=== PATIENT | female | born 1945 | race Caucasian/White ===

== ENCOUNTER 2016-07-21 20:33 | Emergency (ER) | payer MEDICARE, BC ==
[2016-07-21 22:02] LABS: Appearance,Urine Cloudy (Clear); Bilirubin,Urine Negative (Negative); Glucose,Urine (UA) Negative (Negative); Ketones,Urine Negative (Negative); Leukocyte Esterase,Urine Moderate (Negative); Mucus,Urine Rare /hpf; Nitrite,Urine Negative (Negative); PH, Urine 5.5 (5.0-8.0); Particle Count 4726; Protein,Urine 1+ (Negative); RBC,Urine 14 /hpf (0-5); Specific Gravity,Urine 1.015 (1.001-1.035); Squamous Epithelial Cell,Urine 2 /hpf (0-4); UA Billing (MACRO vs. MICRO) MICRO; Urobilinogen,Urine <2.0 mg/dL (<2.0); WBC,Urine 26 /hpf (0-5)
--- NOTE | 2016-07-21 22:45 | ED ---
General Adult HPI - General Chief complaint: Psychiatric Symptoms Stated complaint: Poss Mental Health Time Seen by Provider: 07/21/16 21:08 Source: patient Mode of arrival: ambulatory Limitations: no limitations - History of Present Illness Initial comments: 71-year-old female with past medical history of early dementia presented for evaluation of increased agitation this evening. Family states that she has had an increasing incidence of trying to go out at night and take walks. Tonight however she stated that she had received a phone call from some kids who wanted to go to the beach for a bonfire and that they were going to come by and pick her up. When her family told her that this hadn't happened and try to bring her back inside she became very agitated and continued to try to get outside. They were eventually able to get her to come to the ED to be evaluated. During interview she denied any pain or discomfort and stated that she felt completely fine. - Related Data Home Medications Medication Instructions Recorded Confirmed Aspirin 162 mg PO BID 12/31/13 09/12/15 Atorvastatin [Lipitor] 40 mg PO HS 12/31/13 09/12/15 Metoprolol Tartrate [Lopressor] 50 mg PO BID 12/31/13 09/12/15 Nitroglycerin Sl Tabs [Nitrostat] 0.4 mg SL Q5M PRN 12/31/13 09/12/15 Pantoprazole Sodium [Protonix] 40 mg PO DAILY 12/31/13 09/12/15 Cholecalciferol [Vitamin D3] 1,000 unit PO DAILY 04/23/14 09/12/15 PARoxetine [Paxil] 20 mg PO DAILY 12/08/14 09/12/15 ALPRAZolam [Xanax] 0.5 mg PO BID PRN 04/17/15 09/12/15 Hydrocodone/Acetaminophen [[place] 1 tab PO Q6HR PRN 04/17/15 09/12/15 5-325] Magnesium Gluconate [Magonate] 500 mg PO DAILY 04/17/15 09/12/15 Levothyroxine Sodium [Synthroid] 112 mcg PO DAILY 09/09/15 09/12/15 Insuln Asp Prt/Insulin Aspart 30 unit SQ HS 09/12/15 09/12/15 [NovoLOG MIX 70-30 VIAL] Insuln Asp Prt/Insulin Aspart 50 unit SQ QAM 09/12/15 09/12/15 [NovoLOG MIX 70-30 VIAL] Lisinopril-Hctz 10-12.5 mg 1 tab PO DAILY 09/12/15 09/12/15 [Zestoretic 10-12.5] hydrALAZINE HCL [Apresoline] 25 mg PO BID 09/12/15 09/12/15 Previous Rx's Medication Instructions Recorded Insulin NPH/Reg Insulin 70/30 30 unit SQ HS vial 09/13/15 [humuLIN 70/30 VIAL] Insulin NPH/Reg Insulin 70/30 50 unit SQ AC-BRKFST vial 09/13/15 [humuLIN 70/30 VIAL] Cephalexin [Keflex] 500 mg PO Q12HR #14 cap 07/21/16 Allergies Allergy/AdvReac Type Severity Reaction Status Date / Time codeine AdvReac Nausea Verified 07/21/16 20:47 erythromycin base AdvReac Nausea Verified 07/21/16 20:47 [Erythromycin Base] Iodinated Contrast Media - AdvReac ELEVATED Verified 07/21/16 20:47 Oral and B/P, FELT [Iodinated Contrast Media - LIKE PASSED IV Dye] methylprednisolone AdvReac Confusion Verified 07/21/16 20:47 [From Medrol] Sulfa (Sulfonamide AdvReac DIZZYNESS Verified 07/21/16 20:47 Antibiotics) Review of Systems ROS Statement: Those systems with pertinent positive or pertinent negative responses have been documented in the HPI. General: Patient denies fever, chills,nausea, or vomiting. HEENT: No visual changes. No eye pain. No nasal symptoms. No dysphagia.No odynophagia. No ENT pain. Cardiac: No chest pain. No palpitations. Pulmonary; No dyspnea. Negative cough. GI: No abdominal pain. No diarrhea. No constipation. No bowel habit changes. No melena. No hematochezia. : No dysuria.No hematuria. No hesitancy. No urgency. No renal lithiasis history. Musculoskeletal: No musculoskeletal pain. Orthopedic: Denies fracture history. Integumentary: Denies rash. Denies pruritis. Neurologic: Confusion and dementia that worsens in the evenings per family. Denies any lateralizing weakness. Denies numbness. Denies tingling. No seizure activity. Denies TIA or CVA. Heme/Onc: Denies anemia. Denies cancer. Denies adenopathy. ROS Other: All systems not noted in ROS Statement are negative. Past Medical History Past Medical History: Coronary Artery Disease (CAD), Cancer, Diabetes Mellitus, Hyperlipidemia, Hypertension, Myocardial Infarction ([place]), Renal Disease Additional Past Medical History / Comment(s): osteomyelitis Lt hand/STAGE 3 RENAL FAILURE/THYROID CANCER Last Myocardial Infarction Date:: 1999 History of Any Multi-Drug Resistant Organisms: MRSA Date of last positivie culture/infection: 07/01/2015 MDRO Source:: knee left Past Surgical History: Appendectomy, Heart Catheterization With Stent, Orthopedic Surgery Additional Past Surgical History / Comment(s): left hand, thyroidectomy, neck fusion/CARPAL TUNNEL REPAIR ASHLEY, STENT X1 Past Anesthesia/Blood Transfusion Reactions: No Reported Reaction Date of Last Stent Placement:: 1999 Past Psychological History: Anxiety, Depression, Panic Disorder Smoking Status: Never smoker Past Alcohol Use History: None Reported Past Drug Use History: None Reported - Past Family History Mother Family Medical History: Diabetes Mellitus Father Family Medical History: Myocardial Infarction ([place]) General Exam - General Exam Comments Initial Comments: General: The patient is awake and alert, in no distress, and does not appear acutely ill. Eye: Pupils are equal, round and reactive to light, extra-ocular movements are intact; there is normal conjunctiva bilaterally. No signs of icterus. Ears, nose, mouth and throat: There are moist mucous membranes and no oral lesions. Neck: The neck is supple, there is no tenderness or JVD. Cardiovascular: There is a regular rate and rhythm. No murmur, rub or gallop is appreciated. Respiratory: Lungs are clear to auscultation, respirations are non-labored, breath sounds are equal. No wheezes, stridor, rales, or rhonchi. Gastrointestinal: Soft, non-distended, suprapubic abdominal tenderness without masses or organomegaly noted. There is no rebound or guarding present. No CVA tenderness. Bowel sounds are unremarkable. Back: There is no tenderness to palpation in the midline. There is no obvious deformity. No rashes noted. Musculoskeletal: Normal ROM, no tenderness, There is no pedal edema. There is no calf tenderness or swelling. Sensation intact. Pulses equal bilaterally 2+. Neurological: CN II-XII intact, There are no obvious motor or sensory deficits. Coordination appears grossly intact. Speech is normal. Skin: Skin is warm and dry and no rashes or lesions are noted. Psychiatric: Cooperative, appropriate mood & affect, Limitations: no limitations Course Vital Signs 07/21/16 07/21/16 20:40 22:50 Temperature 98.5 F 98.2 F Pulse Rate 72 82 Respiratory 18 20 Rate Blood Pressure 188/79 178/82 O2 Sat by Pulse 96 98 Oximetry Medical Decision Making - Medical Decision Making 31-year-old female presented for evaluation of agitation this evening. Patient has early dementia and has been exhibiting signs and symptoms of sundowning, becoming more confused in the evenings on a consistent basis. Tonight she tried to go outside to wait for some people to pick her up to take her to a bonfire. Family states there was no such bonfire for her to go to the mother try to get her and she became agitated and upset. They bring her to the ED for evaluation. On physical examination she is answering all questions appropriately and is cooperative and when asked if she is in any pain or distress she states no. While examining her abdomen though she has suprapubic abdominal tenderness which she states is a burning that will occasionally worse when she urinates. Urinalysis was obtained which showed a urinary tract infection. Family was informed that she would be discharged with a prescription for an antibiotic and that they should follow-up with her primary care physician for possible evaluation of her social status/mental status and whether or not she would require placement in a long-term care facility. The family acknowledged an understanding of this information and agreed with this plan of care. He further stated that they would call her primary care physician on Saturday to set up an appointment. - Lab Data Lab Results 07/21/16 Range/Units 21:20 Urine Color Yellow Urine Appearance Cloudy H (Clear) Urine pH 5.5 (5.0-8.0) Ur Specific Adams 1.015 (1.001-1.035) Urine Protein 1+ H (Negative) Urine Glucose (UA) Negative (Negative) Urine Ketones Negative (Negative) Urine Blood Negative (Negative) Urine Nitrate Negative (Negative) Urine Bilirubin Negative (Negative) Urine Urobilinogen <2.0 (<2.0) mg/dL Ur Leukocyte Esterase Moderate H (Negative) Urine RBC 14 H (0-5) /hpf Urine WBC 26 H (0-5) /hpf Ur Squamous Epith Cells 2 (0-4) /hpf Urine Mucus Rare H (None) /hpf Disposition Clinical Impression: UTI (urinary tract infection) Disposition: HOME SELF-CARE Condition: Stable Instructions: Urinary Tract Infection in Women (ED) Additional Instructions: Please use medication as discussed. Please follow up with family doctor if symptoms have not improved over the next two days. Please return to the emergency room if your symptoms increase or worsen or for any other concerns. Prescriptions: Cephalexin [Keflex] 500 mg PO Q12HR #14 cap Referrals: Cesar Nielsen DO [Primary Care Provider] - 1-2 days Time of Disposition: 22:45
[2016-07-21 22:57] VITALS: BP 178/82; PULSE 82; RESP 20; TEMP 98.2
== END 2016-07-21 22:50 | disposition home or self-care (01) ==
LOC: EC 20:33
DX: N39.0 Urinary tract infection, site not specified (principal); E11.22 Type 2 diabetes mellitus with diabetic chronic kidney disease; N18.3 Chronic kidney disease, stage 3 (moderate); F03.90 Unspecified dementia, unspecified severity, without behavioral disturbance, psychotic disturbance, mood disturbance, and anxiety; I25.2 Old myocardial infarction; I10 Essential (primary) hypertension; E78.5 Hyperlipidemia, unspecified; I25.10 Atherosclerotic heart disease of native coronary artery without angina pectoris; F41.9 Anxiety disorder, unspecified; F32.9 Major depressive disorder, single episode, unspecified; F41.0 Panic disorder [episodic paroxysmal anxiety]; Z79.82 Long term (current) use of aspirin; Z79.899 Other long term (current) drug therapy; Z79.4 Long term (current) use of insulin; Z91.041 Radiographic dye allergy status; Z95.5 Presence of coronary angioplasty implant and graft; Z85.850 Personal history of malignant neoplasm of thyroid; Z88.5 Allergy status to narcotic agent; Z88.2 Allergy status to sulfonamides; Z88.8 Allergy status to other drugs, medicaments and biological substances; Z88.1 Allergy status to other antibiotic agents
CPT/HCPCS: 81001; 99284

== ENCOUNTER 2016-08-19 13:14 | Emergency (ER) | payer MEDICARE, BC ==
[2016-08-19] MEDS ORDERED: SODIUM CHLORIDE 0.9% 1,000 ML IV STA ×2 (13:19→14:17)
--- NOTE | 2016-08-19 13:58 | ED ---
Upper Extremity HPI <NobleMike - Last Filed: 08/19/16 14:21> - General Source: patient Mode of arrival: wheelchair Limitations: no limitations - History of Present Illness Place: home <Cheri Carter - Last Filed: 08/19/16 16:45> - General Chief Complaint: Fall Stated Complaint: Fall Left shoulder pain Time Seen by Provider: 08/19/16 13:19 - History of Present Illness Initial Comments: Patient is a 71-year-old right-handed white female with a medical history significant for diabetes mellitus, hypertension, coronary artery disease, chronic renal disease presenting to the emergency department with complaints of left shoulder pain. Onset of injury approximately 45 minutes prior to arrival. Patient states that she was in her bedroom when she turned around and she thinks her shoe got stuck and she fell. Patient currently complains of a burning sensation to her left shoulder describing pain as an 8 out of 10, exacerbated with activity, somewhat relieved at rest. Patient primarily describes area of pain to the posterior of her left shoulder radiating down her left upper arm. Patient states she is unable to extend her right arm. Patient denies previous injury or surgery to her left upper extremity. Patient denies loss of consciousness. Patient denies neck pain. Patient denies recent illness , chills, nausea, vomiting, shortness of breath, chest pain, or abdominal pain. 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 Patient denies treatment prior to arrival. (Cheri Carter) - Related Data Home Medications Medication Instructions Recorded Confirmed Aspirin 162 mg PO DAILY 12/31/13 08/19/16 Metoprolol Tartrate [Lopressor] 50 mg PO BID 12/31/13 08/19/16 Nitroglycerin Sl Tabs [Nitrostat] 0.4 mg SUBLINGUAL Q5M PRN 12/31/13 08/19/16 Pantoprazole Sodium [Protonix] 40 mg PO DAILY 12/31/13 08/19/16 Cholecalciferol [Vitamin D3] 1,000 unit PO DAILY 04/23/14 08/19/16 ALPRAZolam [Xanax] 0.5 mg PO BID PRN 04/17/15 08/19/16 Magnesium Gluconate [Magonate] 500 mg PO DAILY 04/17/15 08/19/16 Levothyroxine Sodium [Synthroid] 112 mcg PO DAILY 09/09/15 08/19/16 Lisinopril-Hctz 10-12.5 mg 1 tab PO DAILY 09/12/15 08/19/16 [Zestoretic 10-12.5] hydrALAZINE HCL [Apresoline] 25 mg PO BID PRN 09/12/15 08/19/16 Atorvastatin [Lipitor] 80 mg PO HS 08/19/16 08/19/16 Insulin NPH/Reg Insulin 70/30 50 unit SQ QAM 08/19/16 08/19/16 [humuLIN 70/30 VIAL] Previous Rx's Medication Instructions Recorded Insulin NPH/Reg Insulin 70/30 30 unit SQ HS vial 09/13/15 [humuLIN 70/30 VIAL] Allergies Allergy/AdvReac Type Severity Reaction Status Date / Time codeine AdvReac Nausea Verified 08/19/16 13:42 erythromycin base AdvReac Nausea Verified 07/21/16 20:47 [Erythromycin Base] Iodinated Contrast Media - AdvReac ELEVATED Verified 08/19/16 13:42 Oral and B/P, FELT [Iodinated Contrast Media - LIKE PASSED IV Dye] methylprednisolone AdvReac Confusion Verified 07/21/16 20:47 [From Medrol] Sulfa (Sulfonamide AdvReac DIZZYNESS Verified 08/19/16 13:42 Antibiotics) Review of Systems ROS Other: All systems not noted in ROS Statement are negative. <Mike Noble - Last Filed: 08/19/16 14:21> ROS Other: All systems not noted in ROS Statement are negative. <Cheri Carter - Last Filed: 08/19/16 16:45> ROS Statement: Those systems with pertinent positive or pertinent negative responses have been documented in the HPI. Past Medical History Past Medical History: Coronary Artery Disease (CAD), Cancer, Diabetes Mellitus, Hyperlipidemia, Hypertension, Myocardial Infarction ([place]), Renal Disease Additional Past Medical History / Comment(s): osteomyelitis Lt hand/STAGE 3 RENAL FAILURE/THYROID CANCER Last Myocardial Infarction Date:: 1999 History of Any Multi-Drug Resistant Organisms: MRSA Date of last positivie culture/infection: 07/01/2015 MDRO Source:: knee left Past Surgical History: Appendectomy, Heart Catheterization With Stent, Orthopedic Surgery Additional Past Surgical History / Comment(s): left hand, thyroidectomy, neck fusion/CARPAL TUNNEL REPAIR ASHLEY, STENT X1 Past Anesthesia/Blood Transfusion Reactions: No Reported Reaction Date of Last Stent Placement:: 1999 Past Psychological History: Anxiety, Depression, Panic Disorder Smoking Status: Never smoker Past Alcohol Use History: None Reported Past Drug Use History: None Reported - Past Family History Mother Family Medical History: Diabetes Mellitus Father Family Medical History: Myocardial Infarction ([place]) <Cheri Carter - Last Filed: 08/19/16 16:45> General Exam Limitations: no limitations General appearance: alert, anxious Head exam: Present: atraumatic, normocephalic, normal inspection Eye exam: Present: normal appearance, PERRL. Absent: scleral icterus, conjunctival injection ENT exam: Present: normal exam, normal oropharynx, mucous membranes moist, TM's normal bilaterally, normal external ear exam Neck exam: Present: normal inspection, full ROM. Absent: tenderness, meningismus, lymphadenopathy Respiratory exam: Present: normal lung sounds bilaterally. Absent: wheezes, rales, rhonchi, chest wall tenderness Cardiovascular Exam: Present: regular rate, normal rhythm, normal heart sounds GI/Abdominal exam: Present: soft, normal bowel sounds. Absent: tenderness Left Shoulder Exam: Present: tenderness, swelling, tenderness over AC joint. Absent : full ROM Upper Arm exam: Present: tenderness. Absent: swelling, ecchymosis Elbow exam: Present: normal inspection, tenderness over radial head. Absent: full ROM (Is unable to extend left elbow), tenderness, swelling, ecchymosis, deformity Forearm Wrist exam: Present: normal inspection, full ROM. Absent: tenderness, swelling Hand Wrist exam: Present: normal inspection, full ROM. Absent: tenderness, swelling Neuro motor exam: Present: wrist extension intact, thumb opposition intact, thumb IP flexion intact, thumb adduction intact, fingers 2-5 abduction intact Neurosensory exam: Present: 2-point discrimination, radial nerve intact, ulnar nerve intact, median nerve intact Vascular: Present: normal capillary refill, radial pulse, brachial pulse, ulnar pulse. Absent: vascular compromise, pulse deficit radial art, pulse deficit ulnar art, pulse deficit brachial art Back exam: Present: normal inspection, full ROM. Absent: tenderness Neurological exam: Present: alert, oriented X3, other (No focal deficits noted) . Absent: motor sensory deficit Psychiatric exam: Present: normal affect, anxious Skin exam: Present: warm, dry, intact, normal color <Cheri Carter - Last Filed: 08/19/16 16:45> Course <Mike Noble - Last Filed: 08/19/16 14:21> <Cheri Carter - Last Filed: 08/19/16 16:45> Vital Signs 08/19/16 08/19/16 08/19/16 13:16 14:48 15:18 Temperature 99.1 F Pulse Rate 72 75 78 Respiratory 20 18 18 Rate Blood Pressure 168/75 160/70 225/89 O2 Sat by Pulse 98 94 L 96 Oximetry 08/19/16 15:43 Temperature Pulse Rate 91 Respiratory 18 Rate Blood Pressure 167/69 O2 Sat by Pulse 96 Oximetry - Reevaluation(s) Reevaluation #1: 08/19/16 14:21 Patient evaluated by myself, Dr. Noble. Patient did have a trip and fall. Patient is unclear how she actually landed. Patient denies syncope or head injury or loss of consciousness. Case was discussed in detail with Dr. Johnson who did review the films. He requests computed tomography scan. (Mike Noble) Reevaluation #2: Patient reevaluated. Patient continues to complain of left shoulder pain currently rated 8 out of 10. Blood pressure 225/89. Patient will be treated with 1 mg of Dilaudid IV push and hydralazine 10 mg IV push. 08/19/16 15:27 (Cheri Carter) Medical Decision Making <Mike Noble - Last Filed: 08/19/16 14:21> - Radiology Data Radiology results: report reviewed <Cheri Carter - Last Filed: 08/19/16 16:45> - Medical Decision Making Mildly displaced, comminuted fracture of the humeral head and neck. No definite glenoid fracture seen. There are approximately 5 fragments. Hypertrophic changes in the left AC joint. Patient provided with a sling to left upper extremity and instructed to follow-up with orthopedic surgeon on Saturday. Patient instructed to continue ice and tramadol for pain as needed. Patient's blood pressure improved with pain management and IV hydralazine. Patient instructed to follow-up with primary care physician. Patient and family verbalizes understanding and is in agreement with treatment plan. Return parameters and discharge instructions reviewed. (Cheri Carter) - Lab Data Lab Results 08/19/16 Range/Units 14:46 POC Glucose (mg/dL) 109 H (75-99) mg/dL POC Glu General Production Manager ID - Radiology Data X-ray left shoulder: Fracture dislocation of the left humerus. Fracture of the neck of the humerus. The greater tuberosity has been avulsed. There is an associated anterior dislocation. CT left shoulder without contrast: Mildly displaced, comminuted fracture of the humeral head and neck. No definite glenoid fracture seen. There are approximately 5 fragments. Hypertrophic changes in the left AC joint. (Cheri Carter) Disposition <Mike Noble - Last Filed: 08/19/16 14:21> Time of Disposition: 16:43 <Cheri Carter - Last Filed: 08/19/16 16:45> Clinical Impression: Traumatic closed fracture of surgical neck of left humerus with minimal displacement with delayed healing Disposition: HOME SELF-CARE Condition: Good Instructions: Fall Prevention for Older Adults (ED) Additional Instructions: Continue sling to left arm. Follow-up with orthopedic surgeon on Saturday. Continue tramadol for pain. Apply ice to area 4 times a day for approximately 15 minutes. Please return to the emergency department if symptoms do not improve or get worse. Follow-up with primary care physician as directed. Referrals: Cesar Nielsen DO [Primary Care Provider] - 1-2 days Todd Osuna DO [Doctor of Osteopathic Medicine] - 1-2 days
--- NOTE | 2016-08-19 14:01 | XR ---
EXAMINATION TYPE: XR shoulder complete LT DATE OF EXAM ORDERED: 08/19/2016 1:53 PM HISTORY: Pain. COMPARISON: Previous study dated 05/07/2014. FINDINGS: There is a fracture dislocation of the left humerus. There is a fracture of the neck of th e humerus. The greater tuberosity has been avulsed. There is an associated anterior dislocation. IMPRESSION: FRACTURE DISLOCATION OF THE LEFT GLENOHUMERAL JOINT.
[2016-08-19] MEDS ORDERED: HYDROmorphone 1 MG/ML 1 ML SYRINGE IVP STA ×2 (14:13→15:17)
[2016-08-19] MEDS ORDERED: ONDANSETRON 4 MG/2 ML VIAL IVP STA (14:14)
[2016-08-19 14:50] VITALS: RESP 18
[2016-08-19 14:50] LABS: Glucose,Whole Blood 109 mg/dL (75-99)
--- NOTE | 2016-08-19 15:15 | CT ---
EXAMINATION TYPE: CT shoulder LT wo con DATE OF EXAM: 08/19/2016 3:06 PM COMPARISON: NONE HISTORY: Fall CT DLP: 528.9 mGycm Automated exposure control for dose reduction was used. FINDINGS: Visualized portions of the lungs are clear. There is a mildly displaced, comminuted fracture of the humeral head and neck. No definite glenoid fr acture is seen. There are approximately 5 fragments. There hypertrophic changes in the left AC joint. IMPRESSION: MILDLY DISPLACED, COMMINUTED FRACTURE OF THE LEFT HUMERAL HEAD AND NECK.
[2016-08-19] MEDS ORDERED: hydrALAZINE HCL 20 MG/ML 1 ML VIAL IVP STA (15:19)
[2016-08-19 17:01] VITALS: BP 165/67; PULSE 77; TEMP 98.3
== END 2016-08-19 17:30 | disposition home or self-care (01) ==
LOC: EC 13:14
DX: S42.292A Other displaced fracture of upper end of left humerus, initial encounter for closed fracture (principal); S53.115A Anterior dislocation of left ulnohumeral joint, initial encounter; E11.9 Type 2 diabetes mellitus without complications; E78.5 Hyperlipidemia, unspecified; I25.10 Atherosclerotic heart disease of native coronary artery without angina pectoris; I10 Essential (primary) hypertension; I25.2 Old myocardial infarction; Z95.5 Presence of coronary angioplasty implant and graft; F41.9 Anxiety disorder, unspecified; F32.9 Major depressive disorder, single episode, unspecified; F41.0 Panic disorder [episodic paroxysmal anxiety]; Z79.82 Long term (current) use of aspirin; Z79.899 Other long term (current) drug therapy; Z79.52 Long term (current) use of systemic steroids; Z79.4 Long term (current) use of insulin; Z88.1 Allergy status to other antibiotic agents; Z88.5 Allergy status to narcotic agent; Z91.041 Radiographic dye allergy status; Z88.2 Allergy status to sulfonamides; W01.0XXA Fall on same level from slipping, tripping and stumbling without subsequent striking against object, initial encounter; Y92.89 Other specified places as the place of occurrence of the external cause
CPT/HCPCS: 36415; 73030; 73200; 99284; 96374; 96375 ×2; 96376; 96361; J0360; J2405; J1170

== ENCOUNTER → 2016-08-30 | Outpatient (CLI) | payer MEDICARE, BC ==
--- NOTE | 2016-08-31 08:13 | CT ---
EXAMINATION TYPE: CT brain wo con DATE OF EXAM: 08/30/2016 5:14 PM COMPARISON: Prior head CT 07 May 2014 HISTORY: Balance problems, hallucinations CT DLP: 973.9 mGycm Automated exposure control for dose reduction was used. FINDINGS: There is no acute intracranial hemorrhage, mass effect, or midline shift identified. The ventricles and sulci are within normal limits in size. Atheromatous change present in the vertebrobasilar and in ternal carotid arteries. Cortical atrophy, periventricular white matter demyelination changes are aga in noted. There is a calcification along the level of the anterior sylvian fissure on the left as not ed on multiple prior exams that is indeterminate. The globes are intact and the visualized sinuses ar e clear. IMPRESSION: No acute intracranial hemorrhage, mass effect, or midline shift is seen. Indeterminate calcifications along the anterior sylvian fissure as previously described. Findings may represent meningioma, aneur ysm not excluded. Consider additional imaging.
== END | disposition home or self-care (01) ==
LOC: RADCTMAIN 16:56
PROVIDERS: ATTEND Family Medicine
DX: G93.89 Other specified disorders of brain (principal); R26.89 Other abnormalities of gait and mobility; R44.3 Hallucinations, unspecified; R41.0 Disorientation, unspecified
CPT/HCPCS: 70450

== ENCOUNTER 2016-09-03 12:54 | Observation (INO) | payer MEDICARE, BC ==
[2016-09-03 13:39] LABS: Glucose,Whole Blood 103 mg/dL (75-99)
[2016-09-03] MEDS ORDERED: SODIUM CHLORIDE 0.9% 1,000 ML IV STA (13:59)
--- NOTE | 2016-09-03 14:03 | ED ---
General Adult HPI - General Chief complaint: Syncope Stated complaint: Near-syncope Time Seen by Provider: 09/03/16 13:37 Source: patient, family, RN notes reviewed Mode of arrival: ambulatory Limitations: no limitations - History of Present Illness Initial comments: Patient is a pleasant 71-year-old female presenting to the emergency department for near syncopal episode. Patient was sitting down eating lunch. Patient became drowsy and diaphoretic. Patient states she felt almost like she was going to fall asleep. Patient did not completely lose consciousness however felt like she was very close. Patient still remains somewhat drowsy however not as bad. Patient states maybe she has had some similar symptoms previously however not as severe. No chest pain. No dyspnea. No abdominal pain. No confusion. No isolated area of weakness. Patient does have a left humerus fracture from 2 weeks ago. - Related Data Home Medications Medication Instructions Recorded Confirmed Aspirin 162 mg PO DAILY 12/31/13 09/03/16 Metoprolol Tartrate [Lopressor] 50 mg PO BID 12/31/13 09/03/16 Nitroglycerin Sl Tabs [Nitrostat] 0.4 mg SUBLINGUAL Q5M PRN 12/31/13 09/03/16 Pantoprazole Sodium [Protonix] 40 mg PO DAILY 12/31/13 09/03/16 Cholecalciferol [Vitamin D3] 1,000 unit PO DAILY 04/23/14 09/03/16 Levothyroxine Sodium [Synthroid] 112 mcg PO DAILY 09/09/15 09/03/16 Lisinopril-Hctz 10-12.5 mg 1 tab PO DAILY 09/12/15 09/03/16 [Zestoretic 10-12.5] hydrALAZINE HCL [Apresoline] 25 mg PO BID 09/12/15 09/03/16 Atorvastatin [Lipitor] 80 mg PO HS 08/19/16 09/03/16 Insulin NPH/Reg Insulin 70/30 55 unit SQ QAM 08/19/16 09/03/16 [humuLIN 70/30 VIAL] Allopurinol [Zyloprim] 100 mg PO DAILY 09/03/16 09/03/16 Ciprofloxacin HCl [Cipro] 500 mg PO Q12HR 09/03/16 09/03/16 Insulin NPH/Reg Insulin 70/30 35 unit SQ HS 09/03/16 09/03/16 [humuLIN 70/30 VIAL] Magnesium Oxide [Mag-Ox] 400 mg PO DAILY 09/03/16 09/03/16 PARoxetine [Paxil] 20 mg PO DAILY 09/03/16 09/03/16 predniSONE See Taper PO DAILY 09/03/16 09/03/16 traMADol HCL [Ultram] 100 mg PO TID PRN 09/03/16 09/03/16 Allergies Allergy/AdvReac Type Severity Reaction Status Date / Time lorazepam [From Ativan] Allergy Unknown Verified 09/03/16 14:44 codeine AdvReac Nausea Verified 09/03/16 14:44 erythromycin base AdvReac Nausea Verified 09/03/16 14:44 [Erythromycin Base] Iodinated Contrast Media - AdvReac ELEVATED Verified 09/03/16 14:44 Oral and B/P, FELT [Iodinated Contrast Media - LIKE PASSED IV Dye] methylprednisolone AdvReac Confusion Verified 09/03/16 14:44 [From Medrol] Sulfa (Sulfonamide AdvReac DIZZYNESS Verified 09/03/16 14:44 Antibiotics) Review of Systems ROS Statement: Those systems with pertinent positive or pertinent negative responses have been documented in the HPI. ROS Other: All systems not noted in ROS Statement are negative. Constitutional: Denies: fever Eyes: Denies: eye pain ENT: Denies: ear pain Respiratory: Denies: cough, dyspnea Cardiovascular: Denies: chest pain Endocrine: Denies: fatigue Gastrointestinal: Denies: abdominal pain Genitourinary: Denies: dysuria Musculoskeletal: Denies: back pain Skin: Denies: rash Neurological: Denies: headache, weakness, confusion Past Medical History Past Medical History: Coronary Artery Disease (CAD), Cancer, Diabetes Mellitus, Hyperlipidemia, Hypertension, Myocardial Infarction ([place]), Renal Disease Additional Past Medical History / Comment(s): osteomyelitis Lt hand/STAGE 3 RENAL FAILURE/THYROID CANCER Last Myocardial Infarction Date:: 1999 History of Any Multi-Drug Resistant Organisms: MRSA Date of last positivie culture/infection: 07/01/2015 MDRO Source:: knee left Past Surgical History: Appendectomy, Heart Catheterization With Stent, Orthopedic Surgery Additional Past Surgical History / Comment(s): left hand, thyroidectomy, neck fusion/CARPAL TUNNEL REPAIR ASHLEY, STENT X1 Past Anesthesia/Blood Transfusion Reactions: No Reported Reaction Date of Last Stent Placement:: 1999 Past Psychological History: Anxiety, Depression, Panic Disorder Smoking Status: Never smoker Past Alcohol Use History: None Reported Past Drug Use History: None Reported - Past Family History Mother Family Medical History: Diabetes Mellitus Father Family Medical History: Myocardial Infarction ([place]) General Exam Limitations: no limitations General appearance: alert, in no apparent distress Head exam: Present: atraumatic Eye exam: Present: normal appearance, PERRL ENT exam: Present: normal oropharynx Neck exam: Present: normal inspection Respiratory exam: Present: normal lung sounds bilaterally Cardiovascular Exam: Present: regular rate, normal rhythm GI/Abdominal exam: Present: soft. Absent: tenderness Extremities exam: Present: tenderness (Left upper arm. Arm is in a sling) Neurological exam: Present: alert, oriented X3, CN II-XII intact Expanded Speech: Present: fluid speech Cranial nerves: EOM's Intact: Normal Sensory exam: Upper Extremity Light Touch: Abnormal Right (Patient states this is chronic and unchanged) Motor strength exam: RUE: 5, LUE: 5, RLE: 5, LLE: 5 Eye Response: (4) open spontaneously Motor Response: (6) obeys commands Verbal Response: (5) oriented Psychiatric exam: Present: normal affect, normal mood Skin exam: Present: normal color Course Vital Signs 09/03/16 09/03/16 09/03/16 13:19 14:26 15:09 Temperature 96.8 F L Pulse Rate 56 L 53 L 54 L Respiratory 20 16 16 Rate Blood Pressure 108/51 175/72 160/70 O2 Sat by Pulse 100 92 L 100 Oximetry 09/03/16 16:00 Temperature Pulse Rate 57 L Respiratory 16 Rate Blood Pressure 175/70 O2 Sat by Pulse 100 Oximetry - Reevaluation(s) Reevaluation #1: 09/03/16 15:43 DL this does not feel comfortable computed tomography scan and VQ scan will be ordered. EKG Findings - EKG Comments: EKG Findings:: Size. Cardiac 59. GA 116. QRS 98. QT 474. QTC 469 left axis. Normal QRS. Normal ST-T. Medical Decision Making - Medical Decision Making Family updated. Patient is and VQ scan. Admission will be held pending results. Case was discussed in detail with Dr. Garcia, who will admit for Dr. Vicenta martinez. - Lab Data Result diagrams: 09/03/16 13:50 09/03/16 13:50 Lab Results 09/03/16 09/03/16 09/03/16 Range/Units 13:24 13:50 13:50 WBC 13.9 H (3.8-10.6) k/uL RBC 3.79 L (3.80-5.40) m/uL Hgb 11.0 L (11.4-16.0) gm/dL Hct 34.8 (34.0-46.0) % MCV 91.9 (80.0-100.0) fL MCH 29.0 (25.0-35.0) pg MCHC 31.6 (31.0-37.0) g/dL RDW 15.3 (11.5-15.5) % Plt Count 321 (150-450) k/uL Neutrophils % 78 % Lymphocytes % 13 % Monocytes % 6 % Eosinophils % 2 % Basophils % 0 % Neutrophils # 10.8 H (1.3-7.7) k/uL Lymphocytes # 1.8 (1.0-4.8) k/uL Monocytes # 0.8 (0-1.0) k/uL Eosinophils # 0.2 (0-0.7) k/uL Basophils # 0.1 (0-0.2) k/uL Hypochromasia Slight PT (9.0-12.0) sec INR (<1.1) APTT (22.0-30.0) sec D-Dimer (<0.60) mg/L FEU Sodium (137-145) mmol/L Potassium (3.5-5.1) mmol/L Chloride (98-107) mmol/L Carbon Dioxide (22-30) mmol/L Anion Gap mmol/L BUN (7-17) mg/dL Creatinine (0.52-1.04) mg/dL Est GFR (MDRD) Af Amer (>60 ml/min/1.73 sqM) Est GFR (MDRD) Non-Af (>60 ml/min/1.73 sqM) Glucose (74-99) mg/dL POC Glucose (mg/dL) 103 H (75-99) mg/dL POC Glu Machinist Supervisor ID Lavere, Alissandra Calcium (8.4-10.2) mg/dL Total Bilirubin (0.2-1.3) mg/dL AST (14-36) U/L ALT (9-52) U/L Alkaline Phosphatase (38-126) U/L Total Creatine Kinase 79 (30-135) U/L CK-MB (CK-2) 1.9 (0.0-2.4) ng/mL CK-MB (CK-2) Rel Index 2.4 Troponin I <0.012 (0.000-0.034) ng/mL Total Protein (6.3-8.2) g/dL Albumin (3.5-5.0) g/dL 09/03/16 09/03/16 Range/Units 13:50 13:50 WBC (3.8-10.6) k/uL RBC (3.80-5.40) m/uL Hgb (11.4-16.0) gm/dL Hct (34.0-46.0) % MCV (80.0-100.0) fL MCH (25.0-35.0) pg MCHC (31.0-37.0) g/dL RDW (11.5-15.5) % Plt Count (150-450) k/uL Neutrophils % % Lymphocytes % % Monocytes % % Eosinophils % % Basophils % % Neutrophils # (1.3-7.7) k/uL Lymphocytes # (1.0-4.8) k/uL Monocytes # (0-1.0) k/uL Eosinophils # (0-0.7) k/uL Basophils # (0-0.2) k/uL Hypochromasia PT 10.6 (9.0-12.0) sec INR 1.0 (<1.1) APTT 23.5 (22.0-30.0) sec D-Dimer 3.85 H (<0.60) mg/L FEU Sodium 145 (137-145) mmol/L Potassium 4.5 (3.5-5.1) mmol/L Chloride 106 (98-107) mmol/L Carbon Dioxide 29 (22-30) mmol/L Anion Gap 10 mmol/L BUN 28 H (7-17) mg/dL Creatinine 1.19 H (0.52-1.04) mg/dL Est GFR (MDRD) Af Amer 54 (>60 ml/min/1.73 sqM) Est GFR (MDRD) Non-Af 44 (>60 ml/min/1.73 sqM) Glucose 118 H (74-99) mg/dL POC Glucose (mg/dL) (75-99) mg/dL POC Glu Machinist Supervisor ID Calcium 9.2 (8.4-10.2) mg/dL Total Bilirubin 0.6 (0.2-1.3) mg/dL AST 21 (14-36) U/L ALT 27 (9-52) U/L Alkaline Phosphatase 116 (38-126) U/L Total Creatine Kinase (30-135) U/L CK-MB (CK-2) (0.0-2.4) ng/mL CK-MB (CK-2) Rel Index Troponin I (0.000-0.034) ng/mL Total Protein 6.6 (6.3-8.2) g/dL Albumin 3.8 (3.5-5.0) g/dL Disposition Clinical Impression: Near syncope Disposition: ADMITTED IP TO THIS HOSP
[2016-09-03 14:20] LABS: Basophils # (A) 0.1 k/uL (0-0.2); Basophils % (A) 0 %; CH 28.7; CHCM 31.4; Eosinophils # (A) 0.2 k/uL (0-0.7); Eosinophils % (A) 2 %; HCT 34.8 % (34.0-46.0); HDW 2.74; Hypochromasia Slight; Luc # (Auto) 0.24; Luc % (Auto) 2; Lymphocytes # (A) 1.8 k/uL (1.0-4.8); Lymphocytes % (A) 13 %; MCHC 31.6 g/dL (31.0-37.0); MCV 91.9 fL (80.0-100.0); Mean Platelet Volume 7.9; Monocytes # (A) 0.8 k/uL (0-1.0); Monocytes % (A) 6 %; Neutrophils # (A) 10.8 k/uL (1.3-7.7); Neutrophils % (A) 78 %; RBC 3.79 m/uL (3.80-5.40); RDW 15.3 % (11.5-15.5); WBC 13.9 k/uL (3.8-10.6); WBC (Perox) 14.83
[2016-09-03 14:31] LABS: Calcium 9.2 mg/dL (8.4-10.2); Potassium 4.5 mmol/L (3.5-5.1); Total Bilirubin 0.6 mg/dL (0.2-1.3); Total Protein 6.6 g/dL (6.3-8.2)
[2016-09-03 14:38] LABS: Partial Thromboplastin Time 23.5 sec (22.0-30.0); Prothrombin Time 10.6 sec (9.0-12.0)
[2016-09-03 14:44] LABS: Creatine Kinase 79 U/L (30-135)
--- NOTE | 2016-09-03 14:50 | CT ---
EXAMINATION TYPE: CT brain wo con DATE OF EXAM: 09/03/2016 2:42 PM COMPARISON: 08/30/2016 HISTORY: Near-syncope. CT DLP: 1153.00 mGycm Automated exposure control for dose reduction was used. FINDINGS: Artifact limits assessment of posterior fossa for hemorrhage. Remaining parenchyma demonstrate no aracelis gnostic evidence of acute hemorrhage or mass effect. No midline shift. Mild generalized degenerative change seen. Calcification involving the left sylvian fissure may be dystrophic or related to tiny me ningioma. Small calcified aneurysm not entirely excluded. Findings are stable dating back to 2013 IMPRESSION: No acute intracranial hemorrhage, mass effect, or midline shift is seen. See above.
[2016-09-03 14:57] LABS: Creatine Kinase MB 1.9 ng/mL (0.0-2.4); Troponin I <0.012 ng/mL (0.000-0.034)
--- NOTE | 2016-09-03 15:11 | XR ---
EXAMINATION TYPE: XR chest 2V DATE OF EXAM: 09/03/2016 2:59 PM COMPARISON: Prior chest x-ray 07 May 2014 HISTORY: Syncope TECHNIQUE: Frontal and lateral views of the chest are obtained. FINDINGS: There is no focal air space opacity, pleural effusion, or pneumothorax seen. The cardiac silhouette size is enlarged although technique may accentuate the appearance. The osseous structure s are remarkable for comminuted proximal left humeral fracture. Postop changes right shoulder and cer vical spine. There are overlying cardiac leads.. IMPRESSION: No acute cardiopulmonary process.
[2016-09-03] MEDS ORDERED: RX INFO: IV CONTRAST WAS GIVEN 1 EACH MISC MISCELLANE PRN (15:22)
[2016-09-03] MEDS ORDERED: SODIUM CHLORIDE 0.9% 500 ML IV STA (15:22)
[2016-09-03] MEDS ORDERED: methylPREDNISolone SOD SUCCI 125 MG/2 ML VIAL IV STA (15:23)
[2016-09-03] MEDS ORDERED: diphenhydrAMINE 50 MG/ML 1 ML VIAL IVP STA (15:23)
[2016-09-03] MEDS ORDERED: FAMOTIDINE 20 MG/2 ML VIAL IV STA (15:23)
[2016-09-03] MEDS ORDERED: MORPHINE SULFATE 4 MG/ML SYRINGE IV STA (15:59)
[2016-09-03] MEDS ORDERED: NALOXONE 0.4 MG/ML 1 ML VIAL IV PRN (17:19)
--- NOTE | 2016-09-03 17:26 | NM ---
EXAMINATION TYPE: NM pul vent and perfuse DATE OF EXAM: 09/03/2016 5:12 PM COMPARISON: NONE HISTORY: TECHNIQUE: Utilizing inhalation of 65.7 mCi Tc 99m DTPA aerosol and intravenous injection of 5.48 mC i of Tc 99m MAA, ventilation and perfusion images are acquired post injection in multiple projections . FINDINGS: The ventilation images are within normal limits. The perfusion images are within normal limits. IMPRESSION: Normal exam. There is a very low probability of pulmonary embolism.
[2016-09-03 17:33] LABS: Appearance,Urine Clear (Clear); Bacteria,Urine Rare /hpf; Bilirubin,Urine Negative (Negative); Glucose,Urine (UA) Negative (Negative); Ketones,Urine Negative (Negative); Leukocyte Esterase,Urine Moderate (Negative); Mucus,Urine Rare /hpf; Nitrite,Urine Negative (Negative); PH, Urine 6.5 (5.0-8.0); Particle Count 798; Protein,Urine Negative (Negative); Squamous Epithelial Cell,Urine <1 /hpf (0-4); UA Billing (MACRO vs. MICRO) MICRO; Urobilinogen,Urine <2.0 mg/dL (<2.0); WBC,Urine 2 /hpf (0-5)
[2016-09-03] MEDS ORDERED: traMADol 50 MG TAB PO PRN (19:44)
[2016-09-03] MEDS ORDERED: NITROGLYCERIN SL TABS 0.4 MG TAB SUBLINGUAL PRN (19:44)
[2016-09-03 21:42] LABS: Glucose,Whole Blood 66 mg/dL (75-99)
[2016-09-03] MEDS ORDERED: TEMAZEPAM 15 MG CAP PO PRN (21:42)
[2016-09-03] MEDS: INSULIN NPH/REG INSULIN 70/30 300 UNIT/3 ML VIAL SQ SCH (21:42)
[2016-09-03] MEDS: ATORVASTATIN 80 MG TAB PO SCH (21:43)
[2016-09-03] MEDS: METOPROLOL TARTRATE 50 MG TAB PO SCH (21:43)
[2016-09-03] MEDS: hydrALAZINE HCL 25 MG TAB PO SCH (21:43)
[2016-09-03] MEDS: SODIUM CHLORIDE 0.9% 1,000 ML IV SCH (21:44)
[2016-09-03 22:10] LABS: Glucose,Whole Blood 88 mg/dL (75-99)
[2016-09-03] MEDS: MORPHINE SULFATE 4 MG/ML SYRINGE IV PRN (23:56)
[2016-09-04] MEDS: LEVOTHYROXINE 112 MCG TAB PO SCH (05:18)
[2016-09-04 06:37] LABS: Glucose,Whole Blood 111 mg/dL (75-99)
[2016-09-04 06:57] LABS: Basophils % (A) 0 %; CH 28.3; CHCM 30.9; Eosinophils # (A) 0.2 k/uL (0-0.7); Eosinophils % (A) 3 %; HCT 31.9 % (34.0-46.0); Hypochromasia Moderate; Luc # (Auto) 0.16; Luc % (Auto) 2; Lymphocytes # (A) 2.2 k/uL (1.0-4.8); Lymphocytes % (A) 24 %; MCH 28.8 pg (25.0-35.0); MCHC 31.3 g/dL (31.0-37.0); Mean Platelet Volume 6.9; Monocytes # (A) 0.6 k/uL (0-1.0); Monocytes % (A) 6 %; Neutrophils % (A) 65 %; RBC 3.46 m/uL (3.80-5.40); RDW 15.4 % (11.5-15.5); WBC 9.2 k/uL (3.8-10.6); WBC (Perox) 10.03
[2016-09-04 07:06] LABS: Calcium 8.8 mg/dL (8.4-10.2); Potassium 4.5 mmol/L (3.5-5.1)
[2016-09-04] MEDS ORDERED: PANTOPRAZOLE 40 MG TABLET PO SCH (09:00)
[2016-09-04] MEDS ORDERED: PANTOPRAZOLE 40 MG/10 ML VIAL IV SCH (09:00)
--- NOTE | 2016-09-04 09:00 | P.CRDCN ---
History of Present Illness Consult date: 09/04/16 Consult reason: sycope History of present illness: 71-year-old lady with history of coronary artery disease status post angioplasty hypertension dyslipidemia and insulin requiring diabetes comes to Hospital having had episodes of dizziness and near syncope. She had profound episode of dizziness once fell and shattered her left shoulder. Yesterday she again had episodes of dizziness and these usually seem to come on when she gets up and into a standing position there is no real loss of consciousness there is no history of focal neurological deficits there is no history of bladder bowel incontinence. Since being admitted to hospital EKG did not reveal ischemic changes did not have tachycardia or bradycardia arrhythmias and she ruled out for myocardial infarction. Her d-dimer was elevated she went on to have a VQ scan that was low probability ability for pulmonary embolism He does have orthostatic changes. Her dizziness is seem to be related to the orthostatic changes. She sees my associate Dr. Cade in the office I'm going to review her outpatient records Review of Systems Constitutional: Denies chills. Denies fever. Eyes: Denies blurred vision. Denies pain. Ears, nose, mouth and throat: Denies headache. Denies sore throat. Cardiovascular: Denies chest pain. Denies shortness of breath. Respiratory: Denies cough. Gastrointestinal: Denies abdominal pain. Denies diarrhea. Denies nausea. Denies vomiting. Musculoskeletal: Denies myalgias. Integumentary: Denies pruritus. Denies rash. Neurological: Denies numbness. Denies weakness. Patient had dizziness and near syncope Psychiatric: Denies anxiety. Denies depression. Endocrine: Denies fatigue. Denies weight change. Genitourinary: Denies burning, hematuria, frequency of urination. Hematological: No anemia or excess bleeding. Past Medical History Past Medical History: Coronary Artery Disease (CAD), Cancer, Diabetes Mellitus, Hyperlipidemia, Hypertension, Myocardial Infarction ([place]), Renal Disease, Sleep Apnea/CPAP/BIPAP Additional Past Medical History / Comment(s): osteomyelitis Lt hand/STAGE 3 RENAL FAILURE/THYROID CANCER, cpap machine,"rt hand 3 fingers numb" falls- 3 weeks ago broke lt shoulder-wearing a sling,uti, constipation and pt stated she' s had blood in her stool Last Myocardial Infarction Date:: 1999 History of Any Multi-Drug Resistant Organisms: MRSA Date of last positivie culture/infection: 07/01/2015 MDRO Source:: knee left Past Surgical History: Appendectomy, Heart Catheterization With Stent, Orthopedic Surgery Additional Past Surgical History / Comment(s): left hand, thyroidectomy, neck fusion/CARPAL TUNNEL REPAIR ASHLEY,colonoscopy in past STENT X1 Past Anesthesia/Blood Transfusion Reactions: No Reported Reaction Date of Last Stent Placement:: 1999 Past Psychological History: Anxiety, Depression, Panic Disorder Additional Psychological History / Comment(s): pt lives with spouse in a single level home, 1 step into house. had cane/walker,shower chair. 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 Smoking Status: Never smoker Past Alcohol Use History: None Reported Past Drug Use History: None Reported - Past Family History Mother Family Medical History: Diabetes Mellitus Father Family Medical History: Myocardial Infarction ([place]) Medications and Allergies Home Medications Medication Instructions Recorded Confirmed Type Aspirin 162 mg PO DAILY 12/31/13 09/03/16 History Metoprolol Tartrate [Lopressor] 50 mg PO BID 12/31/13 09/03/16 History Nitroglycerin Sl Tabs [Nitrostat] 0.4 mg SUBLINGUAL Q5M PRN 12/31/13 09/03/16 History Pantoprazole Sodium [Protonix] 40 mg PO DAILY 12/31/13 09/03/16 History Cholecalciferol [Vitamin D3] 1,000 unit PO DAILY 04/23/14 09/03/16 History Levothyroxine Sodium [Synthroid] 112 mcg PO DAILY 09/09/15 09/03/16 History Lisinopril-Hctz 10-12.5 mg 1 tab PO DAILY 09/12/15 09/03/16 History [Zestoretic 10-12.5] hydrALAZINE HCL [Apresoline] 25 mg PO BID 09/12/15 09/03/16 History Atorvastatin [Lipitor] 80 mg PO HS 08/19/16 09/03/16 History Insulin NPH/Reg Insulin 70/30 55 unit SQ QAM 08/19/16 09/03/16 History [humuLIN 70/30 VIAL] Allopurinol [Zyloprim] 100 mg PO DAILY 09/03/16 09/03/16 History Ciprofloxacin HCl [Cipro] 500 mg PO Q12HR 09/03/16 09/03/16 History Insulin NPH/Reg Insulin 70/30 35 unit SQ HS 09/03/16 09/03/16 History [humuLIN 70/30 VIAL] Magnesium Oxide [Mag-Ox] 400 mg PO DAILY 09/03/16 09/03/16 History PARoxetine [Paxil] 20 mg PO DAILY 09/03/16 09/03/16 History predniSONE See Taper PO DAILY 09/03/16 09/03/16 History traMADol HCL [Ultram] 100 mg PO TID PRN 09/03/16 09/03/16 History Allergies Allergy/AdvReac Type Severity Reaction Status Date / Time lorazepam [From Ativan] Allergy Unknown Verified 09/03/16 14:44 codeine AdvReac Nausea Verified 09/03/16 14:44 erythromycin base AdvReac Nausea Verified 09/03/16 14:44 [Erythromycin Base] Iodinated Contrast Media - AdvReac ELEVATED Verified 09/03/16 14:44 Oral and B/P, FELT [Iodinated Contrast Media - LIKE PASSED IV Dye] methylprednisolone AdvReac Confusion Verified 09/03/16 14:44 [From Medrol] Sulfa (Sulfonamide AdvReac DIZZYNESS Verified 09/03/16 14:44 Antibiotics) Physical Exam Vitals: Vital Signs Temp Pulse Pulse Resp BP BP BP 09/04/16 07:45 98.6 F 64 16 171/74 09/04/16 04:00 74 16 155/66 155/66 09/04/16 00:00 97.6 F 66 16 09/03/16 20:00 16 09/03/16 19:00 97.9 F 56 L 16 09/03/16 18:18 97.1 F L 57 L 16 110/56 09/03/16 18:07 56 L 16 184/72 BP BP Pulse Ox 09/04/16 07:45 95 09/04/16 04:00 171/70 95 09/04/16 00:00 134/62 96 09/03/16 20:00 09/03/16 19:00 189/79 99 09/03/16 18:18 99 09/03/16 18:07 Intake and Output 09/03/16 09/04/16 09/04/16 22:59 06:59 14:59 Intake Total 220 236 Balance 220 236 Intake: Oral 220 236 Other: # Voids 1 General: The patient is awake and alert, in no distress, and does not appear acutely ill. Skin: Skin is warm and dry and no rashes or lesions are noted. Eye: Pupils are equal, round and reactive to light, extra-ocular movements are intact; there is normal conjunctiva bilaterally. Ears, nose, mouth and throat: There are moist mucous membranes and no oral lesions. Neck: The neck is supple, there is no tenderness or JVD. Cardiovascular: There is a regular rate and rhythm. No murmur, rub or gallop is appreciated. Orthostatic changes are noted Respiratory: Lungs are clear to auscultation, respirations are non-labored, breath sounds are equal. Gastrointestinal: Soft, non-distended, non-tender abdomen without masses or organomegaly noted. There is no rebound or guarding present. Bowel sounds are unremarkable. Back: There is no tenderness to palpation in the midline. There is no obvious deformity. Musculoskeletal: Normal ROM, no tenderness, There is no pedal edema. There is no calf tenderness or swelling. Extremities: No edema. Vascular: Femoral pulse is normal. Posterior tibial pulses are normal .Dorsalis pedis is palpable. Neurological: CN II-XII intact. There are no obvious motor or sensory deficits. Speech is normal. Psychiatric: Cooperative, appropriate mood & affect, normal judgment. Results 09/04/16 06:32 09/04/16 06:32 Cardiac Enzymes 09/03/16 09/04/16 Range/Units 21:37 01:29 Troponin I <0.012 <0.012 (0.000-0.034) ng/mL CBC 09/04/16 Range/Units 06:32 WBC 9.2 (3.8-10.6) k/uL RBC 3.46 L (3.80-5.40) m/uL Hgb 10.0 L (11.4-16.0) gm/dL Hct 31.9 L (34.0-46.0) % Plt Count 310 (150-450) k/uL Comprehensive Metabolic Panel 09/04/16 Range/Units 06:32 Sodium 144 (137-145) mmol/L Potassium 4.5 (3.5-5.1) mmol/L Chloride 109 H (98-107) mmol/L Carbon Dioxide 27 (22-30) mmol/L BUN 22 H (7-17) mg/dL Creatinine 1.12 H (0.52-1.04) mg/dL Glucose 114 H (74-99) mg/dL Calcium 8.8 (8.4-10.2) mg/dL Current Medications Generic Name Dose Route Start Last Admin Trade Name Freq PRN Reason Stop Dose Admin Allopurinol 100 mg 09/04/16 09:00 Zyloprim PO DAILY [facility] Aspirin 162 mg 09/04/16 09:00 Aspirin PO DAILY [facility] Atorvastatin Calcium 80 mg 09/03/16 21:00 09/03/16 21:43 Lipitor PO 80 mg HS [facility] Administration Cholecalciferol 1,000 unit 09/04/16 12:00 Vitamin D3 PO DAILY@1200 [facility] Lisinopril/HCTZ 1 each 09/04/16 09:00 Zestoretic 10-12.5 PO DAILY [facility] Hydralazine HCl 25 mg 09/03/16 21:00 09/03/16 21:43 Apresoline PO 25 mg BID [facility] Administration Sodium Chloride 1,000 mls @ 20 mls/hr 09/03/16 17:30 09/03/16 21:44 Saline 0.9% IV 20 mls/hr .Q24H [facility] Administration Ceftriaxone Sodium 1,000 mg/ 50 mls @ 100 mls/hr 09/04/16 09:00 Sodium Chloride IVPB Q24HR [facility] Insulin Human Isoph/Insulin Regular 35 unit 09/03/16 21:00 09/03/16 21:42 Humulin 70/30 Vial SQ Not Given HS [facility] Insulin Human Isoph/Insulin Regular 55 unit 09/04/16 09:00 Humulin 70/30 Vial SQ QAM [facility] Levothyroxine Sodium 112 mcg 09/04/16 06:30 09/04/16 05:18 Synthroid PO 112 mcg DAILY@0630 [facility] Administration Magnesium Oxide 400 mg 09/04/16 09:00 Mag-Ox PO DAILY [facility] Metoprolol Tartrate 50 mg 09/03/16 21:00 09/03/16 21:43 Lopressor PO 50 mg BID [facility] Administration Morphine Sulfate 4 mg 09/03/16 17:19 09/03/16 23:56 Morphine Sulfate (Inj) IV 4 mg Q4HR PRN Administration Severe Pain Naloxone HCl 0.2 mg 09/03/16 17:19 Narcan IV Q2M PRN Opioid Reversal Nitroglycerin 0.4 mg 09/03/16 19:44 Nitrostat SUBLINGUAL Q5M PRN Chest Pain Pantoprazole Sodium 40 mg 09/04/16 09:00 Protonix IV DAILY [facility] Paroxetine HCl 20 mg 09/04/16 09:00 Paxil PO DAILY [facility] Prednisone 10 mg 09/04/16 09:00 PO DAILY [facility] Temazepam 15 mg 09/03/16 21:42 Restoril PO HS PRN Insomnia Tramadol HCl 100 mg 09/03/16 19:44 Ultram PO TID PRN Moderate Pain Intake and Output 09/03/16 09/04/16 09/04/16 22:59 06:59 14:59 Intake Total 220 236 Balance 220 236 Intake: Oral 220 236 Other: # Voids 1 09/04/16 06:32 09/04/16 06:32 EKG Interpretations (text) Normal sinus rhythm within normal limits Assessment and Plan Plan: Dizziness and near syncope CAD status post angioplasty Orthostatic hypotension Insulin requiring diabetes Hypertension Dyslipidemia Myocardial infarction is ruled out does not have pulmonary embolism I'm going to obtain a 2-D echo to assess his LV function I advised her on lifestyle modification advised her to increase the fluid and salt intake.
[2016-09-04] MEDS: ALLOPURINOL 100 MG TAB PO SCH (09:11)
[2016-09-04] MEDS: ASPIRIN 81 MG CHEW PO SCH (09:11)
[2016-09-04] MEDS: hydrALAZINE HCL 25 MG TAB PO SCH ×2 (09:12→20:34)
[2016-09-04] MEDS: MAGNESIUM OXIDE 400 MG TAB PO SCH (09:12)
[2016-09-04] MEDS: LISINOPRIL-HCTZ 10-12.5 MG 1 EACH TAB PO SCH (09:12)
[2016-09-04] MEDS: METOPROLOL TARTRATE 50 MG TAB PO SCH ×2 (09:12→20:34)
[2016-09-04] MEDS: PARoxetine 20 MG TAB PO SCH (09:13)
[2016-09-04] MEDS: INSULIN NPH/REG INSULIN 70/30 300 UNIT/3 ML VIAL SQ SCH ×2 (09:14→21:19)
[2016-09-04] MEDS: predniSONE 10 MG TAB PO SCH (09:14)
[2016-09-04] MEDS: MORPHINE SULFATE 4 MG/ML SYRINGE IV PRN ×2 (10:13→22:12)
[2016-09-04] MEDS: CHOLECALCIFEROL 1,000 UNIT TAB PO SCH (11:11)
--- NOTE | 2016-09-04 11:32 | ECHOF ---
Referral Reason:syncope MEASUREMENTS -------- HEIGHT: 160.0 cm WEIGHT: 102.1 kg BP: 171/74 RVIDd: 2.8 cm (< 3.3) IVSd: 1.4 cm (0.6 - 1.1) LVIDd: 4.0 cm (3.9 - 5.3) LVPWd: 1.3 cm (0.6 - 1.1) IVSs: 1.9 cm LVIDs: 3.0 cm LVPWs: 1.6 cm LA Diam: 3.3 cm (2.7 - 3.8) LAESV Index (A-L): 25.44 ml/m Ao Diam: 2.3 cm (2.0 - 3.7) AV Cusp: 1.5 cm (1.5 - 2.6) LA Diam: 3.1 cm (2.7 - 3.8) MV EXCURSION: 18.525 mm (> 18.000) MV EF SLOPE: 137 mm/s (70 - 150) EPSS: 0.3 cm MV E Jimbo: 1.11 m/s MV DecT: 162 ms MV A Jimbo: 1.17 m/s MV E/A Ratio: 0.95 AV maxP.53 mmHg AV meanP.12 mmHg RAP: 5.00 mmHg RVSP: 48.39 mmHg FINDINGS -------- Sinus rhythm. This was a technically adequate study. Pt. not able to turn due to pain. The left ventricular size is normal. There is moderate concentric left ventricular hypertrophy. Overall left ventricular systolic function is normal with, an EF between 55 - 60 %. The right ventricle is normal in size. Normal LA size by volume 22+/-6 ml/m2. The right atrium is normal in size. Aortic valve is trileaflet and is mildly thickened. Peak/mean gradient across the Aortic Valve is 17.53mmHg / 9.12mmHg. The mitral valve leaflets are mildly thickened. [id number] mitral regurgitation is present. Mild tricuspid regurgitation present. There is mild to moderate pulmonary hypertension. The right ventricular systolic pressure, as measured by Doppler, is 48.39mmHg. The pulmonic valve was not well visualized. There is no pulmonic regurgitation present. The aortic root, ascending aorta and aortic arch are normal. The inferior vena cava is mildly dilated. There is no pericardial effusion. CONCLUSIONS -------- 1. Sinus rhythm. 2. [id number] mitral regurgitation is present. 3. Mild tricuspid regurgitation present. 4. There is mild to moderate pulmonary hypertension. 5. The right ventricular systolic pressure, as measured by Doppler, is 48.39mmHg. 6. There is no pulmonic regurgitation present. 7. The aortic root, ascending aorta and aortic arch are normal. 8. The inferior vena cava is mildly dilated. 9. There is no pericardial effusion. 10. This was a technically adequate study. 11. Pt. not able to turn due to pain. 12. There is moderate concentric left ventricular hypertrophy. 13. Overall left ventricular systolic function is normal with, an EF between 55 - 60 %. 14. Normal LA size by volume 22+/-6 ml/m2. 15. Aortic valve is trileaflet and is mildly thickened. 16. Peak/mean gradient across the Aortic Valve is 17.53mmHg / 9.12mmHg. 17. The mitral valve leaflets are mildly thickened. REGISTERED NURSE OBSTETRICS: Mark Menezes RDCS
[2016-09-04 12:20] LABS: Glucose,Whole Blood 137 mg/dL (75-99)
--- NOTE | 2016-09-04 12:45 | HP ---
DATE OF ADMISSION: 09/03/2016 CHIEF COMPLAINT: Near syncope. HISTORY OF PRESENT ILLNESS: This 71-year-old woman with a past medical history of multiple medical problems, including coronary artery disease, history of diabetes, hypertension, hyperlipidemia, history of myocardial infarction, history of osteomyelitis, history of history of CAD, history of anxiety, depression being followed by Dr. Nielsen in the outpatient setting, was apparently living with her spouse in a single level home. The patient has a cane and walker. The patient also had a near syncope event. The patient was sitting down eating lunch. Patient became drowsy and diaphoretic. The patient was almost going to be falling asleep. Patient was taken to [facility] and admitted for further evaluation and treatment. In the hospital, a CAT scan of the brain was done, which showed no acute abnormality. Neurology evaluation in progress at this time. EKG also done on admission. EKG showed sinus bradycardia at heart rate of 59. Otherwise, no other acute abnormalities noted. A VQ scan was also noted which showed normal very low probability of pulmonary embolism. WBC 13.9, hemoglobin 11.9. D-dimer is 3.85. Creatinine is 1.19. Patient was admitted for further evaluation and treatment. Urinalysis shows possible mild urinary tract infection. PAST MEDICAL HISTORY: History of coronary artery disease, history of diabetes mellitus type 2. History of hypertension, hyperlipidemia, history of sleep apnea. History of osteomyelitis. History of appendectomy. History of CAD/stent, anxiety, depression, panic disorder. MEDICATIONS PRIOR TO ADMISSION: Home medications are: 1. Ultram 100 mg p.o. t.i.d. p.r.n. 2. Magnesium oxide 400 mg daily. 3. Synthroid 112 mcg b.i.d. 4. Aspirin 162 mg p.o. daily. 5. Protonix 40 mg daily. 6. Paxil 20 mg p.o. daily. 7. Zestoretic 10/12.5 p.o. daily. 8. Humulin 70/30, 35 units q.h.s. and 55 each morning. 9. Vitamin D3 1000 daily. 10. Apresoline 25 mg b.i.d. 11. Nitrostat 0.4 sublingual p.r.n. 12. Lopressor 50 mg p.o. b.i.d. 13. Lipitor 80 mg q.h.s. 14. Zyloprim 100 milligrams p.o. daily. 15. Prednisone taper. 16. Cipro 500 mg p.o. b.i.d. ALLERGIES: ATIVAN, CODEINE AND ERYTHROMYCIN, IODINATED CONTRAST DYE AND SULFA. FAMILY HISTORY: History of diabetes mellitus in the family. SOCIAL HISTORY: No history of smoking. No history of alcohol. REVIEW OF SYSTEMS: ENT: Diminishing hearing. Diminished vision. CARDIOVASCULAR: As mentioned earlier. RESPIRATORY SYSTEM: No cough, hemoptysis. GI: No nausea or vomiting. : No dysuria. Nervous system: As mentioned earlier. ALLERGY/IMMUNOLOGY: no asthma or hayfever. MUSCULOSKELETAL: As mentioned earlier. HEMATOLOGY/ONCOLOGY: No history of anemia. ENDOCRINE: No history of diabetes or hypothyroidism. CONSTITUTIONAL: As mentioned earlier. DERMATOLOGY: Negative. RHEUMATOLOGY: Negative. PSYCHIATRY: As mentioned earlier. PHYSICAL EXAMINATION: The patient is alert and oriented x3. Pulse is 56, blood pressure 189/70. Respiratory rate 16. Temperature 97.9, pulse ox 97% on 2 L. HEENT: Conjunctivae normal. Oral mucosa moist. NECK: No jugular venous distention. No carotid bruit. No lymph node enlargement. CARDIOVASCULAR: S1, S2 muffled. No S3, no S4. RESPIRATORY: Breath sounds diminished at the bases. No rhonchi, no crackles. ABDOMEN: Soft, nontender. No mass palpable. Legs: No edema, no swelling. No swelling. Nervous system: Higher function as mentioned earlier. Moves all four limbs. No focal motor or sensory deficits. LYMPHATICS: No lymph nodes palpable in the neck, axillae or groin. SKIN: No ulcer, rash or bleeding. LABS: At this time shows WBC 13.9, hemoglobin 11, d-dimer is 3.85. Creatinine is 1.1. ASSESSMENT: 1. Syncope for evaluation, rule out possible transient ischemic attack, rule out cardiac arrhythmia. 2. Increased WBC, possibly urinary tract infection. 3. Sinus bradycardia. 4. Anemia, normocytic. 5. Increased creatinine with chronic kidney disease, stage III. 6. History of coronary artery disease and stent. 7. History of diabetes type 2. 8. Hypertension. 9. Hyperlipidemia. 10. History of myocardial infarction. 11. History of sleep apnea. 12. History of osteomyelitis. 13. History of CPAP. 14. The patient has history of Methicillin-resistant Staph aureus. 15. History of degenerative joint disease. 16. History of anxiety, depression, panic disorder. 17. Obesity, body mass index 39.9. RECOMMENDATIONS AND DISCUSSION: In this 71-year-old woman who presented with multiple complex medical issues, we will monitor the patient closely. Continue with the current medications, continue symptomatic treatment. Continue to monitor. I would recommend to monitor closely. Full neurovascular work-up. Cardiology and neurology consultations. Otherwise, repeat troponins. Unstable angina protocol. Prognosis overall extremely guarded because of multiple complex medical issues. I would also recommend repeat labs in the morning and current lipid panels. Once again, the prognosis is guarded. Orthostatic vitals may be checked. Further recommendations to follow. Discussed with the patient, understands and agrees. A copy of dictation forwarded to Dr. Nielsen who is the primary physician. SUZANNE
[2016-09-04 17:01] LABS: Glucose,Whole Blood 137 mg/dL (75-99)
[2016-09-04] MEDS: ATORVASTATIN 80 MG TAB PO SCH (20:34)
[2016-09-04] MEDS: SODIUM CHLORIDE 0.9% 1,000 ML IV SCH (20:36)
[2016-09-04 21:14] LABS: Glucose,Whole Blood 150 mg/dL (75-99)
--- NOTE | 2016-09-04 21:55 | PN ---
DATE OF SERVICE: 09/04/2016 Tis 71-year-old woman was admitted with syncope. The patient was also seen by Cardiology and Neurology, evaluations in progress at this time. Dr. Toney saw the patient and a 2-D echo was done which showed ejection fraction of about 50% to 60%. Orthostatic vitals are significantly positive at 170 to 117. PAST MEDICAL HISTORY: Reviewed. REVIEW OF SYSTEMS: CARDIOVASCULAR: No angina or palpitations. GI: As mentioned. : No dysuria or hematuria. NERVOUS SYSTEM: No numbness or weakness. Current medications are reviewed and include: 1. Zyloprim. 2. Aspirin. 3. Lipitor. 4. Rocephin. 5. Vitamin D3. 6. Zestoretic. 7. Apresoline. 8. Humulin 70/30. 9. Synthroid. 10. Magnesium oxide. 11. Lopressor. 12. Narcan. 13. Nitrostat. 14. Protonix. 15. Paxil. 16. Restoril. 17. Ultram. PHYSICAL EXAM: The patient is alert, oriented x3. Pulse 67, blood pressure 143/67, respirations 16, orthostatic changes are noted, temperature 98.4, pulse ox 93% on room air. HEENT: Conjunctivae normal. NECK: No JVD. CARDIOVASCULAR: S1 and S2 muffled. LUNGS: Breath sounds diminished in the bases. Few scattered rhonchi. No crackles. ABDOMEN: Soft, nontender. EXTREMITIES: No edema. NERVOUS SYSTEM: No focal deficits. LABS: Hemoglobin of 10, creatinine is 1.12, hemoglobin ntd). ASSESSMENT: 1. Syncope, for evaluation, possible orthostatic hypotension; rule out transient ischemic attack and cardiac arrhythmias. 2. Increased WBC, possibly urinary tract infection. 3. Sinus bradycardia, present on admission. 4. Anemia, normocytic, anemia of chronic disease. 5. Increased creatinine with chronic kidney disease, stage III. 6. History of coronary artery disease and stent. 7. History of diabetes type 2. 8. Hypertension. 9. Hyperlipidemia. 10. History of myocardial infarction. 11. History of sleep apnea. 12. History of osteomyelitis. 13. History of CPAP. 14. History of methicillin-resistant Staphylococcus aureus. 15. History of degenerative joint disease. 16. History of anxiety, depression and panic disorder. 17. Obesity; body mass index of 39.9, 18. FULL CODE. RECOMMENDATIONS AND DISCUSSION: This 71-year-old woman presented with multiple complex medical issues. We will monitor the patient closely. Continue the current medications. Continue symptomatic treatment. Otherwise, at this time I would recommend continue to monitor. IV fluids. If the orthostatic dysfunction is significant, Florinef may be initiated. See orders for further details. Guarded prognosis. Closely follow with Cardiology and Neurology. Further recommendations to follow. MTDD
[2016-09-05] MEDS: MORPHINE SULFATE 4 MG/ML SYRINGE IV PRN (02:56)
[2016-09-05] MEDS: LEVOTHYROXINE 112 MCG TAB PO SCH (05:58)
[2016-09-05 06:41] LABS: Basophils % (A) 0 %; CH 28.4; CHCM 31.1; Eosinophils # (A) 0.2 k/uL (0-0.7); Eosinophils % (A) 2 %; HDW 2.64; HGB 9.8 gm/dL (11.4-16.0); Hypochromasia Slight; Luc # (Auto) 0.25; Luc % (Auto) 2; Lymphocytes # (A) 2.7 k/uL (1.0-4.8); Lymphocytes % (A) 24 %; MCHC 30.5 g/dL (31.0-37.0); MCV 91.8 fL (80.0-100.0); Mean Platelet Volume 7.1; Monocytes # (A) 0.7 k/uL (0-1.0); Monocytes % (A) 6 %; Neutrophils # (A) 7.5 k/uL (1.3-7.7); Neutrophils % (A) 66 %; RBC 3.48 m/uL (3.80-5.40); RDW 15.6 % (11.5-15.5); WBC 11.4 k/uL (3.8-10.6); WBC (Perox) 11.82
[2016-09-05 06:46] LABS: Calcium 9.1 mg/dL (8.4-10.2); Potassium 4.1 mmol/L (3.5-5.1)
[2016-09-05 07:02] LABS: Glucose,Whole Blood 85 mg/dL (75-99)
[2016-09-05] MEDS ORDERED: PANTOPRAZOLE 40 MG TABLET PO SCH (07:30)
[2016-09-05 08:03] VITALS: RESP 18
[2016-09-05] MEDS: hydrALAZINE HCL 25 MG TAB PO SCH (09:32)
[2016-09-05] MEDS: PARoxetine 20 MG TAB PO SCH (09:32)
[2016-09-05] MEDS: MAGNESIUM OXIDE 400 MG TAB PO SCH (09:32)
[2016-09-05] MEDS: ALLOPURINOL 100 MG TAB PO SCH (09:32)
[2016-09-05] MEDS: predniSONE 10 MG TAB PO SCH (09:32)
[2016-09-05] MEDS: METOPROLOL TARTRATE 50 MG TAB PO SCH (09:32)
[2016-09-05] MEDS: ASPIRIN 81 MG CHEW PO SCH (09:33)
--- NOTE | 2016-09-05 09:34 | PN ---
71-year-old lady who was admitted to hospital with dizziness and near syncope secondary to orthostatic hypotension. Her work-up so far has been negative and had an echo done that showed mild aortic stenosis with normal LV function, did not have any documented bradyarrhythmia. The orthostatic hypotension has improved. She is awaiting neurology evaluation. Labs show a hemoglobin of 9.8. Potassium is 4.1. Creatinine is 1.1. On exam today, comfortable at rest. Vital signs are stable. There is no jugular venous distention. Carotid upstroke is normal. There is no bruit. Chest exam reveals good air entry bilaterally. Heart exam reveals first and second heart sounds, systolic murmur at the left lower sternal border. Exam of the extremities did not reveal edema. Peripheral pulses are felt. The patient's blood pressure is around 150/60. ASSESSMENT: Dizziness, probably secondary to orthostatic hypotension. PLAN: Patient is stable to be discharged home and follow up with Dr. Tenzin Cade. We will leave the blood pressure where it is right now. We will control it better in the outpatient setting.
[2016-09-05] MEDS: LISINOPRIL-HCTZ 10-12.5 MG 1 EACH TAB PO SCH (10:32)
[2016-09-05 12:10] LABS: Glucose,Whole Blood 120 mg/dL (75-99)
[2016-09-05] MEDS: CHOLECALCIFEROL 1,000 UNIT TAB PO SCH (12:17)
[2016-09-05] MEDS: INSULIN NPH/REG INSULIN 70/30 300 UNIT/3 ML VIAL SQ SCH (13:02)
[2016-09-05 16:43] VITALS: BP 159/67; PULSE 67; TEMP 98.1
[2016-09-05 17:08] LABS: Glucose,Whole Blood 180 mg/dL (75-99)
--- NOTE | 2016-09-06 09:25 | CONS ---
DATE OF CONSULTATION: 09/05/2016 CHIEF COMPLAINT: Dizziness. HISTORY OF PRESENT ILLNESS: Mrs. Bauman is a pleasant 71-year-old female who is being evaluated today on 09/05/2016 by the neurology service per the request of Dr. Garcia for presyncopal episode. The patient was sitting at her table at home when she suddenly felt quite dizzy. She describes the dizziness as a lightheaded sensation and she also remembers feeling very clammy. She denies actually passing out. The symptoms lasted several minutes and she was taken to [facility] for further work-up and management. A CT scan of the brain was done, which showed no acute abnormalities. Her EKG showed borderline sinus bradycardia at 59 beats per minute. She did have an elevated d-dimer and a pulmonary perfusion test was done, which showed no abnormalities. A small calcified meningioma was seen on her CT scan of the brain. Her CBC showed anemia with a hemoglobin of 9.8 and hematocrit of 32%. Her basic metabolic profile showed mild renal insufficiency with a BUN of 32 and creatinine of 1.12. Her urinalysis and cardiac enzymes were normal. At the time of my evaluation, the patient is sitting at the edge of her bed and appears to be in no acute distress. She denies any recurrence of any dizziness since her admission. She did receive IV hydration. PAST MEDICAL HISTORY: Coronary artery disease with history of coronary artery stent placements, diabetes, hypertension, dyslipidemia, obstructive sleep apnea, history of appendectomy, anxiety disorder, depression, hypothyroidism, history of previous osteomyelitis. SOCIAL HISTORY: She denies any tobacco, alcohol or drug use. FAMILY HISTORY: Positive for diabetes. HOME MEDICATIONS: Reviewed in the chart. ALLERGIES: ATIVAN, CODEINE, ERYTHROMYCIN, IV DYE, SULFA DRUGS. REVIEW OF SYSTEMS: As mentioned above and otherwise negative. PHYSICAL EXAM: Vital signs show a temperature of 98.1, pulse 67, respirations 18, blood pressure 159/67. GENERAL APPEARANCE: The patient is obese, elderly female who appears to be in no acute distress. HEENT: Normocephalic, atraumatic, no facial asymmetry is seen. Neck is supple with no masses felt. CARDIOVASCULAR: Regular rate and rhythm. ABDOMEN: Nontender, nondistended. EXTREMITIES: No edema or clubbing. NEUROLOGICAL EXAM: The patient is alert, aware, and oriented x3. Speech and language are normal. Strength is full in all 4 extremities. Sensory exam showed diminished light touch sensation in the right median nerve distribution. Tinel's sign is positive on the right. No facial asymmetry is noticed on cranial nerve testing. No tremors or seizure-like activity is seen. IMPRESSION: 1. Presyncopal episodes. 2. Dizziness. 3. Anemia. 4. Renal insufficiency. 5. Carpal tunnel syndrome. RECOMMENDATIONS: The patient did have a presyncopal episode felt to be a vasovagal response, but the cause is unclear. She did have mild sinus bradycardia when she first arrived to the emergency room. Cardiology has been consulted. From a neurology standpoint, her CT scan of the brain showed no acute intracranial abnormalities. A small calcified meningioma was seen but this is benign. The patient was anemic and did have renal insufficiency likely due to dehydration. These findings may have contributed to her symptoms. I do recommend further work-up for her anemia. She did receive IV hydration for her renal insufficiency. From a neurology standpoint, no further inpatient work-up is needed. The patient is cleared for discharge. She may follow-up in the outpatient neurology clinic after her discharge. Thank you for allowing me to participate in the care of your patient. If you have any questions, please feel free to contact me.
--- NOTE | 2016-09-06 10:55 | DS ---
DATE OF ADMISSION: 09/03/2016 DATE OF DISCHARGE: 09/05/2016 FINAL DIAGNOSES: 1. Dizziness and syncope possibly secondary to orthostatic hypotension. 2. Possible transient ischemic attack. 3. Increased WBC, possibly urinary tract infection. 4. Sinus bradycardia, present on admission. 5. Anemia, normocytic, anemia of chronic disease. 6. Increased creatinine with chronic kidney disease stage 3. 7. History of coronary artery disease and stent. 8. History of diabetes mellitus type 2. 9. Hypertension, essential. 10. Hyperlipidemia. 11. History of myocardial infarction. 12. Sleep apnea. 13. History of osteomyelitis. 14. History of continuous positive airway pressure. 15. History of methicillin-resistant Staphylococcus aureus. 16. History of degenerative joint disease. 17. History of anxiety, depression, panic disorder, not otherwise specified. 18. Obesity; body mass index of 39.9. 19. FULL CODE. DISCHARGE DISPOSITION: The patient will be discharged in stable condition with guarded prognosis. Cardiology cleared the patient for discharge. The patient will be discharged after Neurology clears. HISTORY OF PRESENT ILLNESS: This 71-year-old woman with a past medical history of multiple medical problems admitted with syncope. Cardiology saw the patient secondary to orthostatic hypotension. found to be otherwise weak. Pulmonary VQ scan was done which shows very low probability of pulmonary embolism otherwise. On exam, vital signs are stable. CARDIOVASCULAR: S1, S2 muffled. Abdomen is soft. NERVOUS SYSTEM: Nonfocal. LABS: WBC 11, hemoglobin is 10.8. Creatinine is 1.12. The patient is recommended outpatient followup. DISCHARGE ADVICE AND MEDICATIONS: 1. Diet is cardiac. 2. Activity limited until followup. 3. Follow up with Dr. Nielsen in 2 to 3 days. 4. Follow up with Dr. Carmona and Dr. Tenzin Cade is recommended. 5. Medications are: a. Enalapril 100 mg p.o. daily. b. Aspirin 160 mg daily. c. Lipitor 80 mg q.h.s. d. Vitamin D3 1000 daily. e. Cipro 500 mg p.o. b.i.d., finish the course. f. Insulin 70/30, 55 units subcu q.a.m. and 70/30, 35 subcu q.h.s. g. Synthroid 112 mcg p.o. daily. h. Lisinopril/hydrochlorothiazide 10/12.5 mg p.o. daily. i. Magnesium oxide 400 mg p.o. daily. j. Lopressor 50 mg actually p.o. daily. l. Paxil 20 mg p.o. daily. m. Protonix 40 mg p.o. daily. n. Alprazolam 25 mg p.o. b.i.d. o. Prednisone taper as recommended. p. Ultram 100 mg p.o. t.i.d. p.r.n. Once again, the patient will be discharged in a stable condition with guarded prognosis. [facility]
== END 2016-09-05 20:15 | disposition home or self-care (01) ==
LOC: EC 12:54 → 3OBS 17:19
PROVIDERS: ADMIT Hospitalist; ATTEND Hospitalist
DX: R55 Syncope and collapse (principal); R42 Dizziness and giddiness; D72.829 Elevated white blood cell count, unspecified; R00.1 Bradycardia, unspecified; D63.8 Anemia in other chronic diseases classified elsewhere; I12.9 Hypertensive chronic kidney disease with stage 1 through stage 4 chronic kidney disease, or unspecified chronic kidney disease; N18.3 Chronic kidney disease, stage 3 (moderate); E11.22 Type 2 diabetes mellitus with diabetic chronic kidney disease; I25.10 Atherosclerotic heart disease of native coronary artery without angina pectoris; E78.5 Hyperlipidemia, unspecified; I25.2 Old myocardial infarction; G47.33 Obstructive sleep apnea (adult) (pediatric); Z99.89 Dependence on other enabling machines and devices; Z95.5 Presence of coronary angioplasty implant and graft; Z86.14 Personal history of Methicillin resistant Staphylococcus aureus infection; F41.9 Anxiety disorder, unspecified; F32.9 Major depressive disorder, single episode, unspecified; F41.0 Panic disorder [episodic paroxysmal anxiety]; Z68.39 Body mass index [BMI] 39.0-39.9, adult; E66.9 Obesity, unspecified; R79.89 Other specified abnormal findings of blood chemistry; I95.1 Orthostatic hypotension; R61 Generalized hyperhidrosis; M19.90 Unspecified osteoarthritis, unspecified site; R40.0 Somnolence; E89.0 Postprocedural hypothyroidism; Z79.82 Long term (current) use of aspirin; Z79.899 Other long term (current) drug therapy; Z79.4 Long term (current) use of insulin; Z79.2 Long term (current) use of antibiotics; Z88.5 Allergy status to narcotic agent; Z88.2 Allergy status to sulfonamides; Z88.8 Allergy status to other drugs, medicaments and biological substances; Z88.1 Allergy status to other antibiotic agents; Z91.041 Radiographic dye allergy status; Z83.3 Family history of diabetes mellitus; Z82.49 Family history of ischemic heart disease and other diseases of the circulatory system; Z85.850 Personal history of malignant neoplasm of thyroid; Z98.1 Arthrodesis status; S42.302A Unspecified fracture of shaft of humerus, left arm, initial encounter for closed fracture
CPT/HCPCS: 96376 ×3; 96365; 96366; 96375 ×2; 96361; 99285; 36415; 93005; 93306; 85379; 80053; 80048 ×2; 83036; 82550; 82553; 84484 ×2; 85025 ×3; 85610; 85730; 81001; 87040; 87086; 71020; 70450; 78582; G0378 ×3; A9540; A9567; J2270 ×3; J0696 ×2; J7512 ×2; C9113

== ENCOUNTER 2016-09-25 08:43 | Inpatient (IN) | payer MEDICARE, BC ==
[2016-09-19 16:37] VITALS: BMI 38.5
[~2016-09-25 08:43] MED LIST: ACETAMINOPHEN TAB 500 MG TAB PO ONE; FAMOTIDINE 20 MG/2 ML VIAL IV PRN; HYDROmorphone 1 MG/ML 1 ML SYRINGE IVP PRN; LACTATED RINGERS 1,000 ML IV SCH; LIDOCAINE 1% 20 ML VIAL (10MG/ML) FOR IV START INTRADERMA PRN; MELOXICAM 7.5 MG TAB PO ONE; MIDAZOLAM 2 MG/2 ML VIAL IV PRN; ONDANSETRON 4 MG/2 ML VIAL IVP ONE; TRANEXAMIC ACID 1,000 MG in SODIUM CHLORIDE 0.9% 100 ML IVPB ONE; ceFAZolin 2 GM in SODIUM CHLORIDE 0.9% 100 ML IVPB ONE
[2016-09-25] MEDS ORDERED: ROPIVACAINE 246.25 MG, EPINEPHrine 0.5 MG, KETOROLAC 30 MG, cloNIDine HCL/PF 80 MCG, WA... MISCELLANE ONE ×5 (09:38)
[2016-09-25 10:08] LABS: Glucose,Whole Blood 104 mg/dL (75-99)
[2016-09-25] MEDS ORDERED: ePHEDrine 50 MG/ML 1 ML AMP ONE (13:04)
[2016-09-25] MEDS ORDERED: ROCURONIUM BROMIDE 10 MG/ML 10 ML VIAL IV ONE (13:04)
[2016-09-25] MEDS ORDERED: SUCCINYLCHOLINE CHLORIDE 100 MG/5 ML SYR IV ONE (13:04)
[2016-09-25] MEDS ORDERED: GLYCOPYRROLATE 0.2 MG/ML 2 ML VIAL ONE (13:04)
[2016-09-25] MEDS ORDERED: MIDAZOLAM 2 MG/2 ML VIAL ONE (13:04)
[2016-09-25] MEDS ORDERED: SODIUM CHLORIDE 0.9% 100 ML BAG ONE (13:04)
[2016-09-25] MEDS ORDERED: fentaNYL (PF) 50 MCG/ML 2 ML AMP ONE (13:04)
[2016-09-25] MEDS ORDERED: ALBUMIN HUMAN 5% 500 ML VIAL IVPB ONE (13:04)
[2016-09-25] MEDS ORDERED: TRANEXAMIC ACID 1,000 MG/10 ML VIAL ONE (13:04)
[2016-09-25] MEDS ORDERED: PROPOFOL 10 MG/ML 20 ML VIAL IV ONE (13:04)
[2016-09-25] MEDS ORDERED: LIDOCAINE 1% INJ 10MG/ML (20 ML MDV) ONE (13:04)
[2016-09-25] MEDS ORDERED: NEOSTIGMINE 1 MG/ML 10 ML VIAL ONE (13:04)
[2016-09-25] MEDS ORDERED: PHENYLEPHRINE-0.9% NACL SYG 1 MG/10 ML SYRINGE ONE (13:04)
[2016-09-25] MEDS ORDERED: ceFAZolin 1,000 MG in SODIUM CHLORIDE 0.9% 1,000 ML IRRIGATION ONE (13:12)
[2016-09-25] MEDS ORDERED: LACTATED RINGERS 1,000 ML IV ONE ×2 (15:10→16:43)
[2016-09-25] MEDS ORDERED: hydrOXYzine PAMOATE 25 MG CAP PO PRN (15:16)
[2016-09-25] MEDS ORDERED: ONDANSETRON 4 MG/2 ML VIAL IVP PRN (15:16)
[2016-09-25] MEDS ORDERED: HYDROmorphone 1 MG/ML 1 ML SYRINGE IVP PRN ×3 (15:16)
[2016-09-25] MEDS ORDERED: SENNOSIDES-DOCUSATE SODIUM 1 EACH TAB PO PRN (15:16)
[2016-09-25 15:52] LABS: Glucose,Whole Blood 108 mg/dL (75-99)
--- NOTE | 2016-09-25 16:24 | XR ---
EXAMINATION TYPE: XR shoulder complete LT DATE OF EXAM: 09/25/2016 4:15 PM CLINICAL HISTORY: s/p reverse total left shoulder COMPARISON: NONE TECHNIQUE: Single portable views obtained. FINDINGS: Total left shoulder arthroplasty is in place. Alignment is anatomic. Postsurgical soft tiss ue changes seen. IMPRESSION: 1. Appropriate postoperative alignment
--- NOTE | 2016-09-25 16:25 | XR ---
EXAMINATION TYPE: XR chest 1V portable DATE OF EXAM: 09/25/2016 4:15 PM HISTORY: Shortness of breath. COMPARISON: 09/03/2016 TECHNIQUE: Single view of the chest is submitted. FINDINGS: Demonstrated are scattered senescent parenchymal change. There is patchy basilar density which may reflect atelectasis or infiltrate. The remainder of the kimberlee gs are clear. No evidence for pneumothorax. Postoperative changes cervical spine and left shoulder. The heart is mildly enlarged Hilar and mediastinal structures are within normal limits. Degenerative changes are seen of the dorsal spine. IMPRESSION: 1. There is patchy basilar density which may reflect atelectasis or infiltrate.
[2016-09-25 16:28] LABS: Anisocytosis Slight; Basophils % (A) 0 %; CH 28.4; CHCM 30.3; Eosinophils # (A) 0.1 k/uL (0-0.7); Eosinophils % (A) 2 %; HCT 28.7 % (34.0-46.0); HDW 2.52; Hypochromasia Moderate; Luc # (Auto) 0.16; Luc % (Auto) 2; Lymphocytes # (A) 1.5 k/uL (1.0-4.8); Lymphocytes % (A) 21 %; MCHC 30.7 g/dL (31.0-37.0); MCV 94.5 fL (80.0-100.0); Mean Platelet Volume 7.7; Monocytes # (A) 0.4 k/uL (0-1.0); Monocytes % (A) 6 %; Neutrophils # (A) 4.8 k/uL (1.3-7.7); Neutrophils % (A) 69 %; RBC 3.04 m/uL (3.80-5.40); RDW 16.5 % (11.5-15.5); WBC (Perox) 7.34
[2016-09-25 16:29] LABS: HGB 8.8 gm/dL (11.4-16.0)
--- NOTE | 2016-09-25 16:32 | P.OP ---
Date of Procedure: 09/25/16 Preoperative Diagnosis: 4 part left proximal humerus fracture Postoperative Diagnosis: 4 part proximal left humerus fracture Procedure(s) Performed: Reverse total shoulder arthroplasty Implants: Velázquez SMR shoulder system, humeral stem, 16 mm porous-coated. Velázquez SMR shoulder system, humeral bearing standard Velázquez SMR shoulder, Glenosphere baseplate, small Velázquez SMR shoulder, central peg, Small Velázquez SMR shoulder, bone screw, 6.5mm x 20mm x 2 Velázquez SMR reverse shoulder glenosphere, 36 mm, small All components were press-fit. Articulation is metal on polyethylene Anesthesia: QUENTIN Surgeon: Cesar Osuna Senior Android Developer #1: Dayanna Sinclair Senior Android Developer #2: Aure Torres Estimated Blood Loss (ml): 900 Pathology: none sent Condition: stable Disposition: PACU Indications for Procedure: This is a 71-year-old female who sustained a four-part proximal humerus fracture approximately 2 weeks ago. She failed conservative treatment due to the fracture fragments shifting. After discussing the surgical and nonsurgical treatment options with her at length, she wishes to proceed with a reverse total shoulder arthroplasty. Informed consent was obtained. Operative Findings: The operative findings are consistent with a four-part left proximal humerus fracture. Description of Procedure: DESCRIPTION OF PROCEDURE(S): The patient was seen in the preoperative area, consent was reviewed, and operative site was marked with a skin marker. Patient was then brought to the operating room and given preoperative antibiotics intravenously. Patient was also given 1 g of Tranexamic acid intravenously. A general anesthetic was administered by the anesthesia department The patient was then placed in a beachchair position with the bony prominences well-padded and the head secured. The shoulder was then prepped and draped in the usual sterile fashion. A universal timeout was then performed, which confirmed the patient's name, surgical site, ALLERGIES, and consent. A standard deltopectoral approach was performed. The skin and subcutaneous tissue was sharply dissected down to the deltoid fascia. The cephalic vein was then identified and retracted medially. The deltopectoral interval was then utilized to expose the subscapularis tendon. A retractor was then placed under the coracobrachialis tendon retracted medially, and the deltoid. The axillary nerve is palpated and protected throughout the procedure. The subscapularis tendon was then released and retracted medially. The humeral head was then exposed. The fracture fragments were then carefully dissected and removed. While removing the humeral head, a large artery was encountered which was intertwined and the scar tissue. The artery was cauterized using a bipolar device and then packed with fibrillar anticoagulant material. After hemostasis was obtained, there did not appear to be any large excessive bleeding throughout the rest of the case. Next the humeral stem was prepared. A starter reamer was then placed through the humeral head along the axis of the humeral shaft just lateral to the articular surface and just medial to the rotator cuff attachment. Sequential reaming was performed to the appropriate size. Next the intramedullary resection guide was placed on the reamer shaft. It was placed to the appropriate resection depth and angle of 20 of retroversion. Resection guide block was then secured with Steinmann pins. The proximal humerus was then resected. The block was then removed and the humerus was then reamed sequentially to a secure fit. The Reamer handle was removed and a canal cover was placed protect the humerus while the glenoid was prepared. Next attention was directed to the glenoid. The appropriate retractors were placed around the glenoid and any remaining soft tissues was removed from around the glenoid. After the glenoid was adequately exposed, the threaded glenoid guide was placed onto the glenoid and a 3.2 mm Steinmann pin was inserted in the glenoid at the desired angle and position, ensuring the pin engaged medial cortical wall. Next, the cannulated baseplate reamer was placed over the top of the Steinmann pin. The glenoid was then reamed to the appropriate depth. The glenoid reamer was then removed, leaving the Steinmann pin. The central plug reamer was then inserted over the guidewire and reamed to the appropriate depth. The guidewire was then removed. The glenoid baseplate was then preassembled on the back table, and then inserted and fully seated into the prepared glenoid. 2 screws were then placed, one superior, and one inferior. Appropriate Balwinder a sphere was then assembled onto the insertion handle and inserted into the glenoid baseplate. The locking screw was then inserted into the glenoid sphere. Attention was then redirected to the humerus. The humeral inlay reamer was then used to ream the proximal humerus. The final stem was then impacted. Next a trial humeral tray was placed in the shoulder was reduced. Shoulder was taken through a full range of motion and found to be stable. The shoulder was then gently dislocated, and the trial humerus and humeral tray were removed. The final humeral stem was impacted in the final humeral tray was impacted as well. Shoulder was then relocated. Again the shoulder was taken through a range of motion and found to have no instability. Shoulder was then irrigated with pulsatile lavage. The shoulder was then irrigated with Irrisept solution. The soft tissues were then injected with ropivacaine solution. A second dose of 1 g of Tranexamic acid was given. The subscapularis was then repaired with #1 Vicryl. The deltopectoral interval was then closed with #1 Vicryl as well. The subcutaneous tissues were closed with 2-0 Vicryl then Dermabond was placed on the skin. A sterile dressing was then applied, the patient was transported to the recovery room in an arm sling in stable condition. The business assistant Dayanna Sinclair required due the complexity of the surgery and the need for a skilled surgical technology instructor.
[2016-09-25 17:03] LABS: Glucose,Whole Blood 113 mg/dL (75-99)
[2016-09-25] MEDS ORDERED: NITROGLYCERIN SL TABS 0.4 MG TAB SUBLINGUAL PRN (17:30)
[2016-09-25] MEDS ORDERED: hydrALAZINE HCL 25 MG TAB PO PRN (17:30)
[2016-09-25] MEDS ORDERED: SODIUM CHLORIDE 0.9% 500 ML IV ONE (17:51)
[2016-09-25 18:12] LABS: Calcium 8.7 mg/dL (8.4-10.2); Potassium 4.1 mmol/L (3.5-5.1)
[2016-09-25] MEDS: LACTATED RINGERS 1,000 ML IV SCH (18:23)
[2016-09-25] MEDS: INSULIN LISPRO (humaLOG) 300 UNIT/3 ML VIAL SQ SCH ×2 (18:26→22:11)
[2016-09-25 20:17] LABS: Hemoglobin A1C 6.5 % (4.2-6.1)
[2016-09-25 20:55] LABS: Glucose,Whole Blood 151 mg/dL (75-99)
[2016-09-25] MEDS ORDERED: METOPROLOL TARTRATE 50 MG TAB PO SCH (21:00)
--- NOTE | 2016-09-25 21:38 | XR ---
EXAMINATION TYPE: XR chest 1V portable DATE OF EXAM: 09/25/2016 6:22 PM COMPARISON: September 25, 2016 at 4:00 PM HISTORY: Dyspnea TECHNIQUE: Single frontal view of the chest is obtained. FINDINGS: There is no focal air space opacity, pleural effusion, or pneumothorax seen. The cardiac silhouette size is within normal limits. Postoperative left shoulder changes are noted. IMPRESSION: No acute process.
[2016-09-25] MEDS: METOPROLOL TARTRATE 25 MG TAB PO SCH (22:09)
[2016-09-25] MEDS: ATORVASTATIN 80 MG TAB PO SCH (22:09)
[2016-09-25] MEDS: ceFAZolin 2 GM in SODIUM CHLORIDE 0.9% 100 ML IVPB SCH (22:09)
[2016-09-25] MEDS: INSULIN NPH/REG INSULIN 70/30 300 UNIT/3 ML VIAL SQ SCH (22:10)
[2016-09-26] MEDS: HYDROcodone/APAP 5-325MG 1 EACH TAB PO PRN ×4 (01:31→23:55)
[2016-09-26] MEDS: ceFAZolin 2 GM in SODIUM CHLORIDE 0.9% 100 ML IVPB SCH (03:22)
[2016-09-26 04:01] LABS: Anisocytosis Slight; Basophils % (A) 0 %; CH 28.6; CHCM 29.8; Eosinophils # (A) 0.2 k/uL (0-0.7); Eosinophils % (A) 2 %; HCT 29.2 % (34.0-46.0); HDW 2.42; HGB 8.8 gm/dL (11.4-16.0); Hypochromasia Marked; Luc # (Auto) 0.24; Luc % (Auto) 2; Lymphocytes # (A) 1.9 k/uL (1.0-4.8); Lymphocytes % (A) 20 %; MCV 96.5 fL (80.0-100.0); Macrocytosis Slight; Mean Platelet Volume 7.6; Monocytes # (A) 0.6 k/uL (0-1.0); Monocytes % (A) 6 %; Neutrophils # (A) 6.9 k/uL (1.3-7.7); Neutrophils % (A) 70 %; RBC 3.03 m/uL (3.80-5.40); RDW 16.6 % (11.5-15.5); WBC 9.9 k/uL (3.8-10.6); WBC (Perox) 9.73
[2016-09-26 04:16] LABS: Calcium 9.1 mg/dL (8.4-10.2); Potassium 4.5 mmol/L (3.5-5.1)
[2016-09-26] MEDS: LACTATED RINGERS 1,000 ML IV SCH ×2 (04:35→20:11)
[2016-09-26] MEDS: LEVOTHYROXINE 112 MCG TAB PO SCH (05:33)
--- NOTE | 2016-09-26 07:22 | CONS ---
DATE OF CONSULTATION: REASON FOR CONSULTATION: Advice regarding hypertension, hyperlipidemia requested by orthopedic surgery. HISTORY OF PRESENT ILLNESS: This 71-year-old woman with a past medical history of multiple medical problems including diabetes mellitus, GERD, hypertension, hyperlipidemia, history of myocardial infarction, history of DJD, sleep apnea, history of osteomyelitis being followed by Dr. Nielsen in the outpatient setting underwent left shoulder arthroplasty. The patient is being closely monitored. No chest pain or palpitation. No fever. PAST MEDICAL HISTORY: History of coronary artery disease, history of diabetes mellitus type 2, history of GERD, hypertension, hyperlipidemia, myocardial infarction, history of renal disease, history of osteomyelitis left hand, anxiety, depression, panic disorder. Medications prior to admission include home medications are: 1. Apresoline 25 mg b.i.d. p.r.n. 2. Protonix 40 mg daily. 3. Paxil 20 mg p.o. daily. 4. Nitrostat 0.4 sublingual p.r.n. 5. Lopressor 50 mg p.o. b.i.d. 6. Zestoretic 1 p.o. daily. 7. Synthroid 112 mcg p.o. daily. 8. Humulin 70/30, 35 units subcu q.h.s. and 55 units subcu q.a.m. 9. Humalog 3 units a.c. t.i.d. 10. [place] 7.5 q.4 to 6 p.r.n. 11. Vitamin D3, 1000 daily. 12. Lipitor 80 mg q.h.s. 13. Aspirin 81 mg b.i.d. 14. Zyloprim 100 mg p.o. daily. Allergies are: ATIVAN, CODEINE, ERYTHROMYCIN, IODINATED CONTRAST DYE, MEDROL, SULFA. FAMILY HISTORY: History of diabetes mellitus in the family. SOCIAL HISTORY: Previous history of smoking. Occasional alcohol intake. REVIEW OF SYSTEMS: ENT: No diminishing hearing or diminished vision. CARDIOVASCULAR SYSTEM: As mentioned earlier. RESPIRATORY: As mentioned earlier. GI: No nausea. : No dysuria. NERVOUS SYSTEM: No numbness or weakness. ALLERGY/IMMUNOLOGY: No asthma. MUSCULOSKELETAL: As mentioned earlier. HEMATOLOGY/ONCOLOGY: No history of anemia. ENDOCRINE: neg CONSTITUTIONAL: As mentioned earlier. DERMATOLOGY: Negative. RHEUMATOLOGY: Negative. PSYCHIATRY: As mentioned earlier. PHYSICAL EXAMINATION: The patient is alert and oriented x3. Pulse 72, blood pressure 137/62, respiration 18, temperature 98.4, pulse ox 92% on 3 L. HEENT: Conjunctivae normal. Oral mucosa moist. NECK: No jugular venous distention. No carotid bruit. No lymph node enlargement. CARDIOVASCULAR: S1 and S2, muffled. No S3, no S4. RESPIRATORY: Breath sounds diminished at the bases. No rhonchi, no crackles. ABDOMEN: Soft, nontender. No mass palpable. LEGS: No edema, no swelling. NERVOUS SYSTEM: No focal deficits. EXAMINATION OF SHOULDER: Left shoulder arthroplasty. LABS: WBC 7, hemoglobin 8.8. Sodium 145, potassium 4.1. Creatinine is 1.19. ASSESSMENT: 1. Status post left shoulder arthroplasty. 2. Increased creatinine with chronic kidney disease stage III, possibly. 3. Anemia, normocytic. 4. History of coronary artery disease. 5. History of diabetes mellitus type 2. 6. History of gastroesophageal reflux disease. 7. Hypertension. 8. Hyperlipidemia. 9. History of myocardial infarction . 10. History of degenerative joint disease. 11. History of sleep apnea. 12. History of osteomyelitis. 13. History of thyroid cancer. 14. History of methicillin-resistant Staphylococcus aureus. 15. History of appendectomy. 16. History of coronary artery disease with stent. 17. Anxiety, depression, panic disorder, not otherwise specified. 18. FULL CODE. RECOMMENDATIONS AND DISCUSSION: This 71-year-old woman who presented with multiple complex medical issues, will monitor the patient closely. Continue the current medications, continue symptomatic treatment. Otherwise, at this time I would resume the home medications. Monitor closely. I would also recommend repeat labs. Will follow the patient closely with you. Thank you for letting us participate in the care of this patient. SUZANNE
[2016-09-26 07:26] LABS: Glucose,Whole Blood 105 mg/dL (75-99)
[2016-09-26 07:43] VITALS: RESP 16
[2016-09-26] MEDS: INSULIN LISPRO (humaLOG) 300 UNIT/3 ML VIAL SQ SCH ×7 (08:18→21:24)
[2016-09-26] MEDS: ALLOPURINOL 100 MG TAB PO SCH (08:20)
[2016-09-26] MEDS: CHOLECALCIFEROL 1,000 UNIT TAB PO SCH (08:20)
[2016-09-26] MEDS: PANTOPRAZOLE 40 MG TABLET PO SCH (08:21)
[2016-09-26] MEDS: PARoxetine 20 MG TAB PO SCH (08:21)
[2016-09-26] MEDS: METOPROLOL TARTRATE 25 MG TAB PO SCH ×2 (08:23→20:12)
[2016-09-26] MEDS: INSULIN NPH/REG INSULIN 70/30 300 UNIT/3 ML VIAL SQ SCH ×2 (08:26→21:27)
[2016-09-26] MEDS ORDERED: LISINOPRIL-HCTZ 10-12.5 MG 1 EACH TAB PO SCH (09:00)
--- NOTE | 2016-09-26 09:20 | P.PN ---
Subjective Principal diagnosis: Postop day 1 reverse total shoulder This is a 71-year-old female who is status post reverse total shoulder. Patient 's pain is under fair control. Patient does not have any further complaints at this time. Objective - Vital Signs Vital signs: Vital Signs Temp 98.0 F 09/26/16 07:42 Pulse 80 09/26/16 07:42 Resp 16 09/26/16 07:42 BP 110/66 09/26/16 07:42 Pulse Ox 95 09/26/16 07:42 Intake & Output 09/25/16 09/26/16 09/26/16 18:59 06:59 18:59 Intake Total 2101 Output Total 900 Balance 1201 Intake: IV 2101 Output: Estimated Blood Loss 900 Other: Voiding Method Bedside Commode Bedside Commode # Voids 1 - Exam Patient's arm is soft. Good radial pulses. Hemoglobin is stable. Vital signs are stable. Incision is clean, dry and intact. - Labs CBC & Chem 7: 09/26/16 03:33 09/26/16 03:33 Labs: Abnormal Lab Results - Last 24 Hours (Table) 09/25/16 09/25/16 09/25/16 Range/Units 09:54 15:49 16:03 RBC 3.04 L (3.80-5.40) m/uL Hgb 8.8 L D (11.4-16.0) gm/dL Hct 28.7 L (34.0-46.0) % MCHC 30.7 L (31.0-37.0) g/dL RDW 16.5 H (11.5-15.5) % Sodium (137-145) mmol/L Chloride (98-107) mmol/L Carbon Dioxide (22-30) mmol/L BUN (7-17) mg/dL Creatinine (0.52-1.04) mg/dL Glucose (74-99) mg/dL POC Glucose (mg/dL) 104 H 108 H (75-99) mg/dL Hemoglobin A1c (4.2-6.1) % 09/25/16 09/25/16 09/25/16 Range/Units 16:03 16:03 16:59 RBC (3.80-5.40) m/uL Hgb (11.4-16.0) gm/dL Hct (34.0-46.0) % MCHC (31.0-37.0) g/dL RDW (11.5-15.5) % Sodium (137-145) mmol/L Chloride 111 H (98-107) mmol/L Carbon Dioxide 21 L (22-30) mmol/L BUN 26 H (7-17) mg/dL Creatinine 1.19 H (0.52-1.04) mg/dL Glucose 110 H (74-99) mg/dL POC Glucose (mg/dL) 113 H (75-99) mg/dL Hemoglobin A1c 6.5 H (4.2-6.1) % 09/25/16 09/26/16 09/26/16 Range/Units 20:53 03:33 03:33 RBC 3.03 L (3.80-5.40) m/uL Hgb 8.8 L (11.4-16.0) gm/dL Hct 29.2 L (34.0-46.0) % MCHC 30.0 L (31.0-37.0) g/dL RDW 16.6 H (11.5-15.5) % Sodium 148 H (137-145) mmol/L Chloride 110 H (98-107) mmol/L Carbon Dioxide (22-30) mmol/L BUN 24 H (7-17) mg/dL Creatinine 1.13 H (0.52-1.04) mg/dL Glucose (74-99) mg/dL POC Glucose (mg/dL) 151 H (75-99) mg/dL Hemoglobin A1c (4.2-6.1) % 09/26/16 Range/Units 07:15 RBC (3.80-5.40) m/uL Hgb (11.4-16.0) gm/dL Hct (34.0-46.0) % MCHC (31.0-37.0) g/dL RDW (11.5-15.5) % Sodium (137-145) mmol/L Chloride (98-107) mmol/L Carbon Dioxide (22-30) mmol/L BUN (7-17) mg/dL Creatinine (0.52-1.04) mg/dL Glucose (74-99) mg/dL POC Glucose (mg/dL) 105 H (75-99) mg/dL Hemoglobin A1c (4.2-6.1) % Assessment and Plan (1) Status post total shoulder arthroplasty Status: Acute (2) Proximal humerus fracture Status: Acute Plan: In the next 24-48 hours anticipate discharge.
[2016-09-26 11:43] LABS: Glucose,Whole Blood 105 mg/dL (75-99)
[2016-09-26 16:48] LABS: Glucose,Whole Blood 78 mg/dL (75-99)
[2016-09-26] MEDS: ATORVASTATIN 80 MG TAB PO SCH (20:12)
[2016-09-26 21:24] LABS: Glucose,Whole Blood 127 mg/dL (75-99)
[2016-09-27] MEDS: HYDROcodone/APAP 5-325MG 1 EACH TAB PO PRN ×3 (05:11→20:28)
[2016-09-27] MEDS: LEVOTHYROXINE 112 MCG TAB PO SCH (05:12)
[2016-09-27 07:14] LABS: Glucose,Whole Blood 111 mg/dL (75-99)
[2016-09-27] MEDS: INSULIN LISPRO (humaLOG) 300 UNIT/3 ML VIAL SQ SCH ×7 (07:48→20:30)
[2016-09-27] MEDS: METOPROLOL TARTRATE 25 MG TAB PO SCH ×2 (07:52→20:28)
[2016-09-27] MEDS: CHOLECALCIFEROL 1,000 UNIT TAB PO SCH (07:52)
[2016-09-27] MEDS: PARoxetine 20 MG TAB PO SCH (07:53)
[2016-09-27] MEDS: PANTOPRAZOLE 40 MG TABLET PO SCH (07:53)
[2016-09-27] MEDS: ALLOPURINOL 100 MG TAB PO SCH (07:53)
[2016-09-27] MEDS: INSULIN NPH/REG INSULIN 70/30 300 UNIT/3 ML VIAL SQ SCH ×2 (07:54→20:32)
[2016-09-27] MEDS: LACTATED RINGERS 1,000 ML IV SCH (07:55)
[2016-09-27] MEDS ORDERED: MAGNESIUM HYDROXIDE 2,400 MG/10 ML CUP PO PRN (08:50)
[2016-09-27] MEDS: traMADol 50 MG TAB PO SCH ×4 (09:18→22:03)
[2016-09-27 10:04] LABS: Anisocytosis Slight; Basophils % (A) 0 %; CH 28.6; CHCM 30.4; Eosinophils # (A) 0.2 k/uL (0-0.7); Eosinophils % (A) 2 %; HCT 27.8 % (34.0-46.0); HDW 2.44; HGB 8.5 gm/dL (11.4-16.0); Hypochromasia Moderate; Luc # (Auto) 0.16; Luc % (Auto) 2; Lymphocytes # (A) 1.4 k/uL (1.0-4.8); Lymphocytes % (A) 14 %; MCH 29.1 pg (25.0-35.0); MCHC 30.8 g/dL (31.0-37.0); MCV 94.7 fL (80.0-100.0); Mean Platelet Volume 8.1; Monocytes # (A) 0.6 k/uL (0-1.0); Monocytes % (A) 7 %; Neutrophils # (A) 7.2 k/uL (1.3-7.7); Neutrophils % (A) 75 %; RBC 2.93 m/uL (3.80-5.40); RDW 16.6 % (11.5-15.5); WBC 9.6 k/uL (3.8-10.6); WBC (Perox) 9.04
[2016-09-27 11:36] LABS: Glucose,Whole Blood 142 mg/dL (75-99)
[2016-09-27] MEDS: hydrOXYzine PAMOATE 25 MG CAP PO PRN ×2 (15:31→20:28)
[2016-09-27 16:36] LABS: Glucose,Whole Blood 168 mg/dL (75-99)
--- NOTE | 2016-09-27 19:39 | P.PN ---
Subjective Date of service 09/26/2016. Progress note being dictated for . Interval history: This is a 71-year-old female status post left shoulder arthroplasty, renal failure, anemia and multiple other medical issues. Good diet intake with no nausea or vomiting. Not yet passing flatus or bowel movement. Renal function slowly improving. Complains of pain with pain management being adjusted as per orthopedics. Denies lightheadedness dizziness or focal deficits. Denies chest pain, palpitations or increasing shortness of breath. Objective - Vital Signs Vital signs: Vital Signs Temp 97.9 F 09/26/16 15:37 Pulse 89 09/26/16 15:37 Resp 16 09/26/16 20:00 BP 127/71 09/26/16 15:37 Pulse Ox 96 09/26/16 15:37 Intake & Output 09/26/16 09/26/16 09/27/16 06:59 18:59 06:59 Other: Voiding Method Bedside Commode Bedside Commode Toilet # Voids 1 2 1 - Exam PHYSICAL EXAM: VITAL SIGNS: As above GENERAL: [Sitting up in bed, no acute distress] HEENT: [Pupils equal conjunctiva normal.] NECK: [Supple, no JVD] RESPIRATORY EFFORT:[Normal] LUNGS: [Clear, no wheezes rhonchi or crackles] CARDIOVASCULAR[regular S1 and S2, no edema] GI: [Abdomen soft, nontender, positive bowel sounds.] PSYCH: [Alert and oriented -3, mood and affect normal.] SKIN: Left arm sling present, fingers warm, NEURO: No focal deficits - Labs CBC & Chem 7: 09/27/16 09:38 09/27/16 09:38 Labs: Abnormal Lab Results - Last 24 Hours (Table) 09/26/16 09/26/16 09/26/16 Range/Units 03:33 03:33 07:15 RBC 3.03 L (3.80-5.40) m/uL Hgb 8.8 L (11.4-16.0) gm/dL Hct 29.2 L (34.0-46.0) % MCHC 30.0 L (31.0-37.0) g/dL RDW 16.6 H (11.5-15.5) % Sodium 148 H (137-145) mmol/L Chloride 110 H (98-107) mmol/L BUN 24 H (7-17) mg/dL Creatinine 1.13 H (0.52-1.04) mg/dL POC Glucose (mg/dL) 105 H (75-99) mg/dL 09/26/16 09/26/16 Range/Units 11:38 21:22 RBC (3.80-5.40) m/uL Hgb (11.4-16.0) gm/dL Hct (34.0-46.0) % MCHC (31.0-37.0) g/dL RDW (11.5-15.5) % Sodium (137-145) mmol/L Chloride (98-107) mmol/L BUN (7-17) mg/dL Creatinine (0.52-1.04) mg/dL POC Glucose (mg/dL) 105 H 127 H (75-99) mg/dL Assessment and Plan Plan: 1. [Status post left shoulder arthroplasty]. 2. [Acute on chronic renal failure, stage III, possibly]. 3. [Anemia, normocytic]. 4. [CAD, history of [place], stent]. 5. [Diabetes mellitus type 2]. 6. [Gastroesophageal reflux disease]. 7. [Hypertension]. 8. Hyperlipidemia 9. Degenerative joint disease 10. Sleep apnea 11. History of thyroid cancer 12. Anxiety, depression, panic disorder, not otherwise specified. Plan: Continue on current medication regime , monitoring and symptomatic treatment. Aggressive pulmonary toileting. Pain management as per surgery. Increase ambulation as tolerated. The impression and plan of care has been dictated as directed. : I performed a H&P examination of this patient and discussed the same with the dictator. I agree with the dictator's note. Any additional findings/opinions/ etc. will be noted.
--- NOTE | 2016-09-27 19:43 | P.PN ---
Subjective Date of service 09/27/2016. Progress note being dictated for . Interval history: This is a 71-year-old female status post left shoulder arthroplasty, renal failure, anemia and multiple other medical issues. Positive diet intake with no nausea or vomiting. Passing flatus, no bowel movement. Earlier became a little confused , pain management further adjusted per orthopedics. Renal function continues to slowly improve. Denies lightheadedness dizziness or focal deficits. Denies chest pain, palpitations or increasing shortness of breath. Hemoglobin 8.5. Objective - Vital Signs Vital signs: Vital Signs Temp 98.2 F 09/27/16 14:39 Pulse 80 09/27/16 15:53 Resp 16 09/27/16 15:53 BP 132/70 09/27/16 14:39 Pulse Ox 94 L 09/27/16 14:39 Intake & Output 09/27/16 09/27/16 09/28/16 06:59 18:59 06:59 Output Total 800 Balance -800 Weight 100.244 kg Output: Urine 800 Other: Voiding Method Toilet Toilet Bedside Commode # Voids 1 2 - Exam PHYSICAL EXAM: VITAL SIGNS: As above GENERAL: [Sitting up in bed, no acute distress] HEENT: [Pupils equal conjunctiva normal.] NECK: [Supple, no JVD] RESPIRATORY EFFORT:[Normal] LUNGS: [Clear, no wheezes rhonchi or crackles] CARDIOVASCULAR[regular S1 and S2, no edema] GI: [Abdomen soft, nontender, positive bowel sounds.] PSYCH: [Alert and oriented -3, mood and affect normal.] SKIN: Left arm sling present, fingers warm, NEURO: No focal deficits - Labs CBC & Chem 7: 09/27/16 09:38 09/27/16 09:38 Labs: Abnormal Lab Results - Last 24 Hours (Table) 09/26/16 09/27/16 09/27/16 Range/Units 21:22 07:13 09:38 RBC 2.93 L (3.80-5.40) m/uL Hgb 8.5 L (11.4-16.0) gm/dL Hct 27.8 L (34.0-46.0) % MCHC 30.8 L (31.0-37.0) g/dL RDW 16.6 H (11.5-15.5) % BUN (7-17) mg/dL Creatinine (0.52-1.04) mg/dL Glucose (74-99) mg/dL POC Glucose (mg/dL) 127 H 111 H (75-99) mg/dL 09/27/16 09/27/16 09/27/16 Range/Units 09:38 11:34 16:32 RBC (3.80-5.40) m/uL Hgb (11.4-16.0) gm/dL Hct (34.0-46.0) % MCHC (31.0-37.0) g/dL RDW (11.5-15.5) % BUN 20 H (7-17) mg/dL Creatinine 1.10 H (0.52-1.04) mg/dL Glucose 217 H (74-99) mg/dL POC Glucose (mg/dL) 142 H 168 H (75-99) mg/dL Assessment and Plan Plan: 1. [Status post left shoulder arthroplasty]. 2. [Acute on chronic renal failure, stage III, possibly]. 3. [Anemia, normocytic]. 4. [CAD, history of [place], stent]. 5. [Diabetes mellitus type 2]. 6. [Gastroesophageal reflux disease]. 7. [Hypertension]. 8. Hyperlipidemia 9. Degenerative joint disease 10. Sleep apnea 11. History of thyroid cancer 12. Anxiety, depression, panic disorder, not otherwise specified. Plan: Continue on current medication regime , monitoring and symptomatic treatment. Pain management as per surgery. Discharge planning tentatively for later today or possibly tomorrow as per orthopedics. Close monitoring of CBC. Further recommendations to follow. The impression and plan of care has been dictated as directed. : I performed a H&P examination of this patient and discussed the same with the dictator. I agree with the dictator's note. Any additional findings/opinions/ etc. will be noted.
[2016-09-27 20:05] LABS: Glucose,Whole Blood 128 mg/dL (75-99)
[2016-09-27] MEDS: ATORVASTATIN 80 MG TAB PO SCH (20:27)
[2016-09-28] MEDS: LACTATED RINGERS 1,000 ML IV SCH (05:48)
[2016-09-28] MEDS: LEVOTHYROXINE 112 MCG TAB PO SCH (05:59)
[2016-09-28 07:08] VITALS: BP 147/61; PULSE 74; TEMP 98.1
[2016-09-28 07:17] LABS: Glucose,Whole Blood 96 mg/dL (75-99)
[2016-09-28] MEDS: INSULIN LISPRO (humaLOG) 300 UNIT/3 ML VIAL SQ SCH ×4 (07:58→12:23)
[2016-09-28] MEDS: METOPROLOL TARTRATE 25 MG TAB PO SCH (08:00)
[2016-09-28] MEDS: PARoxetine 20 MG TAB PO SCH (08:01)
[2016-09-28] MEDS: ALLOPURINOL 100 MG TAB PO SCH (08:01)
[2016-09-28] MEDS: CHOLECALCIFEROL 1,000 UNIT TAB PO SCH (08:01)
[2016-09-28] MEDS: PANTOPRAZOLE 40 MG TABLET PO SCH (08:01)
[2016-09-28] MEDS: traMADol 50 MG TAB PO SCH ×2 (08:01→12:28)
[2016-09-28] MEDS: INSULIN NPH/REG INSULIN 70/30 300 UNIT/3 ML VIAL SQ SCH (08:36)
[2016-09-28] MEDS: HYDROcodone/APAP 5-325MG 1 EACH TAB PO PRN (09:40)
--- NOTE | 2016-09-28 09:40 | P.DS ---
Providers Date of admission: 09/25/16 08:43 Expected date of discharge: 09/28/16 Attending physician: Cesar Osuna Consults: 09/25/16 15:16 Consult Physician Routine Consulting Provider: Penny Garcia Consult Reason/Comments: medical management Do you want consulting provider notified?: Yes Primary care physician: Stated None - Discharge Diagnosis(es) (1) Status post total shoulder arthroplasty Current Visit: Yes Status: Acute (2) Proximal humerus fracture Current Visit: Yes Status: Acute Hospital Course: This is a 71-year-old female with known history of left proximal humerus fracture 1 month. The patient presents for evaluation. After discussion and consideration patient elects to proceed with left reverse total shoulder arthroplasty. The patient is seen preoperatively by Dr. Osuna and cleared for surgery. Patient is admitted to [facility] on 09/25/2016 for reverse total shoulder arthroplasty. The procedure is performed without complication or sequelae. The patient is doing well postoperatively. Labs and vital signs are stable on day of discharge. On day of discharge patient's incision is healing well. There is minimal erythema. Arm is soft. There is no drainage noted at this time. There is minimal soft tissue swelling to the shoulder. Patient's radial pulses are 2+ and capillary refill is normal at less than 2 seconds.. Neurovascular status to the left upper extremity is intact. Patient is discharged home in good condition. Please see med rec for accurate list of home medications. Plan - Discharge Summary New Discharge Prescriptions: Melatonin 3 mg PO HS PRN #20 tablet PRN Reason: Insomnia Sennosides-Docusate Sodium [Senokot-S] 2 each PO DAILY #60 tab Discharge Medication List Aspirin 81 mg PO BID 12/31/13 [History] Metoprolol Tartrate [Lopressor] 50 mg PO BID 12/31/13 [History] Nitroglycerin Sl Tabs [Nitrostat] 0.4 mg SUBLINGUAL Q5M PRN 12/31/13 [History] Pantoprazole Sodium [Protonix] 40 mg PO DAILY 12/31/13 [History] Cholecalciferol [Vitamin D3] 1,000 unit PO DAILY 04/23/14 [History] Levothyroxine Sodium [Synthroid] 112 mcg PO DAILY 09/09/15 [History] Lisinopril-Hctz 10-12.5 mg [Zestoretic 10-12.5] 1 tab PO DAILY 09/12/15 [History ] hydrALAZINE HCL [Apresoline] 25 mg PO BID PRN 09/12/15 [History] Atorvastatin [Lipitor] 80 mg PO HS 08/19/16 [History] Insulin NPH/Reg Insulin 70/30 [humuLIN 70/30 VIAL] 55 unit SQ QAM 08/19/16 [ History] Allopurinol [Zyloprim] 100 mg PO DAILY 09/03/16 [History] Insulin NPH/Reg Insulin 70/30 [humuLIN 70/30 VIAL] 35 unit SQ HS 09/03/16 [ History] PARoxetine [Paxil] 20 mg PO DAILY 09/03/16 [History] INSULIN LISPRO (HumaLOG) [HumaLOG] 3 units SQ AC-TID 09/25/16 [History] Sennosides-Docusate Sodium [Senokot-S] 2 each PO DAILY #60 tab 09/26/16 [Rx] Melatonin 3 mg PO HS PRN #20 tablet 09/27/16 [Rx] traMADol HCl [Ultram] 50 mg PO QID tab 09/27/16 [Rx] Follow up Appointment(s)/Referral(s): Cesar Osuna DO [Doctor of Osteopathic Medicine] - 10/09/16 2:25 pm Activity/Diet/Wound Care/Special Instructions: Maintain sling for comfort May shower if no drainage from the incision Follow-up with [facility] with any questions or concerns Discharge Disposition: HOME WITH HOME HEALTH SERVICES
== END 2016-09-28 13:37 | disposition home health service (06) | DRG 483 ==
LOC: 2ORMAIN 08:43 → 3SUR 15:24
PROVIDERS: ADMIT Orthopaedic Surgery; ATTEND Orthopaedic Surgery
PROC: 0RRK00Z Replacement of Left Shoulder Joint with Reverse Ball and Socket Synthetic Substitute, Open Approach (ICD-10-PCS; principal; 2016-09-25 11:10)
DX: S42.202A Unspecified fracture of upper end of left humerus, initial encounter for closed fracture (principal); E11.22 Type 2 diabetes mellitus with diabetic chronic kidney disease; E11.69 Type 2 diabetes mellitus with other specified complication; I12.9 Hypertensive chronic kidney disease with stage 1 through stage 4 chronic kidney disease, or unspecified chronic kidney disease; E78.5 Hyperlipidemia, unspecified; I25.10 Atherosclerotic heart disease of native coronary artery without angina pectoris; E03.9 Hypothyroidism, unspecified; D64.9 Anemia, unspecified; F32.9 Major depressive disorder, single episode, unspecified; F41.0 Panic disorder [episodic paroxysmal anxiety]; G47.30 Sleep apnea, unspecified; K21.9 Gastro-esophageal reflux disease without esophagitis; N18.3 Chronic kidney disease, stage 3 (moderate); Z85.850 Personal history of malignant neoplasm of thyroid; Z88.2 Allergy status to sulfonamides; Z79.82 Long term (current) use of aspirin; Z79.899 Other long term (current) drug therapy; Z79.4 Long term (current) use of insulin; Z88.5 Allergy status to narcotic agent; Z91.041 Radiographic dye allergy status; I25.2 Old myocardial infarction; Z86.14 Personal history of Methicillin resistant Staphylococcus aureus infection; Z87.891 Personal history of nicotine dependence; Z95.5 Presence of coronary angioplasty implant and graft
CPT/HCPCS: 71010; 80048; 83036; 84484; 85025; 88305; 88311

== ENCOUNTER → 2016-11-07 | Outpatient (CLI) | payer MEDICARE, BC ==
--- NOTE | 2016-11-07 12:02 | MR ---
EXAMINATION TYPE: MR brain wo con DATE OF EXAM: 11/07/2016 11:38 AM COMPARISON: NONE HISTORY: Cva, syncope T1-weighted sagittal, T2, FLAIR, and diffusion axial, and T2 coronal coronal views of the brain are s ubmitted. There is no evidence of acute ischemia. There is mild to moderate generalized degenerative change of the greater frontal lobe component. There numerous focal areas of abnormal signal scattered throughout the white matter bilaterally. Abno rmal signal involving the internal capsule as seen on the left. Abnormal signal the kim noted. Findi ngs are suggestive of nonspecific finding but likely the basis of remote ischemia. Nasal septal deviation noted. There is no mass effect. Tiny areas of abnormal signal involving the b jackson ganglia may represent tiny remote lacunar infarct or prominent [place] spaces. Craniocervical junction maintained. Sella turcica has a normal appearance. No cerebellopontine angle mass. IMPRESSION: 1. No acute intracranial process. 2. Degenerative and nonspecific white matter changes most typical of remote ischemia.
== END | disposition home or self-care (01) ==
LOC: RADMRIMAIN 10:57
PROVIDERS: ATTEND Psychiatry & Neurology Neurology
DX: R90.82 White matter disease, unspecified (principal); R55 Syncope and collapse; R41.82 Altered mental status, unspecified
CPT/HCPCS: 70551

== ENCOUNTER → 2017-03-13 | Outpatient (CLI) | payer MEDICARE, BC ==
--- NOTE | 2017-03-13 11:30 | US ---
EXAMINATION TYPE: US kidneys/renal and bladder DATE OF EXAM: 03/13/2017 COMPARISON: CT abdomen and pelvis April 17, 2015 CLINICAL HISTORY: N18.3 CKD STAGE 3. back pain EXAM MEASUREMENTS: Right Kidney: 9.9 x 4.1 x 5.6 cm Left Kidney: 10.5 x 4.5 x 5.4 cm Right Kidney: No hydronephrosis or masses seen, cortical thinning Left Kidney: No hydronephrosis or masses seen, cortical thinning Bladder: wnl Bilateral Jets seen: no Exam suboptimal secondary to patient's large body habitus. No suspicious solid or cystic masses seen in either kidney on images saved. Cortical thinning is present bilaterally. No gross hydronephrosis i s present. Bladder is poorly distended without intraluminal mass or wall thickening. IMPRESSION: Suboptimal study without hydronephrosis seen bilaterally.
== END | disposition home or self-care (01) ==
LOC: RADUSWWP 10:39
PROVIDERS: ATTEND Internal Medicine Nephrology
DX: N18.3 Chronic kidney disease, stage 3 (moderate) (principal)
CPT/HCPCS: 76770

== ENCOUNTER 2017-08-28 10:30 | Emergency (ER) | payer MEDICARE, BC ==
[2017-08-28] MEDS ORDERED: ONDANSETRON 4 MG/2 ML VIAL IVP STA (11:46)
[2017-08-28] MEDS ORDERED: MORPHINE SULFATE 4 MG/ML SYRINGE IVP STA (11:46)
--- NOTE | 2017-08-28 11:49 | ED ---
Back Pain HPI - General Chief Complaint: Back Pain/Injury Stated Complaint: Back & leg pain Time Seen by Provider: 08/28/17 11:37 Source: patient, RN notes reviewed Limitations: no limitations - History of Present Illness Initial Comments: This a 72-year-old female presents emergency department with family chief complaint of low back pain. Patient had increase in low back pain over the last 2 days. Patient states that it's from her middle of her low back that radiates down both leg. Patient states that she has chronic back issues but this felt different. Patient states that she went to get up out of the rocker chair and states that she felt a knot in her back. Patient states is worse with movement she does state that it's much better at rest. She states she is on her back she has worsening symptoms. Denies any increase abdominal pain denies any nausea vomiting or constipation no dysuria hematuria at this time. Patient is scheduled for an MRI of her lumbar spine by Dr. Ramirez in 2 days. She states this was a scheduled thing prior to her worsening symptoms. - Related Data Home Medications Medication Instructions Recorded Confirmed Metoprolol Tartrate [Lopressor] 50 mg PO BID 12/31/13 06/04/17 Nitroglycerin Sl Tabs [Nitrostat] 0.4 mg SUBLINGUAL Q5M PRN 12/31/13 06/04/17 Pantoprazole Sodium [Protonix] 40 mg PO DAILY 12/31/13 06/04/17 Cholecalciferol [Vitamin D3] 1,000 unit PO DAILY 04/23/14 06/04/17 Levothyroxine Sodium [Synthroid] 112 mcg PO DAILY 09/09/15 06/04/17 Lisinopril-Hctz 10-12.5 mg 1 tab PO DAILY 09/12/15 06/04/17 [Zestoretic 10-12.5] Atorvastatin [Lipitor] 80 mg PO HS 08/19/16 06/04/17 Insulin NPH/Reg Insulin 70/30 55 unit SQ QAM 08/19/16 06/04/17 [humuLIN 70/30 VIAL] Allopurinol [Zyloprim] 100 mg PO BID 09/03/16 06/04/17 Insulin NPH/Reg Insulin 70/30 35 unit SQ HS 09/03/16 06/04/17 [humuLIN 70/30 VIAL] Aspirin EC [Ecotrin Low Dose] 162 mg PO BID 06/04/17 06/04/17 HYDROcodone/APAP 5-325MG [[place] 1 tab PO TID PRN 06/04/17 06/04/17 5-325] Magnesium Oxide [Mag-Ox] 400 mg PO DAILY 06/04/17 06/04/17 PARoxetine [Paxil] 20 mg PO DAILY 06/04/17 06/04/17 Previous Rx's Medication Instructions Recorded OLANZapine [ZyPREXA] 2.5 mg PO HS #30 tab 06/08/17 Ciprofloxacin HCl [Cipro] 500 mg PO Q12HR #10 tablet 08/28/17 Hydrocodone/Acetaminophen [[place] 1 tab PO Q6HR PRN #20 tab 08/28/17 5-325] Allergies Allergy/AdvReac Type Severity Reaction Status Date / Time lorazepam [From Ativan] Allergy Unknown Verified 08/28/17 10:56 codeine AdvReac Nausea Verified 08/28/17 10:56 erythromycin base AdvReac Nausea Verified 08/28/17 10:56 [Erythromycin Base] Iodinated Contrast- Oral and AdvReac ELEVATED Verified 08/28/17 10:56 IV Dye B/P, FELT [Iodinated Contrast Media - LIKE PASSED IV Dye] methylprednisolone AdvReac Confusion Verified 08/28/17 10:56 [From Medrol] Sulfa (Sulfonamide AdvReac DIZZYNESS Verified 08/28/17 10:56 Antibiotics) Review of Systems ROS Statement: Those systems with pertinent positive or pertinent negative responses have been documented in the HPI. ROS Other: All systems not noted in ROS Statement are negative. Past Medical History Past Medical History: Coronary Artery Disease (CAD), Cancer, Diabetes Mellitus, Hyperlipidemia, Hypertension, Myocardial Infarction ([place]), Renal Disease, Sleep Apnea/CPAP/BIPAP Additional Past Medical History / Comment(s): osteomyelitis Lt hand/STAGE 3 RENAL FAILURE/THYROID CANCER, cpap machine,"rt hand 3 fingers numb" falls- constipation Last Myocardial Infarction Date:: 1999 History of Any Multi-Drug Resistant Organisms: MRSA Date of last positivie culture/infection: 07/01/2015 MDRO Source:: knee left Past Surgical History: Appendectomy, Heart Catheterization With Stent, Orthopedic Surgery Additional Past Surgical History / Comment(s): left hand, thyroidectomy, neck fusion/CARPAL TUNNEL REPAIR ASHLEY,colonoscopy in past STENT X1 Past Anesthesia/Blood Transfusion Reactions: No Reported Reaction Date of Last Stent Placement:: 1999 Past Psychological History: Anxiety, Depression, Panic Disorder Smoking Status: Never smoker Past Alcohol Use History: None Reported Past Drug Use History: None Reported - Past Family History Brother(s) Family Medical History: Cancer Mother Family Medical History: Diabetes Mellitus Father Family Medical History: Myocardial Infarction ([place]) General Exam Limitations: no limitations General appearance: alert, in no apparent distress Head exam: Present: atraumatic, normocephalic, normal inspection Respiratory exam: Present: normal lung sounds bilaterally. Absent: respiratory distress, wheezes, rales, rhonchi, stridor Cardiovascular Exam: Present: regular rate, normal rhythm, normal heart sounds. Absent: systolic murmur, diastolic murmur, rubs, gallop, clicks GI/Abdominal exam: Present: soft, normal bowel sounds. Absent: distended, tenderness, guarding, rebound, rigid Extremities exam: Present: other (Patient has full range of motion of bilateral lower extremities with pedal pulses equal bilaterally there is no discoloration no discrepancy in wants her color) Back exam: Present: normal inspection, full ROM (Pain with range of motion in the lumbar spine), tenderness (Diffuse lumbar), paraspinal tenderness, vertebral tenderness Neurological exam: Present: reflexes normal. Absent: motor sensory deficit Skin exam: Present: warm, dry, intact, normal color. Absent: rash Course Vital Signs 08/28/17 10:52 Temperature 97.9 F Pulse Rate 63 Respiratory 18 Rate Blood Pressure 133/60 O2 Sat by Pulse 94 L Oximetry Medical Decision Making - Medical Decision Making 72-year-old female presented from for low back pain. Patient injury given of her rocker 2 days ago. Patient's symptoms are consistent with muscle skeletal pain. Patient has severe degenerative changes on x-ray MRI is recommended she does have an MRI in 2 days. Patient feels better after IV pain meds. I will reviewed no acute abnormality's. Patient does have some bacteria noted on urine will be treated for UTI. - Lab Data Result diagrams: 08/28/17 12:00 08/28/17 12:00 Lab Results 08/28/17 08/28/17 08/28/17 Range/Units 12:00 12:00 12:00 WBC 8.9 (3.8-10.6) k/uL RBC 3.93 (3.80-5.40) m/uL Hgb 11.8 (11.4-16.0) gm/dL Hct 36.2 (34.0-46.0) % MCV 92.2 (80.0-100.0) fL MCH 30.1 (25.0-35.0) pg MCHC 32.6 (31.0-37.0) g/dL RDW 15.3 (11.5-15.5) % Plt Count 227 (150-450) k/uL Neutrophils % 70 % Lymphocytes % 16 % Monocytes % 7 % Eosinophils % 4 % Basophils % 1 % Neutrophils # 6.3 (1.3-7.7) k/uL Lymphocytes # 1.4 (1.0-4.8) k/uL Monocytes # 0.6 (0-1.0) k/uL Eosinophils # 0.4 (0-0.7) k/uL Basophils # 0.1 (0-0.2) k/uL Sodium 144 (137-145) mmol/L Potassium 4.9 (3.5-5.1) mmol/L Chloride 106 (98-107) mmol/L Carbon Dioxide 27 (22-30) mmol/L Anion Gap 11 mmol/L BUN 29 H (7-17) mg/dL Creatinine 0.87 (0.52-1.04) mg/dL Est GFR (CKD-EPI)AfAm 76 (>60 ml/min/1.73 sqM) Est GFR (CKD-EPI)NonAf 66 (>60 ml/min/1.73 sqM) Glucose 251 H (74-99) mg/dL Calcium 9.1 (8.4-10.2) mg/dL Total Bilirubin 0.8 (0.2-1.3) mg/dL AST 34 (14-36) U/L ALT 23 (9-52) U/L Alkaline Phosphatase 113 (38-126) U/L Total Protein 6.7 (6.3-8.2) g/dL Albumin 3.9 (3.5-5.0) g/dL Lipase 220 (23-300) U/L Urine Color Yellow Urine Appearance Clear (Clear) Urine pH 5.5 (5.0-8.0) Ur Specific [place] 1.015 (1.001-1.035) Urine Protein Trace H (Negative) Urine Glucose (UA) Negative (Negative) Urine Ketones Negative (Negative) Urine Blood Negative (Negative) Urine Nitrite Negative (Negative) Urine Bilirubin Negative (Negative) Urine Urobilinogen <2.0 (<2.0) mg/dL Ur Leukocyte Esterase Moderate H (Negative) Urine RBC 1 (0-5) /hpf Urine WBC 6 H (0-5) /hpf Ur Squamous Epith Cells 2 (0-4) /hpf Urine Bacteria Rare H (None) /hpf Urine Mucus Rare H (None) /hpf Disposition Clinical Impression: Lumbar back pain, Degenerative disc disease, lumbar, UTI (urinary tract infection) Disposition: HOME SELF-CARE Condition: Stable Instructions: Acute Low Back Pain (ED) Additional Instructions: Please return to the Emergency Department if symptoms worsen or any other concerns. Prescriptions: Ciprofloxacin HCl [Cipro] 500 mg PO Q12HR #10 tablet Hydrocodone/Acetaminophen [[place] 5-325] 1 tab PO Q6HR PRN #20 tab PRN Reason: Pain Referrals: Cesar Nielsen DO [Primary Care Provider] - 1-2 days Time of Disposition: 13:02
[2017-08-28 12:14] LABS: Appearance,Urine Clear (Clear); Bacteria,Urine Rare /hpf; Basophils # (A) 0.1 k/uL (0-0.2); Basophils % (A) 1 %; Bilirubin,Urine Negative (Negative); Blood,Urine Negative (Negative); Color,Urine Yellow; Eosinophils # (A) 0.4 k/uL (0-0.7); Eosinophils % (A) 4 %; Glucose,Urine (UA) Negative (Negative); HCT 36.2 % (34.0-46.0); HGB 11.8 gm/dL (11.4-16.0); Ketones,Urine Negative (Negative); Leukocyte Esterase,Urine Moderate (Negative); Lymphocytes # (A) 1.4 k/uL (1.0-4.8); Lymphocytes % (A) 16 %; MCH 30.1 pg (25.0-35.0); MCHC 32.6 g/dL (31.0-37.0); MCV 92.2 fL (80.0-100.0); Mean Platelet Volume 7.9; Monocytes # (A) 0.6 k/uL (0-1.0); Monocytes % (A) 7 %; Mucus,Urine Rare /hpf; Neutrophils # (A) 6.3 k/uL (1.3-7.7); Neutrophils % (A) 70 %; Nitrite,Urine Negative (Negative); PH, Urine 5.5 (5.0-8.0); Platelet Count 227 k/uL (150-450); Protein,Urine Trace (Negative); RBC 3.93 m/uL (3.80-5.40); RBC,Urine 1 /hpf (0-5); RDW 15.3 % (11.5-15.5); Specific Gravity,Urine 1.015 (1.001-1.035); Squamous Epithelial Cell,Urine 2 /hpf (0-4); Urobilinogen,Urine <2.0 mg/dL (<2.0); WBC 8.9 k/uL (3.8-10.6); WBC,Urine 6 /hpf (0-5)
[2017-08-28 12:29] LABS: Albumin 3.9 g/dL (3.5-5.0); Calcium 9.1 mg/dL (8.4-10.2); Total Bilirubin 0.8 mg/dL (0.2-1.3); Total Protein 6.7 g/dL (6.3-8.2)
[2017-08-28 12:33] LABS: Potassium 4.9 mmol/L (3.5-5.1)
--- NOTE | 2017-08-28 12:46 | XR ---
EXAM TYPE: LUMBAR SPINE X RAY SERIES COMPARISON: 05/19/2015 HISTORY: Back pain TECHNIQUE: 4 views are submitted. FINDINGS: Alignment is anatomic. The pedicles are intact. The transverse processes are intact. There is mult ilevel degenerative disc disease with severe changes noted. There is multilevel severe facet arthropa thy. There is a grade 1 anterolisthesis L4 on L5. Vascular calcifications noted. Curvature the spine noted. IMPRESSION: 1. Multilevel degenerative disc disease and facet arthropathy with grade 1 anterolisthesis L4 on L5. MRI suggested.
[2017-08-28 13:34] VITALS: BP 111/57; PULSE 64; RESP 12; TEMP 97.8
== END 2017-08-28 13:40 | disposition home or self-care (01) ==
LOC: EC 10:30
DX: M51.36 Other intervertebral disc degeneration, lumbar region (principal); N39.0 Urinary tract infection, site not specified; E78.5 Hyperlipidemia, unspecified; I10 Essential (primary) hypertension; I25.10 Atherosclerotic heart disease of native coronary artery without angina pectoris; E11.9 Type 2 diabetes mellitus without complications; G47.30 Sleep apnea, unspecified; F32.9 Major depressive disorder, single episode, unspecified; F41.0 Panic disorder [episodic paroxysmal anxiety]; I25.2 Old myocardial infarction; E89.0 Postprocedural hypothyroidism; Z79.4 Long term (current) use of insulin; Z79.82 Long term (current) use of aspirin; Z79.899 Other long term (current) drug therapy; Z88.1 Allergy status to other antibiotic agents; Z88.2 Allergy status to sulfonamides; Z88.5 Allergy status to narcotic agent; Z88.8 Allergy status to other drugs, medicaments and biological substances; Z91.041 Radiographic dye allergy status; Z86.14 Personal history of Methicillin resistant Staphylococcus aureus infection; Z85.850 Personal history of malignant neoplasm of thyroid; Z99.89 Dependence on other enabling machines and devices
CPT/HCPCS: 36415; 80053; 83690; 85025; 81001; 72110; 99283; 96374; 96375; J2270; J2405

== ENCOUNTER → 2017-08-30 | Outpatient (CLI) | payer MEDICARE, BC ==
--- NOTE | 2017-08-30 13:47 | MR ---
EXAMINATION TYPE: MR lumbar spine wo con DATE OF EXAM: 08/30/2017 1:09 PM COMPARISON: NONE HISTORY: Pain Multiplanar, MultiSpin echo imaging of the lumbar spine was performed. L1-L2: Severe disc desiccation. Moderate circumferential disc bulge greatest posteriorly. Effacement ventral thecal sac with mild central stenosis. Mild bilateral foraminal encroachment. Ventral spondyl osis and degenerative endplate marrow change. L2-L3: Severe disc desiccation. Moderate circumferential disc bulge greatest posteriorly. Effacement ventral thecal sac with mild central stenosis. Mild bilateral foraminal encroachment. Ventral spondyl osis and degenerative endplate marrow change. L3-L4: Moderate disc desiccation. Sequential disc bulge with mild effacement ventral thecal sac. Cons triction of the thecal sac without overt stenosis at this time. Right lateral recess stenosis. Right greater than left foraminal encroachment. No kunal herniation. L4-L5: Severe disc desiccation. Grade 1 anterolisthesis L4 and L5 measuring 5 mm. Posterior disc bulg ing with hypertrophy of the ligamentum flavum and facet joint arthropathy contributing to moderate ce ntral stenosis. Bilateral foraminal encroachment identified. L5-S1: Mild disc desiccation. Posterocentral focal disc bulge. No central herniation. No foraminal en croachment. Lumbar segments are intact. No paraspinal masses are identified. Conus medullaris has a normal appe arance. Scattered ventral spondylosis. IMPRESSION: 1. Multilevel degenerative disc disease. 2. Multilevel central stenosis greatest at L4-5. 3. Grade 1 anterolisthesis L4 and L5.
== END | disposition home or self-care (01) ==
LOC: RADMRIMAIN 11:56
PROVIDERS: ATTEND Physical Medicine & Rehabilitation
DX: M48.061 Spinal stenosis, lumbar region without neurogenic claudication (principal); M51.16 Intervertebral disc disorders with radiculopathy, lumbar region; M43.16 Spondylolisthesis, lumbar region
CPT/HCPCS: 72148

== ENCOUNTER 2017-10-17 13:46 | Observation (INO) | payer MEDICARE, BC ==
--- NOTE | 2017-10-17 14:51 | ED ---
General Adult HPI - General Chief complaint: Shortness of Breath Stated complaint: SOB-sent by Dr. Valdez Time Seen by Provider: 10/17/17 14:38 Source: patient, RN notes reviewed Mode of arrival: wheelchair Limitations: no limitations - History of Present Illness Initial comments: 72-year-old female presenting for evaluation of 4 days of worsening dyspnea. 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 She states they did order a chest x-ray she is uncertain of the results of this imaging. She has history of CK D and follows with hematology for her anemia. She denies significant cough. Denies fever chills over the past 4 days. She has had some mild nausea and indigestion. Denies kunal chest pain. Denies abdominal pain. She is also had several loose stools. She reports bilateral lower extremity edema which is worse over the past several days. - Related Data Home Medications Medication Instructions Recorded Confirmed Metoprolol Tartrate [Lopressor] 25 mg PO DAILY 12/31/13 10/17/17 Nitroglycerin Sl Tabs [Nitrostat] 0.4 mg SUBLINGUAL Q5M PRN 12/31/13 10/17/17 Cholecalciferol [Vitamin D3] 1,000 unit PO DAILY 04/23/14 10/17/17 Levothyroxine Sodium [Synthroid] 112 mcg PO DAILY 09/09/15 10/17/17 Lisinopril-Hctz 10-12.5 mg 1 tab PO DAILY 09/12/15 10/17/17 [Zestoretic 10-12.5] Insulin NPH/Reg Insulin 70/30 55 unit SQ QAM 08/19/16 10/17/17 [humuLIN 70/30 VIAL] Allopurinol [Zyloprim] 100 mg PO BID 09/03/16 10/17/17 Insulin NPH/Reg Insulin 70/30 35 unit SQ HS 09/03/16 10/17/17 [humuLIN 70/30 VIAL] Aspirin EC [Ecotrin Low Dose] 81 mg PO BID 06/04/17 10/17/17 Magnesium Oxide [Mag-Ox] 400 mg PO DAILY 06/04/17 10/17/17 Atorvastatin [Lipitor] 10 mg PO HS 10/17/17 10/17/17 Donepezil [Aricept] 10 mg PO HS 10/17/17 10/17/17 Metoprolol Tartrate [Lopressor] 50 mg PO HS 10/17/17 10/17/17 OLANZapine [ZyPREXA] 2.5 mg PO DAILY 10/17/17 10/17/17 OLANZapine [ZyPREXA] 5 mg PO HS 10/17/17 10/17/17 Pantoprazole Sodium [Protonix] 20 mg PO HS 10/17/17 10/17/17 Ziprasidone [Geodon] 20 mg PO BID 10/17/17 10/17/17 Allergies Allergy/AdvReac Type Severity Reaction Status Date / Time lorazepam [From Ativan] Allergy Unknown Verified 10/17/17 14:47 codeine AdvReac Nausea Verified 10/17/17 14:47 erythromycin base AdvReac Nausea Verified 10/17/17 14:47 [Erythromycin Base] Iodinated Contrast- Oral and AdvReac ELEVATED Verified 10/17/17 14:47 IV Dye B/P, FELT [Iodinated Contrast Media - LIKE PASSED IV Dye] methylprednisolone AdvReac Confusion Verified 10/17/17 14:47 [From Medrol] Sulfa (Sulfonamide AdvReac DIZZYNESS Verified 10/17/17 14:47 Antibiotics) Review of Systems ROS Statement: Those systems with pertinent positive or pertinent negative responses have been documented in the HPI. ROS Other: All systems not noted in ROS Statement are negative. Past Medical History Past Medical History: Coronary Artery Disease (CAD), Cancer, Diabetes Mellitus, Hyperlipidemia, Hypertension, Myocardial Infarction ([place]), Renal Disease, Sleep Apnea/CPAP/BIPAP Additional Past Medical History / Comment(s): osteomyelitis Lt hand/STAGE 3 RENAL FAILURE/THYROID CANCER, cpap machine,"rt hand 3 fingers numb" falls- constipation Last Myocardial Infarction Date:: 1999 History of Any Multi-Drug Resistant Organisms: MRSA Date of last positivie culture/infection: 07/01/2015 MDRO Source:: knee left Past Surgical History: Appendectomy, Heart Catheterization With Stent, Orthopedic Surgery Additional Past Surgical History / Comment(s): left hand, thyroidectomy, neck fusion/CARPAL TUNNEL REPAIR ASHLEY,colonoscopy in past STENT X1 Past Anesthesia/Blood Transfusion Reactions: No Reported Reaction Date of Last Stent Placement:: 1999 Past Psychological History: Anxiety, Depression, Panic Disorder Smoking Status: Never smoker Past Alcohol Use History: None Reported Past Drug Use History: None Reported - Past Family History Brother(s) Family Medical History: Cancer Mother Family Medical History: Diabetes Mellitus Father Family Medical History: Myocardial Infarction ([place]) General Exam Limitations: no limitations General appearance: alert, in no apparent distress Head exam: Present: atraumatic, normocephalic Eye exam: Present: normal appearance, PERRL ENT exam: Present: normal exam Neck exam: Present: normal inspection. Absent: tenderness, meningismus Respiratory exam: Present: rales. Absent: respiratory distress Cardiovascular Exam: Present: regular rate, normal rhythm GI/Abdominal exam: Present: soft. Absent: distended, tenderness Extremities exam: Present: pedal edema Neurological exam: Present: alert, oriented X3, CN II-XII intact. Absent: motor sensory deficit Psychiatric exam: Present: normal affect, normal mood Skin exam: Present: warm, dry, intact. Absent: cyanosis, diaphoretic Course Vital Signs 10/17/17 10/17/17 10/17/17 13:49 15:37 16:44 Temperature 97.8 F Pulse Rate 66 64 64 Respiratory 20 18 18 Rate Blood Pressure 144/72 126/59 199/83 O2 Sat by Pulse 98 96 98 Oximetry 10/17/17 10/17/17 17:23 18:29 Temperature Pulse Rate 64 65 Respiratory 18 18 Rate Blood Pressure 182/77 177/77 O2 Sat by Pulse 98 99 Oximetry EKG Findings - EKG Comments: EKG Findings:: EKG: Normal sinus rhythm, minimal voltage criteria for LVH, rate of 62, [place] interval 170, QRS duration 96, QTC 448. No ST segment elevation or depression. Medical Decision Making - Medical Decision Making 72-year-old female presenting with worsening dyspnea. Laboratory studies do reveal an elevated d-dimer, CT angiography is obtained, this is negative for PE , there is fluid overload concerning for cardiogenic versus noncardiogenic edema. BNP is negative at 126. Troponin negative. Magnesium 1.2 and this is replaced. Patient is given a dose of Lasix in the emergency department. She will be admitted for cardiology evaluation of dyspnea, concern for new onset heart failure. Echo will be obtained. - Lab Data Result diagrams: 10/17/17 15:36 10/17/17 15:36 Lab Results 10/17/17 10/17/17 10/17/17 Range/Units 15:36 15:36 15:36 WBC 9.4 (3.8-10.6) k/uL RBC 3.95 (3.80-5.40) m/uL Hgb 11.9 (11.4-16.0) gm/dL Hct 36.1 (34.0-46.0) % MCV 91.4 (80.0-100.0) fL MCH 30.1 (25.0-35.0) pg MCHC 32.9 (31.0-37.0) g/dL RDW 15.2 (11.5-15.5) % Plt Count 220 (150-450) k/uL Neutrophils % 64 % Lymphocytes % 23 % Monocytes % 7 % Eosinophils % 4 % Basophils % 0 % Neutrophils # 6.0 (1.3-7.7) k/uL Lymphocytes # 2.1 (1.0-4.8) k/uL Monocytes # 0.7 (0-1.0) k/uL Eosinophils # 0.4 (0-0.7) k/uL Basophils # 0.0 (0-0.2) k/uL PT (9.0-12.0) sec INR (<1.2) APTT (22.0-30.0) sec D-Dimer (<0.60) mg/L FEU Sodium 148 H (137-145) mmol/L Potassium 4.1 (3.5-5.1) mmol/L Chloride 109 H (98-107) mmol/L Carbon Dioxide 24 (22-30) mmol/L Anion Gap 15 mmol/L BUN 27 H (7-17) mg/dL Creatinine 1.03 (0.52-1.04) mg/dL Est GFR (CKD-EPI)AfAm 62 (>60 ml/min/1.73 sqM) Est GFR (CKD-EPI)NonAf 54 (>60 ml/min/1.73 sqM) Glucose 169 H (74-99) mg/dL Calcium 9.4 (8.4-10.2) mg/dL Magnesium 1.2 L (1.6-2.3) mg/dL Total Bilirubin 0.4 (0.2-1.3) mg/dL AST 23 (14-36) U/L ALT 23 (9-52) U/L Alkaline Phosphatase 113 (38-126) U/L Total Creatine Kinase 156 H (30-135) U/L CK-MB (CK-2) 2.6 H* (0.0-2.4) ng/mL CK-MB (CK-2) Rel Index 1.7 Troponin I <0.012 (0.000-0.034) ng/mL NT-Pro-B Natriuret Pep pg/mL Total Protein 6.5 (6.3-8.2) g/dL Albumin 4.0 (3.5-5.0) g/dL 10/17/17 10/17/17 10/17/17 Range/Units 15:36 15:36 15:36 WBC (3.8-10.6) k/uL RBC (3.80-5.40) m/uL Hgb (11.4-16.0) gm/dL Hct (34.0-46.0) % MCV (80.0-100.0) fL MCH (25.0-35.0) pg MCHC (31.0-37.0) g/dL RDW (11.5-15.5) % Plt Count (150-450) k/uL Neutrophils % % Lymphocytes % % Monocytes % % Eosinophils % % Basophils % % Neutrophils # (1.3-7.7) k/uL Lymphocytes # (1.0-4.8) k/uL Monocytes # (0-1.0) k/uL Eosinophils # (0-0.7) k/uL Basophils # (0-0.2) k/uL PT 10.0 (9.0-12.0) sec INR 1.0 (<1.2) APTT 25.8 (22.0-30.0) sec D-Dimer 1.34 H (<0.60) mg/L FEU Sodium (137-145) mmol/L Potassium (3.5-5.1) mmol/L Chloride (98-107) mmol/L Carbon Dioxide (22-30) mmol/L Anion Gap mmol/L BUN (7-17) mg/dL Creatinine (0.52-1.04) mg/dL Est GFR (CKD-EPI)AfAm (>60 ml/min/1.73 sqM) Est GFR (CKD-EPI)NonAf (>60 ml/min/1.73 sqM) Glucose (74-99) mg/dL Calcium (8.4-10.2) mg/dL Magnesium (1.6-2.3) mg/dL Total Bilirubin (0.2-1.3) mg/dL AST (14-36) U/L ALT (9-52) U/L Alkaline Phosphatase (38-126) U/L Total Creatine Kinase (30-135) U/L CK-MB (CK-2) (0.0-2.4) ng/mL CK-MB (CK-2) Rel Index Troponin I (0.000-0.034) ng/mL NT-Pro-B Natriuret Pep 126 pg/mL Total Protein (6.3-8.2) g/dL Albumin (3.5-5.0) g/dL Disposition Clinical Impression: Congestive heart failure Disposition: ADMITTED IP TO THIS HOSP Condition: Stable Is patient prescribed a controlled substance at d/c from ED?: No Referrals: Cesar Nielsen DO [Primary Care Provider] - 1-2 days Decision to Admit Reason: Admit from EC Decision Date: 10/17/17 Decision Time: 18:41
[2017-10-17 15:51] LABS: Basophils % (A) 0 %; Eosinophils # (A) 0.4 k/uL (0-0.7); Eosinophils % (A) 4 %; HCT 36.1 % (34.0-46.0); HGB 11.9 gm/dL (11.4-16.0); Lymphocytes # (A) 2.1 k/uL (1.0-4.8); Lymphocytes % (A) 23 %; MCH 30.1 pg (25.0-35.0); MCHC 32.9 g/dL (31.0-37.0); MCV 91.4 fL (80.0-100.0); Mean Platelet Volume 7.9; Monocytes # (A) 0.7 k/uL (0-1.0); Monocytes % (A) 7 %; Neutrophils % (A) 64 %; Platelet Count 220 k/uL (150-450); RBC 3.95 m/uL (3.80-5.40); RDW 15.2 % (11.5-15.5); WBC 9.4 k/uL (3.8-10.6)
[2017-10-17 16:01] LABS: Partial Thromboplastin Time 25.8 sec (22.0-30.0)
[2017-10-17 16:10] LABS: Calcium 9.4 mg/dL (8.4-10.2); Magnesium 1.2 mg/dL (1.6-2.3); Potassium 4.1 mmol/L (3.5-5.1); Total Bilirubin 0.4 mg/dL (0.2-1.3); Total Protein 6.5 g/dL (6.3-8.2)
[2017-10-17 16:19] LABS: Creatine Kinase 156 U/L (30-135)
[2017-10-17 16:31] LABS: Troponin I <0.012 ng/mL (0.000-0.034)
[2017-10-17 16:36] LABS: Creatine Kinase MB 2.6 ng/mL (0.0-2.4)
[2017-10-17] MEDS: MAGNESIUM SULFATE-D5W PMX 1 GM in DEXTROSE/WATER 1 100ML.BAG IVPB SCH ×2 (16:40→18:34)
[2017-10-17] MEDS ORDERED: RX INFO: IV CONTRAST WAS GIVEN 1 EACH MISC MISCELLANE PRN (16:49)
[2017-10-17] MEDS ORDERED: diphenhydrAMINE 50 MG/ML 1 ML VIAL IVP STA (17:00)
[2017-10-17] MEDS ORDERED: FAMOTIDINE 20 MG/2 ML VIAL IV STA (17:00)
--- NOTE | 2017-10-17 18:18 | CT ---
EXAMINATION TYPE: CT angio chest DATE OF EXAM: 10/17/2017 COMPARISON: NONE HISTORY: SOB CT DLP: 513 mGycm. Automated Exposure Control for Dose Reduction was Utilized. CONTRAST: CTA scan of the thorax is performed with IV Contrast, patient injected with 75ml mL of Isovue 370, pu lmonary embolism protocol. MIP Images are created on CT scanner and reviewed. FINDINGS: LUNGS: The lungs are grossly clear, there is no concerning parenchymal mass or nodule identified. T here is no pleural effusion or pneumothorax seen. The tracheobronchial tree is patent. As a punctate benign right upper lobe calcified granuloma. Minimal dependent subsegmental atelectasis is seen thro ughout the lungs. There is a 5 mm left lower lobe pulmonary nodule on series 5 image 69. There is min imal interlobular septal thickening and dependent groundglass opacities that may represent a componen t of fluid overload. MEDIASTINUM: There is satisfactory enhancement of the pulmonary artery and its branches, there is no CT evidence for pulmonary embolism. There are no greater than 1 cm hilar or mediastinal lymph nodes. Heart is upper limits of normal size however there is no cardiomegaly or pericardial effusion is se en. Mild coronary dislocations are seen of the left anterior descending coronary artery. The ascendin g thoracic aorta is within normal limits in size measuring 2.7 cm. OTHER: Left humeral arthroplasty is present. Mild multilevel degenerative changes of the thoracic spi ne are noted. IMPRESSION: 1. No evidence of pulmonary embolism. 2. Findings suggesting mild fluid overload that may be cardiogenic or noncardiogenic. Heart is upper limits of normal size. 3. Left lower lobe 5 mm pulmonary nodule. Follow-up CT in 12 months is recommended to ensure stabilit y. 4. Dependent subsegmental atelectasis.
[2017-10-17] MEDS ORDERED: FUROSEMIDE 10 MG/ML 4 ML VIAL IV STA (18:27)
[2017-10-17] MEDS ORDERED: NALOXONE 0.4 MG/ML 1 ML VIAL IV PRN (18:36)
[2017-10-17] MEDS ORDERED: ACETAMINOPHEN TAB 325 MG TAB PO PRN (18:36)
[2017-10-17] MEDS ORDERED: INSULIN NPH/REG INSULIN 70/30 300 UNIT/3 ML VIAL SQ SCH (21:00)
[2017-10-17] MEDS ORDERED: METOPROLOL TARTRATE 50 MG TAB PO SCH (21:00)
[2017-10-17 22:11] LABS: Glucose,Whole Blood 137 mg/dL (75-99)
[2017-10-17] MEDS: ASPIRIN 81 MG PO SCH (22:22)
[2017-10-17 23:21] LABS: Troponin I 0.015 ng/mL (0.000-0.034)
[2017-10-17 23:31] LABS: Creatine Kinase MB 2.7 ng/mL (0.0-2.4)
[2017-10-18 04:19] LABS: Troponin I 0.012 ng/mL (0.000-0.034)
[2017-10-18 04:57] LABS: Creatine Kinase MB 2.2 ng/mL (0.0-2.4)
[2017-10-18] MEDS ORDERED: LEVOTHYROXINE 112 MCG TAB PO SCH (06:30)
[2017-10-18 06:48] LABS: Glucose,Whole Blood 111 mg/dL (75-99)
[2017-10-18 08:34] VITALS: TEMP 97.2
[2017-10-18] MEDS ORDERED: INSULIN NPH/REG INSULIN 70/30 300 UNIT/3 ML VIAL SQ SCH (09:00)
[2017-10-18] MEDS ORDERED: METOPROLOL TARTRATE 25 MG TAB PO SCH (09:00)
[2017-10-18] MEDS ORDERED: LISINOPRIL-HCTZ 10-12.5 MG 1 EACH TAB PO SCH (09:00)
--- NOTE | 2017-10-18 09:43 | P.CRDCN ---
History of Present Illness Consult date: 10/18/17 Requesting physician: Penny Garcia Consult reason: shortness of breath Chief complaint: Shortness of breath History of present illness: This is a 72-year-old female who follows regularly with Dr. Fidelina Cade in the office. She has known history of hypertension, diabetes, hyperlipidemia , family history of premature coronary artery disease, coronary artery disease with an acute inferior wall CT and stenting of the right coronary artery in 2007. At that time she was found to have moderate disease in the circumflex 50- 55% OM disease 30-40% LAD, ejection fraction at that time documented to be 50%. Patient also underwent a heart catheterization in August 2015 which revealed a widely patent stents. Patient also has history of thyroid cancer with prior thyroidectomy. Patient presents to the hospital on this occasion with symptoms of shortness of breath. According to the patient, she states that she's quite short of breath when she lies flat, she has been waking up at night short of breath as well. She does occasionally get edema however states that recently it has not been any more than her usual. She states that she was at her oncologist's office yesterday, he noticed that the patient was short of breath and requested that a chest x-ray be performed. Chest x-ray did not reveal any acute cardiopulmonary process. D-dimer was obtained which came back to be elevated, patient then underwent a CAT scan of the chest did not reveal evidence of pulmonary embolism. Findings suggested mild fluid overload, left lower lobe 5 mm pulmonary nodule noted. EKG shows a normal sinus rhythm with no acute changes. CBC was normal, d-dimer 1.3, sodium 148, potassium 4.1, BUN 27, creatinine 1.0. Magnesium level on admission 1.2, 1.7 this morning. Troponins 0.012, 0.015, 0.012. Influenza A and B are negative. Blood pressure on arrival 144/70 with a heart rate in the 60s, temperature 97.8 she's 98% on room air. At the time of my examination this morning, patient still complains that she feels short of breath, she has been initiated on IV Lasix and has diuresed well through the night last night. Past Medical History Past Medical History: Coronary Artery Disease (CAD), Cancer, Diabetes Mellitus, Hyperlipidemia, Hypertension, Myocardial Infarction (CT), Renal Disease, Sleep Apnea/CPAP/BIPAP Additional Past Medical History / Comment(s): osteomyelitis Lt hand/STAGE 3 RENAL FAILURE/THYROID CANCER, cpap machine,"rt hand 3 fingers numb" falls- constipation Last Myocardial Infarction Date:: 1999 History of Any Multi-Drug Resistant Organisms: MRSA Date of last positivie culture/infection: 07/01/2015 MDRO Source:: knee left Past Surgical History: Appendectomy, Heart Catheterization With Stent, Orthopedic Surgery Additional Past Surgical History / Comment(s): left hand, thyroidectomy, neck fusion/CARPAL TUNNEL REPAIR ASHLEY,colonoscopy in past STENT X1 Past Anesthesia/Blood Transfusion Reactions: No Reported Reaction Date of Last Stent Placement:: 1999 Smoking Status: Former smoker - Past Family History Brother(s) Family Medical History: Cancer Mother Family Medical History: Diabetes Mellitus Father Family Medical History: Myocardial Infarction (CT) Medications and Allergies Home Medications Medication Instructions Recorded Confirmed Type Metoprolol Tartrate [Lopressor] 25 mg PO DAILY 12/31/13 10/17/17 History Nitroglycerin Sl Tabs [Nitrostat] 0.4 mg SUBLINGUAL Q5M PRN 12/31/13 10/17/17 History Cholecalciferol [Vitamin D3] 1,000 unit PO DAILY 04/23/14 10/17/17 History Levothyroxine Sodium [Synthroid] 112 mcg PO DAILY 09/09/15 10/17/17 History Lisinopril-Hctz 10-12.5 mg 1 tab PO DAILY 09/12/15 10/17/17 History [Zestoretic 10-12.5] Insulin NPH/Reg Insulin 70/30 55 unit SQ QAM 08/19/16 10/17/17 History [humuLIN 70/30 VIAL] Allopurinol [Zyloprim] 100 mg PO BID 09/03/16 10/17/17 History Insulin NPH/Reg Insulin 70/30 35 unit SQ HS 09/03/16 10/17/17 History [humuLIN 70/30 VIAL] Aspirin EC [Ecotrin Low Dose] 81 mg PO BID 06/04/17 10/17/17 History Magnesium Oxide [Mag-Ox] 400 mg PO DAILY 06/04/17 10/17/17 History Atorvastatin [Lipitor] 10 mg PO HS 10/17/17 10/17/17 History Donepezil [Aricept] 10 mg PO HS 10/17/17 10/17/17 History Metoprolol Tartrate [Lopressor] 50 mg PO HS 10/17/17 10/17/17 History OLANZapine [ZyPREXA] 2.5 mg PO DAILY 10/17/17 10/17/17 History OLANZapine [ZyPREXA] 5 mg PO HS 10/17/17 10/17/17 History Pantoprazole Sodium [Protonix] 20 mg PO HS 10/17/17 10/17/17 History Ziprasidone [Geodon] 20 mg PO BID 10/17/17 10/17/17 History Allergies Allergy/AdvReac Type Severity Reaction Status Date / Time lorazepam [From Ativan] Allergy Unknown Verified 10/17/17 14:47 codeine AdvReac Nausea Verified 10/17/17 14:47 erythromycin base AdvReac Nausea Verified 10/17/17 14:47 [Erythromycin Base] Iodinated Contrast- Oral and AdvReac ELEVATED Verified 10/17/17 14:47 IV Dye B/P, FELT [Iodinated Contrast Media - LIKE PASSED IV Dye] methylprednisolone AdvReac Confusion Verified 10/17/17 14:47 [From Medrol] Sulfa (Sulfonamide AdvReac DIZZYNESS Verified 10/17/17 14:47 Antibiotics) Physical Exam Vitals: Vital Signs Temp Pulse Pulse Resp BP BP Pulse Ox 10/18/17 08:00 97.2 F L 59 L 18 119/67 98 10/18/17 04:00 97.1 F L 62 18 152/65 98 10/17/17 23:47 66 18 113/56 98 10/17/17 22:42 97.8 F 73 18 132/63 97 10/17/17 20:47 70 17 167/68 94 L 10/17/17 18:29 65 18 177/77 99 10/17/17 17:23 64 18 182/77 98 10/17/17 16:44 64 18 199/83 98 10/17/17 15:37 64 18 126/59 96 10/17/17 13:49 97.8 F 66 20 144/72 98 Intake and Output 10/17/17 10/18/17 10/18/17 22:59 06:59 14:59 Intake Total 250 Output Total 1500 300 Balance -1500 -300 250 Intake: Oral 250 Output: Urine 1500 300 PHYSICAL EXAMINATION: HEENT: Head is atraumatic, normocephalic. Pupils equal, round. Neck is supple. There is no elevated jugular venous pressure. HEART EXAMINATION: Heart S1, S2 normal. No murmur or gallop heard. CHEST EXAMINATION: Lungs are clear to auscultation and precussion. No chest wall tenderness is noted on palpation or with deep breathing. ABDOMEN: Soft, nontender. Bowel sounds are heard. No organomegaly noted. EXTREMITIES: 2+ peripheral pulses with no evidence of peripheral edema and no calf tenderness noted. NEUROLOGIC patient is awake, alert and oriented -3. . Results 10/17/17 15:36 10/17/17 15:36 Cardiac Enzymes 10/17/17 10/17/17 10/17/17 Range/Units 15:36 15:36 21:50 AST 23 (14-36) U/L CK-MB (CK-2) 2.6 H* 2.7 H* (0.0-2.4) ng/mL Troponin I <0.012 0.015 (0.000-0.034) ng/mL 10/18/17 Range/Units 03:29 AST (14-36) U/L CK-MB (CK-2) 2.2 (0.0-2.4) ng/mL Troponin I 0.012 (0.000-0.034) ng/mL Coagulation 10/17/17 Range/Units 15:36 PT 10.0 (9.0-12.0) sec APTT 25.8 (22.0-30.0) sec CBC 10/17/17 Range/Units 15:36 WBC 9.4 (3.8-10.6) k/uL RBC 3.95 (3.80-5.40) m/uL Hgb 11.9 (11.4-16.0) gm/dL Hct 36.1 (34.0-46.0) % Plt Count 220 (150-450) k/uL Comprehensive Metabolic Panel 10/17/17 Range/Units 15:36 Sodium 148 H (137-145) mmol/L Potassium 4.1 (3.5-5.1) mmol/L Chloride 109 H (98-107) mmol/L Carbon Dioxide 24 (22-30) mmol/L BUN 27 H (7-17) mg/dL Creatinine 1.03 (0.52-1.04) mg/dL Glucose 169 H (74-99) mg/dL Calcium 9.4 (8.4-10.2) mg/dL AST 23 (14-36) U/L ALT 23 (9-52) U/L Alkaline Phosphatase 113 (38-126) U/L Total Protein 6.5 (6.3-8.2) g/dL Albumin 4.0 (3.5-5.0) g/dL Current Medications Generic Name Dose Route Start Last Admin Trade Name Freq PRN Reason Stop Dose Admin Acetaminophen 650 mg 10/17/17 18:36 Tylenol Tab PO Q6HR PRN Mild Pain or Fever > 100.5 Aspirin 81 mg 10/17/17 21:00 10/17/17 22:22 Aspirin PO 81 mg BID YAHIR Administration Lisinopril/HCTZ 1 each 10/18/17 09:00 Zestoretic 10-12.5 PO DAILY YAHIR Insulin Human Isoph/Insulin Regular 35 unit 10/17/17 21:00 10/17/17 22:23 Humulin 70/30 Vial SQ 35 unit HS YAHIR Administration Insulin Human Isoph/Insulin Regular 55 unit 10/18/17 09:00 Humulin 70/30 Vial SQ QAM YAHIR Levothyroxine Sodium 112 mcg 10/18/17 06:30 10/18/17 06:55 Synthroid PO 112 mcg DAILY@0630 YAHIR Administration Metoprolol Tartrate 25 mg 10/18/17 09:00 Lopressor PO DAILY YAHIR Metoprolol Tartrate 50 mg 10/17/17 21:00 10/17/17 22:23 Lopressor PO 50 mg HS YAHIR Administration Miscellaneous Information 1 each 10/17/17 16:49 10/17/17 16:53 Rx Info: Iv Contrast Was Given MISCELLANE 10/19/17 16:49 1 each DAILY PRN Administration Per Protocol Naloxone HCl 0.2 mg 10/17/17 18:36 Narcan IV Q2M PRN Opioid Reversal Intake and Output 10/17/17 10/18/17 10/18/17 22:59 06:59 14:59 Intake Total 250 Output Total 1500 300 Balance -1500 -300 250 Intake: Oral 250 Output: Urine 1500 300 10/17/17 15:36 10/17/17 15:36 EKG Interpretations (text) EKG shows a normal sinus rhythm with no acute changes. Assessment and Plan Plan: Assessment and plan #1 symptoms of 3-4 duration of shortness of breath, no overt evidence of any congestive heart failure, BNP level was normal. Chest x-ray did not reveal any congestive cardiac failure. Recommend pulmonary evaluation. #2 known history of coronary artery disease with prior CT and stenting of the RCA in 2007, most recent heart catheterization was performed in 2016 which revealed a widely patent right coronary artery #3 hypertension #4 hyperlipidemia # 5 diabetes #6 history of thyroid cancer as well as post thyroidectomy #7 anemia Plan We will obtain an echocardiogram with Doppler study. We will discontinue the IV Lasix and put the patient on a small dose of 20 mg by mouth Lasix daily. Recommend pulmonary evaluation. As an outpatient we will schedule her to see Dr. Cade and schedule an outpatient stress test. DNP note has been reviewed, I agree with a documented findings and plan of care. Patient was seen and examined.
[2017-10-18] MEDS: ASPIRIN 81 MG PO SCH (09:52)
[2017-10-18] MEDS ORDERED: FUROSEMIDE 20 MG TAB PO SCH (10:00)
[2017-10-18 11:59] LABS: Glucose,Whole Blood 121 mg/dL (75-99)
--- NOTE | 2017-10-18 12:16 | ECHOF ---
Referral Reason:CHF MEASUREMENTS -------- HEIGHT: 152.4 cm WEIGHT: 99.8 kg BP: 152/65 RVIDd: 3.0 cm (< 3.3) IVSd: 1.2 cm (0.6 - 1.1) LVIDd: 3.9 cm (3.9 - 5.3) LVPWd: 1.4 cm (0.6 - 1.1) IVSs: 1.4 cm LVIDs: 2.9 cm LVPWs: 1.8 cm LA Diam: 3.3 cm (2.7 - 3.8) LAESV Index (A-L): 27.69 ml/m Ao Diam: 2.7 cm (2.0 - 3.7) AV Cusp: 0.9 cm (1.5 - 2.6) LA Diam: 3.7 cm (2.7 - 3.8) MV EXCURSION: 16.659 mm (> 18.000) MV EF SLOPE: 109 mm/s (70 - 150) EPSS: 0.2 cm MV E Jimbo: 0.46 m/s MV DecT: 369 ms MV A Jimbo: 0.73 m/s MV E/A Ratio: 0.63 RAP: 5.00 mmHg RVSP: 25.43 mmHg FINDINGS -------- Sinus rhythm. This was a technically adequate study. The left ventricular size is normal. There is mild concentric left ventricular hypertrophy. Overa ll left ventricular systolic function is low-normal with, an EF between 50 - 55 %. The right ventricle is normal in size. The left atrial size is normal. Normal LA size by volume 22+/-6 ml/m2. The right atrial size is normal. There is mild aortic valve sclerosis. There is no evidence of aortic regurgitation. Mild mitral annular calcification present. Mild mitral regurgitation is present. Mild tricuspid regurgitation present. There is no evidence of pulmonary hypertension. The right v entricular systolic pressure, as measured by Doppler, is 25.43mmHg. There is no pulmonic regurgitation present. The aortic root size is normal. There is no pericardial effusion. CONCLUSIONS -------- 1. The left ventricular size is normal. 2. There is mild concentric left ventricular hypertrophy. 3. Overall left ventricular systolic function is low-normal with, an EF between 50 - 55 %. 4. Normal LA size by volume 22+/-6 ml/m2. 5. There is mild aortic valve sclerosis. 6. Mild mitral annular calcification present. 7. Mild mitral regurgitation is present. 8. Mild tricuspid regurgitation present. 9. There is no evidence of pulmonary hypertension. 10. The right ventricular systolic pressure, as measured by Doppler, is 25.43mmHg. 11. There is no pulmonic regurgitation present. 12. The aortic root size is normal. 13. There is no pericardial effusion. COLD WATER MACHINE OPERATOR: Pam Vo RDCS
[2017-10-18 16:22] VITALS: BP 105/62; PULSE 71; RESP 16
--- NOTE | 2017-10-18 18:36 | P.HPIM ---
History of Present Illness 72-year-old female female with moderate dementia although alert oriented times close to 2 came in with comments of shortness of breath does have significant memory issues, was comparing of shortness of breath chest x-ray was suspicious for pulmonary edema because of which patient was admitted with IV Lasix cardia valid the patient. I I valid to the patient clinically patient does not appear to have any concerns failure patient was switched to oral Lasix 20 mg. Patient doesn't use any Lasix at home. Patient doesn't have any findings of COPD CAT scan of the chest did not show any pulmonary edema is saturating well on room air will ablate the patient if she is saturating well patient will be discharged today. Patient was evaluated by cardiology please refer to the dictation for further details. Although etiology of her shortness of breath is not clear but subjectively patient is saturating well on room air not in respiratory distress although workup is negative. Review of Systems REVIEW OF SYSTEMS: CONSTITUTIONAL: No fever, no malaise, no fatigue. HEENT: No recent visual problems or hearing problems. Denied any sore throat. CARDIOVASCULAR: No chest pain, orthopnea, PND, no palpitations, no syncope. PULMONARY: no cough, no hemoptysis. GASTROINTESTINAL: No diarrhea, no nausea, no vomiting, no abdominal pain. Normoactive bowel sounds. NEUROLOGICAL: No headaches, no weakness, no numbness. HEMATOLOGICAL: Denies any bleeding or petechiae. GENITOURINARY: Denies any burning micturition, frequency, or urgency. MUSCULOSKELETAL/RHEUMATOLOGICAL: Denies any joint pain, swelling, or any muscle pain. ENDOCRINE: Denies any polyuria or polydipsia. The rest of the 14-point review of systems is negative. Past Medical History Past Medical History: Coronary Artery Disease (CAD), Cancer, Diabetes Mellitus, Hyperlipidemia, Hypertension, Myocardial Infarction ([place]), Renal Disease, Sleep Apnea/CPAP/BIPAP Additional Past Medical History / Comment(s): osteomyelitis Lt hand/STAGE 3 RENAL FAILURE/THYROID CANCER, cpap machine,"rt hand 3 fingers numb" falls- constipation Last Myocardial Infarction Date:: 1999 History of Any Multi-Drug Resistant Organisms: MRSA Date of last positivie culture/infection: 07/01/2015 MDRO Source:: knee left Past Surgical History: Appendectomy, Heart Catheterization With Stent, Orthopedic Surgery Additional Past Surgical History / Comment(s): left hand, thyroidectomy, neck fusion/CARPAL TUNNEL REPAIR ASHLEY,colonoscopy in past STENT X1 Past Anesthesia/Blood Transfusion Reactions: No Reported Reaction Date of Last Stent Placement:: 1999 Smoking Status: Former smoker - Past Family History Brother(s) Family Medical History: Cancer Mother Family Medical History: Diabetes Mellitus Father Family Medical History: Myocardial Infarction (MO) Medications and Allergies Home Medications Medication Instructions Recorded Confirmed Type Metoprolol Tartrate [Lopressor] 25 mg PO DAILY 12/31/13 10/17/17 History Nitroglycerin Sl Tabs [Nitrostat] 0.4 mg SUBLINGUAL Q5M PRN 12/31/13 10/17/17 History Cholecalciferol [Vitamin D3] 1,000 unit PO DAILY 04/23/14 10/17/17 History Levothyroxine Sodium [Synthroid] 112 mcg PO DAILY 09/09/15 10/17/17 History Insulin NPH/Reg Insulin 70/30 55 unit SQ QAM 08/19/16 10/17/17 History [humuLIN 70/30 VIAL] Allopurinol [Zyloprim] 100 mg PO BID 09/03/16 10/17/17 History Insulin NPH/Reg Insulin 70/30 35 unit SQ HS 09/03/16 10/17/17 History [humuLIN 70/30 VIAL] Aspirin EC [Ecotrin Low Dose] 81 mg PO BID 06/04/17 10/17/17 History Magnesium Oxide [Mag-Ox] 400 mg PO DAILY 06/04/17 10/17/17 History Atorvastatin [Lipitor] 10 mg PO HS 10/17/17 10/17/17 History Donepezil [Aricept] 10 mg PO HS 10/17/17 10/17/17 History Metoprolol Tartrate [Lopressor] 50 mg PO HS 10/17/17 10/17/17 History OLANZapine [ZyPREXA] 2.5 mg PO DAILY 10/17/17 10/17/17 History OLANZapine [ZyPREXA] 5 mg PO HS 10/17/17 10/17/17 History Pantoprazole Sodium [Protonix] 20 mg PO HS 10/17/17 10/17/17 History Ziprasidone [Geodon] 20 mg PO BID 10/17/17 10/17/17 History Lisinopril [Prinivil] 10 mg PO DAILY #30 tab 10/18/17 Rx Allergies Allergy/AdvReac Type Severity Reaction Status Date / Time lorazepam [From Ativan] Allergy Unknown Verified 10/17/17 14:47 codeine AdvReac Nausea Verified 10/17/17 14:47 erythromycin base AdvReac Nausea Verified 10/17/17 14:47 [Erythromycin Base] Iodinated Contrast- Oral and AdvReac ELEVATED Verified 10/17/17 14:47 IV Dye B/P, FELT [Iodinated Contrast Media - LIKE PASSED IV Dye] methylprednisolone AdvReac Confusion Verified 10/17/17 14:47 [From Medrol] Sulfa (Sulfonamide AdvReac DIZZYNESS Verified 10/17/17 14:47 Antibiotics) Physical Exam Vitals: Vital Signs Temp Pulse Pulse Resp BP BP Pulse Ox 10/18/17 16:00 71 16 105/62 94 L 10/18/17 12:23 93 L 10/18/17 12:00 97.2 F L 66 18 151/71 92 L 10/18/17 09:55 20 95 10/18/17 09:45 18 95 10/18/17 08:00 97.2 F L 59 L 18 119/67 98 10/18/17 04:00 97.1 F L 62 18 152/65 98 10/17/17 23:47 66 18 113/56 98 10/17/17 22:42 97.8 F 73 18 132/63 97 10/17/17 20:47 70 17 167/68 94 L 10/17/17 18:29 65 18 177/77 99 Intake and Output 10/18/17 10/18/17 10/18/17 06:59 14:59 22:59 Intake Total 370 120 Output Total 300 Balance -300 370 120 Intake: Oral 370 120 Output: Urine 300 Other: # Voids 1 1 # Bowel Movements 1 PHYSICAL EXAMINATION: GENERAL: The patient is alert and oriented x3, not in any acute distress. Well developed, well nourished. HEENT: Pupils are round and equally reacting to light. EOMI. No scleral icterus. No conjunctival pallor. Normocephalic, atraumatic. No pharyngeal erythema. No thyromegaly. CARDIOVASCULAR: S1 and S2 present. No murmurs, rubs, or gallops. PULMONARY: Chest is clear to auscultation, no wheezing or crackles. ABDOMEN: Soft, nontender, nondistended, normoactive bowel sounds. No palpable organomegaly. MUSCULOSKELETAL: No joint swelling or deformity. EXTREMITIES: No cyanosis, clubbing, or pedal edema. NEUROLOGICAL: Gross neurological examination did not reveal any focal deficits. SKIN: No rashes. Results CBC & Chem 7: 10/17/17 15:36 10/17/17 15:36 Labs: Abnormal Lab Results - Last 24 Hours (Table) 10/17/17 10/17/17 10/18/17 Range/Units 21:50 22:07 06:45 POC Glucose (mg/dL) 137 H 111 H (75-99) mg/dL Total Creatine Kinase 151 H (30-135) U/L CK-MB (CK-2) 2.7 H* (0.0-2.4) ng/mL 10/18/17 Range/Units 11:54 POC Glucose (mg/dL) 121 H (75-99) mg/dL Total Creatine Kinase (30-135) U/L CK-MB (CK-2) (0.0-2.4) ng/mL Thrombosis Risk Factor Assmnt - Choose All That Apply Any of the Below Risk Factors Present?: Yes Each Factor Represents 1 point: Obesity (BMI >25) Each Risk Factor Represents 2 Points: Age 61-74 years Thrombosis Risk Factor Assessment Total Risk Factor Score: 3 Thrombosis Risk Factor Assessment Level: Moderate Risk Assessment and Plan Plan: -Shortness of breath: Unsure of the exact etiology all the workup is negative, patient doesn't have any wheezing patient will be discharged today. Follow with primary care patient is an outpatient. -History of dementia probably also was dementia moderate severity. -Hypertension next and-hyperlipidemia -Type 2 diabetes mellitus -Hypothyroidism history of thyroid cancer with thyroidectomy in the past
--- NOTE | 2017-10-18 18:37 | P.DS ---
Providers Date of admission: 10/17/17 18:36 Attending physician: Penny Garcia Consults: 10/17/17 18:37 Consult Physician Routine Consulting Provider: Cathy Groves Consult Reason/Comments: Concern for new onset heart failure Do you want consulting provider notified?: Yes Primary care physician: [facility] Course: As mentioned in HPI Patient Condition at Discharge: Stable Plan - Discharge Summary Discharge Rx Participant: No New Discharge Prescriptions: New Lisinopril [Prinivil] 10 mg PO DAILY #30 tab Discontinued Lisinopril-Hctz 10-12.5 mg [Zestoretic 10-12.5] 1 tab PO DAILY No Action Nitroglycerin Sl Tabs [Nitrostat] 0.4 mg SUBLINGUAL Q5M PRN PRN Reason: Chest Pain Metoprolol Tartrate [Lopressor] 25 mg PO DAILY Cholecalciferol [Vitamin D3] 1,000 unit PO DAILY Levothyroxine Sodium [Synthroid] 112 mcg PO DAILY Insulin NPH/Reg Insulin 70/30 [humuLIN 70/30 VIAL] 55 unit SQ QAM Insulin NPH/Reg Insulin 70/30 [humuLIN 70/30 VIAL] 35 unit SQ HS Allopurinol [Zyloprim] 100 mg PO BID Aspirin EC [Ecotrin Low Dose] 81 mg PO BID Magnesium Oxide [Mag-Ox] 400 mg PO DAILY Atorvastatin [Lipitor] 10 mg PO HS Donepezil [Aricept] 10 mg PO HS Metoprolol Tartrate [Lopressor] 50 mg PO HS OLANZapine [ZyPREXA] 2.5 mg PO DAILY OLANZapine [ZyPREXA] 5 mg PO HS Pantoprazole Sodium [Protonix] 20 mg PO HS Ziprasidone [Geodon] 20 mg PO BID Discharge Medication List Metoprolol Tartrate [Lopressor] 25 mg PO DAILY 12/31/13 [History] Nitroglycerin Sl Tabs [Nitrostat] 0.4 mg SUBLINGUAL Q5M PRN 12/31/13 [History] Cholecalciferol [Vitamin D3] 1,000 unit PO DAILY 04/23/14 [History] Levothyroxine Sodium [Synthroid] 112 mcg PO DAILY 09/09/15 [History] Insulin NPH/Reg Insulin 70/30 [humuLIN 70/30 VIAL] 55 unit SQ QAM 08/19/16 [ History] Allopurinol [Zyloprim] 100 mg PO BID 09/03/16 [History] Insulin NPH/Reg Insulin 70/30 [humuLIN 70/30 VIAL] 35 unit SQ HS 09/03/16 [ History] Aspirin EC [Ecotrin Low Dose] 81 mg PO BID 06/04/17 [History] Magnesium Oxide [Mag-Ox] 400 mg PO DAILY 06/04/17 [History] Atorvastatin [Lipitor] 10 mg PO HS 10/17/17 [History] Donepezil [Aricept] 10 mg PO HS 10/17/17 [History] Metoprolol Tartrate [Lopressor] 50 mg PO HS 10/17/17 [History] OLANZapine [ZyPREXA] 2.5 mg PO DAILY 10/17/17 [History] OLANZapine [ZyPREXA] 5 mg PO HS 10/17/17 [History] Pantoprazole Sodium [Protonix] 20 mg PO HS 10/17/17 [History] Ziprasidone [Geodon] 20 mg PO BID 10/17/17 [History] Lisinopril [Prinivil] 10 mg PO DAILY #30 tab 10/18/17 [Rx] Follow up Appointment(s)/Referral(s): Momo Cade MD [STAFF PHYSICIAN] - 1 Week (Please call and make follow up appointment during normal business hours.) Cesar Nielsen DO [Primary Care Provider] - 3 Days (Please call and make follow up appointment during normal business hours.) Patient Instructions/Handouts: Pulmonary Edema (DC), Dyspnea (GEN) Discharge Disposition: HOME SELF-CARE
[2017-10-19] MEDS ORDERED: MAGNESIUM OXIDE 400 MG TAB PO SCH (09:00)
== END 2017-10-18 18:40 | disposition home or self-care (01) ==
LOC: EC 13:46 → INTOOBSV 18:36 → 6SEL 18:36
PROVIDERS: ADMIT Hospitalist; ATTEND Hospitalist
DX: R06.02 Shortness of breath (principal); I25.10 Atherosclerotic heart disease of native coronary artery without angina pectoris; I12.9 Hypertensive chronic kidney disease with stage 1 through stage 4 chronic kidney disease, or unspecified chronic kidney disease; N18.3 Chronic kidney disease, stage 3 (moderate); E78.5 Hyperlipidemia, unspecified; G47.30 Sleep apnea, unspecified; E89.0 Postprocedural hypothyroidism; E11.22 Type 2 diabetes mellitus with diabetic chronic kidney disease; F41.9 Anxiety disorder, unspecified; F32.9 Major depressive disorder, single episode, unspecified; F03.90 Unspecified dementia, unspecified severity, without behavioral disturbance, psychotic disturbance, mood disturbance, and anxiety; F41.0 Panic disorder [episodic paroxysmal anxiety]; I25.2 Old myocardial infarction; Z82.49 Family history of ischemic heart disease and other diseases of the circulatory system; Z83.3 Family history of diabetes mellitus; Z85.850 Personal history of malignant neoplasm of thyroid; Z87.891 Personal history of nicotine dependence; Z79.82 Long term (current) use of aspirin; Z79.890 Hormone replacement therapy; Z79.4 Long term (current) use of insulin; Z79.899 Other long term (current) drug therapy; Z88.5 Allergy status to narcotic agent; Z88.2 Allergy status to sulfonamides; Z88.3 Allergy status to other anti-infective agents; Z91.041 Radiographic dye allergy status; Z86.14 Personal history of Methicillin resistant Staphylococcus aureus infection; Z95.5 Presence of coronary angioplasty implant and graft; Z98.1 Arthrodesis status; D64.9 Anemia, unspecified
CPT/HCPCS: 96366 ×5; 96375 ×4; 96365 ×2; 99285; 99284 ×2; 36415; 94760; 93005; 93306; 85379; 83880; 80053; 82550 ×2; 82553 ×2; 83735 ×2; 84484 ×2; 85025; 85610; 85730; 87502; 71046; 71275; G0378 ×2; J1200; J1940; J3475; Q9967

== ENCOUNTER → 2017-10-17 | Outpatient (CLI) | payer MEDICARE, BC ==
--- NOTE | 2017-10-17 11:19 | XR ---
EXAMINATION TYPE: XR chest 2V DATE OF EXAM: 10/17/2017 COMPARISON: Prior chest x-ray 06/04/2017 HISTORY: Anemia, chronic kidney disease TECHNIQUE: Frontal and lateral views of the chest are obtained. FINDINGS: There is no focal air space opacity, pleural effusion, or pneumothorax seen. The cardiac silhouette size is within normal limits. Postop change noted to the left shoulder. Patient is rotate d, there may be spinal curvature. Postop changes to the right shoulder and cervical spine. IMPRESSION: No acute cardiopulmonary process.
== END | disposition home or self-care (01) ==
LOC: RADXRMAIN 10:42
PROVIDERS: ATTEND Internal Medicine Hematology & Oncology
DX: D50.0 Iron deficiency anemia secondary to blood loss (chronic) (principal); N18.9 Chronic kidney disease, unspecified; D63.1 Anemia in chronic kidney disease; E78.5 Hyperlipidemia, unspecified
CPT/HCPCS: 71046

== ENCOUNTER 2017-11-02 13:16 | Inpatient (IN) | payer MEDICARE, BC ==
--- NOTE | 2017-11-02 13:56 | ED ---
General Adult HPI - General Chief complaint: Shortness of Breath Stated complaint: SOB Time Seen by Provider: 11/02/17 13:25 Source: patient, family, RN notes reviewed Mode of arrival: wheelchair Limitations: no limitations - History of Present Illness Initial comments: Patient is a pleasant 72-year-old female presenting to the emergency department with difficulty in breathing. Onset of symptoms was over a week ago. Patient did see a lung doctor last week and had a reported normal x-ray. Patient states symptoms worsened significantly through the night. Dyspnea worsens with exertion as well as lying flat. Patient has noticed some mild swelling of her ankles. No calf pain. No fevers. Patient does have mild cough that is nonproductive. No chest pain. Patient states symptoms do feel somewhat improved with oxygen. - Related Data Home Medications Medication Instructions Recorded Confirmed Metoprolol Tartrate [Lopressor] 25 mg PO DAILY 12/31/13 11/02/17 Nitroglycerin Sl Tabs [Nitrostat] 0.4 mg SUBLINGUAL Q5M PRN 12/31/13 11/02/17 Cholecalciferol [Vitamin D3] 1,000 unit PO DAILY 04/23/14 11/02/17 Levothyroxine Sodium [Synthroid] 112 mcg PO DAILY 09/09/15 11/02/17 Insulin NPH/Reg Insulin 70/30 55 unit SQ QAM 08/19/16 11/02/17 [humuLIN 70/30 VIAL] Allopurinol [Zyloprim] 100 mg PO BID 09/03/16 11/02/17 Insulin NPH/Reg Insulin 70/30 40 unit SQ HS 09/03/16 11/02/17 [humuLIN 70/30 VIAL] Aspirin EC [Ecotrin Low Dose] 81 mg PO BID 06/04/17 11/02/17 Magnesium Oxide [Mag-Ox] 400 mg PO DAILY 06/04/17 11/02/17 Atorvastatin [Lipitor] 10 mg PO HS 10/17/17 11/02/17 Donepezil [Aricept] 10 mg PO HS 10/17/17 11/02/17 Metoprolol Tartrate [Lopressor] 50 mg PO HS 10/17/17 11/02/17 OLANZapine [ZyPREXA] 2.5 mg PO DAILY 10/17/17 11/02/17 OLANZapine [ZyPREXA] 5 mg PO HS 10/17/17 11/02/17 Pantoprazole Sodium [Protonix] 20 mg PO HS 10/17/17 11/02/17 Ziprasidone [Geodon] 20 mg PO BID 10/17/17 11/02/17 Previous Rx's Medication Instructions Recorded Lisinopril [Prinivil] 10 mg PO DAILY #30 tab 10/18/17 Allergies Allergy/AdvReac Type Severity Reaction Status Date / Time lorazepam [From Ativan] Allergy Unknown Verified 11/02/17 13:20 codeine AdvReac Nausea Verified 11/02/17 13:20 erythromycin base AdvReac Nausea Verified 11/02/17 13:20 [Erythromycin Base] Iodinated Contrast- Oral and AdvReac ELEVATED Verified 11/02/17 13:20 IV Dye B/P, FELT [Iodinated Contrast Media - LIKE PASSED IV Dye] methylprednisolone AdvReac Confusion Verified 11/02/17 13:20 [From Medrol] Sulfa (Sulfonamide AdvReac DIZZYNESS Verified 11/02/17 13:20 Antibiotics) Review of Systems ROS Statement: Those systems with pertinent positive or pertinent negative responses have been documented in the HPI. ROS Other: All systems not noted in ROS Statement are negative. Constitutional: Denies: fever Eyes: Denies: eye pain ENT: Denies: ear pain Respiratory: Reports: dyspnea Cardiovascular: Denies: chest pain Endocrine: Reports: fatigue Gastrointestinal: Denies: abdominal pain Genitourinary: Denies: dysuria Musculoskeletal: Denies: arthralgia Skin: Denies: rash Neurological: Denies: headache Past Medical History Past Medical History: Coronary Artery Disease (CAD), Cancer, Diabetes Mellitus, Hyperlipidemia, Hypertension, Myocardial Infarction ([place]), Renal Disease, Sleep Apnea/CPAP/BIPAP Additional Past Medical History / Comment(s): osteomyelitis Lt hand/STAGE 3 RENAL FAILURE/THYROID CANCER, cpap machine,"rt hand 3 fingers numb" falls- constipation Last Myocardial Infarction Date:: 1999 History of Any Multi-Drug Resistant Organisms: MRSA Date of last positivie culture/infection: 07/01/2015 MDRO Source:: knee left Past Surgical History: Appendectomy, Heart Catheterization With Stent, Orthopedic Surgery Additional Past Surgical History / Comment(s): left hand, thyroidectomy, neck fusion/CARPAL TUNNEL REPAIR ASHLEY,colonoscopy in past STENT X1 Past Anesthesia/Blood Transfusion Reactions: No Reported Reaction Date of Last Stent Placement:: 1999 Past Psychological History: Anxiety, Depression, Panic Disorder Smoking Status: Former smoker Past Alcohol Use History: None Reported Past Drug Use History: None Reported - Past Family History Brother(s) Family Medical History: Cancer Mother Family Medical History: Diabetes Mellitus Father Family Medical History: Myocardial Infarction ([place]) General Exam Limitations: no limitations General appearance: alert, in no apparent distress Head exam: Present: atraumatic Eye exam: Present: normal appearance, PERRL ENT exam: Present: normal oropharynx Neck exam: Present: normal inspection Respiratory exam: Present: decreased breath sounds (Mild bilateral bases) Cardiovascular Exam: Present: regular rate, normal rhythm, systolic murmur ( Right sternal border) GI/Abdominal exam: Present: soft. Absent: tenderness Extremities exam: Present: normal inspection, pedal edema (Trace bilateral). Absent: calf tenderness Neurological exam: Present: alert Psychiatric exam: Present: normal affect, normal mood Skin exam: Present: normal color Course Vital Signs 11/02/17 11/02/17 11/02/17 13:17 14:58 16:54 Temperature 99.8 F H 98.1 F Pulse Rate 78 83 72 Respiratory 20 20 20 Rate Blood Pressure 188/72 170/70 200/82 O2 Sat by Pulse 95 99 97 Oximetry EKG Findings - EKG Comments: EKG Findings:: Normal sinus rhythm 76. IL 166. QRS 84. QT 406. QTc 456. Left axis. Normal QRS. No acute ST change. Medical Decision Making - Medical Decision Making Patient reevaluated and is improved somewhat with oxygen. Patient states she did see a lung doctor who had concerns for heart valve problems. Case was discussed with Dr. Benedict, who will admit for Dr. Winters - Lab Data Result diagrams: 11/02/17 13:55 11/02/17 13:55 Lab Results 11/02/17 11/02/17 11/02/17 Range/Units 13:55 13:55 13:55 WBC 9.0 (3.8-10.6) k/uL RBC 3.86 (3.80-5.40) m/uL Hgb 11.7 (11.4-16.0) gm/dL Hct 35.2 (34.0-46.0) % MCV 91.3 (80.0-100.0) fL MCH 30.4 (25.0-35.0) pg MCHC 33.3 (31.0-37.0) g/dL RDW 16.2 H (11.5-15.5) % Plt Count 247 (150-450) k/uL Neutrophils % 73 % Lymphocytes % 16 % Monocytes % 7 % Eosinophils % 3 % Basophils % 0 % Neutrophils # 6.5 (1.3-7.7) k/uL Lymphocytes # 1.5 (1.0-4.8) k/uL Monocytes # 0.6 (0-1.0) k/uL Eosinophils # 0.3 (0-0.7) k/uL Basophils # 0.0 (0-0.2) k/uL Anisocytosis Slight PT (9.0-12.0) sec INR (<1.2) APTT (22.0-30.0) sec Sodium 151 H (137-145) mmol/L Potassium 4.5 (3.5-5.1) mmol/L Chloride 108 H (98-107) mmol/L Carbon Dioxide 27 (22-30) mmol/L Anion Gap 16 mmol/L BUN 24 H (7-17) mg/dL Creatinine 1.00 (0.52-1.04) mg/dL Est GFR (CKD-EPI)AfAm 65 (>60 ml/min/1.73 sqM) Est GFR (CKD-EPI)NonAf 56 (>60 ml/min/1.73 sqM) Glucose 158 H (74-99) mg/dL Calcium 9.6 (8.4-10.2) mg/dL Total Bilirubin 0.4 (0.2-1.3) mg/dL AST 27 (14-36) U/L ALT 28 (9-52) U/L Alkaline Phosphatase 112 (38-126) U/L Total Creatine Kinase 176 H (30-135) U/L CK-MB (CK-2) 3.4 H* (0.0-2.4) ng/mL CK-MB (CK-2) Rel Index 1.9 Troponin I <0.012 (0.000-0.034) ng/mL NT-Pro-B Natriuret Pep pg/mL Total Protein 6.8 (6.3-8.2) g/dL Albumin 4.1 (3.5-5.0) g/dL 11/02/17 11/02/17 Range/Units 13:55 13:55 WBC (3.8-10.6) k/uL RBC (3.80-5.40) m/uL Hgb (11.4-16.0) gm/dL Hct (34.0-46.0) % MCV (80.0-100.0) fL MCH (25.0-35.0) pg MCHC (31.0-37.0) g/dL RDW (11.5-15.5) % Plt Count (150-450) k/uL Neutrophils % % Lymphocytes % % Monocytes % % Eosinophils % % Basophils % % Neutrophils # (1.3-7.7) k/uL Lymphocytes # (1.0-4.8) k/uL Monocytes # (0-1.0) k/uL Eosinophils # (0-0.7) k/uL Basophils # (0-0.2) k/uL Anisocytosis PT 10.2 (9.0-12.0) sec INR 1.0 (<1.2) APTT 24.8 (22.0-30.0) sec Sodium (137-145) mmol/L Potassium (3.5-5.1) mmol/L Chloride (98-107) mmol/L Carbon Dioxide (22-30) mmol/L Anion Gap mmol/L BUN (7-17) mg/dL Creatinine (0.52-1.04) mg/dL Est GFR (CKD-EPI)AfAm (>60 ml/min/1.73 sqM) Est GFR (CKD-EPI)NonAf (>60 ml/min/1.73 sqM) Glucose (74-99) mg/dL Calcium (8.4-10.2) mg/dL Total Bilirubin (0.2-1.3) mg/dL AST (14-36) U/L ALT (9-52) U/L Alkaline Phosphatase (38-126) U/L Total Creatine Kinase (30-135) U/L CK-MB (CK-2) (0.0-2.4) ng/mL CK-MB (CK-2) Rel Index Troponin I (0.000-0.034) ng/mL NT-Pro-B Natriuret Pep 287 pg/mL Total Protein (6.3-8.2) g/dL Albumin (3.5-5.0) g/dL - Radiology Data Radiology results: report reviewed (Computed tomography scan of the chest negative for pulmonary embolism.), image reviewed (Chest x-ray shows possible heart failure) Disposition Clinical Impression: Dyspnea Disposition: ADMITTED IP TO THIS HOSP Referrals: Cesar Nielsen DO [Primary Care Provider] - 1-2 days Decision Time: 17:33
[2017-11-02 14:19] LABS: Anisocytosis Slight; Basophils % (A) 0 %; Eosinophils # (A) 0.3 k/uL (0-0.7); Eosinophils % (A) 3 %; HCT 35.2 % (34.0-46.0); HGB 11.7 gm/dL (11.4-16.0); Lymphocytes # (A) 1.5 k/uL (1.0-4.8); Lymphocytes % (A) 16 %; MCH 30.4 pg (25.0-35.0); MCHC 33.3 g/dL (31.0-37.0); MCV 91.3 fL (80.0-100.0); Mean Platelet Volume 7.8; Monocytes # (A) 0.6 k/uL (0-1.0); Monocytes % (A) 7 %; Neutrophils # (A) 6.5 k/uL (1.3-7.7); Neutrophils % (A) 73 %; Platelet Count 247 k/uL (150-450); RBC 3.86 m/uL (3.80-5.40); RDW 16.2 % (11.5-15.5)
[2017-11-02 14:27] LABS: Partial Thromboplastin Time 24.8 sec (22.0-30.0); Prothrombin Time 10.2 sec (9.0-12.0)
--- NOTE | 2017-11-02 14:39 | XR ---
EXAMINATION TYPE: XR chest 2V DATE OF EXAM: 11/02/2017 COMPARISON: Prior chest x-ray 10/17/2017, 10/24/2017 HISTORY: Difficulty breathing, shortness of breath TECHNIQUE: Frontal and lateral views of the chest are obtained. FINDINGS: Lung volumes are low. Postop changes are again noted. Heart size is prominent. Interstitiu m is somewhat increased. No evident pneumothorax or pleural effusion. Patient is rotated. IMPRESSION: Expiratory rotated exam. Correlate to exclude pulmonary venous hypertension and intersti tial edema.
[2017-11-02 14:42] LABS: Creatine Kinase 176 U/L (30-135)
[2017-11-02 14:44] LABS: Albumin 4.1 g/dL (3.5-5.0); Calcium 9.6 mg/dL (8.4-10.2); Potassium 4.5 mmol/L (3.5-5.1); Total Bilirubin 0.4 mg/dL (0.2-1.3); Total Protein 6.8 g/dL (6.3-8.2)
[2017-11-02 14:55] LABS: Troponin I <0.012 ng/mL (0.000-0.034)
[2017-11-02 15:02] LABS: Creatine Kinase MB 3.4 ng/mL (0.0-2.4)
[2017-11-02] MEDS ORDERED: FAMOTIDINE 20 MG/2 ML VIAL IV STA (15:09)
[2017-11-02] MEDS ORDERED: MORPHINE SULFATE 4 MG/ML SYRINGE IVP STA (15:09)
[2017-11-02] MEDS ORDERED: diphenhydrAMINE 50 MG/ML 1 ML VIAL IVP STA (15:09)
[2017-11-02] MEDS ORDERED: RX INFO: IV CONTRAST WAS GIVEN 1 EACH MISC MISCELLANE PRN (15:09)
--- NOTE | 2017-11-02 17:13 | CT ---
EXAMINATION TYPE: CT angio chest DATE OF EXAM: 11/02/2017 COMPARISON: CT angiogram 10/17/2017 HISTORY: Shortness of breath x [address] DLP: 461 mGycm Automated exposure control for dose reduction was used. CONTRAST: CTA scan of the thorax is performed with IV Contrast, patient injected with 62 mL of Isovue 370, pulm onary embolism protocol. MIP images are created and reviewed. 3D reconstructed images are created o n an independent workstation and reviewed. FINDINGS: LUNGS: The lungs are stable, subcentimeter indeterminate nodule in the left upper lobe is noted on ax ial image 30, again noted is the indeterminate nodule in the left lower lobe on axial image 79. The re is no pleural effusion or pneumothorax seen. The tracheobronchial tree is patent. AORTA: No additional significant abnormality is seen. MEDIASTINUM: There is satisfactory enhancement of the pulmonary artery and its branches, there is no CT evidence for pulmonary embolism. There are no greater than 1 cm hilar or mediastinal lymph nodes. No pericardial effusion is seen. OTHER: There is low attenuation involving the spleen posteriorly which is thought possibly to be art ifactual. There is extensive artifact across the exam. Exam may be limited by patient body habitus. IMPRESSION: STABLE COMPARED TO PREVIOUS EXAM PERFORMED 16 DAYS PRIOR, THERE IS NO EVIDENT PULMONARY EMBOLISM, INDETERMINATE PULMONARY NODULE, FOLLOW-UP RECOMMENDED. Difficult to exclude splenic infarct.
[2017-11-02] MEDS ORDERED: NALOXONE 0.4 MG/ML 1 ML VIAL IV PRN (17:33)
[2017-11-02 19:33] VITALS: BMI 41.5
[2017-11-02 20:37] LABS: Glucose,Whole Blood 119 mg/dL (75-99)
[2017-11-02] MEDS ORDERED: METOPROLOL TARTRATE 50 MG TAB PO SCH (21:00)
[2017-11-02] MEDS: ACETAMINOPHEN TAB 325 MG TAB PO PRN (21:15)
[2017-11-02] MEDS: ASPIRIN 81 MG PO SCH (21:18)
[2017-11-02] MEDS: DONEPEZIL 10 MG TAB PO SCH (21:18)
[2017-11-02] MEDS: ATORVASTATIN 80 MG TAB PO SCH (21:18)
[2017-11-02] MEDS: INSULIN NPH/REG INSULIN 70/30 300 UNIT/3 ML VIAL SQ SCH (21:18)
[2017-11-02] MEDS: ALLOPURINOL 100 MG TAB PO SCH (21:18)
[2017-11-02] MEDS: OLANZapine 2.5 MG TAB PO SCH (21:19)
[2017-11-02] MEDS: PANTOPRAZOLE 40 MG TABLET PO SCH (21:20)
[2017-11-02] MEDS: ZIPRASIDONE 40 MG CAP PO SCH (21:20)
--- NOTE | 2017-11-03 00:20 | P.HPIM ---
History of Present Illness H&P Date: 11/02/17 Chief Complaint: Shortness of breath Patient is a 72-year-old female with a known history of hypertension, diabetes type 2 insulin-dependent, hyperlipidemia and history of coronary artery disease with stent placement and also history of acute psychosis and May 2017 came to the hospital with complaints of difficulty in breathing. Otherwise patient denied any complaints of chest pain. No fever no chills. No cough is from production. Patient says that symptoms get worse at night. Patient was seen by pulmonary about a week ago. Shortness of WORSENING with lying flat. Patient also complaining of mild ankle swellings. No cough pain. No fever no chills. Cough is nonproductive. Patient was admitted to the hospital in the first week of October 2017 with similar complaints. Patient was seen by cardiology at the time. 2-D echocardiogram was done in October 2017. she was found to have moderate disease in the circumflex 50-55% OM disease 30-40 % LAD, ejection fraction at that time documented to be 50%. No evidence of pulmonary hypertension. Patient also underwent a heart catheterization in August 2015 which revealed a widely patent stents. Patient also has history of thyroid cancer with prior thyroidectomy. Patient was started on(Lasix 20 mg daily during previous admission. BNP 287 Troponin 2 negative. Chest x-ray correlate to exclude pulmonary hypertension and interstitial edema CT angiogram of the chest showed no evidence of pulmonary embolism. Stable compared to previous exam section days ago. Currently patient is saturating well on room air. Patient is somewhat poor historian. Review of Systems Constitutional: Patient denies any fever or chills . No generalized weakness or weight loss. Abdomen: Patient denied nausea vomiting and diarrhea and abdominal pain. Cardiovascular: Patient denies any chest pain or short of breath no palpitations. Respiratory: Patient does have cough without sputum production and shortness of breath Neurologic: Patient denied any numbness or tingling headache. Musculoskeletal: Patient denies any complaints of joint swelling or deformity. Skin: Negative Psychiatric: Negative Endocrine: No heat or cold intolerance. No recent weight gain. Genitourinary: No dysuria or hematuria. All other 14 point ROS negative except the above Past Medical History Past Medical History: Coronary Artery Disease (CAD), Cancer, Diabetes Mellitus, Hyperlipidemia, Hypertension, Myocardial Infarction ([place]), Renal Disease, Sleep Apnea/CPAP/BIPAP Additional Past Medical History / Comment(s): osteomyelitis Lt hand/STAGE 3 RENAL FAILURE/THYROID CANCER, cpap machine,"rt hand 3 fingers numb" falls- constipation Last Myocardial Infarction Date:: 1999 History of Any Multi-Drug Resistant Organisms: MRSA Date of last positivie culture/infection: 07/01/2015 MDRO Source:: knee left Past Surgical History: Appendectomy, Heart Catheterization With Stent, Orthopedic Surgery Additional Past Surgical History / Comment(s): left hand, thyroidectomy, neck fusion/CARPAL TUNNEL REPAIR ASHLEY,colonoscopy in past STENT X1 Past Anesthesia/Blood Transfusion Reactions: No Reported Reaction Date of Last Stent Placement:: 1999 Past Psychological History: Anxiety, Depression, Panic Disorder Smoking Status: Former smoker Past Alcohol Use History: None Reported Past Drug Use History: None Reported - Past Family History Brother(s) Family Medical History: Cancer Mother Family Medical History: Diabetes Mellitus Father Family Medical History: Myocardial Infarction ([place]) Medications and Allergies Home Medications Medication Instructions Recorded Confirmed Type Metoprolol Tartrate [Lopressor] 25 mg PO DAILY 12/31/13 11/02/17 History Nitroglycerin Sl Tabs [Nitrostat] 0.4 mg SUBLINGUAL Q5M PRN 12/31/13 11/02/17 History Cholecalciferol [Vitamin D3] 1,000 unit PO DAILY 04/23/14 11/02/17 History Levothyroxine Sodium [Synthroid] 112 mcg PO DAILY 09/09/15 11/02/17 History Insulin NPH/Reg Insulin 70/30 55 unit SQ QAM 08/19/16 11/02/17 History [humuLIN 70/30 VIAL] Allopurinol [Zyloprim] 100 mg PO BID 09/03/16 11/02/17 History Insulin NPH/Reg Insulin 70/30 40 unit SQ HS 09/03/16 11/02/17 History [humuLIN 70/30 VIAL] Aspirin EC [Ecotrin Low Dose] 81 mg PO BID 06/04/17 11/02/17 History Magnesium Oxide [Mag-Ox] 400 mg PO DAILY 06/04/17 11/02/17 History Donepezil [Aricept] 10 mg PO HS 10/17/17 11/02/17 History Metoprolol Tartrate [Lopressor] 50 mg PO HS 10/17/17 11/02/17 History OLANZapine [ZyPREXA] 2.5 mg PO BID 10/17/17 11/02/17 History Lisinopril [Prinivil] 10 mg PO DAILY #30 tab 10/18/17 11/02/17 Rx Atorvastatin Calcium [Lipitor] 80 mg PO HS 11/02/17 11/02/17 History Pantoprazole [Protonix] 40 mg PO HS 11/02/17 11/02/17 History Ziprasidone [Geodon] 40 mg PO BID 11/02/17 11/02/17 History Allergies Allergy/AdvReac Type Severity Reaction Status Date / Time lorazepam [From Ativan] Allergy Unknown Verified 11/02/17 13:20 codeine AdvReac Nausea Verified 11/02/17 13:20 erythromycin base AdvReac Nausea Verified 11/02/17 13:20 [Erythromycin Base] Iodinated Contrast- Oral and AdvReac ELEVATED Verified 11/02/17 13:20 IV Dye B/P, FELT [Iodinated Contrast Media - LIKE PASSED IV Dye] methylprednisolone AdvReac Confusion Verified 11/02/17 13:20 [From Medrol] Sulfa (Sulfonamide AdvReac DIZZYNESS Verified 11/02/17 13:20 Antibiotics) Physical Exam Vitals: Vital Signs Temp Pulse Pulse Resp BP BP Pulse Ox 11/02/17 18:35 69 22 172/70 98 11/02/17 18:03 70 22 177/75 98 11/02/17 17:52 97.9 F 68 20 203/93 95 11/02/17 17:35 98.2 F 68 18 180/71 97 11/02/17 16:54 72 20 200/82 97 11/02/17 14:58 98.1 F 83 20 170/70 99 11/02/17 13:17 99.8 F H 78 20 188/72 95 Intake and Output 11/02/17 11/02/17 11/02/17 06:59 14:59 22:59 Other: Weight 99.79 kg 99.79 kg PHYSICAL EXAMINATION: Patient is lying in the bed comfortably, no acute distress, awake alert and oriented.. HEENT: Normocephalic. Neck is supple. Pupils reactive. Nostrils clear. Oral cavity is moist. Ears reveal no drainage. Neck reveals no JVD, carotid bruits, or thyromegaly. CHEST EXAMINATION: Trachea is central. Symmetrical expansion. Bilateral diminished air entry and prolonged expiration. No wheezing.. CARDIAC: Normal S1, S2 with no gallops. Systolic murmur ABDOMEN: Soft. Bowel sounds normal. No organomegaly. No abdominal bruits. Extremities: Trace edema. No clubbing or cyanosis Neurologically awake, alert, oriented x3 with well-coordinated movements. No focal deficits noted Skin: No rash or skin lesions. Psychiatric: Coperative. Could not be assessed completely Musculoskeletal: No joint swelling or deformity. Normal range of motion. Results CBC & Chem 7: 11/02/17 13:55 11/02/17 13:55 Labs: Abnormal Lab Results - Last 24 Hours (Table) 11/02/17 11/02/17 11/02/17 Range/Units 13:55 13:55 13:55 RDW 16.2 H (11.5-15.5) % Sodium 151 H (137-145) mmol/L Chloride 108 H (98-107) mmol/L BUN 24 H (7-17) mg/dL Glucose 158 H (74-99) mg/dL POC Glucose (mg/dL) (75-99) mg/dL Total Creatine Kinase 176 H (30-135) U/L CK-MB (CK-2) 3.4 H* (0.0-2.4) ng/mL 11/02/17 Range/Units 20:35 RDW (11.5-15.5) % Sodium (137-145) mmol/L Chloride (98-107) mmol/L BUN (7-17) mg/dL Glucose (74-99) mg/dL POC Glucose (mg/dL) 119 H (75-99) mg/dL Total Creatine Kinase (30-135) U/L CK-MB (CK-2) (0.0-2.4) ng/mL Thrombosis Risk Factor Assmnt - DVT/VTE Prophylaxis DVT/VTE Prophylaxis: Pharmacologic Prophylaxis ordered - Choose All That Apply Each Factor Represents 1 point: Heart failure (<1month), Obesity (BMI >25), Swollen legs (current) Other Risk Factors: No Other congenital or acquired thrombophilia - If yes, enter type in comment: No Thrombosis Risk Factor Assessment Total Risk Factor Score: 3 Thrombosis Risk Factor Assessment Level: Moderate Risk Assessment and Plan Assessment: Dyspnea likely due to pulmonary hypertension and obstructive sleep apnea. Exact etiology unknown. Unlikely CHF with BNP level 298 History of coronary artery disease with stent placement to RCA in 2007. Most recent cardiac cath in 2016. Patent RCA Diabetes type 2 insulin-dependent Dementia Alzheimer's type History of acute psychosis Anxiety and depression Hypertension Hyperlipidemia Hypothyroidism History of thyroid cancer status post thyroidectomy Normocytic anemia Morbid obesity. DVT prophylaxis Plan: Patient will be continued on breathing treatments and was restarted back on Lasix 20 mg daily. Continue with insulin dosing and home medications. Consulted pulmonary and cardiology. Patient was seen by pulmonary in the clinic about a week ago in the clinic.. check TSH level. Further recommendations based on the clinical course. Prognosis is guarded with multiple medical problems and complications. Time with Patient: Greater than 30
[2017-11-03] MEDS: FUROSEMIDE 20 MG TAB PO SCH ×3 (05:29→16:27)
[2017-11-03] MEDS: HEPARIN SODIUM,PORCINE 5,000 UNIT/ML 1 ML VIAL SQ SCH ×4 (06:41→23:15)
[2017-11-03] MEDS: LEVOTHYROXINE 112 MCG TAB PO SCH (06:43)
[2017-11-03 07:08] LABS: Glucose,Whole Blood 147 mg/dL (75-99)
[2017-11-03 07:13] LABS: Anisocytosis Slight; Basophils % (A) 0 %; Eosinophils # (A) 0.2 k/uL (0-0.7); Eosinophils % (A) 3 %; HGB 10.4 gm/dL (11.4-16.0); Hypochromasia Slight; Lymphocytes # (A) 1.4 k/uL (1.0-4.8); Lymphocytes % (A) 18 %; MCH 29.7 pg (25.0-35.0); MCHC 31.4 g/dL (31.0-37.0); MCV 94.7 fL (80.0-100.0); Mean Platelet Volume 7.4; Monocytes # (A) 0.6 k/uL (0-1.0); Monocytes % (A) 7 %; Neutrophils # (A) 5.4 k/uL (1.3-7.7); Neutrophils % (A) 68 %; Platelet Count 216 k/uL (150-450); RBC 3.49 m/uL (3.80-5.40); RDW 16.6 % (11.5-15.5); WBC 7.9 k/uL (3.8-10.6)
[2017-11-03 07:26] LABS: Albumin 3.6 g/dL (3.5-5.0); Potassium 4.5 mmol/L (3.5-5.1); Total Bilirubin 0.4 mg/dL (0.2-1.3); Total Protein 5.8 g/dL (6.3-8.2)
[2017-11-03] MEDS ORDERED: LISINOPRIL 10 MG TAB PO SCH (09:00)
[2017-11-03] MEDS ORDERED: METOPROLOL TARTRATE 25 MG TAB PO SCH (09:00)
[2017-11-03] MEDS: MAGNESIUM OXIDE 400 MG TAB PO SCH (11:16)
[2017-11-03] MEDS: OLANZapine 2.5 MG TAB PO SCH ×2 (11:16→19:58)
[2017-11-03] MEDS: ZIPRASIDONE 40 MG CAP PO SCH ×2 (11:16→19:58)
[2017-11-03] MEDS: ASPIRIN 81 MG PO SCH ×2 (11:17→19:59)
[2017-11-03] MEDS: CHOLECALCIFEROL 1,000 UNIT TAB PO SCH (11:17)
[2017-11-03] MEDS: ALLOPURINOL 100 MG TAB PO SCH ×2 (11:17→19:58)
[2017-11-03] MEDS: SODIUM CHLORIDE 0.9% 1,000 ML IV SCH ×2 (11:34→19:48)
[2017-11-03 11:52] LABS: Glucose,Whole Blood 176 mg/dL (75-99)
[2017-11-03] MEDS ORDERED: FUROSEMIDE 20 MG TAB PO SCH (12:00)
[2017-11-03] MEDS: INSULIN NPH/REG INSULIN 70/30 300 UNIT/3 ML VIAL SQ SCH ×2 (12:27→19:59)
[2017-11-03] MEDS ORDERED: LISINOPRIL 10 MG TAB PO STA (12:53)
--- NOTE | 2017-11-03 12:57 | P.CRDCN ---
History of Present Illness Consult date: 11/03/17 History of present illness: Mrs. Bauman is a pleasant 72-year-old female past medical history significant for coronary artery disease s/p acute inferior wall PA with stenting of RCA in 2007. At that time she also loe90-46% stenosis of LAD, 40-50 % stenosis of LAD and 50& narrowing of OM branch. She underwent repeat heart catheterization in 2016 which revealed a patent stent in RCA and no progression of already established stenosis. She also has diabetes mellitus, hypertension, dyslipidemia, sleep apnea and anxiety/depression. She follows with Dr. NAHED Cade in the office. We have been asked to see her in consultation for shortness of breath. She was recently admitted in early October with similar type symptoms and exacerbation of heart failure was ruled out and pulmonary evaluation recommended. Echocardiogram and doppler study obtained on that admission showed preserved LV systolic function with EF 50-55% with no valvular disease or pulmonary hypertension with RVSP 25.43 mmHg. At the time of my exam she is resting comfortably in bed in no acute distress. She states she has had ongoing shortness of breath times approximately 3 weeks with worsening over the last 2 days. States she is unable to lie flat at night without feeling extremely short of breath. Simple tasks around the house causes extreme fatigue and shortness of breath. Denies chest pain, dizziness, palpitations, nausea or vomiting. EKG reveals sinus mechanism with no acute ST or T-wave abnormalities. Chest xray shows possible interstitial edema with evidence of pulmonary hypertension. CTA chest negative for pulmonary embolism with indeterminate pulmonary nodule follow-up recommended. Laboratory data reviewed, hemoglobin 10.4, platelets 216, sodium 150, potassium 4.5, creatinine 0.87, cardiac enzymes negative 3, proBNP 287, TSH 4.15. Current cardiac medications include aspirin 81 mg twice a day, atorvastatin 80 mg daily, lisinopril 10 mg daily, Lopressor 25 mg in the a.m. and 50 mg at bedtime. Last admission she was discharged home on Lasix 20 mg by mouth. That does not appear to be on her home medication list. She also takes insulin, Zyprexa, Synthroid, Aricept, Geodon, Protonix and allopurinol. Review of Systems At the time of my exam: CONSTITUTIONAL: Denies fever. Denies chills. EYES: Denies blurred vision. Denies vision changes. Denies eye pain. EARS, NOSE, MOUTH & THROAT: Denies headache. Denies sore throat. Denies ear pain. CARDIOVASCULAR: Denies chest pain. Complains of shortness of breath. Complains of orthopnea. Denies PND. Denies palpitations. RESPIRATORY: Denies cough. GASTROINTESTINAL: Denies abdominal pain. Denies diarrhea. Denies constipation. Denies nausea. Denies vomiting. MUSCULOSKELETAL: Denies myalgias. INTEGUMENTARY: Denies pruitis. Denies rash. NEUROLOGIC: Denies numbness. Denies tingling. Denies weakness. PSYCHIATRIC: Denies anxiety. Denies depression. ENDOCRINE: Denies fatigue. Denies weight change. Denies polydipsia. Denies polyurina. GENITOURINARY: Denies burning, hematuria or urgency with micturation. HEMATOLOGIC: Denies history of anemia. Denies bleeding. Past Medical History Past Medical History: Coronary Artery Disease (CAD), Cancer, Diabetes Mellitus, Hyperlipidemia, Hypertension, Myocardial Infarction ([place]), Renal Disease, Sleep Apnea/CPAP/BIPAP Additional Past Medical History / Comment(s): osteomyelitis Lt hand/STAGE 3 RENAL FAILURE/THYROID CANCER, cpap machine,"rt hand 3 fingers numb" falls- constipation Last Myocardial Infarction Date:: 1999 History of Any Multi-Drug Resistant Organisms: MRSA Date of last positivie culture/infection: 07/01/2015 MDRO Source:: knee left Past Surgical History: Appendectomy, Heart Catheterization With Stent, Orthopedic Surgery Additional Past Surgical History / Comment(s): left hand, thyroidectomy, neck fusion/CARPAL TUNNEL REPAIR ASHLEY,colonoscopy in past STENT X1 Past Anesthesia/Blood Transfusion Reactions: No Reported Reaction Date of Last Stent Placement:: 1999 Past Psychological History: Anxiety, Depression, Panic Disorder Smoking Status: Former smoker Past Alcohol Use History: None Reported Past Drug Use History: None Reported - Past Family History Brother(s) Family Medical History: Cancer Mother Family Medical History: Diabetes Mellitus Father Family Medical History: Myocardial Infarction ([place]) Medications and Allergies Home Medications Medication Instructions Recorded Confirmed Type Metoprolol Tartrate [Lopressor] 25 mg PO DAILY 12/31/13 11/02/17 History Nitroglycerin Sl Tabs [Nitrostat] 0.4 mg SUBLINGUAL Q5M PRN 12/31/13 11/02/17 History Cholecalciferol [Vitamin D3] 1,000 unit PO DAILY 11/07/14 05/19/18 History Levothyroxine Sodium [Synthroid] 112 mcg PO DAILY 09/09/15 11/02/17 History Insulin NPH/Reg Insulin 70/30 55 unit SQ QAM 08/19/16 11/02/17 History [humuLIN 70/30 VIAL] Allopurinol [Zyloprim] 100 mg PO BID 09/03/16 11/02/17 History Insulin NPH/Reg Insulin 70/30 40 unit SQ HS 09/03/16 11/02/17 History [humuLIN 70/30 VIAL] Aspirin EC [Ecotrin Low Dose] 81 mg PO BID 06/04/17 11/02/17 History Magnesium Oxide [Mag-Ox] 400 mg PO DAILY 06/04/17 11/02/17 History Donepezil [Aricept] 10 mg PO HS 10/17/17 11/02/17 History Metoprolol Tartrate [Lopressor] 50 mg PO HS 10/17/17 11/02/17 History OLANZapine [ZyPREXA] 2.5 mg PO BID 10/17/17 11/02/17 History Lisinopril [Prinivil] 10 mg PO DAILY #30 tab 10/18/17 11/02/17 Rx Atorvastatin Calcium [Lipitor] 80 mg PO HS 11/02/17 11/02/17 History Pantoprazole [Protonix] 40 mg PO HS 11/02/17 11/02/17 History Ziprasidone [Geodon] 40 mg PO BID 11/02/17 11/02/17 History Allergies Allergy/AdvReac Type Severity Reaction Status Date / Time lorazepam [From Ativan] Allergy Unknown Verified 11/02/17 13:20 codeine AdvReac Nausea Verified 11/02/17 13:20 erythromycin base AdvReac Nausea Verified 11/02/17 13:20 [Erythromycin Base] Iodinated Contrast- Oral and AdvReac ELEVATED Verified 11/02/17 13:20 IV Dye B/P, FELT [Iodinated Contrast Media - LIKE PASSED IV Dye] methylprednisolone AdvReac Confusion Verified 11/02/17 13:20 [From Medrol] Sulfa (Sulfonamide AdvReac DIZZYNESS Verified 11/02/17 13:20 Antibiotics) Physical Exam Vitals: Vital Signs Temp Pulse Pulse Resp BP BP Pulse Ox 05/20/18 04:00 16 11/03/17 01:15 97.7 F 60 16 163/54 95 11/03/17 00:00 68 22 11/02/17 20:00 22 11/02/17 18:35 69 22 172/70 98 11/02/17 18:03 70 22 177/75 98 11/02/17 17:52 97.9 F 68 20 203/93 95 11/02/17 17:35 98.2 F 68 18 180/71 97 11/02/17 16:54 72 20 200/82 97 11/02/17 14:58 98.1 F 83 20 170/70 99 11/02/17 13:17 99.8 F H 78 20 188/72 95 Intake and Output 11/02/17 11/03/17 11/03/17 22:59 06:59 14:59 Other: Voiding Method Toilet Toilet # Voids 1 Weight 99.79 kg 99.79 kg Blood pressure 200/72 heart rate 64 afebrile maintaining oxygen saturation on 3 L nasal cannula GENERAL: This is a 72-year-old female in no apparent distress at the time of my examination. Morbidly obese. HEENT: Head is atraumatic, normocephalic. Pupils are equal, round. Sclerae anicteric. Conjunctivae are clear. Mucous membranes of the mouth are moist. Neck is supple. There is no jugular venous distention. No carotid bruit is heard. LUNGS: Clear to auscultation no wheezes, rales or rhonchi. No chest wall tenderness is noted on palpation or with deep breathing. HEART: Regular rate and rhythm with systolic ejection murmur at the base, no rubs or gallops. S1 and S2 heard. ABDOMEN: Soft, nontender. Bowel sounds are heard. No organomegaly noted. EXTREMITIES: No evidence of peripheral edema and no calf tenderness noted. VASCULAR: Radial and dorsalis pedis pulses palpated, no evidence of clubbing. NEUROLOGIC: Patient is awake, alert and oriented x3. Results 11/03/17 06:51 11/03/17 06:51 Cardiac Enzymes 11/02/17 11/02/17 11/02/17 Range/Units 13:55 13:55 21:04 AST 27 (14-36) U/L CK-MB (CK-2) 3.4 H* (0.0-2.4) ng/mL Troponin I <0.012 <0.012 (0.000-0.034) ng/mL 11/03/17 11/03/17 11/03/17 Range/Units 00:30 06:51 06:51 AST 21 (14-36) U/L CK-MB (CK-2) (0.0-2.4) ng/mL Troponin I <0.012 <0.012 (0.000-0.034) ng/mL Coagulation 11/02/17 Range/Units 13:55 PT 10.2 (9.0-12.0) sec APTT 24.8 (22.0-30.0) sec CBC 11/02/17 11/03/17 Range/Units 13:55 06:51 WBC 9.0 7.9 (3.8-10.6) k/uL RBC 3.86 3.49 L (3.80-5.40) m/uL Hgb 11.7 10.4 L (11.4-16.0) gm/dL Hct 35.2 33.0 L (34.0-46.0) % Plt Count 247 216 (150-450) k/uL Comprehensive Metabolic Panel 11/02/17 11/03/17 Range/Units 13:55 06:51 Sodium 151 H 150 H (137-145) mmol/L Potassium 4.5 4.5 (3.5-5.1) mmol/L Chloride 108 H 109 H (98-107) mmol/L Carbon Dioxide 27 28 (22-30) mmol/L BUN 24 H 27 H (7-17) mg/dL Creatinine 1.00 0.97 (0.52-1.04) mg/dL Glucose 158 H 141 H (74-99) mg/dL Calcium 9.6 9.0 (8.4-10.2) mg/dL AST 27 21 (14-36) U/L ALT 28 27 (9-52) U/L Alkaline Phosphatase 112 95 (38-126) U/L Total Protein 6.8 5.8 L (6.3-8.2) g/dL Albumin 4.1 3.6 (3.5-5.0) g/dL Current Medications Generic Name Dose Route Start Last Admin Trade Name Freq PRN Reason Stop Dose Admin Acetaminophen 650 mg 11/02/17 21:02 11/02/17 21:15 Tylenol Tab PO 650 mg Q6HR PRN Administration Fever and/ or Pain Allopurinol 100 mg 11/02/17 21:00 11/02/17 21:18 Zyloprim PO 100 mg BID YAHIR Administration Aspirin 81 mg 11/02/17 21:00 11/02/17 21:18 Aspirin PO 81 mg BID YAHIR Administration Atorvastatin Calcium 80 mg 11/02/17 21:00 11/02/17 21:18 Lipitor PO 80 mg HS YAHIR Administration Cholecalciferol 1,000 unit 11/03/17 09:00 Vitamin D3 PO DAILY YAHIR Donepezil HCl 10 mg 11/02/17 21:00 11/02/17 21:18 Aricept PO 10 mg HS YAHIR Administration Furosemide 20 mg 11/02/17 23:45 11/03/17 05:29 Lasix PO Not Given DAILY YAHIR Heparin Sodium (Porcine) 5,000 unit 11/03/17 00:00 11/03/17 06:41 Heparin SQ Not Given Q8HR [facility] Sodium Chloride 1,000 mls @ 20 mls/hr 11/02/17 17:45 Saline 0.9% IV .Q24H YAHIR Insulin Human Isoph/Insulin Regular 40 unit 11/02/17 21:00 11/02/17 21:18 Humulin 70/30 Vial SQ Not Given HS YAHIR Insulin Human Isoph/Insulin Regular 55 unit 11/03/17 09:00 Humulin 70/30 Vial SQ QAM [facility] Levothyroxine Sodium 112 mcg 11/03/17 06:30 11/03/17 06:43 Synthroid PO 112 mcg 0630 YAHIR Administration Lisinopril 10 mg 11/03/17 09:00 Zestril PO DAILY [facility] Magnesium Oxide 400 mg 11/03/17 09:00 Mag-Ox PO DAILY [facility] Metoprolol Tartrate 25 mg 11/03/17 09:00 Lopressor PO DAILY [facility] Metoprolol Tartrate 50 mg 11/02/17 21:00 11/02/17 21:21 Lopressor PO 50 mg HS YAHIR Administration Miscellaneous Information 1 each 11/02/17 15:09 11/02/17 15:50 Rx Info: Iv Contrast Was Given MISCELLANE 11/04/17 15:10 1 each DAILY PRN Administration Per Protocol Naloxone HCl 0.2 mg 11/02/17 17:33 Narcan IV Q2M PRN Opioid Reversal Olanzapine 2.5 mg 11/02/17 21:00 11/02/17 21:19 Zyprexa PO 2.5 mg BID YAHIR Administration Pantoprazole Sodium 40 mg 11/02/17 21:00 11/02/17 21:20 Protonix PO 40 mg HS YAHIR Administration Ziprasidone 40 mg 11/02/17 21:00 11/02/17 21:20 Geodon PO 40 mg BID YAHIR Administration Intake and Output 11/02/17 11/03/17 11/03/17 22:59 06:59 14:59 Other: Voiding Method Toilet Toilet # Voids 1 Weight 99.79 kg 99.79 kg 11/03/17 06:51 11/03/17 06:51 Assessment and Plan Assessment: ASSESSMENT 1. Dyspnea on exertion of unclear etiology. No overt heart failure appreciated with normal pro-BNP, normal EF, no pulmonary hypertension, no rales on exam and no lower extremity edema. 2. History of coronary artery disease with angioplasty of RCA 3. Hypertension, uncontrolled 4. Dyslipidemia 5. Diabetes mellitus 6. Morbid obesity 7. Sleep apnea PLAN Continue with aspirin, atorvastatin and lasix. Increase lisinopril to 20 mg daily with additional dose of 10 mg now and increase lopressor to 50 mg BID. Recommend pulmonary evaluation. Further recommendations to follow. Nurse Practitioner note has been reviewed, I agree with a documented findings and plan of care. Patient was seen and examined.
[2017-11-03 16:50] LABS: Glucose,Whole Blood 154 mg/dL (75-99)
--- NOTE | 2017-11-03 18:25 | P.CNPUL ---
History of Present Illness Consult date: 11/03/17 Requesting physician: Ramona Benedict Reason for consult: dyspnea Chief complaint: Shortness of breath History of present illness: This is a 72-year-old female with history of coronary artery disease, previous inferior wall [place], previous stenting of RCA, last cardiac catheterization was in 2016, revealed patent stent in the RCA, she is also known to have history of moderate severe mitral regurgitation documented on previous echocardiograms, but for some reason on the last echocardiogram it was reported as normal. Patient is known to have history of preserved LV systolic function, no history of COPD, no history of clear-cut interstitial lung disease based on previous scans of the chest. She does have restrictive lung disease secondary to obesity , no evidence of obstructive lung disease noted on PFT. Patient saw me in the office a few weeks ago, and I felt that her shortness of breath is related to obesity, deconditioning, and possibly cardiac component specially with her previous documented mitral regurgitation which was reported as moderately severe. I even suggested to the patient that she should see the utilities equipment repairer to possibly consider transesophageal echocardiogram. She was scheduled to see the utilities equipment repairer tomorrow, however the patient ended up in the hospital, and again she is complaining of shortness of breath worsening over the last 2 days, unable to lie flat, unable to do much of any physical activity without significant dyspnea. Workup for COPD was negative. Workup for interstitial lung disease was negative. Workup for thromboembolic disease was also negative. Again I still believe the patient shortness of breath is related to obesity, deconditioning, and strongly suspect some cardiac component possibly valvular heart disease which may have to be readdressed again by cardiology. If no cardiac causes could be determined to explain her shortness of breath, then I believe the patient would be labeled as dyspnea secondary to deconditioning and obesity. CT of the chest on this admission showed no evidence of pulmonary embolism, chest x-ray was noted to be relatively normal. Review of Systems 14 point review of systems were obtained, please refer to pertinent positives as per HPI, patient has mostly symptoms of shortness of breath as noted. Otherwise remaining systems are negative. Past Medical History Past Medical History: Coronary Artery Disease (CAD), Cancer, Diabetes Mellitus, Hyperlipidemia, Hypertension, Myocardial Infarction ([place]), Renal Disease, Sleep Apnea/CPAP/BIPAP Additional Past Medical History / Comment(s): osteomyelitis Lt hand/STAGE 3 RENAL FAILURE/THYROID CANCER, cpap machine,"rt hand 3 fingers numb" falls- constipation Last Myocardial Infarction Date:: 1999 History of Any Multi-Drug Resistant Organisms: MRSA Date of last positivie culture/infection: 07/01/2015 MDRO Source:: knee left Past Surgical History: Appendectomy, Heart Catheterization With Stent, Orthopedic Surgery Additional Past Surgical History / Comment(s): left hand, thyroidectomy, neck fusion/CARPAL TUNNEL REPAIR ASHLEY,colonoscopy in past STENT X1 Past Anesthesia/Blood Transfusion Reactions: No Reported Reaction Date of Last Stent Placement:: 1999 Past Psychological History: Anxiety, Depression, Panic Disorder Smoking Status: Former smoker Past Alcohol Use History: None Reported Past Drug Use History: None Reported - Past Family History Brother(s) Family Medical History: Cancer Mother Family Medical History: Diabetes Mellitus Father Family Medical History: Myocardial Infarction ([place]) Medications and Allergies Home Medications Medication Instructions Recorded Confirmed Type Metoprolol Tartrate [Lopressor] 25 mg PO DAILY 12/31/13 11/02/17 History Nitroglycerin Sl Tabs [Nitrostat] 0.4 mg SUBLINGUAL Q5M PRN 12/31/13 11/02/17 History Cholecalciferol [Vitamin D3] 1,000 unit PO DAILY 04/23/14 11/02/17 History Levothyroxine Sodium [Synthroid] 112 mcg PO DAILY 09/09/15 11/02/17 History Insulin NPH/Reg Insulin 70/30 55 unit SQ QAM 08/19/16 11/02/17 History [humuLIN 70/30 VIAL] Allopurinol [Zyloprim] 100 mg PO BID 09/03/16 11/02/17 History Insulin NPH/Reg Insulin 70/30 40 unit SQ HS 09/03/16 11/02/17 History [humuLIN 70/30 VIAL] Aspirin EC [Ecotrin Low Dose] 81 mg PO BID 06/04/17 11/02/17 History Magnesium Oxide [Mag-Ox] 400 mg PO DAILY 06/04/17 11/02/17 History Donepezil [Aricept] 10 mg PO HS 10/17/17 11/02/17 History Metoprolol Tartrate [Lopressor] 50 mg PO HS 10/17/17 11/02/17 History OLANZapine [ZyPREXA] 2.5 mg PO BID 10/17/17 11/02/17 History Lisinopril [Prinivil] 10 mg PO DAILY #30 tab 10/18/17 11/02/17 Rx Atorvastatin Calcium [Lipitor] 80 mg PO HS 11/02/17 11/02/17 History Pantoprazole [Protonix] 40 mg PO HS 11/02/17 11/02/17 History Ziprasidone [Geodon] 40 mg PO BID 11/02/17 11/02/17 History Allergies Allergy/AdvReac Type Severity Reaction Status Date / Time lorazepam [From Ativan] Allergy Unknown Verified 11/02/17 13:20 codeine AdvReac Nausea Verified 11/02/17 13:20 erythromycin base AdvReac Nausea Verified 11/02/17 13:20 [Erythromycin Base] Iodinated Contrast- Oral and AdvReac ELEVATED Verified 11/02/17 13:20 IV Dye B/P, FELT [Iodinated Contrast Media - LIKE PASSED IV Dye] methylprednisolone AdvReac Confusion Verified 11/02/17 13:20 [From Medrol] Sulfa (Sulfonamide AdvReac DIZZYNESS Verified 11/02/17 13:20 Antibiotics) Physical Exam Vitals: Vital Signs Temp Pulse Pulse Resp BP BP BP 11/03/17 16:32 11/03/17 16:00 97.5 F L 71 18 137/54 11/03/17 13:28 62 20 148/64 11/03/17 12:00 97.5 F L 64 18 200/72 11/03/17 08:00 97.8 F 54 L 18 173/88 11/03/17 04:00 16 11/03/17 01:15 97.7 F 60 16 163/54 11/03/17 00:00 68 22 11/02/17 20:00 22 11/02/17 18:35 69 22 172/70 Pulse Ox 11/03/17 16:32 95 11/03/17 16:00 96 11/03/17 13:28 98 11/03/17 12:00 100 11/03/17 08:00 96 11/03/17 04:00 11/03/17 01:15 95 11/03/17 00:00 11/02/17 20:00 11/02/17 18:35 98 Intake and Output 11/03/17 11/03/17 11/03/17 06:59 14:59 22:59 Other: Voiding Method Toilet Toilet Toilet # Voids 1 2 Weight 99.79 kg Physical Exam: Revealed a 72-year-old female in no distress. Head: Atraumatic, normocephalic. HEENT:[Neck is supple.] [No neck masses.] [No thyromegaly.] [No JVD.] Chest: [Clear throughout, no crackles, no rhonchi, no wheezes.] Cardiac Exam: [Normal S1 and S2, no S3 gallop, 2/6 systolic murmur thought the precordium.] Abdomen: [Soft, nontender, no megaly, no rebound, no guarding, normal bowel sounds.] Extremities: [No clubbing, no edema, no cyanosis.] Neurological Exam: [No focal neurologic deficit.] Psychiatric: Normal mood affect and mental status examination. Results - Laboratory Findings CBC and BMP: 11/03/17 06:51 11/03/17 06:51 PT/INR, D-dimer PT 10.2 sec (9.0-12.0) 11/02/17 13:55 INR 1.0 (<1.2) 11/02/17 13:55 Abnormal lab findings: Abnormal Labs 11/02/17 11/02/17 11/02/17 13:55 13:55 13:55 RBC Hgb Hct RDW 16.2 H Sodium 151 H Chloride 108 H BUN 24 H Glucose 158 H POC Glucose (mg/dL) Total Creatine Kinase 176 H CK-MB (CK-2) 3.4 H* Total Protein 11/02/17 11/03/17 11/03/17 20:35 06:51 06:51 RBC 3.49 L Hgb 10.4 L Hct 33.0 L RDW 16.6 H Sodium 150 H Chloride 109 H BUN 27 H Glucose 141 H POC Glucose (mg/dL) 119 H Total Creatine Kinase CK-MB (CK-2) Total Protein 5.8 L 11/03/17 11/03/17 11/03/17 07:06 11:50 16:49 RBC Hgb Hct RDW Sodium Chloride BUN Glucose POC Glucose (mg/dL) 147 H 176 H 154 H Total Creatine Kinase CK-MB (CK-2) Total Protein - Diagnostic Findings Chest x-ray: image reviewed (As documented in HPI.) CT scan - chest: image reviewed Assessment and Plan Assessment: Impression: 1 chronic shortness of breath, however no evidence of thromboembolic disease, no evidence of obstructive lung disease as noted on recent PFT, I believe the shortness of breath is secondary to deconditioning, I still suspect moderate severe mitral valve disease and regurgitation as documented on her previous echocardiogram from September of 2016. Patient may benefit from having a SIGIFREDO for further evaluation. She was supposed to be seen by cardiology on outpatient basis tomorrow. If cardiac etiology is ruled out for her shortness of breath, then I would feel the patient has mostly deconditioning and obesity contributing mostly to her shortness of breath. 2 acute hyper natremia likely secondary free water deficit, possibly related to diuretics. 3 multiple comorbidities including dementia, type 2 diabetes, anxiety and depression, hypothyroidism, morbid obesity, and history of thyroid cancer with previous thyroidectomy. Recommendation: Not much to be added from my perspective, we'll continue to follow. Further cardiac workup is pending. Time with Patient: Greater than 30
--- NOTE | 2017-11-03 19:05 | XR ---
EXAMINATION TYPE: XR knee complete RT DATE OF EXAM: 11/03/2017 COMPARISON: 01/17/2015 HISTORY: 72-year-old female with pain after fall TECHNIQUE: 3 views FINDINGS: Tricompartmental degenerative spurring, moderate in the patellofemoral compartment. There is a small knee joint effusion. Extensor mechanism is intact. No acute fracture, subluxation, or dislocation. Va scular calcifications are present. IMPRESSION: Tricompartmental degenerative spurring, moderate in the patellofemoral compartment. There is a small knee joint effusion which is nonspecific and could be reactive. No acute osseous abnormality seen.
[2017-11-03] MEDS: DONEPEZIL 10 MG TAB PO SCH (19:58)
[2017-11-03] MEDS: METOPROLOL TARTRATE 50 MG TAB PO SCH (19:58)
[2017-11-03] MEDS: ATORVASTATIN 80 MG TAB PO SCH (19:58)
[2017-11-03] MEDS: PANTOPRAZOLE 40 MG TABLET PO SCH (19:58)
[2017-11-03 20:00] LABS: Glucose,Whole Blood 135 mg/dL (75-99)
[2017-11-03] MEDS: ACETAMINOPHEN TAB 325 MG TAB PO PRN (22:02)
--- NOTE | 2017-11-04 00:50 | P.PN ---
Subjective Progress Note Date: 11/03/17 Principal diagnosis: Dyspnea multifactorial. Patient is a 72-year-old female with a known history of hypertension, diabetes type 2 insulin-dependent, hyperlipidemia and history of coronary artery disease with stent placement and also history of acute psychosis and May 2017 came to the hospital with complaints of difficulty in breathing. Otherwise patient denied any complaints of chest pain. No fever no chills. No cough is from production. Patient says that symptoms get worse at night. Patient was seen by pulmonary about a week ago. Shortness of WORSENING with lying flat. Patient also complaining of mild ankle swellings. No cough pain. No fever no chills. Cough is nonproductive. Patient was admitted to the hospital in the first week of October 2017 with similar complaints. Patient was seen by cardiology at the time. 2-D echocardiogram was done in October 2017. she was found to have moderate disease in the circumflex 50-55% OM disease 30-40 % LAD, ejection fraction at that time documented to be 50%. No evidence of pulmonary hypertension. Patient also underwent a heart catheterization in August 2015 which revealed a widely patent stents. Patient also has history of thyroid cancer with prior thyroidectomy. Patient was started on(Lasix 20 mg daily during previous admission. BNP 287 Troponin 2 negative. Chest x-ray correlate to exclude pulmonary hypertension and interstitial edema CT angiogram of the chest showed no evidence of pulmonary embolism. Stable compared to previous exam section days ago. Currently patient is saturating well on room air. Patient is somewhat poor historian. 11/03/2017 Patient is still having shortness of breath. Patient is being continued on Lasix 20 mg daily. Patient was seen by cardiology and pulmonary. Patient was found have moderate to severe mitral regurgitation as per echocardiogram in 2016. Recent PFTs showed no evidence of obstructive disease as per pulmonary. We will discuss with cardiology and pulmonary. Otherwise continued on breathing treatments and Lasix. will obtain physical therapy as well. Patient also having morbid obesity BMI 41.6. Also contributing factors worsening shortness of breath. No complaints of chest pain. No nausea vomiting or abdominal pain. Patient is able to sit in the chair today. All other review of systems negative as above.. Active Medications Acetaminophen (Tylenol Tab) 650 mg PO Q6HR PRN PRN Reason: Fever and/ or Pain Last Admin: 11/03/17 22:02 Dose: 650 mg Allopurinol (Zyloprim) 100 mg PO BID [facility] Last Admin: 11/03/17 19:58 Dose: 100 mg Aspirin (Aspirin) 81 mg PO BID [facility] Last Admin: 11/03/17 19:59 Dose: 81 mg Atorvastatin Calcium (Lipitor) 80 mg PO HS [facility] Last Admin: 11/03/17 19:58 Dose: 80 mg Cholecalciferol (Vitamin D3) 1,000 unit PO DAILY [facility] Last Admin: 11/03/17 11:17 Dose: 1,000 unit Donepezil HCl (Aricept) 10 mg PO HS [facility] Last Admin: 11/03/17 19:58 Dose: 10 mg Furosemide (Lasix) 20 mg PO BID@0900,1600 [facility] Last Admin: 11/03/17 16:27 Dose: 20 mg Heparin Sodium (Porcine) (Heparin) 5,000 unit SQ Q8HR [facility] Last Admin: 11/03/17 23:15 Dose: 5,000 unit Sodium Chloride (Saline 0.9%) 1,000 mls @ 20 mls/hr IV .Q24H [facility] Last Admin: 11/03/17 19:48 Dose: Not Given Insulin Human Isoph/Insulin Regular (Humulin 70/30 Vial) 40 unit SQ HS [facility] Last Admin: 11/03/17 19:59 Dose: Not Given Insulin Human Isoph/Insulin Regular (Humulin 70/30 Vial) 55 unit SQ QAM [facility] Last Admin: 11/03/17 12:27 Dose: 30 unit Levothyroxine Sodium (Synthroid) 112 mcg PO 0630 [facility] Last Admin: 11/03/17 06:43 Dose: 112 mcg Lisinopril (Zestril) 20 mg PO DAILY [facility] Magnesium Oxide (Mag-Ox) 400 mg PO DAILY [facility] Last Admin: 11/03/17 11:16 Dose: 400 mg Metoprolol Tartrate (Lopressor) 50 mg PO BID [facility] Last Admin: 11/03/17 19:58 Dose: 50 mg Miscellaneous Information (Rx Info: Iv Contrast Was Given) 1 each MISCELLANE DAILY PRN PRN Reason: Per Protocol Stop: 11/04/17 15:10 Last Admin: 11/02/17 15:50 Dose: 1 each Naloxone HCl (Narcan) 0.2 mg IV Q2M PRN PRN Reason: Opioid Reversal Olanzapine (Zyprexa) 2.5 mg PO BID [facility] Last Admin: 11/03/17 19:58 Dose: 2.5 mg Pantoprazole Sodium (Protonix) 40 mg PO HS [facility] Last Admin: 11/03/17 19:58 Dose: 40 mg Ziprasidone (Geodon) 40 mg PO BID [facility] Last Admin: 11/03/17 19:58 Dose: 40 mg Objective - Vital Signs Vital signs: Vital Signs Temp 97.5 F L 11/03/17 12:00 Pulse 62 11/03/17 13:28 Resp 20 11/03/17 13:28 BP 148/64 11/03/17 13:28 Pulse Ox 98 11/03/17 13:28 Intake & Output 11/02/17 11/03/17 11/03/17 18:59 06:59 18:59 Weight 99.79 kg 99.79 kg Other: Voiding Method Toilet Toilet # Voids 1 2 - Exam Patient is lying in the bed comfortably, no acute distress, awake alert and oriented. Patient is morbidly obese. HEENT: Normocephalic. Neck is supple. Pupils reactive. Nostrils clear. Oral cavity is moist. Ears reveal no drainage. Neck reveals no JVD, carotid bruits, or thyromegaly. CHEST EXAMINATION: Trachea is central. Symmetrical expansion. Bilateral diminished air entry and prolonged expiration. No wheezing.. CARDIAC: Normal S1, S2 with no gallops. Systolic murmur ABDOMEN: Soft. Bowel sounds normal. No organomegaly. No abdominal bruits. Extremities: Trace edema. No clubbing or cyanosis Neurologically awake, alert, oriented x3 with well-coordinated movements. No focal deficits noted Skin: No rash or skin lesions. Psychiatric: Cooperative. Could not be assessed completely Musculoskeletal: No joint swelling or deformity. Normal range of motion. - Labs CBC & Chem 7: 11/03/17 06:51 11/03/17 06:51 Labs: Abnormal Lab Results - Last 24 Hours (Table) 11/02/17 11/03/17 11/03/17 Range/Units 20:35 06:51 06:51 RBC 3.49 L (3.80-5.40) m/uL Hgb 10.4 L (11.4-16.0) gm/dL Hct 33.0 L (34.0-46.0) % RDW 16.6 H (11.5-15.5) % Sodium 150 H (137-145) mmol/L Chloride 109 H (98-107) mmol/L BUN 27 H (7-17) mg/dL Glucose 141 H (74-99) mg/dL POC Glucose (mg/dL) 119 H (75-99) mg/dL Total Protein 5.8 L (6.3-8.2) g/dL 11/03/17 11/03/17 Range/Units 07:06 11:50 RBC (3.80-5.40) m/uL Hgb (11.4-16.0) gm/dL Hct (34.0-46.0) % RDW (11.5-15.5) % Sodium (137-145) mmol/L Chloride (98-107) mmol/L BUN (7-17) mg/dL Glucose (74-99) mg/dL POC Glucose (mg/dL) 147 H 176 H (75-99) mg/dL Total Protein (6.3-8.2) g/dL Assessment and Plan Assessment: Dyspnea likely due multifactorial. pulmonary hypertension and obstructive sleep apnea, mitral regurgitation and deconditioning as well. Exact etiology unknown. Unlikely CHF with BNP level 298 Moderate to severe mitral regurgitation as per echocardiogram in 2016 Hypernatremia due to volume depletion History of coronary artery disease with stent placement to RCA in 2007. Most recent cardiac cath in 2015. Patent RCA Diabetes type 2 insulin-dependent Dementia Alzheimer's type History of acute psychosis Anxiety and depression Hypertension Hyperlipidemia Hypothyroidism History of thyroid cancer status post thyroidectomy Normocytic anemia Morbid obesity. DVT prophylaxis Plan: Patient will be continued on breathing treatments and was restarted back on Lasix 20 mg changed to twice a day. Continue with insulin dosing and home medications. Consulted pulmonary and cardiology. Patient was seen by pulmonary in the clinic about a week ago in the clinic.. TSH level within normal limits. Further recommendations based on the clinical course. Prognosis is guarded with multiple medical problems and complications. Time with Patient: Greater than 30
[2017-11-04] MEDS: LEVOTHYROXINE 112 MCG TAB PO SCH (05:54)
[2017-11-04 07:13] LABS: Glucose,Whole Blood 158 mg/dL (75-99)
[2017-11-04 07:54] VITALS: RESP 18
[2017-11-04 07:54] LABS: Anisocytosis Slight; Basophils # (A) 0.1 k/uL (0-0.2); Basophils % (A) 1 %; Eosinophils # (A) 0.2 k/uL (0-0.7); Eosinophils % (A) 3 %; HCT 33.9 % (34.0-46.0); Lymphocytes # (A) 1.6 k/uL (1.0-4.8); Lymphocytes % (A) 17 %; MCHC 32.5 g/dL (31.0-37.0); MCV 92.1 fL (80.0-100.0); Mean Platelet Volume 7.8; Monocytes # (A) 0.7 k/uL (0-1.0); Monocytes % (A) 7 %; Neutrophils # (A) 6.6 k/uL (1.3-7.7); Neutrophils % (A) 71 %; Platelet Count 219 k/uL (150-450); RBC 3.68 m/uL (3.80-5.40); RDW 16.1 % (11.5-15.5); WBC 9.3 k/uL (3.8-10.6)
[2017-11-04 08:08] LABS: Calcium 9.3 mg/dL (8.4-10.2); Potassium 4.1 mmol/L (3.5-5.1)
[2017-11-04] MEDS: CHOLECALCIFEROL 1,000 UNIT TAB PO SCH (08:54)
[2017-11-04] MEDS: ALLOPURINOL 100 MG TAB PO SCH ×2 (08:54→21:20)
[2017-11-04] MEDS: ZIPRASIDONE 40 MG CAP PO SCH ×2 (08:54→21:25)
[2017-11-04] MEDS: LISINOPRIL 20 MG TAB PO SCH (08:54)
[2017-11-04] MEDS: MAGNESIUM OXIDE 400 MG TAB PO SCH (08:54)
[2017-11-04] MEDS: OLANZapine 2.5 MG TAB PO SCH ×2 (08:54→21:20)
[2017-11-04] MEDS: ACETAMINOPHEN TAB 325 MG TAB PO PRN ×2 (08:55→15:20)
[2017-11-04] MEDS: FUROSEMIDE 20 MG TAB PO SCH ×2 (08:55→17:48)
[2017-11-04] MEDS: METOPROLOL TARTRATE 50 MG TAB PO SCH ×2 (08:55→21:20)
[2017-11-04] MEDS: INSULIN NPH/REG INSULIN 70/30 300 UNIT/3 ML VIAL SQ SCH ×2 (08:57→21:21)
[2017-11-04 09:49] LABS: Hemoglobin A1C 7.9 % (4.0-6.0)
[2017-11-04] MEDS: HEPARIN SODIUM,PORCINE 5,000 UNIT/ML 1 ML VIAL SQ SCH ×3 (11:25→23:53)
[2017-11-04 11:26] LABS: Glucose,Whole Blood 177 mg/dL (75-99)
[2017-11-04] MEDS: ASPIRIN 81 MG PO SCH ×2 (11:26→21:20)
--- NOTE | 2017-11-04 13:06 | P.PN ---
Subjective Progress Note Date: 11/04/17 Mrs. Bauman is a pleasant 72-year-old female past medical history significant for coronary artery disease s/p acute inferior wall [place] with stenting of RCA in 2007. At that time she also [id number]% stenosis of LAD, 40-50 % stenosis of LAD and 50& narrowing of OM branch. She underwent repeat heart catheterization in 2015 which revealed a patent stent in RCA and no progression of already established stenosis. She also has diabetes mellitus, hypertension, dyslipidemia, sleep apnea and anxiety/depression. She follows with Dr. NAHED Cade in the office. We have been asked to see her in consultation for shortness of breath. She was recently admitted in early October with similar type symptoms and exacerbation of heart failure was ruled out and pulmonary evaluation recommended. Echocardiogram and doppler study obtained on that admission showed preserved LV systolic function with EF 50-55% with no valvular disease or pulmonary hypertension with RVSP 25.43 mmHg. At the time of my exam she is resting comfortably in bed in no acute distress. She states she has had ongoing shortness of breath times approximately 3 weeks with worsening over the last 2 days. States she is unable to lie flat at night without feeling extremely short of breath. Simple tasks around the house causes extreme fatigue and shortness of breath. Denies chest pain, dizziness, palpitations, nausea or vomiting. EKG reveals sinus mechanism with no acute ST or T-wave abnormalities. Chest xray shows possible interstitial edema with evidence of pulmonary hypertension. CTA chest negative for pulmonary embolism with indeterminate pulmonary nodule follow-up recommended. Laboratory data reviewed, hemoglobin 10.4, platelets 216, sodium 150, potassium 4.5, creatinine 0.87, cardiac enzymes negative 3, proBNP 287, TSH 4.15. Current cardiac medications include aspirin 81 mg twice a day, atorvastatin 80 mg daily, lisinopril 10 mg daily, Lopressor 25 mg in the a.m. and 50 mg at bedtime. Last admission she was discharged home on Lasix 20 mg by mouth. That does not appear to be on her home medication list. She also takes insulin, Zyprexa, Synthroid, Aricept, Geodon, Protonix and allopurinol. 11/04/2017 Mrs. Bauman is seen and examined today in follow-up. She states she seems to be feeling somewhat better with her breathing. She was seen in consultation by Dr. Leone and he is recommending a repeat echocardiogram to assess mitral valve secondary to an old echo that diagnosed moderate MR and recent echo with no such findings. Repeat echo will be done today for clarification. She is concerned about a scheduled appointment with Dr. Cade this afternoon that she will not make. I reassured her that I will ensure she has another appointment before discharge. Laboratory data reviewed, hemoglobin 11.0, platelets 219, sodium 140, potassium 4.1, creatinine 1.0. Blood pressure 161/72 heart rate 65 afebrile maintaining oxygen saturation on room air. Blood pressure medications were adjusted yesterday and it seems those changes have been effective throughout the day yesterday. Objective - Vital Signs Vital signs: Vital Signs Temp 98.3 F 11/04/17 07:10 Pulse 65 11/04/17 07:10 Resp 18 11/04/17 07:10 BP 161/73 11/04/17 07:10 Pulse Ox 93 L 11/04/17 07:10 Intake & Output 11/03/17 11/04/17 11/04/17 18:59 06:59 18:59 Weight 104 kg Other: Voiding Method Toilet Toilet # Voids 2 2 1 - Exam GENERAL: Well-appearing, well-nourished and in no acute distress. NECK: Supple without JVD or thyromegaly. LUNGS: Breath sounds clear to auscultation bilaterally. Respiration equal and unlabored. No wheezes, rales or rhonchi. HEART: Regular rate and rhythm with systolic ejection murmur at the base, no rubs or gallops. S1 and S2 heard. EXTREMITIES: Normal range of motion, no edema. No clubbing or cyanosis. Peripheral pulses intact and strong. - Labs CBC & Chem 7: 11/04/17 07:14 11/04/17 07:14 Labs: Abnormal Lab Results - Last 24 Hours (Table) 11/02/17 11/03/17 11/03/17 Range/Units 21:04 16:49 19:58 RBC (3.80-5.40) m/uL Hgb (11.4-16.0) gm/dL Hct (34.0-46.0) % RDW (11.5-15.5) % Sodium (137-145) mmol/L Carbon Dioxide (22-30) mmol/L BUN (7-17) mg/dL Glucose (74-99) mg/dL POC Glucose (mg/dL) 154 H 135 H (75-99) mg/dL Hemoglobin A1c 7.9 H (4.0-6.0) % 11/04/17 11/04/17 11/04/17 Range/Units 07:11 07:14 07:14 RBC 3.68 L (3.80-5.40) m/uL Hgb 11.0 L (11.4-16.0) gm/dL Hct 33.9 L (34.0-46.0) % RDW 16.1 H (11.5-15.5) % Sodium 148 H (137-145) mmol/L Carbon Dioxide 31 H (22-30) mmol/L BUN 29 H (7-17) mg/dL Glucose 147 H (74-99) mg/dL POC Glucose (mg/dL) 158 H (75-99) mg/dL Hemoglobin A1c (4.0-6.0) % 11/04/17 Range/Units 11:11 RBC (3.80-5.40) m/uL Hgb (11.4-16.0) gm/dL Hct (34.0-46.0) % RDW (11.5-15.5) % Sodium (137-145) mmol/L Carbon Dioxide (22-30) mmol/L BUN (7-17) mg/dL Glucose (74-99) mg/dL POC Glucose (mg/dL) 177 H (75-99) mg/dL Hemoglobin A1c (4.0-6.0) % Assessment and Plan Assessment: ASSESSMENT 1. Dyspnea on exertion of unclear etiology. No overt heart failure appreciated with normal pro-BNP, normal EF, no pulmonary hypertension, no rales on exam and no lower extremity edema. 2. History of coronary artery disease with angioplasty of RCA 3. Hypertension, uncontrolled 4. Dyslipidemia 5. Diabetes mellitus 6. Morbid obesity 7. Sleep apnea PLAN Will ask nursing to repeat blood pressure now, after am meds have been given. Repeat echocardiogram to assess for mitral regurgitation. Ensure she has a follow-up appointment with Dr. Cade upon discharge. Nurse Practitioner note has been reviewed, I agree with a documented findings and plan of care. Patient was seen and examined.
--- NOTE | 2017-11-04 13:40 | P.PN ---
Subjective Progress Note Date: 11/04/17 Principal diagnosis: Shortness of breath Progress note dated 11/04/2017 This is a 72-year-old female seen by my partner yesterday in consultation. She came with shortness of breath. He thought the shortness of breath was related to thromboembolic disease and there is no evidence apparently of obstructive lung disease on recent PFTs. She had actually seen him in the office this past Saturday. She does have some moderate to severe to severe mitral valve disease and this may be also an explanation of her shortness of breath. The patient apparently is currently seen by cardiology or will be seen by cardiology in the near future. In addition, the patient has a history of mild hypernatremia and multiple other comorbidities including dementia type 2 diabetes anxiety/depression hypothyroidism morbid obesity and history of thyroid cancer with previous thyroidectomy. Objective - Vital Signs Vital signs: Vital Signs Temp 98.3 F 11/04/17 07:10 Pulse 77 11/04/17 13:08 Resp 18 11/04/17 07:10 BP 121/51 11/04/17 13:08 Pulse Ox 93 L 11/04/17 07:10 Intake & Output 11/03/17 11/04/17 11/04/17 18:59 06:59 18:59 Weight 104 kg Other: Voiding Method Toilet Toilet # Voids 2 2 1 - Exam No acute distress, oriented 3. HEENT examination is grossly unremarkable. Mucous membranes are moist. No oral lesions. Neck supple. Full range of motion. No adenopathy thyromegaly or neck vein distention. Cardiovascular examination reveals regular rhythm rate. S1-S2 normal. No S3 or S4. Soft systolic murmur noted. Lungs reveal clear breath sounds. Her sounds are equal bilaterally. No adventitious lung sounds including wheezes rhonchi or crackles. Abdomen soft bowel sounds are heard. No masses or tenderness. Extremities are intact. No cyanosis clubbing or edema. Skin is without rash or lesion. Neurologic examination is brief but nonfocal. - Labs CBC & Chem 7: 11/04/17 07:14 11/04/17 07:14 Labs: Abnormal Lab Results - Last 24 Hours (Table) 11/02/17 11/03/17 11/03/17 Range/Units 21:04 16:49 19:58 RBC (3.80-5.40) m/uL Hgb (11.4-16.0) gm/dL Hct (34.0-46.0) % RDW (11.5-15.5) % Sodium (137-145) mmol/L Carbon Dioxide (22-30) mmol/L BUN (7-17) mg/dL Glucose (74-99) mg/dL POC Glucose (mg/dL) 154 H 135 H (75-99) mg/dL Hemoglobin A1c 7.9 H (4.0-6.0) % 11/04/17 11/04/17 11/04/17 Range/Units 07:11 07:14 07:14 RBC 3.68 L (3.80-5.40) m/uL Hgb 11.0 L (11.4-16.0) gm/dL Hct 33.9 L (34.0-46.0) % RDW 16.1 H (11.5-15.5) % Sodium 148 H (137-145) mmol/L Carbon Dioxide 31 H (22-30) mmol/L BUN 29 H (7-17) mg/dL Glucose 147 H (74-99) mg/dL POC Glucose (mg/dL) 158 H (75-99) mg/dL Hemoglobin A1c (4.0-6.0) % 11/04/17 Range/Units 11:11 RBC (3.80-5.40) m/uL Hgb (11.4-16.0) gm/dL Hct (34.0-46.0) % RDW (11.5-15.5) % Sodium (137-145) mmol/L Carbon Dioxide (22-30) mmol/L BUN (7-17) mg/dL Glucose (74-99) mg/dL POC Glucose (mg/dL) 177 H (75-99) mg/dL Hemoglobin A1c (4.0-6.0) % Assessment and Plan Assessment: Assessment Shortness of breath, chronic, which may relate to underlying valvular heart disease No evidence of pulmonary embolism on CT angiogram No evidence of any obstructive lung disease on recent PFTs Hypernatremia Dementia Type 2 diabetes Anxiety/depression Hypothyroidism Morbid obesity. Thyroid cancer with previous thyroidectomy Plan: Plan dated 11/04/2017 It appears that the patient may not have any significant pulmonary disease. We' ll follow along. Anticipate what cardiology has to say about this patient. No additional recommendations are made. We will continue to follow. Time with Patient: Less than 30
--- NOTE | 2017-11-04 16:57 | XR ---
EXAMINATION TYPE: XR Hip Complete RT DATE OF EXAM: 11/04/2017 COMPARISON: 05/25/2016 HISTORY: Right hip pain TECHNIQUE: 2 views FINDINGS: I see no fracture nor dislocation. There is mild acetabular spurring. There is slight narro wing of a hip joint space. Sacroiliac joint is intact. IMPRESSION: Minor degenerative changes. No fracture. No adverse change compared to old exam.
[2017-11-04 17:01] LABS: Glucose,Whole Blood 158 mg/dL (75-99)
[2017-11-04] MEDS: SODIUM CHLORIDE 0.9% 1,000 ML IV SCH (17:50)
[2017-11-04 20:15] LABS: Glucose,Whole Blood 204 mg/dL (75-99)
[2017-11-04] MEDS: PANTOPRAZOLE 40 MG TABLET PO SCH (21:20)
[2017-11-04] MEDS: DONEPEZIL 10 MG TAB PO SCH (21:20)
[2017-11-04] MEDS: ATORVASTATIN 80 MG TAB PO SCH (21:20)
[2017-11-04] MEDS: IBUPROFEN 400 MG TAB PO SCH (21:21)
[2017-11-05] MEDS: ACETAMINOPHEN TAB 325 MG TAB PO PRN (00:50)
--- NOTE | 2017-11-05 03:00 | P.PN ---
Subjective Progress Note Date: 11/04/17 Principal diagnosis: Dyspnea multifactorial. Patient is a 72-year-old female with a known history of hypertension, diabetes type 2 insulin-dependent, hyperlipidemia and history of coronary artery disease with stent placement and also history of acute psychosis and May 2017 came to the hospital with complaints of difficulty in breathing. Otherwise patient denied any complaints of chest pain. No fever no chills. No cough is from production. Patient says that symptoms get worse at night. Patient was seen by pulmonary about a week ago. Shortness of WORSENING with lying flat. Patient also complaining of mild ankle swellings. No cough pain. No fever no chills. Cough is nonproductive. Patient was admitted to the hospital in the first week of October 2017 with similar complaints. Patient was seen by cardiology at the time. 2-D echocardiogram was done in October 2017. she was found to have moderate disease in the circumflex 50-55% OM disease 30-40 % LAD, ejection fraction at that time documented to be 50%. No evidence of pulmonary hypertension. Patient also underwent a heart catheterization in August 2015 which revealed a widely patent stents. Patient also has history of thyroid cancer with prior thyroidectomy. Patient was started on(Lasix 20 mg daily during previous admission. BNP 287 Troponin 2 negative. Chest x-ray correlate to exclude pulmonary hypertension and interstitial edema CT angiogram of the chest showed no evidence of pulmonary embolism. Stable compared to previous exam section days ago. Currently patient is saturating well on room air. Patient is somewhat poor historian. 11/03/2017 Patient is still having shortness of breath. Patient is being continued on Lasix 20 mg daily. Patient was seen by cardiology and pulmonary. Patient was found have moderate to severe mitral regurgitation as per echocardiogram in 2016. Recent PFTs showed no evidence of obstructive disease as per pulmonary. We will discuss with cardiology and pulmonary. Otherwise continued on breathing treatments and Lasix. will obtain physical therapy as well. Patient also having morbid obesity BMI 41.6. Also contributing factors worsening shortness of breath. No complaints of chest pain. No nausea vomiting or abdominal pain. Patient is able to sit in the chair today. 11/04/2017 Patient says that her breathing is better today. Patient did fall yesterday while going to the bathroom and has been complaining of right knee pain and hip pain. X-rays did not reveal any osseous changes. Patient is being continued on pain medications. Blood pressure is elevated today. 2-D echo was done to assess for mitral valve regurgitation. Otherwise patient is being continued on current management with Lasix 20 mg twice a day. Cardiology and pulmonary is following. All other review of systems negative as above.. Active Medications Generic Name Dose Route Start Last Admin Trade Name Freq PRN Reason Stop Dose Admin Acetaminophen 650 mg 11/02/17 21:02 11/05/17 00:50 Tylenol Tab PO 650 mg Q6HR PRN Administration Fever and/ or Pain Allopurinol 100 mg 11/02/17 21:00 11/04/17 21:20 Zyloprim PO 100 mg BID YAHIR Administration Aspirin 81 mg 11/02/17 21:00 11/04/17 21:20 Aspirin PO 81 mg BID YAHIR Administration Atorvastatin Calcium 80 mg 11/02/17 21:00 11/04/17 21:20 Lipitor PO 80 mg HS YAHIR Administration Cholecalciferol 1,000 unit 11/03/17 09:00 11/04/17 08:54 Vitamin D3 PO 1,000 unit DAILY YAHIR Administration Donepezil HCl 10 mg 11/02/17 21:00 11/04/17 21:20 Aricept PO 10 mg HS YAHIR Administration Furosemide 20 mg 11/03/17 16:00 11/04/17 17:48 Lasix PO Not Given BID@0900,1600 YAHIR Heparin Sodium (Porcine) 5,000 unit 11/03/17 00:00 11/04/17 23:53 Heparin SQ 5,000 unit Q8HR YAHIR Administration Sodium Chloride 1,000 mls @ 20 mls/hr 11/02/17 17:45 11/04/17 17:50 Saline 0.9% IV Not Given .Q24H YAHIR Ibuprofen 400 mg 11/04/17 22:00 11/04/17 21:21 Motrin PO 11/05/17 16:01 400 mg TID YAHIR Administration Insulin Human Isoph/Insulin Regular 40 unit 11/02/17 21:00 11/04/17 21:21 Humulin 70/30 Vial SQ 40 unit HS YAHIR Administration Insulin Human Isoph/Insulin Regular 55 unit 11/03/17 09:00 11/04/17 08:57 Humulin 70/30 Vial SQ 55 unit QAM YAHIR Administration Levothyroxine Sodium 112 mcg 11/03/17 06:30 11/04/17 05:54 Synthroid PO 112 mcg 0630 YAHIR Administration Lisinopril 20 mg 11/04/17 09:00 11/04/17 08:54 Zestril PO 20 mg DAILY YAHIR Administration Magnesium Oxide 400 mg 11/03/17 09:00 11/04/17 08:54 Mag-Ox PO 400 mg DAILY YAHIR Administration Metoprolol Tartrate 50 mg 11/03/17 21:00 11/04/17 21:20 Lopressor PO 50 mg BID YAHIR Administration Naloxone HCl 0.2 mg 11/02/17 17:33 Narcan IV Q2M PRN Opioid Reversal Olanzapine 2.5 mg 11/02/17 21:00 11/04/17 21:20 Zyprexa PO 2.5 mg BID YAHIR Administration Pantoprazole Sodium 40 mg 11/02/17 21:00 11/04/17 21:20 Protonix PO 40 mg HS YAHIR Administration Ziprasidone 40 mg 11/02/17 21:00 11/04/17 21:25 Geodon PO 40 mg BID YAHIR Administration Objective - Vital Signs Vital signs: Vital Signs Temp 98.3 F 11/04/17 14:16 Pulse 91 11/04/17 14:16 Resp 18 11/04/17 14:16 BP 161/70 11/04/17 14:16 Pulse Ox 91 L 11/04/17 14:16 Intake & Output 11/03/17 11/04/17 11/04/17 18:59 06:59 18:59 Intake Total 450 Balance 450 Weight 104 kg Intake: Oral 450 Other: Voiding Method Toilet Toilet # Voids 2 2 3 - Exam Patient is lying in the bed comfortably, no acute distress, awake alert and oriented. Patient is morbidly obese. HEENT: Normocephalic. Neck is supple. Pupils reactive. Nostrils clear. Oral cavity is moist. Ears reveal no drainage. Neck reveals no JVD, carotid bruits, or thyromegaly. CHEST EXAMINATION: Trachea is central. Symmetrical expansion. Bilateral diminished air entry and prolonged expiration. No wheezing.. CARDIAC: Normal S1, S2 with no gallops. Systolic murmur ABDOMEN: Soft. Bowel sounds normal. No organomegaly. No abdominal bruits. Extremities: Trace edema. No clubbing or cyanosis Neurologically awake, alert, oriented x3 with well-coordinated movements. No focal deficits noted Skin: No rash or skin lesions. Psychiatric: Cooperative. Could not be assessed completely Musculoskeletal: No joint swelling or deformity. Normal range of motion. - Labs CBC & Chem 7: 11/04/17 07:14 11/04/17 07:14 Labs: Abnormal Lab Results - Last 24 Hours (Table) 11/02/17 11/03/17 11/03/17 Range/Units 21:04 16:49 19:58 RBC (3.80-5.40) m/uL Hgb (11.4-16.0) gm/dL Hct (34.0-46.0) % RDW (11.5-15.5) % Sodium (137-145) mmol/L Carbon Dioxide (22-30) mmol/L BUN (7-17) mg/dL Glucose (74-99) mg/dL POC Glucose (mg/dL) 154 H 135 H (75-99) mg/dL Hemoglobin A1c 7.9 H (4.0-6.0) % 11/04/17 11/04/17 11/04/17 Range/Units 07:11 07:14 07:14 RBC 3.68 L (3.80-5.40) m/uL Hgb 11.0 L (11.4-16.0) gm/dL Hct 33.9 L (34.0-46.0) % RDW 16.1 H (11.5-15.5) % Sodium 148 H (137-145) mmol/L Carbon Dioxide 31 H (22-30) mmol/L BUN 29 H (7-17) mg/dL Glucose 147 H (74-99) mg/dL POC Glucose (mg/dL) 158 H (75-99) mg/dL Hemoglobin A1c (4.0-6.0) % 11/04/17 Range/Units 11:11 RBC (3.80-5.40) m/uL Hgb (11.4-16.0) gm/dL Hct (34.0-46.0) % RDW (11.5-15.5) % Sodium (137-145) mmol/L Carbon Dioxide (22-30) mmol/L BUN (7-17) mg/dL Glucose (74-99) mg/dL POC Glucose (mg/dL) 177 H (75-99) mg/dL Hemoglobin A1c (4.0-6.0) % Assessment and Plan Assessment: Dyspnea likely due multifactorial. pulmonary hypertension and obstructive sleep apnea, mitral regurgitation and deconditioning as well. Unlikely CHF with BNP level 298 Moderate to severe mitral regurgitation as per echocardiogram in 2016 Hypernatremia due to volume depletion History of coronary artery disease with stent placement to RCA in 2007. Most recent cardiac cath in 2016. Patent RCA Diabetes type 2 insulin-dependent Dementia Alzheimer's type History of acute psychosis Anxiety and depression Hypertension Hyperlipidemia Hypothyroidism History of thyroid cancer status post thyroidectomy Normocytic anemia Morbid obesity. DVT prophylaxis Plan: Patient will be continued on breathing treatments and was restarted back on Lasix 20 mg changed to twice a day. Continue with insulin dosing and home medications. Patient was seen by pulmonary in the clinic about a week ago in the clinic.. TSH level within normal limits. Further recommendations based on the clinical course. Prognosis is guarded with multiple medical problems and complications. Time with Patient: Greater than 30
[2017-11-05] MEDS: LEVOTHYROXINE 112 MCG TAB PO SCH (06:04)
[2017-11-05 06:29] VITALS: BP 114/59; PULSE 62; TEMP 97.8
[2017-11-05 06:58] LABS: Glucose,Whole Blood 93 mg/dL (75-99)
--- NOTE | 2017-11-05 07:29 | ECHOF ---
Referral Reason:sob MEASUREMENTS -------- HEIGHT: 154.9 cm WEIGHT: 103.9 kg BP: 121/51 RVIDd: 3.2 cm (< 3.3) IVSd: 1.1 cm (0.6 - 1.1) LVIDd: 3.9 cm (3.9 - 5.3) LVPWd: 1.1 cm (0.6 - 1.1) IVSs: 1.6 cm LVIDs: 2.8 cm LVPWs: 1.6 cm LA Diam: 3.1 cm (2.7 - 3.8) LAESV Index (A-L): 22.60 ml/m Ao Diam: 2.4 cm (2.0 - 3.7) AV Cusp: 1.6 cm (1.5 - 2.6) MV EXCURSION: 13.059 mm (> 18.000) MV EF SLOPE: 56 mm/s (70 - 150) EPSS: 0.2 cm MV E Jimbo: 0.91 m/s MV DecT: 301 ms MV A Jimbo: 1.11 m/s MV E/A Ratio: 0.82 AV maxP.33 mmHg AV maxP.33 mmHg AV meanP.41 mmHg RAP: 5.00 mmHg RVSP: 23.84 mmHg FINDINGS -------- Sinus rhythm. This was a technically good study. The left ventricular size is normal. There is borderline concentric left ventricular hypertrophy. Overall left ventricular systolic function is normal with, an EF between 55 - 60 %. The right ventricle is normal in size. Normal LA size by volume 22+/-6 ml/m2. The right atrium is normal in size. There is mild aortic valve sclerosis. The mitral valve leaflets are mildly thickened. Mild mitral annular calcification present. There is trace to mild mitral regurgitation. Mild tricuspid regurgitation present. Right ventricular systolic pressure is normal at < 35 mmHg. There is no pulmonic regurgitation present. The aortic root size is normal. Normal inferior vena cava with normal inspiratory collapse consistent with estimated right atrial pre ssure of 5 mmHg. There is no pericardial effusion. CONCLUSIONS -------- 1. Sinus rhythm. 2. This was a technically good study. 3. The left ventricular size is normal. 4. There is borderline concentric left ventricular hypertrophy. 5. Overall left ventricular systolic function is normal with, an EF between 55 - 60 %. 6. The right ventricle is normal in size. 7. Normal LA size by volume 22+/-6 ml/m2. 8. The right atrium is normal in size. 9. There is mild aortic valve sclerosis. 10. The mitral valve leaflets are mildly thickened. 11. Mild mitral annular calcification present. 12. There is trace to mild mitral regurgitation. 13. Mild tricuspid regurgitation present. 14. Right ventricular systolic pressure is normal at < 35 mmHg. 15. There is no pulmonic regurgitation present. 16. The aortic root size is normal. 17. Normal inferior vena cava with normal inspiratory collapse consistent with estimated right atrial pressure of 5 mmHg. 18. There is no pericardial effusion. WEARING APPAREL ASSEMBLER: Danna Antunez RDCS
[2017-11-05] MEDS: HEPARIN SODIUM,PORCINE 5,000 UNIT/ML 1 ML VIAL SQ SCH (07:59)
[2017-11-05] MEDS: ASPIRIN 81 MG PO SCH (08:00)
[2017-11-05] MEDS: IBUPROFEN 400 MG TAB PO SCH (08:00)
[2017-11-05] MEDS: FUROSEMIDE 20 MG TAB PO SCH (08:01)
[2017-11-05] MEDS: MAGNESIUM OXIDE 400 MG TAB PO SCH (08:01)
[2017-11-05] MEDS: OLANZapine 2.5 MG TAB PO SCH (08:01)
[2017-11-05] MEDS: CHOLECALCIFEROL 1,000 UNIT TAB PO SCH (08:01)
[2017-11-05] MEDS: LISINOPRIL 20 MG TAB PO SCH (08:01)
[2017-11-05] MEDS: ALLOPURINOL 100 MG TAB PO SCH (08:01)
[2017-11-05] MEDS: METOPROLOL TARTRATE 50 MG TAB PO SCH (08:01)
[2017-11-05] MEDS: INSULIN NPH/REG INSULIN 70/30 300 UNIT/3 ML VIAL SQ SCH (08:02)
[2017-11-05] MEDS: ZIPRASIDONE 40 MG CAP PO SCH (08:05)
--- NOTE | 2017-11-05 10:40 | P.PN ---
Subjective Progress Note Date: 11/05/17 Principal diagnosis: Shortness of breath, related to deconditioning Progress note dated 11/04/2017 This is a 72-year-old female seen by my partner yesterday in consultation. She came with shortness of breath. He thought the shortness of breath was related to thromboembolic disease and there is no evidence apparently of obstructive lung disease on recent PFTs. She had actually seen him in the office this past Saturday. She does have some moderate to severe to severe mitral valve disease and this may be also an explanation of her shortness of breath. The patient apparently is currently seen by cardiology or will be seen by cardiology in the near future. In addition, the patient has a history of mild hypernatremia and multiple other comorbidities including dementia type 2 diabetes anxiety/depression hypothyroidism morbid obesity and history of thyroid cancer with previous thyroidectomy. On 11/05/2017 patient seen again. She had a repeat echocardiogram yesterday which showed left ventricular systolic function within normal limits with an EF between 55 and 60%, there was trace to mild mitral regurgitation, who was no evidence of pulmonary hypertension with right ventricular systolic pressure of less than 35 mmHg, no pulmonic regurgitation, no pericardial effusion. This morning she seen sitting up in the chair, denies any distress, lung sounds are clear to auscultation, no rhonchi no wheezes noted. Vital signs are stable, she is on room air with pulse ox of 93%, respirations are even and nonlabored. So far the patient has been found negative for any cardiac or pulmonary cause for her dyspnea, and as such her shortness of breath is most likely related to her deconditioning. Objective - Vital Signs Vital signs: Vital Signs Temp 97.8 F 11/05/17 06:28 Pulse 62 11/05/17 08:00 Resp 18 11/05/17 08:00 BP 114/59 11/05/17 06:28 Pulse Ox 93 L 11/05/17 07:46 Intake & Output 11/04/17 11/05/17 11/05/17 18:59 06:59 18:59 Intake Total 450 300 Balance 450 300 Intake: Oral 450 300 Other: Voiding Method Toilet Toilet Bedside Commode Bedside Commode # Voids 1 - Exam No acute distress, oriented 3. HEENT examination is grossly unremarkable. Mucous membranes are moist. No oral lesions. Neck supple. Full range of motion. No adenopathy thyromegaly or neck vein distention. Cardiovascular examination reveals regular rhythm rate. S1-S2 normal. No S3 or S4. Soft systolic murmur noted. Lungs reveal clear breath sounds. Her sounds are equal bilaterally. No adventitious lung sounds including wheezes rhonchi or crackles. Abdomen soft bowel sounds are heard. No masses or tenderness. Extremities are intact. No cyanosis clubbing or edema. Skin is without rash or lesion. Neurologic examination is brief but nonfocal. - Labs CBC & Chem 7: 11/04/17 07:14 11/04/17 07:14 Labs: Abnormal Lab Results - Last 24 Hours (Table) 11/04/17 11/04/17 11/04/17 Range/Units 11:11 16:59 20:14 POC Glucose (mg/dL) 177 H 158 H 204 H (75-99) mg/dL Assessment and Plan Plan: Assessment: Shortness of breath, chronic, which may relate to underlying valvular heart disease No evidence of pulmonary embolism on CT angiogram No evidence of any obstructive lung disease on recent PFTs Hypernatremia Dementia Type 2 diabetes Anxiety/depression Hypothyroidism Morbid obesity. Thyroid cancer with previous thyroidectomy Plan: Patient's echocardiogram results have been noted, and did not show any evidence of significant valvular disease, her left ventricular systolic function is within normal limits, there is no evidence of pulmonary hypertension. PFT failed to really reveal any evidence of any obstructive lung disease or any abnormality of her lung function. And as such patient's dyspnea is most likely related to her overall general deconditioning. Patient is stable for discharge home today from pulmonary standpoint. I performed a history & physical examination of the patient and discussed their management with my nurse practitioner, Shelby Thompson. I reviewed the nurse practitioner's note and agree with the documented findings and plan of care. Lung sounds are clear. The findings and the impression was discussed with the patient. I attest to the documentation by the nurse practitioner. Time with Patient: Less than 30
--- NOTE | 2017-11-06 | DS ---
DISCHARGE SUMMARY DATE OF SERVICE: 11/05/2017 FINAL DIAGNOSES: 1. Shortness of breath, possibly multifactorial, with pulmonary hypertension, obstructive sleep apnea, mitral regurgitation and deconditioning. 2. Congestive heart failure unlikely. 3. Moderate to severe mitral regurgitation per echocardiogram. 4. Hypernatremia. 5. History of coronary artery disease, stent. 6. Diabetes mellitus, type 2. 7. Dementia. 8. History of acute psychosis. DISCHARGE DISPOSITION: The patient will be discharged in stable condition with guarded prognosis. HISTORY OF PRESENT ILLNESS: This 72-year-old woman with a past medical history of multiple medical problems was admitted with shortness of breath which was thought to be multifactorial. Treated symptomatically. Patient improved significantly. Patient was seen by Cardiology and Pulmonology. On exam, vitals are stable. CARDIOVASCULAR SYSTEM: S1, S2 muffled. ABDOMEN: Soft. NERVOUS SYSTEM: No focal deficit. DISCHARGE ADVICE AND MEDICATIONS: 1. Diet is cardiac. 2. Activity limited until followup. 3. Follow up with Dr. Nielsen in 2-3 days. 4. Follow up with Dr. Cobb as advised. 5. Follow up with Dr. Tenzin Cade, tire trimmer hand, as advised. 6. ProAir HFA 2 puffs q.i.d. p.r.n. 7. Zyloprim 100 mg p.o. b.i.d. 8. Ecotrin 81 mg p.o. b.i.d. 9. Lipitor 80 mg at bedtime. 10.Vitamin D3 1000 daily. 11.Aricept 10 mg p.o. at bedtime. 12.Lasix 20 mg p.o. daily for 2 weeks. Further dosing per Cardiology in outpatient setting. 13.Insulin 70/30 55 units subcutaneously each morning and 40 units subcutaneously at bedtime. 14.Accu-Cheks before meals and at bedtime; results to primary physician. 15.Synthroid 112 mcg p.o. daily. 16.Zestril 20 mg p.o. daily. 17.Magnesium oxide 400 mg p.o. daily. 18.Lopressor 50 mg p.o. b.i.d. 19.Nitrostat 0.4 sublingually p.r.n. 20.Zyprexa 2.5 mg p.o. b.i.d. 21.Protonix 40 mg at bedtime. 22.Geodon 40 mg p.o. b.i.d. Once again, the patient will be discharged in stable condition with guarded prognosis. MMMIL / JP: [id number] /
== END 2017-11-05 11:20 | disposition home or self-care (01) | DRG 315 ==
LOC: EC 13:16 → 3SUR 17:33 → INTOOBSV 17:33 → 3SUR 18:23 → 3OBS 11-03 11:14 → OBSVTOIN 11-03 16:44 → 5MS5E 11-03 20:50
PROVIDERS: ADMIT Internal Medicine; ATTEND Internal Medicine
DX: I27.20 Pulmonary hypertension, unspecified (principal); E87.0 Hyperosmolality and hypernatremia; Z68.41 Body mass index [BMI] 40.0-44.9, adult; E66.01 Morbid (severe) obesity due to excess calories; E11.22 Type 2 diabetes mellitus with diabetic chronic kidney disease; G30.9 Alzheimer's disease, unspecified; F02.80 Dementia in other diseases classified elsewhere, unspecified severity, without behavioral disturbance, psychotic disturbance, mood disturbance, and anxiety; E86.9 Volume depletion, unspecified; J98.4 Other disorders of lung; I34.0 Nonrheumatic mitral (valve) insufficiency; N18.3 Chronic kidney disease, stage 3 (moderate); D64.9 Anemia, unspecified; G47.33 Obstructive sleep apnea (adult) (pediatric); I12.9 Hypertensive chronic kidney disease with stage 1 through stage 4 chronic kidney disease, or unspecified chronic kidney disease; I25.10 Atherosclerotic heart disease of native coronary artery without angina pectoris; E78.5 Hyperlipidemia, unspecified; I25.2 Old myocardial infarction; F32.9 Major depressive disorder, single episode, unspecified; K59.00 Constipation, unspecified; F41.0 Panic disorder [episodic paroxysmal anxiety]; M25.559 Pain in unspecified hip; M25.561 Pain in right knee; E89.0 Postprocedural hypothyroidism; Z79.82 Long term (current) use of aspirin; Z79.4 Long term (current) use of insulin; Z79.890 Hormone replacement therapy; Z79.899 Other long term (current) drug therapy; Z85.850 Personal history of malignant neoplasm of thyroid; Z86.14 Personal history of Methicillin resistant Staphylococcus aureus infection; Z87.891 Personal history of nicotine dependence; Z90.49 Acquired absence of other specified parts of digestive tract; Z98.1 Arthrodesis status; Z95.5 Presence of coronary angioplasty implant and graft; Z88.5 Allergy status to narcotic agent; Z88.2 Allergy status to sulfonamides; Z88.8 Allergy status to other drugs, medicaments and biological substances; Z88.1 Allergy status to other antibiotic agents; Z91.041 Radiographic dye allergy status; Z83.3 Family history of diabetes mellitus; Z82.49 Family history of ischemic heart disease and other diseases of the circulatory system; Z80.9 Family history of malignant neoplasm, unspecified; W19.XXXA Unspecified fall, initial encounter
CPT/HCPCS: 36415; 71046; 71275; 73502; 80048; 80053; 82550; 82553; 83036; 83880; 84443; 84484; 85025; 85610; 85730; 93005; 93306; 96374; 96375; 99285

== ENCOUNTER → 2018-01-21 | Outpatient (CLI) | payer MEDICARE, BC ==
--- NOTE | 2018-01-21 13:52 | XR ---
Right ankle HISTORY: Ankle swelling 3 views of the right ankle There is soft tissue swelling present. No fracture or dislocation. Bone mineralization is reduced. Duyen int space and alignment maintained. There is a plantar calcaneal spur present. Degenerative changes a re present intertarsal joints. Some spurring present at the tibiotalar joint. IMPRESSION: Soft tissue swelling, suspect osteoarthritis. Ankle MRI may be of benefit.
== END | disposition home or self-care (01) ==
LOC: RADXRYALE 11:41
PROVIDERS: ATTEND Family Medicine
DX: M79.89 Other specified soft tissue disorders (principal); M25.571 Pain in right ankle and joints of right foot

== ENCOUNTER → 2018-02-06 | Outpatient (CLI) | payer MEDICARE, BC | END | disposition home or self-care (01) | LOC: RADMRIMAIN 16:54 | PROVIDERS: ATTEND Family Medicine | DX: Z53.9 Procedure and treatment not carried out, unspecified reason (principal) ==

== ENCOUNTER → 2018-02-20 | Outpatient (CLI) | payer MEDICARE, BC ==
--- NOTE | 2018-02-21 02:57 | MR ---
EXAMINATION TYPE: MR ankle RT wo con DATE OF EXAM: 02/20/2018 COMPARISON: None HISTORY: Pain, swelling, redness Standard multiplanar, multisequence MRI departmental protocol Multiplanar, multisequence images of the right ankle were acquired. FINDINGS: Ankle mortise is anatomic. There is narrowing of the ankle joint space. The collateral liga ments appear intact. There are plantar and Achilles calcaneal spurs. Subtalar joint appears intact. T here is mild spurring of the posterior malleolus. The medial and lateral flexor tendons of the ankle appear intact. Achilles tendon is intact. There is some narrowing of the intertarsal joint spaces wit h mild spurring. There are small degenerative cysts in the bones of the midfoot. There is subcutaneou s edema around the medial and lateral malleolus of the ankle. I see no focal bone destruction. On the T2 images there is increased signal in the plantar muscles of the mid foot. IMPRESSION: Subcutaneous edema around the ankle joint. Mild osteoarthritis of the ankle joint. Minor osteoarthrit ic changes in the midfoot. No evidence of ligament or tendon tear. Increased signal in the plantar aspect of the midfoot soft tissues that could relate to myositis.
== END | disposition home or self-care (01) ==
LOC: RADMRIMAIN 18:25
PROVIDERS: ATTEND Family Medicine
DX: M19.071 Primary osteoarthritis, right ankle and foot (principal)

== ENCOUNTER → 2018-03-27 | Outpatient (CLI) | payer MEDICARE, BC ==
--- NOTE | 2018-03-27 11:22 | US ---
EXAMINATION TYPE: US kidneys/renal and bladder DATE OF EXAM: 03/27/2018 COMPARISON: US CLINICAL HISTORY: N18.3 chronic kidney dis stage 3. CKD EXAM MEASUREMENTS: Right Kidney: 9.5 x 5.1 x 4.4 cm Left Kidney: 10.9 x 4.9 x 4.4 cm Large pt body habitus, very gassy Right Kidney: Cortical thinning, lower pole gassed out Left Kidney: Cortical thinning Bladder: wnl Bilateral Jets seen: No There is no evidence for hydronephrosis at this point in time. Cortical thinning is present bilateral ly. No nephrolithiasis is seen. No masses are identified on images saved. The urinary bladder is an echoic. Bilateral ureteral jets are not seen. IMPRESSION: No hydronephrosis is evident bilaterally.
== END | disposition home or self-care (01) ==
LOC: RADUSWWP 10:07
PROVIDERS: ATTEND Internal Medicine Nephrology
DX: N18.3 Chronic kidney disease, stage 3 (moderate) (principal)
CPT/HCPCS: 76770

== ENCOUNTER → 2018-05-28 | Outpatient (CLI) | payer MEDICARE, BC ==
--- NOTE | 2018-05-28 14:35 | XR ---
2 view abdomen HISTORY: Pain and nausea 2 views the abdomen on 3 images Correlated to prior abdomen 04/17/2015 Spinal curvature is again noted, there are degenerative disc changes in the visualized spine. Vascula r calcifications are present in the pelvis. Lung bases are clear. There is no evident pneumoperitoneu m or bowel obstruction. IMPRESSION: Nonobstructive bowel gas pattern.
== END | disposition home or self-care (01) ==
LOC: RADXRYALE 11:57
PROVIDERS: ATTEND Physician Assistant Medical
DX: R10.9 Unspecified abdominal pain (principal)
CPT/HCPCS: 74019

== ENCOUNTER 2018-05-29 08:55 | Inpatient (IN) | payer MEDICARE, BC ==
[2018-05-29] MEDS ORDERED: SODIUM CHLORIDE 0.9% 1,000 ML IV STA (09:07)
[2018-05-29] MEDS ORDERED: ONDANSETRON 4 MG/2 ML VIAL IM STA (09:07)
[2018-05-29] MEDS ORDERED: ACETAMINOPHEN TAB 325 MG TAB PO STA (09:15)
[2018-05-29] MEDS ORDERED: ONDANSETRON 4 MG/2 ML VIAL IVP STA (09:15)
--- NOTE | 2018-05-29 09:18 | ED ---
General Adult HPI - General Chief complaint: Weakness Stated complaint: SHAKING, COLD SWEATS Time Seen by Provider: 05/29/18 09:06 Source: patient, RN notes reviewed Mode of arrival: ambulatory Limitations: no limitations - History of Present Illness Initial comments: This is a 73-year-old female sent emergency Department chief complaint of shaking, not feeling well. Patient states that this started 2 days ago in which she felt she had a fever and chills. Patient was seen at the clinic yesterday did have an x-ray of her abdomen. Patient states that they told her having looked well though she was worse today so she came the emergency department. Patient does admit that she just finished antibiotics for possible kidney infection. Patient states she has not taken any Tylenol or Motrin recently. Patient states she's had a slight runny nose no cough no chest pain or shortness breath. She states she is cannot stop shaking. She has slight dysuria. Patient does complain of mild lower abdominal pain. Patient denies any back pain out of the usual. Patient denies any sick contacts. - Related Data Home Medications Medication Instructions Recorded Confirmed Nitroglycerin Sl Tabs [Nitrostat] 0.4 mg SUBLINGUAL Q5M PRN 12/31/13 05/29/18 Cholecalciferol [Vitamin D3] 1,000 unit PO BID 04/23/14 05/29/18 Levothyroxine Sodium [Synthroid] 112 mcg PO DAILY 09/09/15 05/29/18 Insulin NPH/Reg Insulin 70/30 55 unit SQ QAM 08/19/16 05/29/18 [humuLIN 70/30 VIAL] Allopurinol [Zyloprim] 100 mg PO BID 09/03/16 05/29/18 Insulin NPH/Reg Insulin 70/30 40 unit SQ HS 09/03/16 05/29/18 [humuLIN 70/30 VIAL] Aspirin EC [Ecotrin Low Dose] 81 mg PO BID 06/04/17 05/29/18 Magnesium Oxide [Mag-Ox] 400 mg PO DAILY 06/04/17 05/29/18 Atorvastatin Calcium [Lipitor] 80 mg PO HS 11/02/17 05/29/18 Pantoprazole [Protonix] 40 mg PO HS 11/02/17 05/29/18 Ziprasidone [Geodon] 40 mg PO HS 11/02/17 05/29/18 Albuterol Sulfate [Proair Hfa] 2 puff INHALATION RT-QID PRN 05/29/18 05/29/18 Lisinopril [Zestril] 10 mg PO BID 05/29/18 05/29/18 Metoprolol Tartrate [Lopressor] 25 mg PO QAM 05/29/18 05/29/18 Metoprolol Tartrate [Lopressor] 50 mg PO HS 05/29/18 05/29/18 Ziprasidone [Geodon] 60 mg PO QAM 05/29/18 05/29/18 Allergies Allergy/AdvReac Type Severity Reaction Status Date / Time lorazepam [From Ativan] Allergy Unknown Verified 05/29/18 09:05 codeine AdvReac Nausea Verified 05/29/18 09:05 erythromycin base AdvReac Nausea Verified 05/29/18 09:05 [Erythromycin Base] Iodinated Contrast- Oral and AdvReac ELEVATED Verified 05/29/18 09:05 IV Dye B/P, FELT [Iodinated Contrast Media - LIKE PASSED IV Dye] methylprednisolone AdvReac Confusion Verified 05/29/18 09:05 [From Medrol] Sulfa (Sulfonamide AdvReac DIZZYNESS Verified 05/29/18 09:05 Antibiotics) Review of Systems ROS Statement: Those systems with pertinent positive or pertinent negative responses have been documented in the HPI. ROS Other: All systems not noted in ROS Statement are negative. Past Medical History Past Medical History: Coronary Artery Disease (CAD), Cancer, Diabetes Mellitus, Hyperlipidemia, Hypertension, Myocardial Infarction ([place]), Renal Disease, Sleep Apnea/CPAP/BIPAP Additional Past Medical History / Comment(s): osteomyelitis Lt hand/STAGE 3 RENAL FAILURE/THYROID CANCER, cpap machine,"rt hand 3 fingers numb" falls- constipation Last Myocardial Infarction Date:: 1999 History of Any Multi-Drug Resistant Organisms: MRSA Date of last positivie culture/infection: 07/01/2015 MDRO Source:: knee left Past Surgical History: Appendectomy, Heart Catheterization With Stent, Orthopedic Surgery Additional Past Surgical History / Comment(s): left hand, thyroidectomy, neck fusion/CARPAL TUNNEL REPAIR ASHLEY,colonoscopy in past STENT X1 Past Anesthesia/Blood Transfusion Reactions: No Reported Reaction Date of Last Stent Placement:: 1999 Past Psychological History: Anxiety, Depression, Panic Disorder Smoking Status: Former smoker Past Alcohol Use History: None Reported Past Drug Use History: None Reported - Past Family History Brother(s) Family Medical History: Cancer Mother Family Medical History: Diabetes Mellitus Father Family Medical History: Myocardial Infarction ([place]) General Exam Limitations: no limitations General appearance: alert, in no apparent distress, other (Patient has tremoring ) Head exam: Present: atraumatic, normocephalic, normal inspection Eye exam: Present: normal appearance, PERRL, EOMI. Absent: scleral icterus, conjunctival injection, periorbital swelling ENT exam: Present: normal exam, normal oropharynx, mucous membranes moist, TM's normal bilaterally Neck exam: Present: normal inspection, full ROM. Absent: tenderness, meningismus, lymphadenopathy Respiratory exam: Present: normal lung sounds bilaterally. Absent: respiratory distress, wheezes, rales, rhonchi, stridor Cardiovascular Exam: Present: normal rhythm, tachycardia, normal heart sounds. Absent: systolic murmur, diastolic murmur, rubs, gallop, clicks GI/Abdominal exam: Present: soft, tenderness (Mild suprapubic), normal bowel sounds. Absent: distended, guarding, rebound, rigid Back exam: Absent: CVA tenderness (R), CVA tenderness (L) Neurological exam: Present: alert, oriented X3, CN II-XII intact Skin exam: Present: warm, dry, intact, normal color. Absent: rash Course Vital Signs 05/29/18 05/29/18 05/29/18 08:59 10:11 11:35 Temperature 99.1 F 99.4 F Pulse Rate 112 H 106 H Respiratory 18 18 20 Rate Blood Pressure 149/93 144/119 O2 Sat by Pulse 97 Oximetry 05/29/18 13:30 Temperature Pulse Rate 115 H Respiratory 20 Rate Blood Pressure 147/80 O2 Sat by Pulse 98 Oximetry Medical Decision Making - Lab Data Result diagrams: 05/29/18 09:30 05/29/18 09:30 Lab Results 05/29/18 05/29/18 05/29/18 Range/Units 09:30 09:30 09:30 WBC 11.5 H (3.8-10.6) k/uL RBC 4.11 (3.80-5.40) m/uL Hgb 12.3 (11.4-16.0) gm/dL Hct 38.5 (34.0-46.0) % MCV 93.6 (80.0-100.0) fL MCH 29.9 (25.0-35.0) pg MCHC 32.0 (31.0-37.0) g/dL RDW 16.6 H (11.5-15.5) % Plt Count 299 (150-450) k/uL Neutrophils % 76 % Lymphocytes % 15 % Monocytes % 5 % Eosinophils % 2 % Basophils % 1 % Neutrophils # 8.8 H (1.3-7.7) k/uL Lymphocytes # 1.7 (1.0-4.8) k/uL Monocytes # 0.6 (0-1.0) k/uL Eosinophils # 0.2 (0-0.7) k/uL Basophils # 0.1 (0-0.2) k/uL Anisocytosis Slight PT (9.0-12.0) sec INR (<1.2) APTT (22.0-30.0) sec Sodium 146 H (137-145) mmol/L Potassium 4.2 (3.5-5.1) mmol/L Chloride 108 H (98-107) mmol/L Carbon Dioxide 25 (22-30) mmol/L Anion Gap 13 mmol/L BUN 21 H (7-17) mg/dL Creatinine 1.11 H (0.52-1.04) mg/dL Est GFR (CKD-EPI)AfAm 56 (>60 ml/min/1.73 sqM) Est GFR (CKD-EPI)NonAf 49 (>60 ml/min/1.73 sqM) Glucose 151 H (74-99) mg/dL Lactic Ac Sepsis Rflx Plasma Lactic Acid Jewel (0.7-2.0) mmol/L Calcium 9.7 (8.4-10.2) mg/dL Magnesium 1.4 L (1.6-2.3) mg/dL Total Bilirubin 0.6 (0.2-1.3) mg/dL AST 33 (14-36) U/L ALT 23 (9-52) U/L Alkaline Phosphatase 112 (38-126) U/L Total Creatine Kinase 225 H (30-135) U/L CK-MB (CK-2) 3.6 H (0.0-2.4) ng/mL CK-MB (CK-2) Rel Index 1.6 Troponin I 0.018 (0.000-0.034) ng/mL Total Protein 7.6 (6.3-8.2) g/dL Albumin 4.4 (3.5-5.0) g/dL Urine Color Urine Appearance (Clear) Urine pH (5.0-8.0) Ur Specific Lester (1.001-1.035) Urine Protein (Negative) Urine Glucose (UA) (Negative) Urine Ketones (Negative) Urine Blood (Negative) Urine Nitrite (Negative) Urine Bilirubin (Negative) Urine Urobilinogen (<2.0) mg/dL Ur Leukocyte Esterase (Negative) Urine WBC (0-5) /hpf Ur Squamous Epith Cells (0-4) /hpf Urine Mucus (None) /hpf Influenza Type A RNA (Not Detectd) Influenza Type B (PCR) (Not Detectd) 05/29/18 05/29/18 05/29/18 Range/Units 09:30 09:30 10:10 WBC (3.8-10.6) k/uL RBC (3.80-5.40) m/uL Hgb (11.4-16.0) gm/dL Hct (34.0-46.0) % MCV (80.0-100.0) fL MCH (25.0-35.0) pg MCHC (31.0-37.0) g/dL RDW (11.5-15.5) % Plt Count (150-450) k/uL Neutrophils % % Lymphocytes % % Monocytes % % Eosinophils % % Basophils % % Neutrophils # (1.3-7.7) k/uL Lymphocytes # (1.0-4.8) k/uL Monocytes # (0-1.0) k/uL Eosinophils # (0-0.7) k/uL Basophils # (0-0.2) k/uL Anisocytosis PT 10.4 (9.0-12.0) sec INR 1.0 (<1.2) APTT 25.3 (22.0-30.0) sec Sodium (137-145) mmol/L Potassium (3.5-5.1) mmol/L Chloride (98-107) mmol/L Carbon Dioxide (22-30) mmol/L Anion Gap mmol/L BUN (7-17) mg/dL Creatinine (0.52-1.04) mg/dL Est GFR (CKD-EPI)AfAm (>60 ml/min/1.73 sqM) Est GFR (CKD-EPI)NonAf (>60 ml/min/1.73 sqM) Glucose (74-99) mg/dL Lactic Ac Sepsis Rflx Plasma Lactic Acid Jewel 3.8 H* (0.7-2.0) mmol/L Calcium (8.4-10.2) mg/dL Magnesium (1.6-2.3) mg/dL Total Bilirubin (0.2-1.3) mg/dL AST (14-36) U/L ALT (9-52) U/L Alkaline Phosphatase (38-126) U/L Total Creatine Kinase (30-135) U/L CK-MB (CK-2) (0.0-2.4) ng/mL CK-MB (CK-2) Rel Index Troponin I (0.000-0.034) ng/mL Total Protein (6.3-8.2) g/dL Albumin (3.5-5.0) g/dL Urine Color Urine Appearance (Clear) Urine pH (5.0-8.0) Ur Specific Lester (1.001-1.035) Urine Protein (Negative) Urine Glucose (UA) (Negative) Urine Ketones (Negative) Urine Blood (Negative) Urine Nitrite (Negative) Urine Bilirubin (Negative) Urine Urobilinogen (<2.0) mg/dL Ur Leukocyte Esterase (Negative) Urine WBC (0-5) /hpf Ur Squamous Epith Cells (0-4) /hpf Urine Mucus (None) /hpf Influenza Type A RNA Not Detected (Not Detectd) Influenza Type B (PCR) Not Detected (Not Detectd) 05/29/18 05/29/18 05/29/18 Range/Units 10:33 12:35 14:09 WBC (3.8-10.6) k/uL RBC (3.80-5.40) m/uL Hgb (11.4-16.0) gm/dL Hct (34.0-46.0) % MCV (80.0-100.0) fL MCH (25.0-35.0) pg MCHC (31.0-37.0) g/dL RDW (11.5-15.5) % Plt Count (150-450) k/uL Neutrophils % % Lymphocytes % % Monocytes % % Eosinophils % % Basophils % % Neutrophils # (1.3-7.7) k/uL Lymphocytes # (1.0-4.8) k/uL Monocytes # (0-1.0) k/uL Eosinophils # (0-0.7) k/uL Basophils # (0-0.2) k/uL Anisocytosis PT (9.0-12.0) sec INR (<1.2) APTT (22.0-30.0) sec Sodium (137-145) mmol/L Potassium (3.5-5.1) mmol/L Chloride (98-107) mmol/L Carbon Dioxide (22-30) mmol/L Anion Gap mmol/L BUN (7-17) mg/dL Creatinine (0.52-1.04) mg/dL Est GFR (CKD-EPI)AfAm (>60 ml/min/1.73 sqM) Est GFR (CKD-EPI)NonAf (>60 ml/min/1.73 sqM) Glucose (74-99) mg/dL Lactic Ac Sepsis Rflx Y Plasma Lactic Acid Jewel 2.5 H* (0.7-2.0) mmol/L Calcium (8.4-10.2) mg/dL Magnesium (1.6-2.3) mg/dL Total Bilirubin (0.2-1.3) mg/dL AST (14-36) U/L ALT (9-52) U/L Alkaline Phosphatase (38-126) U/L Total Creatine Kinase (30-135) U/L CK-MB (CK-2) (0.0-2.4) ng/mL CK-MB (CK-2) Rel Index Troponin I (0.000-0.034) ng/mL Total Protein (6.3-8.2) g/dL Albumin (3.5-5.0) g/dL Urine Color Yellow Urine Appearance Clear (Clear) Urine pH 6.0 (5.0-8.0) Ur Specific Lester 1.019 (1.001-1.035) Urine Protein 2+ H (Negative) Urine Glucose (UA) Negative (Negative) Urine Ketones Negative (Negative) Urine Blood Negative (Negative) Urine Nitrite Negative (Negative) Urine Bilirubin Negative (Negative) Urine Urobilinogen <2.0 (<2.0) mg/dL Ur Leukocyte Esterase Negative (Negative) Urine WBC 1 (0-5) /hpf Ur Squamous Epith Cells 1 (0-4) /hpf Urine Mucus Rare H (None) /hpf Influenza Type A RNA (Not Detectd) Influenza Type B (PCR) (Not Detectd) Disposition Clinical Impression: Gastroenteritis, Dehydration, Lactic acidosis, Coarse tremors Disposition: ADMITTED IP TO THIS HOSP Condition: Fair Referrals: Zoila Urbina, PAC [REFERRING] - 1-2 days
--- NOTE | 2018-05-29 09:44 | XR ---
EXAMINATION TYPE: XR chest 2V DATE OF EXAM: 05/29/2018 COMPARISON: Prior chest x-ray and chest CT 11/02/2017 HISTORY: Weakness, tremor, abnormal chest x-ray TECHNIQUE: Frontal and lateral views of the chest are obtained. FINDINGS: Postop changes are noted to the shoulders and cervical spine. Heart size within normal wilson its. No evident airspace disease, pneumothorax, or pleural effusion. Pulmonary vascularity and ronald n ot significantly changed. Aeration improved as compared to prior. Previously identified pulmonary nod ule not seen. IMPRESSION: No acute cardiopulmonary process. Additional findings above.
[2018-05-29 10:07] LABS: Anisocytosis Slight; Basophils # (A) 0.1 k/uL (0-0.2); Basophils % (A) 1 %; Eosinophils # (A) 0.2 k/uL (0-0.7); Eosinophils % (A) 2 %; HCT 38.5 % (34.0-46.0); HGB 12.3 gm/dL (11.4-16.0); Lymphocytes # (A) 1.7 k/uL (1.0-4.8); Lymphocytes % (A) 15 %; MCH 29.9 pg (25.0-35.0); MCV 93.6 fL (80.0-100.0); Mean Platelet Volume 7.7; Monocytes # (A) 0.6 k/uL (0-1.0); Monocytes % (A) 5 %; Neutrophils # (A) 8.8 k/uL (1.3-7.7); Neutrophils % (A) 76 %; Platelet Count 299 k/uL (150-450); RBC 4.11 m/uL (3.80-5.40); RDW 16.6 % (11.5-15.5); WBC 11.5 k/uL (3.8-10.6)
[2018-05-29 10:20] LABS: Partial Thromboplastin Time 25.3 sec (22.0-30.0); Prothrombin Time 10.4 sec (9.0-12.0)
[2018-05-29 10:43] LABS: Albumin 4.4 g/dL (3.5-5.0); Calcium 9.7 mg/dL (8.4-10.2); Magnesium 1.4 mg/dL (1.6-2.3); Potassium 4.2 mmol/L (3.5-5.1); Total Bilirubin 0.6 mg/dL (0.2-1.3); Total Protein 7.6 g/dL (6.3-8.2)
[2018-05-29] MEDS ORDERED: SODIUM CHLORIDE 0.9% 1,000 ML IV ONE (10:45)
[2018-05-29 10:46] LABS: Creatine Kinase MB 3.6 ng/mL (0.0-2.4); Troponin I 0.018 ng/mL (0.000-0.034)
[2018-05-29] MEDS ORDERED: diphenhydrAMINE 50 MG CAP PO STA (10:55)
[2018-05-29] MEDS ORDERED: FAMOTIDINE 20 MG/2 ML VIAL IV STA (10:55)
[2018-05-29] MEDS ORDERED: diphenhydrAMINE 50 MG/ML 1 ML VIAL IVP STA (10:56)
[2018-05-29 12:55] LABS: Appearance,Urine Clear (Clear); Bilirubin,Urine Negative (Negative); Blood,Urine Negative (Negative); Color,Urine Yellow; Glucose,Urine (UA) Negative (Negative); Ketones,Urine Negative (Negative); Leukocyte Esterase,Urine Negative (Negative); Mucus,Urine Rare /hpf; Nitrite,Urine Negative (Negative); Protein,Urine 2+ (Negative); Specific Gravity,Urine 1.019 (1.001-1.035); Squamous Epithelial Cell,Urine 1 /hpf (0-4); Urobilinogen,Urine <2.0 mg/dL (<2.0); WBC,Urine 1 /hpf (0-5)
[2018-05-29] MEDS ORDERED: HYDROmorphone 1 MG/ML 1 ML SYRINGE IVP STA (12:57)
[2018-05-29] MEDS: LORazepam 2 MG/ML INJ IV STA ×2 (13:23→13:25)
--- NOTE | 2018-05-29 14:10 | CT ---
EXAMINATION TYPE: CT abdomen pelvis wo con DATE OF EXAM: 05/29/2018 COMPARISON: 04/17/2015 INDICATION: Pain, shaking, cold sweats DLP: 1317.4 mGycm, Automated exposure control for dose reduction was used. CONTRAST: 0 mL of Isovue 300. Patient refused contrast due to iodine allergy. Study performed without Oral Contrast TECHNIQUE: Axial images were obtained from above the diaphragm to the pubic rami in the axial plane a t 5 mm thick sections. Reconstructed images are reviewed on the computer in the coronal plane. Some respiratory motion causes limitation on the examination. FINDINGS: Limited CT sections are obtained the lung bases. There is some increased opacity within the dependen t right lung base which may be some compressive atelectasis. CT ABDOMEN: Liver: Normal Spleen: Normal Pancreas: Normal Adrenal glands: The adrenal glands are normal. Gallbladder: Normal Kidneys: No masses are evident. No hydronephrosis is present. No cysts are present. No renal stone s are identified. Aorta: Vascular calcification is within the aorta. Inferior vena cava: Normal. CT PELVIS: Loops of bowel within the abdomen and pelvis are normal. Studies without oral contrast limiting t he evaluation. Appendix: Not identified. No suspicious inflammatory changes are evident. What may be the appendix to wards the right adnexal region is unremarkable. Urinary bladder: Normal. Genitourinary structures: Uterus is unremarkable. Adnexal regions are clear. Osseous structures: No suspicious lytic or sclerotic lesions. Facet degenerative changes are in the l ower lumbar spine. IMPRESSIONS: 1. There are some limitations discussed above. 2. Compressive atelectasis right lung base. 3. No suspicious abnormality to account for symptoms.
[2018-05-29] MEDS ORDERED: MAGNESIUM OXIDE 400 MG TAB PO STA (15:01)
[2018-05-29] MEDS ORDERED: ALPRAZolam 1 MG TAB PO STA (15:06)
[2018-05-29] MEDS ORDERED: ACETAMINOPHEN TAB 325 MG TAB PO PRN (15:09)
[2018-05-29] MEDS ORDERED: NALOXONE 0.4 MG/ML 1 ML VIAL IV PRN (15:09)
[2018-05-29] MEDS ORDERED: ONDANSETRON 4 MG/2 ML VIAL IVP PRN (15:09)
[2018-05-29] MEDS ORDERED: HYDROcodone/APAP 5-325MG 1 EACH TAB PO PRN (15:09)
[2018-05-29] MEDS ORDERED: PIPERACILLIN-TAZOBACTAM 3.375 GM in SODIUM CHLORIDE 0.9% 100 ML IVPB STA (16:08)
[2018-05-29] MEDS: SODIUM CHLORIDE 0.9% 1,000 ML IV SCH (16:50)
[2018-05-29 17:37] LABS: Glucose,Whole Blood 164 mg/dL (75-99)
[2018-05-29] MEDS ORDERED: NITROGLYCERIN SL TABS 0.4 MG TAB SUBLINGUAL PRN (18:14)
[2018-05-29] MEDS ORDERED: ALBUTEROL NEBULIZED 2.5 MG/3 ML INHALATION PRN (18:14)
--- NOTE | 2018-05-29 18:55 | CT ---
EXAMINATION TYPE: CT brain wo con DATE OF EXAM: 05/29/2018 COMPARISON: 06/04/2017 HISTORY: weakness, ams CT DLP: 1054.2 mGycm Automated exposure control for dose reduction was used. FINDINGS: There is cerebral cortical atrophy. There is no mass effect nor midline shift. There is no sign of in tracranial hemorrhage. The calvarium is intact. There is some mild white matter hypodensity. IMPRESSION: CEREBRAL ATROPHY. MILD CHRONIC SMALL VESSEL ISCHEMIA. NO ACUTE INTRACRANIAL ABNORMALITY. NO CHANGE.
--- NOTE | 2018-05-29 20:32 | HP ---
HISTORY AND PHYSICAL DATE OF SERVICE: 05/29/2018 CHIEF COMPLAINT: Fever and chills. HISTORY OF PRESENT ILLNESS: This 73-year-old woman with a past medical history of multiple medical problems including CAD, history of diabetes, hypertension, hyperlipidemia, memory impairment, history of DJD, sleep apnea, history of osteomyelitis of left hand, history of appendectomy, CAD stent, being followed by Dr. Nielsen in the outpatient setting was not feeling well over the past couple of days. The patient was complaining of some abdominal discomfort and the patient was taken to [facility] and admitted for further evaluation and treatment. There is no history of any fever, rigors or chills. No history of headache, loss of consciousness or seizures. Most recently patient was admitted to [facility] with complaints of shortness of breath possibly multifactorial and moderate to severe mitral regurgitation noted on the echocardiogram. Currently the patient is slightly confused, tremulous, unable to give coherent history. Most of the history is taken from my discussion with staff and review of chart at this time. PAST MEDICAL HISTORY: History of CAD, history of diabetes, hypertension, hyperlipidemia, history of memory impairment, history of myocardial infarction, sleep apnea, osteomyelitis. MEDICATIONS: Prior to admission, home medications are: 1. Allopurinol 100 mg p.o. b.i.d. 2. Albuterol 2 puffs q.i.d. p.r.n. 3. Lopressor 20 mg q.a.m. 4. Magnesium oxide 400 mg. 5. Zestril 10 mg b.i.d. 6. Synthroid 112 mcg daily. 7. Humulin 70/30 40 units subcu q.h.s. 55 subcu q.a.m. 8. Vitamin D 3000 b.i.d. 9. Lipitor 80 mg q.h.s. 10.Ecotrin 81 mg b.i.d. 11.Geodon 60 mg q.a.m. and 40 mg q.h.s. 12.Protonix 40 mg q.h.s. 13.Nitrostat sublingual 0.4 mg p.r.n. 14.Lopressor 50 mg q.h.s. ALLERGIES: ATIVAN, CODEINE, ERYTHROMYCIN, SULFA. Family history, social history and review of systems could not be taken because the patient is confused and tremulous. Diabetes mellitus per chart. PHYSICAL EXAM: VITAL SIGNS: Pulse is 115, blood pressure 140/87, respirations 20, temperature 99.4, pulse ox 98% on 2 L. HEENT is conjunctivae normal. Oral mucosa moist. NECK is no jugular venous distention. No carotid bruit. No lymph node enlargement. CARDIOVASCULAR: S1, S2 muffled. Tachycardic. Ejection systolic murmur. RESPIRATORY: Breath sounds diminished in the bases. Scattered rhonchi and crackles. ABDOMEN: Soft, nontender. No mass palpable. Legs no edema. No swelling. NERVOUS SYSTEM: Higher functions as mentioned earlier. Moves all four extremities. No focal deficits. Lymphatics: No lymph nodes palpable in the neck, axillae or groin. SKIN: No ulcer. No rash. No bleeding. LABS: WBC 11.2, hemoglobin is 12.3. Otherwise, INR is 1. Sodium 140, potassium 4.2, creatinine is 1.11, glucose 105. Lactic acid 2.5. ASSESSMENT: 1. Sepsis with indeterminate primary site. 2. Change in mental status, metabolic encephalopathy, possibly secondary to sepsis. 3. Dehydration with acute renal failure with possible acute tubular necrosis. 4. Hypernatremia. 5. Increase random blood sugar, diabetes type 2. 6. Increased plasma lactic acid, present on admission. 7. Hypomagnesemia. 8. Increased WBC. 9. History of coronary artery disease. 10.History of diabetes type 2. 11.Hypertension. 12.Hyperlipidemia. 13.History of memory impairment. 14.History of obstructive sleep apnea. 15.History of osteomyelitis. 16.History of thyroid cancer. 17.History of sleep apnea on CPAP. 18.History of coronary artery disease, stent. 19.History neck fusion, degenerative joint disease. 20.Anxiety, depression, panic disorder. RECOMMENDATIONS AND DISCUSSION: This 73-year-old woman who presented with multiple complex medical issues, we will monitor the patient closely, continue the current medications, management and symptomatic treatment. I would recommend empiric antibiotics and resume home medications. Obtain infectious disease evaluation. Follow the cultures. Otherwise, overall prognosis guarded because of multiple complex medical issues. Further recommendations to follow. A copy of dictation forwarded to Dr. Nielsen who is the primary physician. MMODL / IJN: [id number] / [facility]ITAL[facility]
[2018-05-29] MEDS ORDERED: INSULN ASP PRT/INSULIN ASPART 100 UNIT/ML 10 ML VIAL SQ SCH (21:00)
[2018-05-30] MEDS: PANTOPRAZOLE 40 MG TABLET PO SCH ×2 (00:25→20:47)
[2018-05-30] MEDS: ATORVASTATIN 80 MG TAB PO SCH ×2 (00:26→20:47)
[2018-05-30] MEDS: ZIPRASIDONE 40 MG CAP PO SCH ×2 (00:26→20:47)
[2018-05-30] MEDS: CHOLECALCIFEROL 1,000 UNIT TAB PO SCH ×3 (00:26→20:47)
[2018-05-30] MEDS: LISINOPRIL 10 MG TAB PO SCH ×3 (00:27→20:47)
[2018-05-30] MEDS: ASPIRIN 81 MG PO SCH ×3 (00:27→20:47)
[2018-05-30] MEDS: METOPROLOL TARTRATE 50 MG TAB PO SCH ×2 (00:27→20:47)
[2018-05-30] MEDS: ALLOPURINOL 100 MG TAB PO SCH ×3 (00:28→20:47)
[2018-05-30 02:16] LABS: Glucose,Whole Blood 138 mg/dL (75-99)
[2018-05-30 02:20] LABS: Glucose,Whole Blood 140 mg/dL (75-99)
[2018-05-30] MEDS: SODIUM CHLORIDE 0.9% 1,000 ML IV SCH ×3 (04:40→20:48)
[2018-05-30] MEDS: LEVOTHYROXINE 112 MCG TAB PO SCH (05:51)
[2018-05-30 07:24] LABS: Glucose,Whole Blood 132 mg/dL (75-99)
[2018-05-30] MEDS ORDERED: INSULN ASP PRT/INSULIN ASPART 100 UNIT/ML 10 ML VIAL SQ SCH (07:30)
[2018-05-30] MEDS: MAGNESIUM OXIDE 400 MG TAB PO SCH (07:48)
[2018-05-30] MEDS: MULTIVITAMINS, THERA 1 EACH TAB PO SCH (07:48)
[2018-05-30] MEDS: FOLIC ACID 1 MG TAB PO SCH (07:49)
[2018-05-30] MEDS: THIAMINE 100 MG TAB PO SCH (07:49)
[2018-05-30] MEDS: METOPROLOL TARTRATE 25 MG TAB PO SCH (09:35)
[2018-05-30 10:45] LABS: Anisocytosis Slight; Basophils % (A) 0 %; Eosinophils # (A) 0.3 k/uL (0-0.7); Eosinophils % (A) 3 %; HCT 32.4 % (34.0-46.0); HGB 10.2 gm/dL (11.4-16.0); Hypochromasia Slight; Lymphocytes % (A) 23 %; MCH 30.3 pg (25.0-35.0); MCHC 31.4 g/dL (31.0-37.0); MCV 96.5 fL (80.0-100.0); Macrocytosis Slight; Mean Platelet Volume 7.7; Monocytes # (A) 0.7 k/uL (0-1.0); Monocytes % (A) 8 %; Neutrophils # (A) 5.5 k/uL (1.3-7.7); Neutrophils % (A) 64 %; Platelet Count 220 k/uL (150-450); RBC 3.36 m/uL (3.80-5.40); RDW 16.7 % (11.5-15.5); WBC 8.6 k/uL (3.8-10.6)
[2018-05-30 10:59] LABS: Albumin 3.2 g/dL (3.5-5.0); Calcium 8.6 mg/dL (8.4-10.2); Magnesium 1.5 mg/dL (1.6-2.3); Potassium 4.2 mmol/L (3.5-5.1); Total Bilirubin 0.4 mg/dL (0.2-1.3); Total Protein 5.7 g/dL (6.3-8.2)
[2018-05-30] MEDS: ZIPRASIDONE 60 MG CAP PO SCH (11:05)
[2018-05-30 12:06] LABS: Glucose,Whole Blood 52 mg/dL (75-99)
[2018-05-30 12:18] LABS: Glucose,Whole Blood 48 mg/dL (75-99)
[2018-05-30 12:52] LABS: Glucose,Whole Blood 52 mg/dL (75-99)
[2018-05-30 13:01] LABS: Glucose,Whole Blood 56 mg/dL (75-99)
[2018-05-30] MEDS ORDERED: DEXTROSE 4 GM CHEWABLE ONE (13:10)
[2018-05-30 13:43] LABS: Glucose,Whole Blood 60 mg/dL (75-99)
[2018-05-30 13:46] LABS: Glucose,Whole Blood 68 mg/dL (75-99)
[2018-05-30] MEDS ORDERED: DEXTROSE 50%-WATER 50 ML SYRINGE IVP ONE (14:01)
[2018-05-30 14:57] LABS: Glucose,Whole Blood 196 mg/dL (75-99)
[2018-05-30 16:55] LABS: Glucose,Whole Blood 133 mg/dL (75-99)
--- NOTE | 2018-05-30 18:58 | PN ---
PROGRESS NOTE DATE OF SERVICE: 05/30/2018 This 73-year-old woman who was admitted with fever and chills had possibly sepsis with indeterminate primary site. The patient also had change in mental status. Patient is on multiple medications, also. Patient also had dehydration. A brain CT was done which showed only cerebral atrophy. Infectious disease evaluation is in progress. Past medical history reviewed. Review of systems could not be taken; the patient is confused. CURRENT MEDICATIONS: 1. Tylenol 650 q.6 p.r.n. 2. Parmelee 5 mg p.r.n. 3. Zyloprim 100 mg b.i.d. 4. Xanax 0.25 q.6 p.r.n. 5. Aspirin 81 mg p.o. b.i.d. 6. Lipitor 80 mg at bedtime. 7. Rocephin 1 gram IV daily. 8. Vitamin D3 p.r.n. 9. Folic acid 1 mg p.o. daily. 10.NovoLog Mix 70/30, 20 units subcutaneously at bedtime. 11.Synthroid 112 mcg p.o. daily. 12.Zestril 10 mg p.o. b.i.d. 13.Magnesium oxide 400 mg p.o. daily. 14.Lopressor 50 mg p.o. at bedtime. 15.Lopressor 25 mg each morning. 16.Multivitamins 1 p.o. daily. 17.Narcan. 18.Nitrostat. 19.Zofran. 20.Protonix. 21.Vitamin B1 100 mg p.o. daily. 22.Geodon 40 mg at bedtime and 60 mg with breakfast. PHYSICAL EXAMINATION: Patient is alert, oriented x2, tremulous. Pulse 70, blood pressure 132/69, respirations 16, temperature 96.8, pulse ox 96% on room air. HEENT: Conjunctivae normal. Oral mucosa dry. NECK: No jugular venous distention. No carotid bruit. No lymph node enlargement. CARDIOVASCULAR SYSTEM: S1, S2 muffled. RESPIRATORY SYSTEM: Breath sounds diminished at the bases. Scattered rhonchi and crackles. ABDOMEN: Soft, non-tender. No mass palpable. LEGS: No edema. No swelling. NERVOUS SYSTEM: Higher functions as mentioned earlier. Moves all 4 limbs. No focal motor or sensory deficit. LYMPHATICS: No lymph node palpable in neck, axillae or groin. SKIN: No ulcer, rash, bleeding. LABS: WBC 8.6, hemoglobin 10.2, sodium 140, potassium 4.2, creatinine 1.10. Lactic acid is elevated. ASSESSMENT: 1. Sepsis with indeterminate primary site. 2. Change in mental status, metabolic encephalopathy, acute, secondary to sepsis. 3. Dehydration with acute renal failure with possible acute tubular necrosis. 4. Hypernatremia. 6. Increased random blood sugar with diabetes mellitus, type 2. 7. Increased plasma lactic acid, present on admission. 8. Hypomagnesemia. 9. Increased white count. 10.Coronary artery disease. 11.History of diabetes mellitus, type 2. 12.Hypertension. 13.Hyperlipidemia. 14.History of memory impairment. 15.History of obstructive sleep apnea. 16.History of osteomyelitis. 17.History of thyroid cancer. 18.History of sleep apnea, on CPAP. 19.History of CAD and stent. 20.History of neck fusion, degenerative joint disease. 21.History of depression, panic disorder, anxiety. RECOMMENDATIONS AND DISCUSSION: I recommend to continue current medication, continue with the monitoring, symptomatic treatment. Otherwise at this time we will monitor the patient closely. Otherwise, I would recommend continuing the empiric antibiotics. Follow the cultures. Infectious disease evaluation. Repeat cautious fluid resuscitation. PT/OT evaluation. Possible ECF rehab. Guarded prognosis. Further recommendations to follow. Discussed with the family at length. LOREN / JP: [id number] / [facility]
[2018-05-30 21:25] LABS: Glucose,Whole Blood 121 mg/dL (75-99)
[2018-05-30] MEDS: INSULN ASP PRT/INSULIN ASPART 100 UNIT/ML 10 ML VIAL SQ SCH (21:51)
--- NOTE | 2018-05-30 23:05 | P.CONS ---
History of Present Illness - Reason for Consult Consult date: 05/30/18 - Chief Complaint Fever and chills - History of Present Illness 73 -year-old woman presents to emergency center for ongoing fevers and chills and shaking been worsening over the last 2 days before admission. It is noted that she has multiple medical troubles that includes underlying coronary artery disease dementia and recent history of kidney infection for which she has just completed a course of antibiotic therapy. The patient does have significant memory deficits and has limited ability to give a history but does relate over the last several days she has had a marked worsening of her status with the fever and chills. She is denying significant shortness of breath cough or sputum production or hemoptysis. She has some vague abdominal discomfort but no nausea or emesis she has chronic constipation from that she takes because the pain in her right knee and right hip and then take stool softeners and has multiple soft to diarrhea bowel movements. This is not changed as of late. No hematemesis melena or hematochezia. Review of Systems Patient relates to feeling slightly better since coming to Hospital HEENT:Denies headache or acute visual change. Denies sinus or mouth discomforts. Denies neck stiffness or pain. Denies significant oral cavity pain. Denies difficulty on swallowing. Lungs: Denies significant shortness of breath, cough, sputum production, or hemoptysis. Cardiovascular: Denies significant shortness of breath, chest pain, chest wall pain, orthopnea, dyspnea on exertion, syncope Gastrointestinal:Denies nausea, vomiting, diarrhea, constipation, hematemesis, melena, hematochezia. No no significant change of bowel habit noticed. Musculoskeletal: denies significant myalgias or arthralgias. No new joint swelling. Denies new back pain. Skin: Denies new rash or lesions. No new ulcers or wounds are related.. Neuro: Denies headache has had falls no seizures has memory deficits Psychiatric: Denies depression Endocrine:Fatigue but thinks weight is been stable Past Medical History Past Medical History: Coronary Artery Disease (CAD), Cancer, Diabetes Mellitus, Hyperlipidemia, Hypertension, Memory Impairment, Myocardial Infarction ([place]), Renal Disease, Sleep Apnea/CPAP/BIPAP, Thyroid Disorder Additional Past Medical History / Comment(s): osteomyelitis Lt hand/STAGE 3 RENAL FAILURE/THYROID CANCER, cpap machine,"rt hand 3 fingers numb" past falls- constipation,gout Last Myocardial Infarction Date:: 1999 History of Any Multi-Drug Resistant Organisms: MRSA Year Discovered:: 07/01/2015 MDRO Source:: knee left Past Surgical History: Appendectomy, Heart Catheterization With Stent, Orthopedic Surgery Additional Past Surgical History / Comment(s): left hand, thyroidectomy, neck fusion/CARPAL TUNNEL REPAIR ASHLEY,colonoscopy in past STENT X1 Past Anesthesia/Blood Transfusion Reactions: No Reported Reaction Additional Past Anesthesia/Blood Transfusion Reaction / Comm: clausterphobia Date of Last Stent Placement:: 1999 Additional Psychological History / Comment(s): Patient states she lives with family home and is cared for by her Smoking Status: Former smoker - Past Family History Brother(s) Family Medical History: Cancer Mother Family Medical History: Diabetes Mellitus Father Family Medical History: Myocardial Infarction ([place]) Medications and Allergies Home Medications and Allergies Comment(s): Current Medications Acetaminophen (Tylenol Tab) 650 mg PO Q6HR PRN PRN Reason: Mild Pain or Fever > 100.5 Hydrocodone Bitart/Acetaminophen ([place] 5-325) 1 each PO Q4HR PRN PRN Reason: Moderate Pain Albuterol Sulfate (Ventolin Nebulized) 2.5 mg INHALATION RT-QID PRN PRN Reason: Shortness Of Breath Allopurinol (Zyloprim) 100 mg PO BID [facility] Last Admin: 05/30/18 20:47 Dose: 100 mg Alprazolam (Xanax) 0.25 mg PO Q6HR PRN PRN Reason: Anxiety Aspirin (Aspirin) 81 mg PO BID [facility] Last Admin: 05/30/18 20:47 Dose: 81 mg Atorvastatin Calcium (Lipitor) 80 mg PO HS [facility] Last Admin: 05/30/18 20:47 Dose: 80 mg Cholecalciferol (Vitamin D3) 1,000 unit PO BID [facility] Last Admin: 05/30/18 20:47 Dose: 1,000 unit Folic Acid (Folic Acid) 1 mg PO DAILY@1200 [facility] Last Admin: 05/30/18 07:49 Dose: 1 mg Sodium Chloride (Saline 0.9%) 1,000 mls @ 100 mls/hr IV .Q10H [facility] Last Admin: 05/30/18 20:48 Dose: 100 mls/hr Ceftriaxone Sodium 1,000 mg/ (Sodium Chloride) 50 mls @ 100 mls/hr IVPB Q24HR [facility] Last Admin: 05/30/18 07:45 Dose: 100 mls/hr Insulin Aspart (Novolog Mix 70-30 Vial) 30 unit SQ AC-BRKFST [facility] Insulin Aspart (Novolog Mix 70-30 Vial) 20 unit SQ [facility] Last Admin: 05/30/18 21:51 Dose: 20 unit Levothyroxine Sodium (Synthroid) 112 mcg PO DAILY@0630 [facility] Last Admin: 05/30/18 05:51 Dose: 112 mcg Lisinopril (Zestril) 10 mg PO BID [facility] Last Admin: 05/30/18 20:47 Dose: 10 mg Magnesium Oxide (Mag-Ox) 400 mg PO DAILY [facility] Last Admin: 05/30/18 07:48 Dose: 400 mg Metoprolol Tartrate (Lopressor) 50 mg PO HS [facility] Last Admin: 05/30/18 20:47 Dose: 50 mg Metoprolol Tartrate (Lopressor) 25 mg PO QAM [facility] Last Admin: 05/30/18 09:35 Dose: 25 mg Multivitamins (Theragran) 1 each PO DAILY@1200 [facility] Last Admin: 05/30/18 07:48 Dose: 1 each Naloxone HCl (Narcan) 0.2 mg IV Q2M PRN PRN Reason: Opioid Reversal Nitroglycerin (Nitrostat) 0.4 mg SUBLINGUAL Q5M PRN PRN Reason: Chest Pain Ondansetron HCl (Zofran) 4 mg IVP Q8HR PRN PRN Reason: Nausea And Vomiting Pantoprazole Sodium (Protonix) 40 mg PO [facility] Last Admin: 05/30/18 20:47 Dose: 40 mg Thiamine HCl (Vitamin B-1) 100 mg PO DAILY@1200 [facility] Last Admin: 05/30/18 07:49 Dose: 100 mg Ziprasidone (Geodon) 60 mg PO W/BRKFST [facility] Last Admin: 05/30/18 11:05 Dose: Not Given Ziprasidone (Geodon) 40 mg PO [facility] Last Admin: 05/30/18 20:47 Dose: 40 mg Home Medications Medication Instructions Recorded Confirmed Type Nitroglycerin Sl Tabs [Nitrostat] 0.4 mg SUBLINGUAL Q5M PRN 12/31/13 05/29/18 History Cholecalciferol [Vitamin D3] 1,000 unit PO BID 04/23/14 05/29/18 History Levothyroxine Sodium [Synthroid] 112 mcg PO DAILY 09/09/15 05/29/18 History Insulin NPH/Reg Insulin 70/30 55 unit SQ QAM 08/19/16 05/29/18 History [humuLIN 70/30 VIAL] Allopurinol [Zyloprim] 100 mg PO BID 09/03/16 05/29/18 History Insulin NPH/Reg Insulin 70/30 40 unit SQ HS 09/03/16 05/29/18 History [humuLIN 70/30 VIAL] Aspirin EC [Ecotrin Low Dose] 81 mg PO BID 06/04/17 05/29/18 History Magnesium Oxide [Mag-Ox] 400 mg PO DAILY 06/04/17 05/29/18 History Atorvastatin Calcium [Lipitor] 80 mg PO HS 11/02/17 05/29/18 History Pantoprazole [Protonix] 40 mg PO HS 11/02/17 05/29/18 History Ziprasidone [Geodon] 40 mg PO HS 11/02/17 05/29/18 History Albuterol Sulfate [Proair Hfa] 2 puff INHALATION RT-QID PRN 05/29/18 05/29/18 History Lisinopril [Zestril] 10 mg PO BID 05/29/18 05/29/18 History Metoprolol Tartrate [Lopressor] 25 mg PO QAM 05/29/18 05/29/18 History Metoprolol Tartrate [Lopressor] 50 mg PO HS 05/29/18 05/29/18 History Ziprasidone [Geodon] 60 mg PO QAM 05/29/18 05/29/18 History Allergies Allergy/AdvReac Type Severity Reaction Status Date / Time lorazepam [From Ativan] Allergy Unknown Verified 05/29/18 09:05 codeine AdvReac Nausea Verified 05/29/18 09:05 erythromycin base AdvReac Nausea Verified 05/29/18 09:05 [Erythromycin Base] Iodinated Contrast- Oral and AdvReac ELEVATED Verified 05/29/18 09:05 IV Dye B/P, FELT [Iodinated Contrast Media - LIKE PASSED IV Dye] methylprednisolone AdvReac Confusion Verified 05/29/18 09:05 [From Medrol] Sulfa (Sulfonamide AdvReac DIZZYNESS Verified 05/29/18 09:05 Antibiotics) Physical Exam Vitals: Vital Signs Temp Pulse Resp BP Pulse Ox 05/30/18 14:43 97.8 F 70 16 132/69 96 05/30/18 09:33 63 118/51 05/30/18 06:27 96.7 F L 59 L 18 136/73 94 L 05/29/18 23:00 98.3 F 75 18 150/72 92 L Intake and Output 05/30/18 05/30/18 05/30/18 06:59 14:59 22:59 Other: Voiding Method Incontinent Incontinent # Voids 1 2 2 # Bowel Movements 0 0 73-year-old female pleasant, confused able to give limited history but does relate she's feeling better since coming to Hospital HEENT: Anicteric conjunctiva are pink and moist nasal mucosa grossly intact without significant lesions, there is no thrush. Neck: The neck is supple without significant lymphadenopathy or thyromegaly. Lungs: They're symmetrical air entry there are crackles in the right base some dullness at the right base also noted Heart: Regular rate and rhythm with an audible S1-S2, no S3 no S4. There is no significant murmur click or rub, PMI was nondisplaced. Abdomen: Obese ,Positive bowel sounds soft and nontender without palpable masses or organomegaly. There was no guarding or rebound. Extremities: The upper extremities have excellent pulses they are symmetric, no significant petechiae or telangiectasia. No splinter hemorrhages were noted. Lower extremities no evidence of some trace pedal edema no open ulcerations are seen Neuro: The patient is awake and alert she started to person, where she is at Hospital but is a poor historian does move upper and lower extremities Results CBC & Chem 7: 05/30/18 10:07 05/30/18 10:07 Labs: Abnormal Lab Results - Last 24 Hours (Table) 05/29/18 05/30/18 05/30/18 Range/Units 20:37 02:17 07:22 RBC (3.80-5.40) m/uL Hgb (11.4-16.0) gm/dL Hct (34.0-46.0) % RDW (11.5-15.5) % Chloride (98-107) mmol/L BUN (7-17) mg/dL Creatinine (0.52-1.04) mg/dL POC Glucose (mg/dL) 138 H 140 H 132 H (75-99) mg/dL Magnesium (1.6-2.3) mg/dL Total Protein (6.3-8.2) g/dL Albumin (3.5-5.0) g/dL 05/30/18 05/30/18 05/30/18 Range/Units 10:07 10:07 12:02 RBC 3.36 L (3.80-5.40) m/uL Hgb 10.2 L (11.4-16.0) gm/dL Hct 32.4 L (34.0-46.0) % RDW 16.7 H (11.5-15.5) % Chloride 112 H (98-107) mmol/L BUN 21 H (7-17) mg/dL Creatinine 1.10 H (0.52-1.04) mg/dL POC Glucose (mg/dL) 52 L (75-99) mg/dL Magnesium 1.5 L (1.6-2.3) mg/dL Total Protein 5.7 L (6.3-8.2) g/dL Albumin 3.2 L (3.5-5.0) g/dL 05/30/18 05/30/18 05/30/18 Range/Units 12:16 12:39 12:59 RBC (3.80-5.40) m/uL Hgb (11.4-16.0) gm/dL Hct (34.0-46.0) % RDW (11.5-15.5) % Chloride (98-107) mmol/L BUN (7-17) mg/dL Creatinine (0.52-1.04) mg/dL POC Glucose (mg/dL) 48 L 52 L 56 L (75-99) mg/dL Magnesium (1.6-2.3) mg/dL Total Protein (6.3-8.2) g/dL Albumin (3.5-5.0) g/dL 05/30/18 05/30/18 05/30/18 Range/Units 13:22 13:45 14:55 RBC (3.80-5.40) m/uL Hgb (11.4-16.0) gm/dL Hct (34.0-46.0) % RDW (11.5-15.5) % Chloride (98-107) mmol/L BUN (7-17) mg/dL Creatinine (0.52-1.04) mg/dL POC Glucose (mg/dL) 60 L 68 L 196 H (75-99) mg/dL Magnesium (1.6-2.3) mg/dL Total Protein (6.3-8.2) g/dL Albumin (3.5-5.0) g/dL 05/30/18 05/30/18 Range/Units 16:52 21:16 RBC (3.80-5.40) m/uL Hgb (11.4-16.0) gm/dL Hct (34.0-46.0) % RDW (11.5-15.5) % Chloride (98-107) mmol/L BUN (7-17) mg/dL Creatinine (0.52-1.04) mg/dL POC Glucose (mg/dL) 133 H 121 H (75-99) mg/dL Magnesium (1.6-2.3) mg/dL Total Protein (6.3-8.2) g/dL Albumin (3.5-5.0) g/dL Microbiology - Last 24 Hours (Table) 05/29/18 12:35 Urine Culture - Final Urine,Catheterized 05/29/18 09:30 Blood Culture - Preliminary Blood No Growth after 24 hours Laboratory Results WBC 8.6 k/uL (3.8-10.6) 05/30/18 10:07 RBC 3.36 m/uL (3.80-5.40) L 05/30/18 10:07 Hgb 10.2 gm/dL (11.4-16.0) L 05/30/18 10:07 Hct 32.4 % (34.0-46.0) L 05/30/18 10:07 MCV 96.5 fL (80.0-100.0) 05/30/18 10:07 MCH 30.3 pg (25.0-35.0) 05/30/18 10:07 MCHC 31.4 g/dL (31.0-37.0) 05/30/18 10:07 RDW 16.7 % (11.5-15.5) H 05/30/18 10:07 Plt Count 220 k/uL (150-450) 05/30/18 10:07 Neutrophils % 64 % 05/30/18 10:07 Lymphocytes % 23 % 05/30/18 10:07 Monocytes % 8 % 05/30/18 10:07 Eosinophils % 3 % 05/30/18 10:07 Basophils % 0 % 05/30/18 10:07 Neutrophils # 5.5 k/uL (1.3-7.7) 05/30/18 10:07 Lymphocytes # 2.0 k/uL (1.0-4.8) 05/30/18 10:07 Monocytes # 0.7 k/uL (0-1.0) 05/30/18 10:07 Eosinophils # 0.3 k/uL (0-0.7) 05/30/18 10:07 Basophils # 0.0 k/uL (0-0.2) 05/30/18 10:07 Hypochromasia Slight 05/30/18 10:07 Anisocytosis Slight 05/30/18 10:07 Macrocytosis Slight 05/30/18 10:07 ESR 62 mm/hr (0-20) H 05/29/18 18:50 PT 10.4 sec (9.0-12.0) 05/29/18 09:30 INR 1.0 (<1.2) 05/29/18 09:30 APTT 25.3 sec (22.0-30.0) 05/29/18 09:30 Sodium 145 mmol/L (137-145) 05/30/18 10:07 Potassium 4.2 mmol/L (3.5-5.1) 05/30/18 10:07 Chloride 112 mmol/L (98-107) H 05/30/18 10:07 Carbon Dioxide 27 mmol/L (22-30) 05/30/18 10:07 Anion Gap 6 mmol/L 05/30/18 10:07 BUN 21 mg/dL (7-17) H 05/30/18 10:07 Creatinine 1.10 mg/dL (0.52-1.04) H 05/30/18 10:07 Est GFR (CKD-EPI)AfAm 57 (>60 ml/min/1.73 sqM) 05/30/18 10:07 Est GFR (CKD-EPI)NonAf 49 (>60 ml/min/1.73 sqM) 05/30/18 10:07 Glucose 78 mg/dL (74-99) 05/30/18 10:07 POC Glucose (mg/dL) 121 mg/dL (75-99) H 05/30/18 21:16 POC Glu Production Intern ID Ana Malcolm 05/30/18 21:16 Lactic Ac Sepsis Rflx Y 05/29/18 10:33 Plasma Lactic Acid Jewel 2.5 mmol/L (0.7-2.0) H* 05/29/18 14:09 Calcium 8.6 mg/dL (8.4-10.2) 05/30/18 10:07 Magnesium 1.5 mg/dL (1.6-2.3) L 05/30/18 10:07 Total Bilirubin 0.4 mg/dL (0.2-1.3) 05/30/18 10:07 AST 27 U/L (14-36) 05/30/18 10:07 ALT 21 U/L (9-52) 05/30/18 10:07 Alkaline Phosphatase 73 U/L (38-126) 05/30/18 10:07 Total Creatine Kinase 225 U/L (30-135) H 05/29/18 09:30 CK-MB (CK-2) 3.6 ng/mL (0.0-2.4) H 05/29/18 09:30 CK-MB (CK-2) Rel Index 1.6 05/29/18 09:30 Troponin I 0.018 ng/mL (0.000-0.034) 05/29/18 09:30 C-Reactive Protein 11.1 mg/L (<10.0) H 05/29/18 18:50 Total Protein 5.7 g/dL (6.3-8.2) L 05/30/18 10:07 Albumin 3.2 g/dL (3.5-5.0) L 05/30/18 10:07 Urine Color Yellow 05/29/18 12:35 Urine Appearance Clear (Clear) 05/29/18 12:35 Urine pH 6.0 (5.0-8.0) 05/29/18 12:35 Ur Specific [place] 1.019 (1.001-1.035) 05/29/18 12:35 Urine Protein 2+ (Negative) H 05/29/18 12:35 Urine Glucose (UA) Negative (Negative) 05/29/18 12:35 Urine Ketones Negative (Negative) 05/29/18 12:35 Urine Blood Negative (Negative) 05/29/18 12:35 Urine Nitrite Negative (Negative) 05/29/18 12:35 Urine Bilirubin Negative (Negative) 05/29/18 12:35 Urine Urobilinogen <2.0 mg/dL (<2.0) 05/29/18 12:35 Ur Leukocyte Esterase Negative (Negative) 05/29/18 12:35 Urine WBC 1 /hpf (0-5) 05/29/18 12:35 Ur Squamous Epith Cells 1 /hpf (0-4) 05/29/18 12:35 Urine Mucus Rare /hpf (None) H 05/29/18 12:35 Influenza Type A RNA Not Detected (Not Detectd) 05/29/18 10:10 Influenza Type B (PCR) Not Detected (Not Detectd) 05/29/18 10:10 Microbiology 05/29/18 12:35 Urine,Catheterized Urine Culture - Final 05/29/18 09:30 Blood Blood Culture - Preliminary No Growth after [address] scan - chest: report reviewed (Infiltrate/atelectasis right base) Assessment and Plan (1) Altered mental status Current Visit: No Status: Acute Code(s): R41.82 - ALTERED MENTAL STATUS, UNSPECIFIED SNOMED Code(s): 162971826 (2) Fever and chills Current Visit: Yes Status: Acute Code(s): R50.9 - FEVER, UNSPECIFIED SNOMED Code(s): 833427309 (3) Right lower lobe pneumonia Narrative/Plan: 73 year old woman presents with a several day history of fevers and chills not feeling well. At presentation revealed evidence of leukocytosis, lactic acidosis and symptoms of infection. She was admitted, hydration occurred and she is feeling somewhat better today with additional also antibiotic therapy. Computed tomography scan is reviewed and likely there is a right lower lobe pneumonia as etiology of her underlying sepsis. With concerns pneumonia she's been treated with ceftriaxone, is noted to have erythromycin ALLERGY. There is fluid testing that is negative cultures are process and are being monitored. Pulmonary hygiene continues. It is noted that she is on Geodon and certainly she is very calm at this time. Current Visit: Yes Status: Acute Code(s): J18.1 - LOBAR PNEUMONIA, UNSPECIFIED ORGANISM SNOMED Code(s): 477871211
[2018-05-31] MEDS: ALPRAZolam 0.25 MG TAB PO PRN (00:16)
[2018-05-31 03:21] LABS: Glucose,Whole Blood 112 mg/dL (75-99)
[2018-05-31] MEDS: LEVOTHYROXINE 112 MCG TAB PO SCH (06:11)
[2018-05-31 07:16] LABS: Anisocytosis Slight; Basophils # (A) 0.1 k/uL (0-0.2); Basophils % (A) 1 %; Eosinophils # (A) 0.3 k/uL (0-0.7); Eosinophils % (A) 4 %; HCT 33.4 % (34.0-46.0); HGB 10.2 gm/dL (11.4-16.0); Hypochromasia Moderate; Lymphocytes % (A) 24 %; MCH 29.4 pg (25.0-35.0); MCHC 30.5 g/dL (31.0-37.0); MCV 96.5 fL (80.0-100.0); Macrocytosis Slight; Monocytes # (A) 0.6 k/uL (0-1.0); Monocytes % (A) 7 %; Neutrophils # (A) 5.2 k/uL (1.3-7.7); Neutrophils % (A) 62 %; Platelet Count 231 k/uL (150-450); RBC 3.46 m/uL (3.80-5.40); RDW 16.9 % (11.5-15.5); WBC 8.4 k/uL (3.8-10.6)
[2018-05-31 07:23] LABS: Albumin 3.3 g/dL (3.5-5.0); Calcium 8.9 mg/dL (8.4-10.2); Magnesium 1.6 mg/dL (1.6-2.3); Potassium 4.2 mmol/L (3.5-5.1); Total Bilirubin 0.4 mg/dL (0.2-1.3); Total Protein 5.8 g/dL (6.3-8.2)
[2018-05-31 07:31] LABS: Glucose,Whole Blood 121 mg/dL (75-99)
[2018-05-31] MEDS: MAGNESIUM OXIDE 400 MG TAB PO SCH (07:44)
[2018-05-31] MEDS: THIAMINE 100 MG TAB PO SCH (07:44)
[2018-05-31] MEDS: CHOLECALCIFEROL 1,000 UNIT TAB PO SCH ×2 (07:44→20:35)
[2018-05-31] MEDS: ASPIRIN 81 MG PO SCH ×2 (07:44→20:35)
[2018-05-31] MEDS: LISINOPRIL 10 MG TAB PO SCH ×2 (07:44→20:35)
[2018-05-31] MEDS: MULTIVITAMINS, THERA 1 EACH TAB PO SCH (07:44)
[2018-05-31] MEDS: SODIUM CHLORIDE 0.9% 1,000 ML IV SCH ×2 (07:45→16:43)
[2018-05-31] MEDS: METOPROLOL TARTRATE 25 MG TAB PO SCH (07:45)
[2018-05-31] MEDS: ZIPRASIDONE 60 MG CAP PO SCH (07:45)
[2018-05-31] MEDS: FOLIC ACID 1 MG TAB PO SCH (07:45)
[2018-05-31] MEDS: ALLOPURINOL 100 MG TAB PO SCH ×2 (07:45→20:34)
[2018-05-31] MEDS: INSULN ASP PRT/INSULIN ASPART 100 UNIT/ML 10 ML VIAL SQ SCH ×2 (07:59→20:35)
[2018-05-31 10:24] LABS: Glucose,Whole Blood 192 mg/dL (75-99)
[2018-05-31 11:54] LABS: Glucose,Whole Blood 116 mg/dL (75-99)
[2018-05-31] MEDS ORDERED: ZIPRASIDONE 40 MG CAP PO PRN (12:09)
[2018-05-31 17:27] LABS: Glucose,Whole Blood 148 mg/dL (75-99)
--- NOTE | 2018-05-31 19:23 | PN ---
PROGRESS NOTE DATE OF SERVICE: 05/31/2018 This 73-year-old woman is admitted with possible sepsis also had change in mental status. The patient also getting Geodon and Xanax. No chest pain. No palpitations. No fever. EXAM: The patient drowsy after the medication. Pulse 69, blood pressure 140/68. Respiration 20, temperature 98.6, pulse ox 98% on room air. HEENT: Conjunctivae normal. NECK: No jugular venous distention. CARDIOVASCULAR: S1, S2 muffled. RESPIRATORY: Breath sounds diminished in the bases. No rhonchi. No crackles. ABDOMEN: Soft, nontender. No mass palpable. LEGS: No edema. No swelling. CENTRAL NERVOUS SYSTEM: Mild diffuse weakness. LABS: WBC 8.3, hemoglobin 10.2, sodium 147. Otherwise the labs are pending at this time. ASSESSMENT: 1. Sepsis with indeterminate primary site. 2. Change in mental status, metabolic encephalopathy, acute secondary to sepsis, multifactorial. 3. Dehydration with acute renal failure with possible acute tubular necrosis. 4. Mild hypernatremia. 5. Increased random blood sugar with diabetes type 2. 6. Increased plasma lactic acid, present on admission. 7. Hypomagnesemia. 8. Increased WBC. 9. Coronary artery disease. 10.History of diabetes type 2. 11.Hypertension. 12.Hyperlipidemia. 13.History of memory impairment. 14.History of obstructive sleep apnea. 15.History of osteomyelitis. 16.History of thyroid cancer. 17.History of sleep apnea on CPAP. 18.History of coronary artery disease, stent. 19.History of neck fusion, degenerative joint disease. 20.History of depression, panic disorder, anxiety. 21.FULL CODE. RECOMMENDATIONS AND DISCUSSION: In this 73-year-old woman who presented with multiple complex medical issues, we will monitor the patient closely. Continue the antibiotics. Follow the cultures. Repeat labs. Hold off the antipsychotic medications. Monitor lytes closely. Prognosis guarded. Further recommendations to follow. Discussed with the patient and family, understands. Further recommendations to follow. MMODL / IJN: [id number] /
[2018-05-31] MEDS: METOPROLOL TARTRATE 50 MG TAB PO SCH (20:35)
[2018-05-31] MEDS: PANTOPRAZOLE 40 MG TABLET PO SCH (20:35)
[2018-05-31] MEDS: ATORVASTATIN 80 MG TAB PO SCH (20:35)
[2018-05-31 21:00] LABS: Glucose,Whole Blood 112 mg/dL (75-99)
[2018-06-01] MEDS: SODIUM CHLORIDE 0.9% 1,000 ML IV SCH ×3 (06:02→21:34)
[2018-06-01] MEDS: LEVOTHYROXINE 112 MCG TAB PO SCH (06:03)
[2018-06-01 07:29] LABS: Glucose,Whole Blood 121 mg/dL (75-99)
[2018-06-01] MEDS: INSULN ASP PRT/INSULIN ASPART 100 UNIT/ML 10 ML VIAL SQ SCH ×2 (08:07→21:32)
[2018-06-01] MEDS: CHOLECALCIFEROL 1,000 UNIT TAB PO SCH ×2 (08:08→21:32)
[2018-06-01] MEDS: MAGNESIUM OXIDE 400 MG TAB PO SCH (08:08)
[2018-06-01] MEDS: LISINOPRIL 10 MG TAB PO SCH ×2 (08:08→21:32)
[2018-06-01] MEDS: METOPROLOL TARTRATE 25 MG TAB PO SCH (08:08)
[2018-06-01] MEDS: ALLOPURINOL 100 MG TAB PO SCH ×2 (08:08→21:31)
[2018-06-01] MEDS: ASPIRIN 81 MG PO SCH ×2 (08:08→21:32)
[2018-06-01] MEDS: MULTIVITAMINS, THERA 1 EACH TAB PO SCH (11:04)
[2018-06-01] MEDS: FOLIC ACID 1 MG TAB PO SCH (11:04)
[2018-06-01] MEDS: THIAMINE 100 MG TAB PO SCH (11:04)
[2018-06-01 11:27] LABS: Anisocytosis Slight; Basophils % (A) 0 %; Eosinophils # (A) 0.3 k/uL (0-0.7); Eosinophils % (A) 4 %; HCT 33.5 % (34.0-46.0); Hypochromasia Slight; Lymphocytes # (A) 1.7 k/uL (1.0-4.8); Lymphocytes % (A) 18 %; MCH 31.7 pg (25.0-35.0); MCHC 32.9 g/dL (31.0-37.0); MCV 96.5 fL (80.0-100.0); Macrocytosis Slight; Mean Platelet Volume 7.8; Monocytes # (A) 0.6 k/uL (0-1.0); Monocytes % (A) 6 %; Neutrophils # (A) 6.8 k/uL (1.3-7.7); Neutrophils % (A) 71 %; Platelet Count 202 k/uL (150-450); RBC 3.47 m/uL (3.80-5.40); RDW 16.9 % (11.5-15.5); WBC 9.7 k/uL (3.8-10.6)
[2018-06-01 11:40] LABS: Albumin 3.7 g/dL (3.5-5.0); Calcium 9.2 mg/dL (8.4-10.2); Magnesium 1.6 mg/dL (1.6-2.3); Potassium 4.4 mmol/L (3.5-5.1); Total Bilirubin 0.4 mg/dL (0.2-1.3); Total Protein 6.4 g/dL (6.3-8.2)
[2018-06-01 13:18] LABS: Glucose,Whole Blood 73 mg/dL (75-99)
[2018-06-01 17:29] LABS: Glucose,Whole Blood 114 mg/dL (75-99)
[2018-06-01 21:02] LABS: Glucose,Whole Blood 144 mg/dL (75-99)
--- NOTE | 2018-06-01 21:24 | PN ---
PROGRESS NOTE DATE OF SERVICE: 06/01/2018 This 73-year-old woman who was admitted with change in mental status, metabolic encephalopathy, also had possible sepsis. The patient also had change in mental status. Patient is on Geodon. The patient is slightly more alert at this time. According to the family the patient had significant hallucinations for the last 1 year almost. Being evaluated by Dr. Dumont. PAST MEDICAL HISTORY: Reviewed. REVIEW OF SYSTEMS: CARDIOVASCULAR: No angina or palpitations. RESPIRATORY: As mentioned earlier. GI: As mentioned earlier. NERVOUS SYSTEM: As mentioned earlier. CURRENT MEDICATIONS ARE: 1. Tylenol 650 q.6h p.r.n. 2. [place] 5 mg q.4h p.r.n. 3. Ventolin 2.5 q.i.d. 4. Zyloprim 100 mg b.i.d. 5. Xanax 0.5 q.6h p.r.n. 6. Aspirin 81 mg b.i.d. 7. Lipitor 80 mg q.h.s. 8. Rocephin 1 g IV daily. 9. Vitamin D 3000 daily. 10.Folic acid 1 mg daily. 11.Synthroid 100 mcg. 12.Zestril 10 mg p.o. b.i.d. 13.Magnesium oxide 400 mg daily. 14.Lopressor 50 mg p.o. q.h.s. 15.Multivitamin. 16.Narcan 0.2 q.2h p.r.n. 17.Zofran 4 mg IV q8. 18.Protonix 40 mg. 19.Thiamine 100 mg. 20.( ) 40 mg p.r.n. PHYSICAL EXAM: Patient is alert an oriented x3. Pulse 64, blood pressure 157/60, respirations 16, temperature 97.2, pulse ox 98% on room air. HEENT: Conjunctivae normal. Oral mucosa moist. NECK: No jugular venous distention. No lymph node enlargement. CARDIOVASCULAR: S1, S2. RESPIRATORY: Diminished breath sounds at the bases. A few scattered rhonchi, no crackles. ABDOMEN: Soft, nontender. LEGS: No swelling. NERVOUS SYSTEM: No focal deficits. LABS: WBC of 9.2, hemoglobin is 11. Cultures are showing negative. ASSESSMENT: 1. Sepsis of indeterminate primary site. 2. Change in mental status, acute secondary to sepsis, multifactorial. 3. Dehydration with acute renal failure. Possible acute tubular necrosis present on admission. 4. Mild hyponatremia. 5. History of delirium, long-standing. 6. Increased random blood sugar, diabetes type 2. 7. History of plasma lactic acid, present on admission. 8. Hypomagnesemia. 9. History of increased WBC. 10.History of coronary artery disease. 11.History of diabetes type 2. 12.History of hypertension. 13.Hyperlipidemia. 14.History of memory impairment. 15.History of osteomyelitis. 16.History of thyroid cancer. 17.History of sleep apnea on CPAP. 18.History of CAD, stent. 19.History op neck fusion. 20.History of DJD. 21.History of depression, panic disorder, anxiety. 22.FULL CODE. RECOMMENDATIONS: Recommend to continue current management, continue symptomatic treatment. I recommended to continue the broad-spectrum IV antibiotics and cut down the dose of Geodon and Xanax. Otherwise, the overall prognosis guarded. The patient is apparently ( ) but had detailed discussion with the family. The patient does require treatment for delirium, but currently we will hold off all sedatives and further recommendations to follow. MMODL / IJN: [id number] /
[2018-06-01] MEDS: ATORVASTATIN 80 MG TAB PO SCH (21:32)
[2018-06-01] MEDS: METOPROLOL TARTRATE 50 MG TAB PO SCH (21:32)
[2018-06-01] MEDS: PANTOPRAZOLE 40 MG TABLET PO SCH (21:32)
[2018-06-02] MEDS: LEVOTHYROXINE 112 MCG TAB PO SCH (05:34)
[2018-06-02 07:24] LABS: Glucose,Whole Blood 121 mg/dL (75-99)
[2018-06-02] MEDS: INSULN ASP PRT/INSULIN ASPART 100 UNIT/ML 10 ML VIAL SQ SCH ×2 (08:01→21:17)
[2018-06-02] MEDS: CHOLECALCIFEROL 1,000 UNIT TAB PO SCH ×2 (08:02→21:17)
[2018-06-02] MEDS: LISINOPRIL 10 MG TAB PO SCH ×2 (08:02→21:18)
[2018-06-02] MEDS: ASPIRIN 81 MG PO SCH ×2 (08:02→21:17)
[2018-06-02] MEDS: ALLOPURINOL 100 MG TAB PO SCH ×2 (08:02→21:17)
[2018-06-02] MEDS: METOPROLOL TARTRATE 25 MG TAB PO SCH (08:02)
[2018-06-02] MEDS: MAGNESIUM OXIDE 400 MG TAB PO SCH (08:02)
[2018-06-02 09:55] LABS: Anisocytosis Slight; Basophils % (A) 0 %; Eosinophils # (A) 0.3 k/uL (0-0.7); Eosinophils % (A) 3 %; HCT 38.2 % (34.0-46.0); HGB 12.2 gm/dL (11.4-16.0); Lymphocytes # (A) 1.8 k/uL (1.0-4.8); Lymphocytes % (A) 16 %; MCH 30.2 pg (25.0-35.0); MCHC 31.9 g/dL (31.0-37.0); MCV 94.6 fL (80.0-100.0); Mean Platelet Volume 7.7; Monocytes # (A) 0.7 k/uL (0-1.0); Monocytes % (A) 6 %; Neutrophils # (A) 8.1 k/uL (1.3-7.7); Neutrophils % (A) 73 %; Platelet Count 254 k/uL (150-450); RBC 4.04 m/uL (3.80-5.40); RDW 16.5 % (11.5-15.5); WBC 11.1 k/uL (3.8-10.6)
[2018-06-02 10:18] LABS: Albumin 4.3 g/dL (3.5-5.0); Magnesium 1.4 mg/dL (1.6-2.3); Total Protein 7.3 g/dL (6.3-8.2)
[2018-06-02] MEDS ORDERED: Magnesium Replacement Protocol 1 EACH MISC MISCELLANE PRN (11:05)
[2018-06-02] MEDS: MAGNESIUM SULFATE-D5W PMX 1 GM in DEXTROSE/WATER 1 100ML.BAG IVPB SCH ×3 (11:18→13:35)
[2018-06-02] MEDS: THIAMINE 100 MG TAB PO SCH (11:18)
[2018-06-02] MEDS: ALPRAZolam 0.25 MG TAB PO PRN ×2 (11:18→21:24)
[2018-06-02] MEDS: FOLIC ACID 1 MG TAB PO SCH (11:18)
[2018-06-02] MEDS: SODIUM CHLORIDE 0.9% 1,000 ML IV SCH ×2 (11:18→21:16)
[2018-06-02] MEDS: MULTIVITAMINS, THERA 1 EACH TAB PO SCH (11:18)
[2018-06-02 12:26] LABS: Glucose,Whole Blood 120 mg/dL (75-99)
[2018-06-02 16:57] LABS: Glucose,Whole Blood 156 mg/dL (75-99)
[2018-06-02 20:39] LABS: Glucose,Whole Blood 158 mg/dL (75-99)
--- NOTE | 2018-06-02 20:43 | PN ---
PROGRESS NOTE DATE OF SERVICE: 06/02/2018 This 73-year-old woman who was admitted with sepsis of indeterminate primary origin is being closely monitored. The patient had change in mental status also. Metabolic encephalopathy secondary to medication-induced changes is also considered. No chest pain. No palpitations. No fever. On exam, alert and oriented x3. Pulse 63, blood pressure 155/86, respiration 16, temperature 97.6, pulse ox 97% on room air. HEENT: Conjunctivae normal. NECK: No jugular venous distention. CARDIOVASCULAR SYSTEM: S1, S2 muffled. RESPIRATORY SYSTEM: Breath sounds diminished at the bases. A few scattered rhonchi. No crackles. ABDOMEN: Soft, non-tender. LEGS: No edema. No swelling. NERVOUS SYSTEM: Diffusely weak and some tremors also present. LABS: WBC 11.1. Sodium 146. ASSESSMENT: 1. Sepsis of indeterminate primary site, present on admission. 2. Change in mental status, acute metabolic encephalopathy secondary to sepsis, multifactorial. 3. Dehydration with acute renal failure, possible acute tubular necrosis with prerenal factors, present on admission. 4. Mild hyponatremia. 5. History of delirium, longstanding. 6. Increased random blood sugar, diabetes mellitus, type 2. 7. History of increased plasma lactic acid, present on admission. 8. Hypomagnesemia. 9. History of increased white count. 10.History of coronary artery disease. 11.History of diabetes mellitus, type 2. 12.History of hypertension. 13.History of hyperlipidemia. 14.History of memory impairment. 15.History of osteomyelitis. 16.History of thyroid cancer. 17.History of sleep apnea, on CPAP. 18.History of coronary artery disease, stent. 19.History of neck fusion. 20.History of degenerative joint disease. 21.History of depression, panic disorder, anxiety. 22.FULL CODE. RECOMMENDATIONS AND DISCUSSION: I recommend to continue current medications, continue to monitor, symptomatic treatment. Otherwise at this time I recommend monitoring the patient closely. Continue the antibiotics. Cultures are still negative. PT/OT evaluation. Guarded prognosis. Further recommendations to follow. Will consider possible ECF rehab also. MMODL / IJN: [id number] /
[2018-06-02] MEDS: ATORVASTATIN 80 MG TAB PO SCH (21:17)
[2018-06-02] MEDS: METOPROLOL TARTRATE 50 MG TAB PO SCH (21:17)
[2018-06-02] MEDS: PANTOPRAZOLE 40 MG TABLET PO SCH (21:18)
[2018-06-02 22:34] LABS: Hemoglobin A1C 6.6 % (4.0-6.0)
[2018-06-02 23:21] VITALS: RESP 18
[2018-06-03] MEDS: SODIUM CHLORIDE 0.9% 1,000 ML IV SCH ×2 (05:21→12:58)
[2018-06-03 06:23] VITALS: PULSE 66; TEMP 97.4
[2018-06-03] MEDS: LEVOTHYROXINE 112 MCG TAB PO SCH (06:33)
[2018-06-03 06:58] LABS: Glucose,Whole Blood 123 mg/dL (75-99)
[2018-06-03] MEDS: INSULN ASP PRT/INSULIN ASPART 100 UNIT/ML 10 ML VIAL SQ SCH (07:49)
[2018-06-03] MEDS: MAGNESIUM OXIDE 400 MG TAB PO SCH (07:51)
[2018-06-03] MEDS: ALLOPURINOL 100 MG TAB PO SCH (07:51)
[2018-06-03] MEDS: LISINOPRIL 10 MG TAB PO SCH (07:51)
[2018-06-03] MEDS: THIAMINE 100 MG TAB PO SCH (07:51)
[2018-06-03] MEDS: MULTIVITAMINS, THERA 1 EACH TAB PO SCH (07:51)
[2018-06-03] MEDS: METOPROLOL TARTRATE 25 MG TAB PO SCH (07:51)
[2018-06-03] MEDS: CHOLECALCIFEROL 1,000 UNIT TAB PO SCH (07:51)
[2018-06-03] MEDS: ASPIRIN 81 MG PO SCH (07:51)
[2018-06-03] MEDS: FOLIC ACID 1 MG TAB PO SCH (07:51)
--- NOTE | 2018-06-03 08:15 | P.PN ---
Subjective Progress Note Date: 06/02/18 73 -year-old woman presents to emergency center for ongoing fevers and chills and shaking been worsening over the last 2 days before admission. It is noted that she has multiple medical troubles that includes underlying coronary artery disease dementia and recent history of kidney infection for which she has just completed a course of antibiotic therapy. The patient does have significant memory deficits and has limited ability to give a history but does relate over the last several days she has had a marked worsening of her status with the fever and chills. She is denying significant shortness of breath cough or sputum production or hemoptysis. She has some vague abdominal discomfort but no nausea or emesis she has chronic constipation from that she takes because the pain in her right knee and right hip and then take stool softeners and has multiple soft to diarrhea bowel movements. This is not changed as of late. No hematemesis melena or hematochezia. 06/02/2018 patient still not feeling very well, still a poor historian, relates she is not eating very well. Still some vague abdominal pain. Objective - Vital Signs Vital signs: Vital Signs Temp 97.4 F L 06/03/18 06:22 Pulse 66 06/03/18 06:22 Resp 18 06/03/18 06:22 BP 164/93 06/03/18 06:22 Pulse Ox 97 06/03/18 06:22 Intake & Output 06/02/18 06/03/18 06/03/18 18:59 06:59 18:59 Intake Total 750 Balance 750 Intake: Oral 750 Other: Voiding Method Bedside Commode Bedside Commode # Voids 2 2 # Bowel Movements 1 - Exam 73-year-old female pleasant, confused able to give limited history but does relate she's feeling better since coming to Hospital HEENT: Anicteric conjunctiva are pink and moist nasal mucosa grossly intact without significant lesions, there is no thrush. Neck: The neck is supple without significant lymphadenopathy or thyromegaly. Lungs: They're symmetrical air entry there are crackles in the right base some dullness at the right base also noted Heart: Regular rate and rhythm with an audible S1-S2, no S3 no S4. There is no significant murmur click or rub, PMI was nondisplaced. Abdomen: Obese ,Positive bowel sounds soft and nontender without palpable masses or organomegaly. There was no guarding or rebound. Extremities: The upper extremities have excellent pulses they are symmetric, no significant petechiae or telangiectasia. No splinter hemorrhages were noted. Lower extremities no evidence of some trace pedal edema no open ulcerations are seen Neuro: The patient is awake and alert she started to person, where she is at Hospital but is a poor historian does move upper and lower extremities - Labs CBC & Chem 7: 06/02/18 08:27 06/02/18 08:27 Labs: Abnormal Lab Results - Last 24 Hours (Table) 06/02/18 06/02/18 06/02/18 Range/Units 08:27 08:27 08:27 WBC 11.1 H (3.8-10.6) k/uL RDW 16.5 H (11.5-15.5) % Neutrophils # 8.1 H (1.3-7.7) k/uL Sodium 146 H (137-145) mmol/L Glucose 133 H (74-99) mg/dL POC Glucose (mg/dL) (75-99) mg/dL Hemoglobin A1c 6.6 H (4.0-6.0) % Magnesium 1.4 L (1.6-2.3) mg/dL 06/02/18 06/02/18 06/02/18 Range/Units 12:23 16:53 20:37 WBC (3.8-10.6) k/uL RDW (11.5-15.5) % Neutrophils # (1.3-7.7) k/uL Sodium (137-145) mmol/L Glucose (74-99) mg/dL POC Glucose (mg/dL) 120 H 156 H 158 H (75-99) mg/dL Hemoglobin A1c (4.0-6.0) % Magnesium (1.6-2.3) mg/dL 06/03/18 Range/Units 06:54 WBC (3.8-10.6) k/uL RDW (11.5-15.5) % Neutrophils # (1.3-7.7) k/uL Sodium (137-145) mmol/L Glucose (74-99) mg/dL POC Glucose (mg/dL) 123 H (75-99) mg/dL Hemoglobin A1c (4.0-6.0) % Magnesium (1.6-2.3) mg/dL Microbiology - Last 24 Hours (Table) 05/29/18 09:30 Blood Culture - Preliminary Blood No Growth after 96 hours Laboratory Results WBC 11.1 k/uL (3.8-10.6) H 06/02/18 08:27 RBC 4.04 m/uL (3.80-5.40) 06/02/18 08:27 Hgb 12.2 gm/dL (11.4-16.0) 06/02/18 08:27 Hct 38.2 % (34.0-46.0) 06/02/18 08:27 MCV 94.6 fL (80.0-100.0) 06/02/18 08:27 MCH 30.2 pg (25.0-35.0) 06/02/18 08:27 MCHC 31.9 g/dL (31.0-37.0) 06/02/18 08:27 RDW 16.5 % (11.5-15.5) H 06/02/18 08:27 Plt Count 254 k/uL (150-450) 06/02/18 08:27 Neutrophils % 73 % 06/02/18 08:27 Lymphocytes % 16 % 06/02/18 08:27 Monocytes % 6 % 06/02/18 08:27 Eosinophils % 3 % 06/02/18 08:27 Basophils % 0 % 06/02/18 08:27 Neutrophils # 8.1 k/uL (1.3-7.7) H 06/02/18 08:27 Lymphocytes # 1.8 k/uL (1.0-4.8) 06/02/18 08:27 Monocytes # 0.7 k/uL (0-1.0) 06/02/18 08:27 Eosinophils # 0.3 k/uL (0-0.7) 06/02/18 08:27 Basophils # 0.0 k/uL (0-0.2) 06/02/18 08:27 Hypochromasia Slight 06/01/18 10:48 Anisocytosis Slight 06/02/18 08:27 Macrocytosis Slight 06/01/18 10:48 ESR 62 mm/hr (0-20) H 05/29/18 18:50 PT 10.4 sec (9.0-12.0) 05/29/18 09:30 INR 1.0 (<1.2) 05/29/18 09:30 APTT 25.3 sec (22.0-30.0) 05/29/18 09:30 Sodium 146 mmol/L (137-145) H 06/02/18 08:27 Potassium 4.0 mmol/L (3.5-5.1) 06/02/18 08:27 Chloride 106 mmol/L (98-107) 06/02/18 08:27 Carbon Dioxide 26 mmol/L (22-30) 06/02/18 08:27 Anion Gap 14 mmol/L 06/02/18 08:27 BUN 17 mg/dL (7-17) 06/02/18 08:27 Creatinine 0.93 mg/dL (0.52-1.04) 06/02/18 08:27 Est GFR (CKD-EPI)AfAm 70 (>60 ml/min/1.73 sqM) 06/02/18 08:27 Est GFR (CKD-EPI)NonAf 61 (>60 ml/min/1.73 sqM) 06/02/18 08:27 Glucose 133 mg/dL (74-99) H 06/02/18 08:27 POC Glucose (mg/dL) 123 mg/dL (75-99) H 06/03/18 06:54 POC Glu Work Order Clerk ID Ade Marvin 06/03/18 06:[address] Glu mg/dL 143 06/02/18 08:27 Hemoglobin A1c 6.6 % (4.0-6.0) H 06/02/18 08:27 Lactic Ac Sepsis Rflx Y 05/29/18 10:33 Plasma Lactic Acid Jewel 1.1 mmol/L (0.7-2.0) 05/31/18 06:33 Calcium 10.0 mg/dL (8.4-10.2) 06/02/18 08:27 Magnesium 1.4 mg/dL (1.6-2.3) L 06/02/18 08:27 Total Bilirubin 1.0 mg/dL (0.2-1.3) 06/02/18 08:27 AST 28 U/L (14-36) 06/02/18 08:27 ALT 28 U/L (9-52) 06/02/18 08:27 Alkaline Phosphatase 113 U/L (38-126) 06/02/18 08:27 Total Creatine Kinase 225 U/L (30-135) H 05/29/18 09:30 CK-MB (CK-2) 3.6 ng/mL (0.0-2.4) H 05/29/18 09:30 CK-MB (CK-2) Rel Index 1.6 05/29/18 09:30 Troponin I 0.018 ng/mL (0.000-0.034) 05/29/18 09:30 C-Reactive Protein 11.1 mg/L (<10.0) H 05/29/18 18:50 Total Protein 7.3 g/dL (6.3-8.2) 06/02/18 08:27 Albumin 4.3 g/dL (3.5-5.0) 06/02/18 08:27 Urine Color Yellow 05/29/18 12:35 Urine Appearance Clear (Clear) 05/29/18 12:35 Urine pH 6.0 (5.0-8.0) 05/29/18 12:35 Ur Specific [place] 1.019 (1.001-1.035) 05/29/18 12:35 Urine Protein 2+ (Negative) H 05/29/18 12:35 Urine Glucose (UA) Negative (Negative) 05/29/18 12:35 Urine Ketones Negative (Negative) 05/29/18 12:35 Urine Blood Negative (Negative) 05/29/18 12:35 Urine Nitrite Negative (Negative) 05/29/18 12:35 Urine Bilirubin Negative (Negative) 05/29/18 12:35 Urine Urobilinogen <2.0 mg/dL (<2.0) 05/29/18 12:35 Ur Leukocyte Esterase Negative (Negative) 05/29/18 12:35 Urine WBC 1 /hpf (0-5) 05/29/18 12:35 Ur Squamous Epith Cells 1 /hpf (0-4) 05/29/18 12:35 Urine Mucus Rare /hpf (None) H 05/29/18 12:35 Influenza Type A RNA Not Detected (Not Detectd) 05/29/18 10:10 Influenza Type B (PCR) Not Detected (Not Detectd) 05/29/18 10:10 Microbiology 05/29/18 09:30 Blood Blood Culture - Preliminary No Growth after 96 hours 05/29/18 12:35 Urine,Catheterized Urine Culture - Final Assessment and Plan (1) Altered mental status Current Visit: No Status: Acute Code(s): R41.82 - ALTERED MENTAL STATUS, UNSPECIFIED SNOMED Code(s): 333996944 (2) Fever and chills Current Visit: Yes Status: Acute Code(s): R50.9 - FEVER, UNSPECIFIED SNOMED Code(s): 319887680 (3) Right lower lobe pneumonia Narrative/Plan: 73 year old woman presents with a several day history of fevers and chills not feeling well. At presentation revealed evidence of leukocytosis, lactic acidosis and symptoms of infection. She was admitted, hydration occurred and she is feeling somewhat better today with additional also antibiotic therapy. Computed tomography scan is reviewed and likely there is a right lower lobe pneumonia as etiology of her underlying sepsis. With concerns pneumonia she's been treated with ceftriaxone, is noted to have erythromycin ALLERGY. There is fluid testing that is negative cultures are process and are being monitored. Pulmonary hygiene continues. It is noted that she is on Geodon and certainly she is very calm at this time. 06/02/2018 patient is calm fevers have improved lactic acidosis is improved, likely has underlying pneumonia and seems to responding to the current antibiotic therapy. The leukocytosis is only 11 and cultures are awaited to further direct antibiotic therapy as she progresses toward discharge to her residence. Current Visit: Yes Status: Acute Code(s): J18.1 - LOBAR PNEUMONIA, UNSPECIFIED ORGANISM SNOMED Code(s): 081012549
[2018-06-03 10:36] VITALS: BP 122/65
[2018-06-03 11:58] LABS: Glucose,Whole Blood 135 mg/dL (75-99)
--- NOTE | 2018-06-04 11:12 | DS ---
DISCHARGE SUMMARY DATE OF SERVICE: 06/03/2018 FINAL DIAGNOSES: 1. Change in mental status, acute metabolic encephalopathy possibly secondary to sepsis, multifactorial, present on admission. Sepsis of undetermined origin. 2. Dehydration with acute renal failure, possible acute tubular necrosis with prerenal factors, present on admission. 3. Mild hyponatremia. 4. History of delirium, longstanding. 5. Increased random blood sugar, diabetes mellitus type 2. 6. History of increased plasma lactic acid, present on admission. 7. Hypomagnesemia. 8. History of increased WBC. 9. Coronary artery disease. 10.Diabetes mellitus type 2 history. 11.Hypertension. 12.Hyperlipidemia. 13.History of memory impairment. 14.History of osteomyelitis. 15.History of thyroid cancer. 16.History of sleep apnea on CPAP. 17.History of coronary artery disease, stent. 18.History neck fusion. 19.History of degenerative joint disease. 20.History of depression, panic disorder, anxiety. 21.FULL CODE. DISCHARGE DISPOSITION: The patient will be discharged in a stable condition with guarded prognosis. HISTORY OF PRESENT ILLNESS: This is a 73-year-old woman with a past medical history of multiple sclerosis, admitted with possible sepsis. Patient treated with antibiotics. Patient had change in mental status. Patient improved significantly. The cultures are negative so far. On exam vitals are stable. CARDIOVASCULAR: S1, S2. ABDOMEN: Soft. NERVOUS SYSTEM: No Focal deficits. The medications were adjusted mainly, Xanax was used only on a p.r.n. on strict basis and Geodon also decreased to 40 mg q.h.s. p.r.n. Discussed with the family at length and the patient will be discharged in a stable condition with guarded prognosis. Discharge diet is cardiac. Activity limited until followup. Follow up with Dr. Nielsen in 2-3 days. Follow up with the psychiatrist as recommended. MEDICATIONS ARE FOLLOWS:: 1. 100 mg p.o. b.i.d. 2. Ecotrin 81 mg b.i.d. 3. Lipitor 80 mg q.h.s. 4. Vitamin D3 one thousand b.i.d. 5. Synthroid 112 mcg p.o. daily. 6. Zestril 10 mg p.o. daily. 7. Magnesium oxide 400 mg. 8. Lopressor 25 mg q.a.m. and 50 mg q.h.s. 9. Nitro 0.4 mg p.r.n. sublingual p.r.n. 10.Protonix 40 mg q.h.s. 11. 40 mg q. p.m. p.r.n. 12.Albuterol q.i.d. and p.r.n. 13.Xanax 0.25 mg q.i.d. p.r.n. 14.Ceftin 500 mg b.i.d. 15.Folic acid 1 mg. 16.Insulin 70/30, thirty units subcu, requested 20 units subcu q.h.s. 17.Accu-Cheks a.c. and q.h.s. 18.Multivitamins 1 p.o. daily. 19.Thiamine 100 mg p.o. daily. 20.Please note the Geodon only 40 mg q.h.s. p.r.n.. MMODL / IJN: [id number] /
== END 2018-06-03 13:42 | disposition home or self-care (01) | DRG 871 ==
LOC: EC 08:55 → 4MS4W 15:45
PROVIDERS: ADMIT Hospitalist; ATTEND Hospitalist
DX: A41.9 Sepsis, unspecified organism (principal); G93.41 Metabolic encephalopathy; J18.1 Lobar pneumonia, unspecified organism; N17.9 Acute kidney failure, unspecified; E87.0 Hyperosmolality and hypernatremia; E87.2 Acidosis; I12.9 Hypertensive chronic kidney disease with stage 1 through stage 4 chronic kidney disease, or unspecified chronic kidney disease; E11.22 Type 2 diabetes mellitus with diabetic chronic kidney disease; E11.65 Type 2 diabetes mellitus with hyperglycemia; N18.3 Chronic kidney disease, stage 3 (moderate); Z87.891 Personal history of nicotine dependence; Z79.4 Long term (current) use of insulin; E78.5 Hyperlipidemia, unspecified; E83.42 Hypomagnesemia; E86.0 Dehydration; E89.0 Postprocedural hypothyroidism; F03.90 Unspecified dementia, unspecified severity, without behavioral disturbance, psychotic disturbance, mood disturbance, and anxiety; F32.9 Major depressive disorder, single episode, unspecified; F41.0 Panic disorder [episodic paroxysmal anxiety]; G25.2 Other specified forms of tremor; G47.33 Obstructive sleep apnea (adult) (pediatric); T50.905A Adverse effect of unspecified drugs, medicaments and biological substances, initial encounter; I25.10 Atherosclerotic heart disease of native coronary artery without angina pectoris; I25.2 Old myocardial infarction; K52.9 Noninfective gastroenteritis and colitis, unspecified; Z79.890 Hormone replacement therapy; Z79.899 Other long term (current) drug therapy; Z82.49 Family history of ischemic heart disease and other diseases of the circulatory system; Z83.3 Family history of diabetes mellitus; Z85.850 Personal history of malignant neoplasm of thyroid; Z87.440 Personal history of urinary (tract) infections; Z88.1 Allergy status to other antibiotic agents; Z90.49 Acquired absence of other specified parts of digestive tract; Z95.5 Presence of coronary angioplasty implant and graft; Z98.1 Arthrodesis status; M10.9 Gout, unspecified; G47.30 Sleep apnea, unspecified; R41.3 Other amnesia; Z88.2 Allergy status to sulfonamides; Z88.8 Allergy status to other drugs, medicaments and biological substances; Z91.041 Radiographic dye allergy status; Z88.5 Allergy status to narcotic agent; M19.90 Unspecified osteoarthritis, unspecified site; F40.240 Claustrophobia
CPT/HCPCS: 36415; 51701; 70450; 71046; 74019; 74176; 80053; 81001; 82550; 82553; 83036; 83605; 83735; 84484; 85025; 85610; 85652; 85730; 86140; 87040; 87086; 87502; 93005; 96361; 96374; 96375; 99285

== ENCOUNTER 2018-06-04 18:02 | Inpatient (IN) | payer MEDICARE, BC ==
[2018-06-04] MEDS ORDERED: MORPHINE SULFATE 4 MG/ML SYRINGE IV STA (18:45)
[2018-06-04] MEDS ORDERED: SODIUM CHLORIDE 0.9% 1,000 ML IV STA ×2 (18:45)
[2018-06-04] MEDS ORDERED: ONDANSETRON 4 MG/2 ML VIAL IVP STA (18:45)
[2018-06-04] MEDS ORDERED: ACETAMINOPHEN TAB 500 MG TAB PO STA (18:49)
--- NOTE | 2018-06-04 18:51 | ED ---
Abdominal Pain HPI - General Source: patient, EMS, RN notes reviewed, old records reviewed Mode of arrival: EMS Limitations: no limitations <Kathryn Mayes - Last Filed: 06/04/18 22:01> <Daylin Cmaarillo - Last Filed: 06/06/18 04:25> - General Chief Complaint: Abdominal Pain Stated Complaint: Abd pain Time Seen by Provider: 06/04/18 18:20 - History of Present Illness Initial Comments: Patient is a 73-year-old female, who presents emergency room in today with chief complaint of right-sided abdominal pain, fevers. She was recently discharged yesterday for fevers and chills suspected sepsis. I did read reviews any were concern for right-sided pneumonia. She denies a significant cough or congestion at this time. Patient did have a [place] at 1:00. She states she is continued to have pain. She reports the emergency Department with fever 101.3. She denies any changes in urination. She reports that she did have a bowel movement yesterday. No vomiting episodes. (Kathryn Mayes) - Related Data Home Medications Medication Instructions Recorded Confirmed Nitroglycerin Sl Tabs [Nitrostat] 0.4 mg SUBLINGUAL Q5M PRN 12/31/13 06/04/18 Cholecalciferol [Vitamin D3] 1,000 unit PO BID 04/23/14 06/04/18 Levothyroxine Sodium [Synthroid] 112 mcg PO DAILY 09/09/15 06/04/18 Allopurinol [Zyloprim] 100 mg PO BID 09/03/16 06/04/18 Aspirin EC [Ecotrin Low Dose] 81 mg PO BID 06/04/17 06/04/18 Magnesium Oxide [Mag-Ox] 400 mg PO DAILY 06/04/17 06/04/18 Atorvastatin Calcium [Lipitor] 80 mg PO HS 11/02/17 06/04/18 Pantoprazole [Protonix] 40 mg PO HS 11/02/17 06/04/18 Lisinopril [Zestril] 10 mg PO BID 05/29/18 06/04/18 Metoprolol Tartrate [Lopressor] 25 mg PO QAM 05/29/18 06/04/18 Metoprolol Tartrate [Lopressor] 50 mg PO HS 05/29/18 06/04/18 Previous Rx's Medication Instructions Recorded ALPRAZolam [Xanax] 0.25 mg PO BID PRN #6 tab 06/03/18 Acetaminophen Tab [Tylenol] 650 mg PO Q6HR PRN tab 06/03/18 Albuterol Sulfate [Proair Hfa] 2 puff INHALATION RT-QID #0 06/03/18 Cefuroxime Axetil [Ceftin] 500 mg PO BID #10 tab 06/03/18 Folic Acid 1 mg PO DAILY@1200 #30 tab 06/03/18 Insulin NPH/Reg Insulin 70/30 20 unit SQ HS #0 06/03/18 [humuLIN 70/30 VIAL] Insulin NPH/Reg Insulin 70/30 30 unit SQ AC-BRKFST #0 06/03/18 [humuLIN 70/30 VIAL] Multivitamins, Thera [Multivitamin 1 each PO DAILY@1200 #30 tab 06/03/18 (formulary)] Thiamine [Vitamin B-1] 100 mg PO DAILY@1200 #30 tab 06/03/18 Ziprasidone [Geodon] 40 mg PO HS PRN #0 06/03/18 Allergies Allergy/AdvReac Type Severity Reaction Status Date / Time lorazepam [From Ativan] Allergy Unknown Verified 06/04/18 19:56 codeine AdvReac Nausea Verified 06/04/18 19:56 erythromycin base AdvReac Nausea Verified 06/04/18 19:56 [Erythromycin Base] Iodinated Contrast- Oral and AdvReac ELEVATED Verified 06/04/18 19:56 IV Dye B/P, FELT [Iodinated Contrast Media - LIKE PASSED IV Dye] methylprednisolone AdvReac Confusion Verified 06/04/18 19:56 [From Medrol] Sulfa (Sulfonamide AdvReac DIZZYNESS Verified 06/04/18 19:56 Antibiotics) Review of Systems ROS Other: All systems not noted in ROS Statement are negative. <Kathryn Mayes - Last Filed: 06/04/18 22:01> ROS Other: All systems not noted in ROS Statement are negative. <Daylin Camarillo - Last Filed: 06/06/18 04:25> ROS Statement: Those systems with pertinent positive or pertinent negative responses have been documented in the HPI. Past Medical History Past Medical History: Coronary Artery Disease (CAD), Cancer, Diabetes Mellitus, Hyperlipidemia, Hypertension, Memory Impairment, Myocardial Infarction ([place]), Renal Disease, Sleep Apnea/CPAP/BIPAP, Thyroid Disorder Additional Past Medical History / Comment(s): osteomyelitis Lt hand/STAGE 3 RENAL FAILURE/THYROID CANCER, cpap machine,"rt hand 3 fingers numb" past falls- constipation,gout Last Myocardial Infarction Date:: 1999 History of Any Multi-Drug Resistant Organisms: MRSA Date of last positivie culture/infection: 07/01/2015 MDRO Source:: knee left Past Surgical History: Appendectomy, Heart Catheterization With Stent, Orthopedic Surgery Additional Past Surgical History / Comment(s): left hand, thyroidectomy, neck fusion/CARPAL TUNNEL REPAIR ASHLEY,colonoscopy in past STENT X1 Past Anesthesia/Blood Transfusion Reactions: No Reported Reaction Additional Past Anesthesia/Blood Transfusion Reaction / Comment(s): clausterphobia Date of Last Stent Placement:: 1999 Past Psychological History: Anxiety, Depression, Panic Disorder Smoking Status: Former smoker Past Alcohol Use History: None Reported - Past Family History Brother(s) Family Medical History: Cancer Mother Family Medical History: Diabetes Mellitus Father Family Medical History: Myocardial Infarction ([place]) <Kathryn Mayes - Last Filed: 06/04/18 22:01> General Exam Limitations: no limitations General appearance: alert, in no apparent distress Head exam: Present: atraumatic, normocephalic, normal inspection Eye exam: Present: normal appearance, PERRL, EOMI. Absent: scleral icterus, conjunctival injection, periorbital swelling ENT exam: Present: normal exam, mucous membranes moist Neck exam: Present: normal inspection. Absent: tenderness, meningismus, lymphadenopathy Respiratory exam: Present: normal lung sounds bilaterally. Absent: respiratory distress, wheezes, rales, rhonchi, stridor Cardiovascular Exam: Present: regular rate, normal rhythm, normal heart sounds. Absent: systolic murmur, diastolic murmur, rubs, gallop, clicks GI/Abdominal exam: Present: tenderness (Right upper quadrant and right lower quadrant tenderness), normal bowel sounds. Absent: distended, guarding, rebound , rigid Extremities exam: Present: normal inspection, full ROM, normal capillary refill. Absent: tenderness, pedal edema, joint swelling, calf tenderness Back exam: Present: normal inspection Neurological exam: Present: alert, oriented X3, CN II-XII intact Psychiatric exam: Present: normal affect, normal mood Skin exam: Present: warm <Kathryn Mayes - Last Filed: 06/04/18 22:01> <Daylin Camarillo - Last Filed: 06/06/18 04:25> - General Exam Comments Initial Comments: ill-appearing 33-year-old female. Moderate discomfort. (Kathryn Mayes) Vital Signs 06/04/18 06/04/18 06/04/18 18:08 19:38 21:00 Temperature 101.3 F H 98.6 F Pulse Rate 84 84 84 Respiratory 20 18 20 Rate Blood Pressure 149/64 137/78 135/60 O2 Sat by Pulse 97 96 96 Oximetry 06/04/18 06/04/18 22:07 22:50 Temperature 98.4 F 98 F Pulse Rate 70 67 Respiratory 18 18 Rate Blood Pressure 104/52 102/49 O2 Sat by Pulse 97 95 Oximetry Medical Decision Making - Lab Data Result diagrams: 06/04/18 19:30 06/04/18 19:30 - Radiology Data Radiology results: report reviewed <Kathryn Mayes - Last Filed: 06/04/18 22:01> - Lab Data Result diagrams: 06/04/18 19:30 06/04/18 19:30 <Daylin Camarillo - Last Filed: 06/06/18 04:25> - Medical Decision Making This patient's a 73-year-old female presents via EMS reevaluation for his abdominal pain, and fever. Transurethral 101.3. She was recently discharged yesterday for sepsis of unknown origin. Her cultures were negative as of this time. Patient is tender palpation over the right upper and right lower quadrant. Her lipase is mildly elevated this time. White count is elevated 14, 000 with a shift of 11,000. Patient's urinalysis shows no significant infection. She was started on Rocephin on her last admission. Patient will be kept at this time for her fever at this time of unknown origin. Her CT was reviewed and negative for any acute changes. I discussed the plan with patient' s family and they agree. (Kathryn Mayes) I personally saw and examined the patient. I reviewed and agree with the mid- level provider findings including all diagnostic interpretations and treatment plans as written unless otherwise stated. I was present for patel portions of any procedures performed. (Daylin Camarillo) - Lab Data Lab Results 06/04/18 06/04/18 06/04/18 Range/Units 19:30 19:30 19:30 WBC 14.1 H (3.8-10.6) k/uL RBC 3.81 (3.80-5.40) m/uL Hgb 11.4 (11.4-16.0) gm/dL Hct 35.0 (34.0-46.0) % MCV 92.0 (80.0-100.0) fL MCH 29.9 (25.0-35.0) pg MCHC 32.5 (31.0-37.0) g/dL RDW 16.3 H (11.5-15.5) % Plt Count 247 (150-450) k/uL Neutrophils % 76 % Lymphocytes % 14 % Monocytes % 7 % Eosinophils % 1 % Basophils % 0 % Neutrophils # 10.7 H (1.3-7.7) k/uL Lymphocytes # 1.9 (1.0-4.8) k/uL Monocytes # 1.0 (0-1.0) k/uL Eosinophils # 0.1 (0-0.7) k/uL Basophils # 0.0 (0-0.2) k/uL Anisocytosis Slight PT (9.0-12.0) sec INR (<1.2) APTT (22.0-30.0) sec Sodium 139 (137-145) mmol/L Potassium 4.2 (3.5-5.1) mmol/L Chloride 106 (98-107) mmol/L Carbon Dioxide 24 (22-30) mmol/L Anion Gap 9 mmol/L BUN 26 H (7-17) mg/dL Creatinine 1.00 (0.52-1.04) mg/dL Est GFR (CKD-EPI)AfAm 64 (>60 ml/min/1.73 sqM) Est GFR (CKD-EPI)NonAf 56 (>60 ml/min/1.73 sqM) Glucose 110 H (74-99) mg/dL Plasma Lactic Acid Jewel 1.6 (0.7-2.0) mmol/L Calcium 9.2 (8.4-10.2) mg/dL Total Bilirubin 1.0 (0.2-1.3) mg/dL AST 35 (14-36) U/L ALT 26 (9-52) U/L Alkaline Phosphatase 111 (38-126) U/L Troponin I (0.000-0.034) ng/mL Total Protein 6.4 (6.3-8.2) g/dL Albumin 3.6 (3.5-5.0) g/dL Amylase 68 (30-110) U/L Lipase 304 H (23-300) U/L Urine Color Urine Appearance (Clear) Urine pH (5.0-8.0) Ur Specific [place] (1.001-1.035) Urine Protein (Negative) Urine Glucose (UA) (Negative) Urine Ketones (Negative) Urine Blood (Negative) Urine Nitrite (Negative) Urine Bilirubin (Negative) Urine Urobilinogen (<2.0) mg/dL Ur Leukocyte Esterase (Negative) Urine RBC (0-5) /hpf Urine WBC (0-5) /hpf Ur Squamous Epith Cells (0-4) /hpf Urine Bacteria (None) /hpf Urine Mucus (None) /hpf 06/04/18 06/04/18 06/04/18 Range/Units 19:30 19:30 21:00 WBC (3.8-10.6) k/uL RBC (3.80-5.40) m/uL Hgb (11.4-16.0) gm/dL Hct (34.0-46.0) % MCV (80.0-100.0) fL MCH (25.0-35.0) pg MCHC (31.0-37.0) g/dL RDW (11.5-15.5) % Plt Count (150-450) k/uL Neutrophils % % Lymphocytes % % Monocytes % % Eosinophils % % Basophils % % Neutrophils # (1.3-7.7) k/uL Lymphocytes # (1.0-4.8) k/uL Monocytes # (0-1.0) k/uL Eosinophils # (0-0.7) k/uL Basophils # (0-0.2) k/uL Anisocytosis PT 10.3 (9.0-12.0) sec INR 1.0 (<1.2) APTT 26.8 (22.0-30.0) sec Sodium (137-145) mmol/L Potassium (3.5-5.1) mmol/L Chloride (98-107) mmol/L Carbon Dioxide (22-30) mmol/L Anion Gap mmol/L BUN (7-17) mg/dL Creatinine (0.52-1.04) mg/dL Est GFR (CKD-EPI)AfAm (>60 ml/min/1.73 sqM) Est GFR (CKD-EPI)NonAf (>60 ml/min/1.73 sqM) Glucose (74-99) mg/dL Plasma Lactic Acid Jewel (0.7-2.0) mmol/L Calcium (8.4-10.2) mg/dL Total Bilirubin (0.2-1.3) mg/dL AST (14-36) U/L ALT (9-52) U/L Alkaline Phosphatase (38-126) U/L Troponin I <0.012 (0.000-0.034) ng/mL Total Protein (6.3-8.2) g/dL Albumin (3.5-5.0) g/dL Amylase (30-110) U/L Lipase (23-300) U/L Urine Color Yellow Urine Appearance Clear (Clear) Urine pH 6.5 (5.0-8.0) Ur Specific [place] 1.017 (1.001-1.035) Urine Protein 1+ H (Negative) Urine Glucose (UA) Negative (Negative) Urine Ketones Negative (Negative) Urine Blood Negative (Negative) Urine Nitrite Negative (Negative) Urine Bilirubin Negative (Negative) Urine Urobilinogen <2.0 (<2.0) mg/dL Ur Leukocyte Esterase Negative (Negative) Urine RBC <1 (0-5) /hpf Urine WBC 1 (0-5) /hpf Ur Squamous Epith Cells 1 (0-4) /hpf Urine Bacteria Rare H (None) /hpf Urine Mucus Rare H (None) /hpf 06/04/18 18:51 EKG performed at 1838 shows normal sinus rhythm, prolonged QT. Abnormal EKG noted. Ventricular rate 84 bpm. Was 144 ms. QRS ration 72 ms. QT QTc is 424/501 ms. (Kathryn Mayes) - Radiology Data IMPRESSION fracture T11. Vision or first-degree of L5 spondylolisthesis. Some atelectasis in the right lung base. Improved compared old exam. Appendix not visualized. No sign of appendicitis. (Kathryn Mayes) Disposition Is patient prescribed a controlled substance at d/c from ED?: No Time of Disposition: 22:03 <Kathryn Mayes - Last Filed: 06/04/18 22:01> <Daylin Camarillo - Last Filed: 06/06/18 04:25> Clinical Impression: Fever, Right sided abdominal pain Disposition: ADMITTED IP TO THIS HOSP Condition: Stable
[2018-06-04 19:56] LABS: Anisocytosis Slight; Basophils % (A) 0 %; Eosinophils # (A) 0.1 k/uL (0-0.7); Eosinophils % (A) 1 %; HGB 11.4 gm/dL (11.4-16.0); Lymphocytes # (A) 1.9 k/uL (1.0-4.8); Lymphocytes % (A) 14 %; MCH 29.9 pg (25.0-35.0); MCHC 32.5 g/dL (31.0-37.0); Mean Platelet Volume 7.9; Monocytes % (A) 7 %; Neutrophils # (A) 10.7 k/uL (1.3-7.7); Neutrophils % (A) 76 %; Platelet Count 247 k/uL (150-450); RBC 3.81 m/uL (3.80-5.40); RDW 16.3 % (11.5-15.5); WBC 14.1 k/uL (3.8-10.6)
[2018-06-04 20:06] LABS: Albumin 3.6 g/dL (3.5-5.0); Calcium 9.2 mg/dL (8.4-10.2); Potassium 4.2 mmol/L (3.5-5.1); Total Protein 6.4 g/dL (6.3-8.2)
[2018-06-04 20:07] LABS: Partial Thromboplastin Time 26.8 sec (22.0-30.0); Prothrombin Time 10.3 sec (9.0-12.0)
--- NOTE | 2018-06-04 20:26 | CT ---
EXAMINATION TYPE: CT abdomen pelvis wo con DATE OF EXAM: 06/04/2018 COMPARISON: 05/29/2018 HISTORY: Right sided abdominal pain. CT DLP: 975.8 mGycm Automated exposure control for dose reduction was used. TECHNIQUE: Helical acquisition of images was performed from the lung bases through the pelvis. FINDINGS: There is atelectasis at the right posterior lung base. There is no pericardial effusion. Heart appear s enlarged. There is no pleural effusion. Liver shows no focal defect. Spleen appears normal. There is no pancreatic mass. Gallbladder has norm al size and contour. Bile ducts are not dilated. There is no adrenal mass. Kidneys have normal size and contour. There is no hydronephrosis. Ureters are not dilated. Abdominal aorta is atheromatous. There is no retroperiton eal adenopathy. Bladder distends smoothly. There is no inguinal hernia. There is no free fluid in the pelvis. There is no mesenteric edema or adenopathy. There is no sign of a thickened appendix. Abdomi nal aorta is atheromatous. There is 20% anterior wedging of T11 vertebral body. Uterus is anteverted. There are tiny uterine calcifications. IMPRESSION: OLD COMPRESSION FRACTURE OF T11. DEGENERATIVE FIRST-DEGREE L5 SPONDYLOLISTHESIS. THERE IS SOME ATELEC TASIS AT THE RIGHT LUNG BASE IMPROVED COMPARED TO OLD EXAM. APPENDIX NOT SEEN. NO SIGN OF APPENDICITI S.
[2018-06-04 21:19] LABS: Appearance,Urine Clear (Clear); Bacteria,Urine Rare /hpf; Bilirubin,Urine Negative (Negative); Blood,Urine Negative (Negative); Color,Urine Yellow; Glucose,Urine (UA) Negative (Negative); Ketones,Urine Negative (Negative); Leukocyte Esterase,Urine Negative (Negative); Mucus,Urine Rare /hpf; Nitrite,Urine Negative (Negative); PH, Urine 6.5 (5.0-8.0); Protein,Urine 1+ (Negative); RBC,Urine <1 /hpf (0-5); Specific Gravity,Urine 1.017 (1.001-1.035); Squamous Epithelial Cell,Urine 1 /hpf (0-4); Urobilinogen,Urine <2.0 mg/dL (<2.0); WBC,Urine 1 /hpf (0-5)
[2018-06-04] MEDS ORDERED: MORPHINE SULFATE 4 MG/ML SYRINGE IV PRN (22:04)
[2018-06-04] MEDS ORDERED: ONDANSETRON 4 MG/2 ML VIAL IVP PRN (22:04)
[2018-06-04] MEDS ORDERED: NALOXONE 0.4 MG/ML 1 ML VIAL IV PRN (22:04)
[2018-06-04] MEDS ORDERED: ACETAMINOPHEN TAB 325 MG TAB PO PRN (22:04)
[2018-06-04] MEDS ORDERED: IBUPROFEN 400 MG TAB PO PRN (22:04)
[2018-06-05] MEDS: SODIUM CHLORIDE 0.9% 1,000 ML IV SCH ×2 (00:13→21:36)
[2018-06-05] MEDS ORDERED: NITROGLYCERIN SL TABS 0.4 MG TAB SUBLINGUAL PRN (00:40)
[2018-06-05] MEDS ORDERED: ACETAMINOPHEN TAB 325 MG TAB PO PRN (00:40)
[2018-06-05] MEDS ORDERED: ZIPRASIDONE 40 MG CAP PO PRN (00:40)
[2018-06-05] MEDS ORDERED: INSULN ASP PRT/INSULIN ASPART 100 UNIT/ML 10 ML VIAL SQ SCH ×2 (00:40→07:30)
[2018-06-05] MEDS ORDERED: Magnesium Replacement Protocol 1 EACH MISC MISCELLANE PRN ×2 (00:48→10:16)
[2018-06-05] MEDS ORDERED: IPRATROPIUM-ALBUTEROL 3 ML NEB INHALATION PRN (00:48)
[2018-06-05] MEDS ORDERED: Potassium Replacement Protocol 1 EACH MISC MISCELLANE PRN (00:48)
[2018-06-05] MEDS: MELATONIN 3 MG TABLET PO SCH ×2 (01:35→20:26)
[2018-06-05] MEDS: ATORVASTATIN 80 MG TAB PO SCH ×2 (01:35→20:26)
[2018-06-05] MEDS: HEPARIN SODIUM,PORCINE 5,000 UNIT/ML 1 ML VIAL SQ SCH ×3 (01:36→20:27)
[2018-06-05 01:39] LABS: Glucose,Whole Blood 129 mg/dL (75-99)
[2018-06-05] MEDS: LEVOTHYROXINE 112 MCG TAB PO SCH (05:52)
[2018-06-05 07:22] LABS: Glucose,Whole Blood 97 mg/dL (75-99)
[2018-06-05] MEDS: IPRATROPIUM-ALBUTEROL 3 ML NEB INHALATION SCH ×4 (07:26→19:31)
[2018-06-05] MEDS: INSULIN ASPART 100 UNIT/ML 1 ML 10 ML VIAL SQ SCH ×4 (07:41→20:43)
[2018-06-05] MEDS: MAGNESIUM OXIDE 400 MG TAB PO SCH (08:04)
[2018-06-05] MEDS: PANTOPRAZOLE 40 MG/10 ML VIAL IV SCH (08:04)
[2018-06-05] MEDS: CHOLECALCIFEROL 1,000 UNIT TAB PO SCH ×2 (08:04→20:26)
[2018-06-05] MEDS: ALLOPURINOL 100 MG TAB PO SCH ×2 (08:04→20:27)
[2018-06-05] MEDS: ASPIRIN 81 MG PO SCH ×2 (08:04→20:26)
[2018-06-05] MEDS ORDERED: LISINOPRIL 10 MG TAB PO SCH (09:00)
[2018-06-05] MEDS: KETOROLAC 30 MG/ML 1 ML VIAL IVP PRN ×2 (09:23→15:02)
[2018-06-05] MEDS: METOPROLOL TARTRATE 25 MG TAB PO SCH (10:46)
[2018-06-05 11:04] VITALS: BMI 41.8
[2018-06-05] MEDS: MAGNESIUM SULFATE-D5W PMX 1 GM in DEXTROSE/WATER 1 100ML.BAG IVPB SCH ×3 (11:23→13:52)
[2018-06-05 12:05] LABS: Glucose,Whole Blood 144 mg/dL (75-99)
--- NOTE | 2018-06-05 13:07 | P.HPIM ---
History of Present Illness 73-year-old pleasant female was recently discharged from the hospital after she was treated for right lower lobe pneumonia, was admitted for sepsis at the time source was not clear initially but was later believed to be secondary to pneumonia. Present CAT scan shows atelectasis more than pneumonia. Patient was also comparing of abdominal pain at the time which was pretty vague now she is comparing of right-sided upper quadrant abdominal pain moderate to severe in nature. Patient male he came in because of abdominal pain found to have high- grade fever. Patient was discharged on Ceftin. CAT scan of the abdomen did not show any significant intra-abdominal process patient denied any dysuria urease essentially within normal limits denied any cough. She does quite tired week. Patient will be switched to Zosyn to cover intra-abdominal organisms from ceftriaxone. Infectious disease was consulted. Patient also complaining of nausea along with right upper quadrant abdominal pain which is sharp and severe Review of Systems REVIEW OF SYSTEMS: CONSTITUTIONAL: As mentioned in HPI HEENT: No recent visual problems or hearing problems. Denied any sore throat. CARDIOVASCULAR: No chest pain, orthopnea, PND, no palpitations, no syncope. PULMONARY: No shortness of breath, no cough, no hemoptysis. GASTROINTESTINAL: No diarrhea, NEUROLOGICAL: No headaches, no weakness, no numbness. HEMATOLOGICAL: Denies any bleeding or petechiae. GENITOURINARY: Denies any burning micturition, frequency, or urgency. MUSCULOSKELETAL/RHEUMATOLOGICAL: Denies any joint pain, swelling, or any muscle pain. ENDOCRINE: Denies any polyuria or polydipsia. The rest of the 14-point review of systems is negative. Past Medical History Past Medical History: Coronary Artery Disease (CAD), Cancer, Diabetes Mellitus, Hyperlipidemia, Hypertension, Memory Impairment, Myocardial Infarction ([place]), Renal Disease, Sleep Apnea/CPAP/BIPAP, Thyroid Disorder Additional Past Medical History / Comment(s): osteomyelitis Lt hand/STAGE 3 RENAL FAILURE/THYROID CANCER, cpap machine,"rt hand 3 fingers numb" past falls- constipation,gout Last Myocardial Infarction Date:: 1999 History of Any Multi-Drug Resistant Organisms: MRSA Date of last positivie culture/infection: 07/01/2015 MDRO Source:: knee left Past Surgical History: Appendectomy, Heart Catheterization With Stent, Orthopedic Surgery Additional Past Surgical History / Comment(s): left hand, thyroidectomy, neck fusion/CARPAL TUNNEL REPAIR ASHLEY,colonoscopy in past STENT X1 Past Anesthesia/Blood Transfusion Reactions: No Reported Reaction Additional Past Anesthesia/Blood Transfusion Reaction / Comment(s): clausterphobia Date of Last Stent Placement:: 1999 Past Psychological History: Anxiety, Depression, Panic Disorder Additional Psychological History / Comment(s): Patient states she lives with family home and is cared for by her Smoking Status: Never smoker Past Alcohol Use History: None Reported Additional Past Alcohol Use History / Comment(s): started smoking age 28 , quiy age 32 WHEN WORKING, OCC CIGARETTE ONLY. Past Drug Use History: None Reported - Past Family History Brother(s) Family Medical History: Cancer Mother Family Medical History: Diabetes Mellitus Father Family Medical History: Myocardial Infarction ([place]) Medications and Allergies Home Medications Medication Instructions Recorded Confirmed Type Nitroglycerin Sl Tabs [Nitrostat] 0.4 mg SUBLINGUAL Q5M PRN 12/31/13 06/04/18 History Cholecalciferol [Vitamin D3] 1,000 unit PO BID 04/23/14 06/04/18 History Levothyroxine Sodium [Synthroid] 112 mcg PO DAILY 09/09/15 06/04/18 History Allopurinol [Zyloprim] 100 mg PO BID 09/03/16 06/04/18 History Aspirin EC [Ecotrin Low Dose] 81 mg PO BID 06/04/17 06/04/18 History Magnesium Oxide [Mag-Ox] 400 mg PO DAILY 06/04/17 06/04/18 History Atorvastatin Calcium [Lipitor] 80 mg PO HS 11/02/17 06/04/18 History Pantoprazole [Protonix] 40 mg PO HS 11/02/17 06/04/18 History Lisinopril [Zestril] 10 mg PO BID 05/29/18 06/04/18 History Metoprolol Tartrate [Lopressor] 25 mg PO QAM 05/29/18 06/04/18 History Metoprolol Tartrate [Lopressor] 50 mg PO HS 05/29/18 06/04/18 History ALPRAZolam [Xanax] 0.25 mg PO BID PRN #6 tab 06/03/18 06/04/18 Rx Acetaminophen Tab [Tylenol] 650 mg PO Q6HR PRN tab 06/03/18 06/04/18 Rx Albuterol Sulfate [Proair Hfa] 2 puff INHALATION RT-QID #0 06/03/18 06/04/18 Rx Cefuroxime Axetil [Ceftin] 500 mg PO BID #10 tab 06/03/18 06/04/18 Rx Folic Acid 1 mg PO DAILY@1200 #30 tab 06/03/18 06/04/18 Rx Insulin NPH/Reg Insulin 70/30 20 unit SQ HS #0 06/03/18 06/04/18 Rx [humuLIN 70/30 VIAL] Insulin NPH/Reg Insulin 70/30 30 unit SQ AC-BRKFST #0 06/03/18 06/04/18 Rx [humuLIN 70/30 VIAL] Multivitamins, Thera [Multivitamin 1 each PO DAILY@1200 #30 tab 06/03/18 Rx (formulary)] Thiamine [Vitamin B-1] 100 mg PO DAILY@1200 #30 tab 06/03/18 06/04/18 Rx Ziprasidone [Geodon] 40 mg PO HS PRN #0 06/03/18 06/04/18 Rx Allergies Allergy/AdvReac Type Severity Reaction Status Date / Time lorazepam [From Ativan] Allergy Unknown Verified 06/04/18 19:56 codeine AdvReac Nausea Verified 06/04/18 19:56 erythromycin base AdvReac Nausea Verified 06/04/18 19:56 [Erythromycin Base] Iodinated Contrast- Oral and AdvReac ELEVATED Verified 06/04/18 19:56 IV Dye B/P, FELT [Iodinated Contrast Media - LIKE PASSED IV Dye] methylprednisolone AdvReac Confusion Verified 06/04/18 19:56 [From Medrol] Sulfa (Sulfonamide AdvReac DIZZYNESS Verified 06/04/18 19:56 Antibiotics) Physical Exam Vitals: Vital Signs Temp Pulse Pulse Resp BP BP Pulse Ox 06/05/18 08:00 16 06/05/18 07:37 65 06/05/18 07:35 96.7 F L 101 H 16 130/57 97 06/05/18 07:26 65 06/04/18 23:45 97.8 F 66 20 112/56 98 06/04/18 22:50 98 F 67 18 102/49 95 06/04/18 22:07 98.4 F 70 18 104/52 97 12/19/18 21:00 98.6 F 84 20 135/60 96 06/04/18 19:38 84 18 137/78 96 06/04/18 18:08 101.3 F H 84 20 149/64 97 Intake and Output 06/04/18 06/05/18 06/05/18 22:59 06:59 14:59 Intake Total 200 Balance 200 Intake: Oral 200 Other: Voiding Method Bedside Commode # Voids 1 Weight 106.594 kg 103.873 kg 103.873 kg PHYSICAL EXAMINATION: GENERAL: The patient is alert and oriented x3, not in any acute distress. Well developed, well nourished. HEENT: Pupils are round and equally reacting to light. EOMI. No scleral icterus. No conjunctival pallor. Normocephalic, atraumatic. No pharyngeal erythema. No thyromegaly. CARDIOVASCULAR: S1 and S2 present. No murmurs, rubs, or gallops. PULMONARY: Chest is clear to auscultation, no wheezing or crackles. ABDOMEN: Soft, there is some tenderness in the right upper quadrant Carter's sign is negative. MUSCULOSKELETAL: No joint swelling or deformity. EXTREMITIES: No cyanosis, clubbing, or pedal edema. NEUROLOGICAL: Gross neurological examination did not reveal any focal deficits. SKIN: No rashes. Results CBC & Chem 7: 06/04/18 19:30 06/04/18 19:30 Labs: Abnormal Lab Results - Last 24 Hours (Table) 06/04/18 06/04/18 06/04/18 Range/Units 19:30 19:30 21:00 WBC 14.1 H (3.8-10.6) k/uL RDW 16.3 H (11.5-15.5) % Neutrophils # 10.7 H (1.3-7.7) k/uL BUN 26 H (7-17) mg/dL Glucose 110 H (74-99) mg/dL POC Glucose (mg/dL) (75-99) mg/dL Magnesium (1.6-2.3) mg/dL Lipase 304 H (23-300) U/L Urine Protein 1+ H (Negative) Urine Bacteria Rare H (None) /hpf Urine Mucus Rare H (None) /hpf 06/05/18 06/05/18 06/05/18 Range/Units 01:35 09:07 12:03 WBC (3.8-10.6) k/uL RDW (11.5-15.5) % Neutrophils # (1.3-7.7) k/uL BUN (7-17) mg/dL Glucose (74-99) mg/dL POC Glucose (mg/dL) 129 H 144 H (75-99) mg/dL Magnesium 1.5 L (1.6-2.3) mg/dL Lipase (23-300) U/L Urine Protein (Negative) Urine Bacteria (None) /hpf Urine Mucus (None) /hpf Microbiology - Last 24 Hours (Table) 06/04/18 21:00 Urine Culture - Preliminary Urine,Catheterized Thrombosis Risk Factor Assmnt - Choose All That Apply Any of the Below Risk Factors Present?: Yes Each Factor Represents 1 point: Obesity (BMI >25) Other Risk Factors: Yes Each Risk Factor Represents 3 Points: Age 75 years or older Thrombosis Risk Factor Assessment Total Risk Factor Score: 4 Thrombosis Risk Factor Assessment Level: Moderate Risk Assessment and Plan Plan: -Sepsis: Source is not clear crusting her abdominal pain is better for CAT scan being negative will obtain ultrasound of the gallbladder to assess for cholecystitis or lithiasis and surgery will be consulted. My suspicion is low that patient has pneumonia at this time patient has very minimal atelectasis or CAT scan without any bronchogram patient was switched to Zosyn to cover intra- abdominal organisms. Infectious disease was consulted. -Type 2 diabetes mellitus: Patient is on 70/30 regimen will cut down the dose of insulin to avoid hypoglycemia which is expected because of her dietary habits here in the hospital -Hypomagnesemia magnesium will be supplemented -Hyperlipidemia -Sleep apnea -Hypothyroidism -Coronary artery disease For above-mentioned chronic medical problems patient will be resumed and continued on home medications patient will need GI and DVT prophylaxis pharmacologic which will be resumed
[2018-06-05] MEDS: FOLIC ACID 1 MG TAB PO SCH (13:08)
[2018-06-05] MEDS: MULTIVITAMINS, THERA 1 EACH TAB PO SCH (13:08)
[2018-06-05] MEDS: THIAMINE 100 MG TAB PO SCH (13:09)
--- NOTE | 2018-06-05 14:34 | P.GSCN ---
History of Present Illness Consult date: 06/05/18 Reason for Consult: Abdominal pain History of present illness: Patient hospitalized with right upper side pain. Low-grade fevers 101.1. She was recently discharged for possible right-sided pneumonia. No pulmonary complaints at this time. Normal bowel movements. No vomiting. She had a CAT scan which did not show any definite abnormalities. She has a history of previous appendectomy. She has on IV antibiotics currently. Recent abdominal ultrasound from March did not evaluate the gallbladder only kidneys. Recent chest x-ray reportedly normal. Patient slightly anorexic. Gallbladder ultrasound pending. Review of Systems The patient denies any acute changes in vision or hearing, no dysphagia or odynophagia, no chest pain or shortness of breath, no dysuria or hematuria, no headache, no runny nose, no rectal bleeding or melena, no unexplained weight loss Past Medical History Past Medical History: Coronary Artery Disease (CAD), Cancer, Diabetes Mellitus, Hyperlipidemia, Hypertension, Memory Impairment, Myocardial Infarction ([place]), Renal Disease, Sleep Apnea/CPAP/BIPAP, Thyroid Disorder Additional Past Medical History / Comment(s): osteomyelitis Lt hand/STAGE 3 RENAL FAILURE/THYROID CANCER, cpap machine,"rt hand 3 fingers numb" past falls- constipation,gout Last Myocardial Infarction Date:: 1999 History of Any Multi-Drug Resistant Organisms: MRSA Year Discovered:: 07/01/2015 MDRO Source:: knee left Past Surgical History: Appendectomy, Heart Catheterization With Stent, Orthopedic Surgery Additional Past Surgical History / Comment(s): left hand, thyroidectomy, neck fusion/CARPAL TUNNEL REPAIR ASHLEY,colonoscopy in past STENT X1 Past Anesthesia/Blood Transfusion Reactions: No Reported Reaction Additional Past Anesthesia/Blood Transfusion Reaction / Comm: clausterphobia Date of Last Stent Placement:: 1999 Past Psychological History: Anxiety, Depression, Panic Disorder Additional Psychological History / Comment(s): Patient states she lives with family home and is cared for by her Smoking Status: Never smoker Past Alcohol Use History: None Reported Additional Past Alcohol Use History / Comment(s): started smoking age 28 , quiy age 32 WHEN WORKING, OCC CIGARETTE ONLY. Past Drug Use History: None Reported - Past Family History Brother(s) Family Medical History: Cancer Mother Family Medical History: Diabetes Mellitus Father Family Medical History: Myocardial Infarction ([place]) Medications and Allergies Home Medications Medication Instructions Recorded Confirmed Type Nitroglycerin Sl Tabs [Nitrostat] 0.4 mg SUBLINGUAL Q5M PRN 12/31/13 06/04/18 History Cholecalciferol [Vitamin D3] 1,000 unit PO BID 04/23/14 06/04/18 History Levothyroxine Sodium [Synthroid] 112 mcg PO DAILY 09/09/15 06/04/18 History Allopurinol [Zyloprim] 100 mg PO BID 09/03/16 06/04/18 History Aspirin EC [Ecotrin Low Dose] 81 mg PO BID 06/04/17 06/04/18 History Magnesium Oxide [Mag-Ox] 400 mg PO DAILY 06/04/17 06/04/18 History Atorvastatin Calcium [Lipitor] 80 mg PO HS 11/02/17 06/04/18 History Pantoprazole [Protonix] 40 mg PO HS 11/02/17 06/04/18 History Lisinopril [Zestril] 10 mg PO BID 05/29/18 06/04/18 History Metoprolol Tartrate [Lopressor] 25 mg PO QAM 05/29/18 06/04/18 History Metoprolol Tartrate [Lopressor] 50 mg PO HS 05/29/18 06/04/18 History ALPRAZolam [Xanax] 0.25 mg PO BID PRN #6 tab 06/03/18 06/04/18 Rx Acetaminophen Tab [Tylenol] 650 mg PO Q6HR PRN tab 06/03/18 06/04/18 Rx Albuterol Sulfate [Proair Hfa] 2 puff INHALATION RT-QID #0 06/03/18 06/04/18 Rx Cefuroxime Axetil [Ceftin] 500 mg PO BID #10 tab 06/03/18 06/04/18 Rx Folic Acid 1 mg PO DAILY@1200 #30 tab 06/03/18 06/04/18 Rx Insulin NPH/Reg Insulin 70/30 20 unit SQ HS #0 06/03/18 06/04/18 Rx [humuLIN 70/30 VIAL] Insulin NPH/Reg Insulin 70/30 30 unit SQ AC-BRKFST #0 06/03/18 06/04/18 Rx [humuLIN 70/30 VIAL] Multivitamins, Thera [Multivitamin 1 each PO DAILY@1200 #30 tab 06/03/18 Rx (formulary)] Thiamine [Vitamin B-1] 100 mg PO DAILY@1200 #30 tab 06/03/18 06/04/18 Rx Ziprasidone [Geodon] 40 mg PO HS PRN #0 06/03/18 06/04/18 Rx Allergies Allergy/AdvReac Type Severity Reaction Status Date / Time lorazepam [From Ativan] Allergy Unknown Verified 06/04/18 19:56 codeine AdvReac Nausea Verified 06/04/18 19:56 erythromycin base AdvReac Nausea Verified 06/04/18 19:56 [Erythromycin Base] Iodinated Contrast- Oral and AdvReac ELEVATED Verified 06/04/18 19:56 IV Dye B/P, FELT [Iodinated Contrast Media - LIKE PASSED IV Dye] methylprednisolone AdvReac Confusion Verified 06/04/18 19:56 [From Medrol] Sulfa (Sulfonamide AdvReac DIZZYNESS Verified 06/04/18 19:56 Antibiotics) Surgical - Exam Vital Signs Temp Pulse Resp BP Pulse Ox 101.3 F H 84 20 149/64 97 06/04/18 18:08 06/04/18 18:08 06/04/18 18:08 06/04/18 18:08 06/04/18 18:08 Physical exam: General: Well-developed, well-nourished HEENT: Normocephalic, sclerae nonicteric Abdomen: Mild right upper quadrant and flank tenderness, no skin changes to suggest herpes zoster, nondistended Extremities: No edema Neuro: Alert and oriented Results - Labs 06/04/18 19:30 06/04/18 19:30 Abnormal Lab Results - Last 24 Hours (Table) 06/04/18 06/04/18 06/04/18 Range/Units 19:30 19:30 21:00 WBC 14.1 H (3.8-10.6) k/uL RDW 16.3 H (11.5-15.5) % Neutrophils # 10.7 H (1.3-7.7) k/uL BUN 26 H (7-17) mg/dL Glucose 110 H (74-99) mg/dL POC Glucose (mg/dL) (75-99) mg/dL Magnesium (1.6-2.3) mg/dL Lipase 304 H (23-300) U/L Urine Protein 1+ H (Negative) Urine Bacteria Rare H (None) /hpf Urine Mucus Rare H (None) /hpf 06/05/18 06/05/18 06/05/18 Range/Units 01:35 09:07 12:03 WBC (3.8-10.6) k/uL RDW (11.5-15.5) % Neutrophils # (1.3-7.7) k/uL BUN (7-17) mg/dL Glucose (74-99) mg/dL POC Glucose (mg/dL) 129 H 144 H (75-99) mg/dL Magnesium 1.5 L (1.6-2.3) mg/dL Lipase (23-300) U/L Urine Protein (Negative) Urine Bacteria (None) /hpf Urine Mucus (None) /hpf Microbiology - Last 24 Hours (Table) 06/04/18 21:00 Urine Culture - Preliminary Urine,Catheterized Diabetes panel 06/04/18 Range/Units 19:30 Sodium 139 (137-145) mmol/L Potassium 4.2 (3.5-5.1) mmol/L Chloride 106 (98-107) mmol/L Carbon Dioxide 24 (22-30) mmol/L BUN 26 H (7-17) mg/dL Creatinine 1.00 (0.52-1.04) mg/dL Glucose 110 H (74-99) mg/dL Calcium 9.2 (8.4-10.2) mg/dL AST 35 (14-36) U/L ALT 26 (9-52) U/L Alkaline Phosphatase 111 (38-126) U/L Total Protein 6.4 (6.3-8.2) g/dL Albumin 3.6 (3.5-5.0) g/dL Calcium panel 06/04/18 Range/Units 19:30 Calcium 9.2 (8.4-10.2) mg/dL Albumin 3.6 (3.5-5.0) g/dL Pituitary panel 06/04/18 Range/Units 19:30 Sodium 139 (137-145) mmol/L Potassium 4.2 (3.5-5.1) mmol/L Chloride 106 (98-107) mmol/L Carbon Dioxide 24 (22-30) mmol/L BUN 26 H (7-17) mg/dL Creatinine 1.00 (0.52-1.04) mg/dL Glucose 110 H (74-99) mg/dL Calcium 9.2 (8.4-10.2) mg/dL Adrenal panel 06/04/18 Range/Units 19:30 Sodium 139 (137-145) mmol/L Potassium 4.2 (3.5-5.1) mmol/L Chloride 106 (98-107) mmol/L Carbon Dioxide 24 (22-30) mmol/L BUN 26 H (7-17) mg/dL Creatinine 1.00 (0.52-1.04) mg/dL Glucose 110 H (74-99) mg/dL Calcium 9.2 (8.4-10.2) mg/dL Total Bilirubin 1.0 (0.2-1.3) mg/dL AST 35 (14-36) U/L ALT 26 (9-52) U/L Alkaline Phosphatase 111 (38-126) U/L Total Protein 6.4 (6.3-8.2) g/dL Albumin 3.6 (3.5-5.0) g/dL Assessment and Plan (1) Right sided abdominal pain Narrative/Plan: Continue clear liquid diet. Continue antibiotics per infectious disease. We' ll check abdominal ultrasound. Current Visit: Yes Status: Acute Code(s): R10.9 - UNSPECIFIED ABDOMINAL PAIN SNOMED Code(s): 635540090
[2018-06-05] MEDS: PIPERACILLIN-TAZOBACTAM 3.375 GM in SODIUM CHLORIDE 0.9% 100 ML IVPB SCH ×2 (17:23→23:29)
[2018-06-05 17:28] LABS: Glucose,Whole Blood 169 mg/dL (75-99)
[2018-06-05] MEDS: METOPROLOL TARTRATE 50 MG TAB PO SCH (20:27)
[2018-06-05 20:40] LABS: Glucose,Whole Blood 213 mg/dL (75-99)
[2018-06-05] MEDS: INSULN ASP PRT/INSULIN ASPART 100 UNIT/ML 10 ML VIAL SQ SCH (20:43)
[2018-06-05] MEDS ORDERED: PANTOPRAZOLE 40 MG TABLET PO SCH (21:00)
[2018-06-05 21:32] LABS: Hemoglobin A1C 6.5 % (4.0-6.0)
--- NOTE | 2018-06-05 23:51 | P.CONS ---
History of Present Illness - Reason for Consult Consult date: 06/05/18 - Chief Complaint Abdominal pain - History of Present Illness 73-year-old female who is somewhat of a poor historian presents back to hospital after recent discharge from facility where she was being treated for about of sepsis likely related to pneumonia. The pneumonia was the right lower lobe and she was discharged home on antibiotic therapy. Shortly after arriving home she was doing well but then again developed fever 101.3 at the time of her readmission. She also is complaining of severe right upper quadrant abdominal pain severe enough that she came back to hospital. She continues to complain of pain at that site. She is denying nausea or emesis. Is denying dysuria no hematemesis melena or hematochezia. Review of Systems Patient relates fever is improved since coming to Hospital still having the right upper quadrant abdominal pain HEENT:Denies headache or acute visual change. Denies sinus or mouth discomforts. Denies neck stiffness or pain. Denies significant oral cavity pain. Denies difficulty on swallowing. Lungs: Denies significant shortness of breath, cough, sputum production, or hemoptysis. Cardiovascular: Denies significant shortness of breath, chest pain, chest wall pain, orthopnea, dyspnea on exertion, syncope Gastrointestinal:Denies nausea, vomiting, diarrhea, constipation, hematemesis, melena, hematochezia. He has noticed no diarrhea but has right upper quadrant abdominal pain Musculoskeletal: denies significant myalgias or arthralgias. No new joint swelling. Denies new back pain. Skin: Denies new rash or lesions. No new ulcers or wounds are related.. Neuro: Denies headache has had falls no seizures has memory deficits Psychiatric: Denies depression Endocrine:Fatigue but thinks weight is been stable Past Medical History Past Medical History: Coronary Artery Disease (CAD), Cancer, Diabetes Mellitus, Hyperlipidemia, Hypertension, Memory Impairment, Myocardial Infarction (OK), Renal Disease, Sleep Apnea/CPAP/BIPAP, Thyroid Disorder Additional Past Medical History / Comment(s): osteomyelitis Lt hand/STAGE 3 RENAL FAILURE/THYROID CANCER, cpap machine,"rt hand 3 fingers numb" past falls- constipation,gout Last Myocardial Infarction Date:: 1999 History of Any Multi-Drug Resistant Organisms: MRSA Year Discovered:: 07/01/2015 MDRO Source:: knee left Past Surgical History: Appendectomy, Heart Catheterization With Stent, Orthopedic Surgery Additional Past Surgical History / Comment(s): left hand, thyroidectomy, neck fusion/CARPAL TUNNEL REPAIR ASHLEY,colonoscopy in past STENT X1 Past Anesthesia/Blood Transfusion Reactions: No Reported Reaction Additional Past Anesthesia/Blood Transfusion Reaction / Comm: clausterphobia Date of Last Stent Placement:: 1999 Past Psychological History: Anxiety, Depression, Panic Disorder Additional Psychological History / Comment(s): Patient states she lives with family home and is cared for by her Smoking Status: Never smoker Past Alcohol Use History: None Reported Additional Past Alcohol Use History / Comment(s): started smoking age 28 , quiy age 32 WHEN WORKING, OCC CIGARETTE ONLY. Past Drug Use History: None Reported - Past Family History Brother(s) Family Medical History: Cancer Mother Family Medical History: Diabetes Mellitus Father Family Medical History: Myocardial Infarction (OK) Medications and Allergies Home Medications and Allergies Comment(s): Current Medications Acetaminophen (Tylenol Tab) 650 mg PO Q6HR PRN PRN Reason: Mild Pain or Fever > 100.5 Albuterol/Ipratropium (Duoneb 0.5 Mg-3 Mg/3 Ml Soln) 3 ml INHALATION RT-QID [facility] Last Admin: 06/05/18 19:31 Dose: 3 ml Albuterol/Ipratropium (Duoneb 0.5 Mg-3 Mg/3 Ml Soln) 3 ml INHALATION RT-Q2H PRN PRN Reason: Shortness Of Breath Or Wheezing Allopurinol (Zyloprim) 100 mg PO BID [facility] Last Admin: 06/05/18 20:27 Dose: 100 mg Aspirin (Aspirin) 81 mg PO BID [facility] Last Admin: 06/05/18 20:26 Dose: 81 mg Atorvastatin Calcium (Lipitor) 80 mg PO HS [facility] Last Admin: 06/05/18 20:26 Dose: 80 mg Cholecalciferol (Vitamin D3) 1,000 unit PO BID [facility] Last Admin: 06/05/18 20:26 Dose: 1,000 unit Folic Acid (Folic Acid) 1 mg PO DAILY@1200 [facility] Last Admin: 06/05/18 13:08 Dose: 1 mg Heparin Sodium (Porcine) (Heparin) 5,000 unit SQ Q12HR [facility] Last Admin: 06/05/18 20:27 Dose: 5,000 unit Sodium Chloride (Saline 0.9%) 1,000 mls @ 20 mls/hr IV .Q24H [facility] Last Admin: 06/05/18 21:36 Dose: Not Given Ceftriaxone Sodium 1,000 mg/ (Sodium Chloride) 50 mls @ 100 mls/hr IVPB Q24H [facility] Last Admin: 06/05/18 20:27 Dose: 100 mls/hr Piperacillin Sod/Tazobactam (Sod 3.375 gm/ Sodium Chloride) 100 mls @ 25 mls/ hr IVPB Q8HR [facility] Last Admin: 06/05/18 23:29 Dose: 25 mls/hr Insulin Aspart (Novolog) 0 unit SQ [facility]; Protocol Last Admin: 06/05/18 20:43 Dose: 6 unit Insulin Aspart (Novolog Mix 70-30 Vial) 12 unit SQ [facility] Last Admin: 06/05/18 20:43 Dose: 12 unit Insulin Aspart (Novolog Mix 70-30 Vial) 20 unit SQ AC-BRKFST [facility] Ketorolac Tromethamine (Toradol) 15 mg IVP Q6HR PRN PRN Reason: Moderate Pain Stop: 06/09/18 22:05 Last Admin: 06/05/18 15:02 Dose: 15 mg Levothyroxine Sodium (Synthroid) 112 mcg PO DAILY@0630 [facility] Last Admin: 06/05/18 05:52 Dose: 112 mcg Magnesium Oxide (Mag-Ox) 400 mg PO DAILY [facility] Last Admin: 06/05/18 08:04 Dose: 400 mg Melatonin (Melatonin) 6 mg PO [facility] Last Admin: 06/05/18 20:26 Dose: 6 mg Metoprolol Tartrate (Lopressor) 25 mg PO [facility] Last Admin: 06/05/18 10:46 Dose: 25 mg Metoprolol Tartrate (Lopressor) 50 mg PO [facility] Last Admin: 06/05/18 20:27 Dose: 50 mg Miscellaneous Information (Potassium Per Protocol) 1 each MISCELLANE DAILY PRN ; Protocol PRN Reason: Per Protocol Miscellaneous Information (Magnesium Per Protocol) 1 each MISCELLANE DAILY PRN ; Protocol PRN Reason: Per Protocol Morphine Sulfate (Morphine Sulfate (Inj)) 4 mg IV Q4HR PRN PRN Reason: Severe Pain Multivitamins (Theragran) 1 each PO DAILY@1200 [facility] Last Admin: 06/05/18 13:08 Dose: 1 each Naloxone HCl (Narcan) 0.2 mg IV Q2M PRN PRN Reason: Opioid Reversal Nitroglycerin (Nitrostat) 0.4 mg SUBLINGUAL Q5M PRN PRN Reason: Chest Pain Ondansetron HCl (Zofran) 4 mg IVP Q8HR PRN PRN Reason: Nausea And Vomiting Pantoprazole Sodium (Protonix) 40 mg IV DAILY [facility] Last Admin: 06/05/18 08:04 Dose: 40 mg Thiamine HCl (Vitamin B-1) 100 mg PO DAILY@1200 [facility] Last Admin: 06/05/18 13:09 Dose: 100 mg Ziprasidone (Geodon) 40 mg PO HS PRN PRN Reason: Agitation Home Medications Medication Instructions Recorded Confirmed Type Nitroglycerin Sl Tabs [Nitrostat] 0.4 mg SUBLINGUAL Q5M PRN 12/31/13 06/04/18 History Cholecalciferol [Vitamin D3] 1,000 unit PO BID 04/23/14 06/04/18 History Levothyroxine Sodium [Synthroid] 112 mcg PO DAILY 09/09/15 06/04/18 History Allopurinol [Zyloprim] 100 mg PO BID 09/03/16 06/04/18 History Aspirin EC [Ecotrin Low Dose] 81 mg PO BID 06/04/17 06/04/18 History Magnesium Oxide [Mag-Ox] 400 mg PO DAILY 06/04/17 06/04/18 History Atorvastatin Calcium [Lipitor] 80 mg PO HS 11/02/17 06/04/18 History Pantoprazole [Protonix] 40 mg PO HS 11/02/17 06/04/18 History Lisinopril [Zestril] 10 mg PO BID 05/29/18 06/04/18 History Metoprolol Tartrate [Lopressor] 25 mg PO QAM 05/29/18 06/04/18 History Metoprolol Tartrate [Lopressor] 50 mg PO HS 05/29/18 06/04/18 History ALPRAZolam [Xanax] 0.25 mg PO BID PRN #6 tab 06/03/18 06/04/18 Rx Acetaminophen Tab [Tylenol] 650 mg PO Q6HR PRN tab 06/03/18 06/04/18 Rx Albuterol Sulfate [Proair Hfa] 2 puff INHALATION RT-QID #0 06/03/18 06/04/18 Rx Cefuroxime Axetil [Ceftin] 500 mg PO BID #10 tab 06/03/18 06/04/18 Rx Folic Acid 1 mg PO DAILY@1200 #30 tab 06/03/18 06/04/18 Rx Insulin NPH/Reg Insulin 70/30 20 unit SQ HS #0 06/03/18 06/04/18 Rx [humuLIN 70/30 VIAL] Insulin NPH/Reg Insulin 70/30 30 unit SQ AC-BRKFST #0 06/03/18 06/04/18 Rx [humuLIN 70/30 VIAL] Multivitamins, Thera [Multivitamin 1 each PO DAILY@1200 #30 tab 06/03/18 Rx (formulary)] Thiamine [Vitamin B-1] 100 mg PO DAILY@1200 #30 tab 06/03/18 06/04/18 Rx Ziprasidone [Geodon] 40 mg PO HS PRN #0 06/03/18 06/04/18 Rx Allergies Allergy/AdvReac Type Severity Reaction Status Date / Time lorazepam [From Ativan] Allergy Unknown Verified 06/04/18 19:56 codeine AdvReac Nausea Verified 06/04/18 19:56 erythromycin base AdvReac Nausea Verified 06/04/18 19:56 [Erythromycin Base] Iodinated Contrast- Oral and AdvReac ELEVATED Verified 06/04/18 19:56 IV Dye B/P, FELT [Iodinated Contrast Media - LIKE PASSED IV Dye] methylprednisolone AdvReac Confusion Verified 06/04/18 19:56 [From Medrol] Sulfa (Sulfonamide AdvReac DIZZYNESS Verified 06/04/18 19:56 Antibiotics) Physical Exam Vitals: Vital Signs Temp Pulse Pulse Resp BP Pulse Ox 06/05/18 22:30 97.1 F L 54 L 14 122/60 98 06/05/18 19:44 64 06/05/18 19:33 68 06/05/18 16:04 62 06/05/18 16:00 16 06/05/18 15:53 66 06/05/18 14:55 97.0 F L 58 L 16 113/71 97 06/05/18 08:00 16 06/05/18 07:37 65 06/05/18 07:35 96.7 F L 101 H 16 130/57 97 12/20/18 07:26 65 06/04/18 23:45 97.8 F 66 20 112/56 98 Intake and Output 06/05/18 06/05/18 06/06/18 14:59 22:59 06:59 Intake Total 500 Balance 500 Intake: Oral 500 Other: Voiding Method Bedside Commode Toilet # Voids 2 1 # Bowel Movements 0 Weight 103.873 kg 103.873 kg 73-year-old female pleasant, confused able to give limited history but does relate she's feeling better since coming to Hospital HEENT: Anicteric conjunctiva are pink and moist nasal mucosa grossly intact without significant lesions, there is no thrush. Neck: The neck is supple without significant lymphadenopathy or thyromegaly. Lungs: They're symmetrical air entry there is improvement of the crackles and dullness in the right base with few wheezes are heard Heart: Regular rate and rhythm with an audible S1-S2, no S3 no S4. There is no significant murmur click or rub, PMI was nondisplaced. Abdomen: Obese ,Positive bowel sounds soft and now has significant tenderness to the right upper quadrant, without palpable masses or organomegaly. Extremities: The upper extremities have excellent pulses they are symmetric, no significant petechiae or telangiectasia. No splinter hemorrhages were noted. Lower extremities no evidence of some trace pedal edema no open ulcerations are seen Neuro: The patient is awake and alert she started to person, where she is at Hospital but is a poor historian does move upper and lower extremities Results CBC & Chem 7: 06/04/18 19:30 06/04/18 19:30 Labs: Abnormal Lab Results - Last 24 Hours (Table) 06/05/18 06/05/18 06/05/18 Range/Units 01:35 09:07 09:07 POC Glucose (mg/dL) 129 H (75-99) mg/dL Hemoglobin A1c 6.5 H (4.0-6.0) % Magnesium 1.5 L (1.6-2.3) mg/dL 06/05/18 06/05/18 06/05/18 Range/Units 12:03 17:25 20:38 POC Glucose (mg/dL) 144 H 169 H 213 H (75-99) mg/dL Hemoglobin A1c (4.0-6.0) % Magnesium (1.6-2.3) mg/dL Microbiology - Last 24 Hours (Table) 06/04/18 19:30 Blood Culture - Preliminary Blood No Growth after 24 hours 06/04/18 21:00 Urine Culture - Preliminary Urine,Catheterized Laboratory Results WBC 14.1 k/uL (3.8-10.6) H 06/04/18 19:30 RBC 3.81 m/uL (3.80-5.40) 06/04/18 19:30 Hgb 11.4 gm/dL (11.4-16.0) 06/04/18 19:30 Hct 35.0 % (34.0-46.0) 06/04/18 19:30 MCV 92.0 fL (80.0-100.0) 06/04/18 19:30 MCH 29.9 pg (25.0-35.0) 06/04/18 19:30 MCHC 32.5 g/dL (31.0-37.0) 06/04/18 19:30 RDW 16.3 % (11.5-15.5) H 06/04/18 19:30 Plt Count 247 k/uL (150-450) 06/04/18 19:30 Neutrophils % 76 % 06/04/18 19:30 Lymphocytes % 14 % 06/04/18 19:30 Monocytes % 7 % 06/04/18 19:30 Eosinophils % 1 % 06/04/18 19:30 Basophils % 0 % 06/04/18 19:30 Neutrophils # 10.7 k/uL (1.3-7.7) H 06/04/18 19:30 Lymphocytes # 1.9 k/uL (1.0-4.8) 06/04/18 19:30 Monocytes # 1.0 k/uL (0-1.0) 06/04/18 19:30 Eosinophils # 0.1 k/uL (0-0.7) 06/04/18 19:30 Basophils # 0.0 k/uL (0-0.2) 06/04/18 19:30 Anisocytosis Slight 06/04/18 19:30 PT 10.3 sec (9.0-12.0) 06/04/18 19:30 INR 1.0 (<1.2) 06/04/18 19:30 APTT 26.8 sec (22.0-30.0) 06/04/18 19:30 Sodium 139 mmol/L (137-145) 06/04/18 19:30 Potassium 4.2 mmol/L (3.5-5.1) 06/04/18 19:30 Chloride 106 mmol/L (98-107) 06/04/18 19:30 Carbon Dioxide 24 mmol/L (22-30) 06/04/18 19:30 Anion Gap 9 mmol/L 06/04/18 19:30 BUN 26 mg/dL (7-17) H 06/04/18 19:30 Creatinine 1.00 mg/dL (0.52-1.04) 06/04/18 19:30 Est GFR (CKD-EPI)AfAm 64 (>60 ml/min/1.73 sqM) 06/04/18 19:30 Est GFR (CKD-EPI)NonAf 56 (>60 ml/min/1.73 sqM) 06/04/18 19:30 Glucose 110 mg/dL (74-99) H 06/04/18 19:30 POC Glucose (mg/dL) 213 mg/dL (75-99) H 06/05/18 20:38 POC Glu [employer] ID Tonya Lopez 06/05/18 20:[address] Glu mg/dL 140 06/05/18 09:07 Hemoglobin A1c 6.5 % (4.0-6.0) H 06/05/18 09:07 Plasma Lactic Acid Jewel 1.6 mmol/L (0.7-2.0) 06/04/18 19:30 Calcium 9.2 mg/dL (8.4-10.2) 06/04/18 19:30 Magnesium 1.5 mg/dL (1.6-2.3) L 06/05/18 09:07 Total Bilirubin 1.0 mg/dL (0.2-1.3) 06/04/18 19:30 AST 35 U/L (14-36) 06/04/18 19:30 ALT 26 U/L (9-52) 06/04/18 19:30 Alkaline Phosphatase 111 U/L (38-126) 06/04/18 19:30 Troponin I <0.012 ng/mL (0.000-0.034) 06/04/18 19:30 Total Protein 6.4 g/dL (6.3-8.2) 06/04/18 19:30 Albumin 3.6 g/dL (3.5-5.0) 06/04/18 19:30 Amylase 68 U/L (30-110) 06/04/18 19:30 Lipase 304 U/L (23-300) H 06/04/18 19:30 Urine Color Yellow 06/04/18 21:00 Urine Appearance Clear (Clear) 06/04/18 21:00 Urine pH 6.5 (5.0-8.0) 06/04/18 21:00 Ur Specific [place] 1.017 (1.001-1.035) 06/04/18 21:00 Urine Protein 1+ (Negative) H 06/04/18 21:00 Urine Glucose (UA) Negative (Negative) 06/04/18 21:00 Urine Ketones Negative (Negative) 06/04/18 21:00 Urine Blood Negative (Negative) 06/04/18 21:00 Urine Nitrite Negative (Negative) 06/04/18 21:00 Urine Bilirubin Negative (Negative) 06/04/18 21:00 Urine Urobilinogen <2.0 mg/dL (<2.0) 06/04/18 21:00 Ur Leukocyte Esterase Negative (Negative) 06/04/18 21:00 Urine RBC <1 /hpf (0-5) 06/04/18 21:00 Urine WBC 1 /hpf (0-5) 06/04/18 21:00 Ur Squamous Epith Cells 1 /hpf (0-4) 06/04/18 21:00 Urine Bacteria Rare /hpf (None) H 06/04/18 21:00 Urine Mucus Rare /hpf (None) H 06/04/18 21:00 Microbiology 06/04/18 19:30 Blood Blood Culture - Preliminary No Growth after 24 hours 06/04/18 21:00 Urine,Catheterized Urine Culture - Preliminary Assessment and Plan (1) Fever Narrative/Plan: 73-year-old female presents to Hospital with significant right-sided abdominal pain associated with fever and chills and generalized malaise. At presentation 101.3 fever was noted there was also leukocytosis with a white count of 14.1. Computed tomography scan was performed that showed evidence of the significant improvement of the right lower lobe pneumonia but still has some atelectasis that was seen. The gallbladder was difficult to discern by the computed tomography scan and ultrasound has been requested. Also been seen by surgery at this time. At this juncture would continue antibiotic therapy for further evaluation of cholecystitis is occurring. Her pain control seems to be adequate at this time. Current Visit: Yes Status: Acute Code(s): R50.9 - FEVER, UNSPECIFIED SNOMED Code(s): 649639255 (2) Right sided abdominal pain Current Visit: Yes Status: Acute Code(s): R10.9 - UNSPECIFIED ABDOMINAL PAIN SNOMED Code(s): 970885886
[2018-06-06] MEDS: LEVOTHYROXINE 112 MCG TAB PO SCH (05:56)
[2018-06-06 07:11] LABS: Glucose,Whole Blood 114 mg/dL (75-99)
[2018-06-06] MEDS: INSULIN ASPART 100 UNIT/ML 1 ML 10 ML VIAL SQ SCH ×4 (07:34→20:53)
[2018-06-06] MEDS: ASPIRIN 81 MG PO SCH ×2 (07:42→20:53)
[2018-06-06] MEDS: PANTOPRAZOLE 40 MG/10 ML VIAL IV SCH (07:42)
[2018-06-06] MEDS: ALLOPURINOL 100 MG TAB PO SCH ×2 (07:43→20:53)
[2018-06-06] MEDS: HEPARIN SODIUM,PORCINE 5,000 UNIT/ML 1 ML VIAL SQ SCH ×2 (07:43→20:49)
[2018-06-06] MEDS: MAGNESIUM OXIDE 400 MG TAB PO SCH (07:43)
[2018-06-06] MEDS: INSULN ASP PRT/INSULIN ASPART 100 UNIT/ML 10 ML VIAL SQ SCH ×2 (07:43→20:54)
[2018-06-06] MEDS: METOPROLOL TARTRATE 25 MG TAB PO SCH (07:43)
[2018-06-06] MEDS: CHOLECALCIFEROL 1,000 UNIT TAB PO SCH ×2 (07:43→20:50)
[2018-06-06 08:28] LABS: Anisocytosis Slight; Basophils % (A) 0 %; Eosinophils # (A) 0.2 k/uL (0-0.7); Eosinophils % (A) 2 %; HCT 30.6 % (34.0-46.0); HGB 9.7 gm/dL (11.4-16.0); Hypochromasia Slight; Lymphocytes # (A) 1.3 k/uL (1.0-4.8); Lymphocytes % (A) 14 %; MCH 30.4 pg (25.0-35.0); MCHC 31.5 g/dL (31.0-37.0); MCV 96.4 fL (80.0-100.0); Mean Platelet Volume 7.6; Monocytes # (A) 0.6 k/uL (0-1.0); Monocytes % (A) 7 %; Neutrophils # (A) 6.8 k/uL (1.3-7.7); Neutrophils % (A) 74 %; Platelet Count 217 k/uL (150-450); RBC 3.18 m/uL (3.80-5.40); RDW 16.3 % (11.5-15.5); WBC 9.3 k/uL (3.8-10.6)
[2018-06-06 08:33] LABS: Albumin 3.2 g/dL (3.5-5.0); Magnesium 1.9 mg/dL (1.6-2.3); Potassium 4.1 mmol/L (3.5-5.1); Total Bilirubin 0.5 mg/dL (0.2-1.3); Total Protein 5.8 g/dL (6.3-8.2)
[2018-06-06] MEDS: PIPERACILLIN-TAZOBACTAM 3.375 GM in SODIUM CHLORIDE 0.9% 100 ML IVPB SCH ×3 (08:43→23:46)
--- NOTE | 2018-06-06 09:45 | US ---
EXAMINATION TYPE: US gallbladder DATE OF EXAM: 06/06/2018 COMPARISON: CT CLINICAL HISTORY: abdominal pain. Right lateral abdominal pain with fever, chills, constipation per p atient EXAM MEASUREMENTS: Liver Length: 13.8 cm Gallbladder Wall: 0.2 cm CBD: 0.3 cm Right Kidney: 11.6 x 5.4 x5.6 cm US is technically limited due to intercostal scanning Pancreas: Unremarkable Liver: Overall homogeneous. Gallbladder: wnl Evidence for sonographic Carter's sign: no CBD: wnl Right Kidney: No hydronephrosis or masses seen . Right cortical renal thinning is appreciated. IMPRESSION: 1. No sonographic evidence of cholelithiasis or acute cholecystitis. 2. Sonographic sequela of medical renal disease. No right-sided hydronephrosis.
[2018-06-06] MEDS: IPRATROPIUM-ALBUTEROL 3 ML NEB INHALATION SCH ×4 (09:55→19:48)
[2018-06-06] MEDS: FOLIC ACID 1 MG TAB PO SCH (11:25)
[2018-06-06] MEDS: THIAMINE 100 MG TAB PO SCH (11:25)
[2018-06-06] MEDS: MULTIVITAMINS, THERA 1 EACH TAB PO SCH (11:25)
[2018-06-06 12:36] LABS: Glucose,Whole Blood 122 mg/dL (75-99)
--- NOTE | 2018-06-06 12:53 | P.PN ---
Subjective 73-year-old female admitted with sepsis source of sepsis is not clear because of her right upper quadrant abdominal pain in spite of her negative CAT scan of the abdomen we obtain ultrasound of the gallbladder which is negative patient's pain is most on the posterior aspect in the right upper quadrant. Patient still has the pain and fevers resolved wanted to go home looks much better. Patient is presently on Zosyn. Discussed with general surgery, obtaining HIDA scan. Constitutional: Denied any fatigue denied any fever. Cardio vascular: denied any chest pain, palpitations Gastrointestinal denied any nausea vomiting Pulmonary: Denied any shortness of breath cough Neurologic denied any new focal deficits All inpatient medications were reviewed and appropriate changes in these medications as dictated in the interval history and assessment and plan. Objective - Vital Signs Vital signs: Vital Signs Temp 97.4 F L 06/06/18 06:29 Pulse 67 06/06/18 06:29 Resp 16 06/06/18 06:29 BP 112/54 06/06/18 06:29 Pulse Ox 100 06/06/18 06:29 Intake & Output 06/05/18 06/06/18 06/06/18 18:59 06:59 18:59 Intake Total 500 Balance 500 Weight 103.873 kg 103.873 kg 103.873 kg Intake: Oral 500 Other: Voiding Method Toilet Toilet # Voids 2 3 # Bowel Movements 0 - Exam PHYSICAL EXAMINATION: GENERAL: The patient is alert and oriented x3, not in any acute distress. Well developed, well nourished. HEENT: Pupils are round and equally reacting to light. EOMI. No scleral icterus. No conjunctival pallor. Normocephalic, atraumatic. No pharyngeal erythema. No thyromegaly. CARDIOVASCULAR: S1 and S2 present. No murmurs, rubs, or gallops. PULMONARY: Chest is clear to auscultation, no wheezing or crackles. ABDOMEN: Soft, there is some tenderness in the right upper quadrant Carter's sign is negative. MUSCULOSKELETAL: No joint swelling or deformity. EXTREMITIES: No cyanosis, clubbing, or pedal edema. NEUROLOGICAL: Gross neurological examination did not reveal any focal deficits. SKIN: No rashes. - Labs CBC & Chem 7: 06/06/18 08:07 06/06/18 08:07 Labs: Abnormal Lab Results - Last 24 Hours (Table) 12/20/18 06/05/18 06/05/18 Range/Units 09:07 17:25 20:38 RBC (3.80-5.40) m/uL Hgb (11.4-16.0) gm/dL Hct (34.0-46.0) % RDW (11.5-15.5) % Chloride (98-107) mmol/L BUN (7-17) mg/dL Glucose (74-99) mg/dL POC Glucose (mg/dL) 169 H 213 H (75-99) mg/dL Hemoglobin A1c 6.5 H (4.0-6.0) % Total Protein (6.3-8.2) g/dL Albumin (3.5-5.0) g/dL 06/06/18 06/06/18 06/06/18 Range/Units 07:09 08:07 08:07 RBC 3.18 L (3.80-5.40) m/uL Hgb 9.7 L D (11.4-16.0) gm/dL Hct 30.6 L (34.0-46.0) % RDW 16.3 H (11.5-15.5) % Chloride 111 H (98-107) mmol/L BUN 23 H (7-17) mg/dL Glucose 113 H (74-99) mg/dL POC Glucose (mg/dL) 114 H (75-99) mg/dL Hemoglobin A1c (4.0-6.0) % Total Protein 5.8 L (6.3-8.2) g/dL Albumin 3.2 L (3.5-5.0) g/dL 06/06/18 Range/Units 12:33 RBC (3.80-5.40) m/uL Hgb (11.4-16.0) gm/dL Hct (34.0-46.0) % RDW (11.5-15.5) % Chloride (98-107) mmol/L BUN (7-17) mg/dL Glucose (74-99) mg/dL POC Glucose (mg/dL) 122 H (75-99) mg/dL Hemoglobin A1c (4.0-6.0) % Total Protein (6.3-8.2) g/dL Albumin (3.5-5.0) g/dL Microbiology - Last 24 Hours (Table) 06/04/18 19:30 Blood Culture - Preliminary Blood No Growth after 24 hours 06/04/18 21:00 Urine Culture - Preliminary Urine,Catheterized Assessment and Plan Plan: -Sepsis: Source is not clear considering her abdominal pain is better for CAT scan being negative, ultrasound of the liver is negative for any cholecystitis obtaining HIDA scan My suspicion is low that patient has pneumonia at this time patient has very minimal atelectasis or CAT scan without any air bronchogram patient is presently on [facility] infectious disease evaluated the patient is afebrile today looks much better today. -Type 2 diabetes mellitus: Patient is on 70/30 regimen will cut down the dose of insulin to avoid hypoglycemia which is expected because of her dietary habits here in the hospital. Blood sugars are well controlled now -Hypomagnesemia magnesium will be supplemented -Hyperlipidemia -Sleep apnea -Hypothyroidism -Coronary artery disease For above-mentioned chronic medical problems patient will be resumed and continued on home medications patient will need GI and DVT prophylaxis pharmacologic which will be resumed
--- NOTE | 2018-06-06 16:21 | P.PN ---
Subjective Progress Note Date: 06/06/18 Principal diagnosis: Right flank pain Patient still having pain in the right flank. No additional fevers. White blood cell count is normal. Cultures negative. Ultrasound showed no abnormalities. HIDA scan without ejection fraction is pending. She is hungry. Objective - Vital Signs Vital signs: Vital Signs Temp 97.0 F L 06/06/18 13:52 Pulse 68 06/06/18 13:52 Resp 18 06/06/18 13:52 BP 129/56 06/06/18 13:52 Pulse Ox 95 06/06/18 13:52 Intake & Output 06/05/18 06/06/18 06/06/18 18:59 06:59 18:59 Intake Total 500 Balance 500 Weight 103.873 kg 103.873 kg 103.873 kg Intake: Oral 500 Other: Voiding Method Toilet Toilet # Voids 2 3 2 # Bowel Movements 0 - Exam Abdomen: Soft, nondistended, mild right flank tenderness, small single pustule right flank measuring 2-3 mm otherwise no rash - Labs CBC & Chem 7: 06/06/18 08:07 06/06/18 08:07 Labs: Abnormal Lab Results - Last 24 Hours (Table) 06/05/18 06/05/18 06/05/18 Range/Units 09:07 17:25 20:38 RBC (3.80-5.40) m/uL Hgb (11.4-16.0) gm/dL Hct (34.0-46.0) % RDW (11.5-15.5) % Chloride (98-107) mmol/L BUN (7-17) mg/dL Glucose (74-99) mg/dL POC Glucose (mg/dL) 169 H 213 H (75-99) mg/dL Hemoglobin A1c 6.5 H (4.0-6.0) % Total Protein (6.3-8.2) g/dL Albumin (3.5-5.0) g/dL 06/06/18 06/06/18 06/06/18 Range/Units 07:09 08:07 08:07 RBC 3.18 L (3.80-5.40) m/uL Hgb 9.7 L D (11.4-16.0) gm/dL Hct 30.6 L (34.0-46.0) % RDW 16.3 H (11.5-15.5) % Chloride 111 H (98-107) mmol/L BUN 23 H (7-17) mg/dL Glucose 113 H (74-99) mg/dL POC Glucose (mg/dL) 114 H (75-99) mg/dL Hemoglobin A1c (4.0-6.0) % Total Protein 5.8 L (6.3-8.2) g/dL Albumin 3.2 L (3.5-5.0) g/dL 06/06/18 Range/Units 12:33 RBC (3.80-5.40) m/uL Hgb (11.4-16.0) gm/dL Hct (34.0-46.0) % RDW (11.5-15.5) % Chloride (98-107) mmol/L BUN (7-17) mg/dL Glucose (74-99) mg/dL POC Glucose (mg/dL) 122 H (75-99) mg/dL Hemoglobin A1c (4.0-6.0) % Total Protein (6.3-8.2) g/dL Albumin (3.5-5.0) g/dL Microbiology - Last 24 Hours (Table) 06/04/18 21:00 Urine Culture - Final Urine,Catheterized 06/04/18 19:30 Blood Culture - Preliminary Blood No Growth after 24 hours Assessment and Plan (1) Right sided abdominal pain Narrative/Plan: Right flank pain. Shingles remain a possible etiology. Await HIDA scan. Monitor skin right flank. Current Visit: Yes Status: Acute Code(s): R10.9 - UNSPECIFIED ABDOMINAL PAIN SNOMED Code(s): 705228018
[2018-06-06 18:15] LABS: Glucose,Whole Blood 177 mg/dL (75-99)
--- NOTE | 2018-06-06 18:17 | NM ---
EXAMINATION TYPE: NM hepatobiliary wo EF DATE OF EXAM: 06/06/2018 COMPARISON: 10/13/2012 HISTORY: Abdominal pain TECHNIQUE: After the intravenous administration of 5.01 mCi Tc 99m Mebrofenin hepatobiliary scintigra phy is performed. Immediate images post injection. FINDINGS: There is prompt uptake of the tracer by the liver that has normal size and contour. There is no focal liver defect. There is tracer in the small bowel at 12 minutes. There is tracer in the gallbladder a t 18 minutes. There is no evidence of cystic duct or common bile duct obstruction. Tracers mostly dell ared from the liver at 60 minutes. IMPRESSION: Normal hepatobiliary scan. No evidence of cystic duct or common bile duct obstruction. No change compared to old exam.
[2018-06-06] MEDS: MELATONIN 3 MG TABLET PO SCH (20:49)
[2018-06-06 20:50] LABS: Glucose,Whole Blood 144 mg/dL (75-99)
[2018-06-06] MEDS: METOPROLOL TARTRATE 50 MG TAB PO SCH (20:50)
[2018-06-06] MEDS: ATORVASTATIN 80 MG TAB PO SCH (20:50)
[2018-06-06] MEDS: SODIUM CHLORIDE 0.9% 1,000 ML IV SCH (20:59)
[2018-06-07] MEDS: LEVOTHYROXINE 112 MCG TAB PO SCH (06:17)
[2018-06-07] MEDS: IPRATROPIUM-ALBUTEROL 3 ML NEB INHALATION SCH ×3 (07:33→15:50)
[2018-06-07 07:46] LABS: Glucose,Whole Blood 138 mg/dL (75-99)
[2018-06-07] MEDS: PANTOPRAZOLE 40 MG/10 ML VIAL IV SCH (07:57)
[2018-06-07] MEDS: MAGNESIUM OXIDE 400 MG TAB PO SCH (07:58)
[2018-06-07] MEDS: ASPIRIN 81 MG PO SCH (07:58)
[2018-06-07] MEDS: ALLOPURINOL 100 MG TAB PO SCH (07:58)
[2018-06-07] MEDS: INSULIN ASPART 100 UNIT/ML 1 ML 10 ML VIAL SQ SCH ×2 (07:58→11:47)
[2018-06-07] MEDS: HEPARIN SODIUM,PORCINE 5,000 UNIT/ML 1 ML VIAL SQ SCH (07:58)
[2018-06-07] MEDS: CHOLECALCIFEROL 1,000 UNIT TAB PO SCH (07:58)
[2018-06-07] MEDS: PIPERACILLIN-TAZOBACTAM 3.375 GM in SODIUM CHLORIDE 0.9% 100 ML IVPB SCH (07:58)
[2018-06-07] MEDS: METOPROLOL TARTRATE 25 MG TAB PO SCH (07:58)
[2018-06-07] MEDS: INSULN ASP PRT/INSULIN ASPART 100 UNIT/ML 10 ML VIAL SQ SCH (07:59)
[2018-06-07] MEDS: KETOROLAC 30 MG/ML 1 ML VIAL IVP PRN (08:01)
[2018-06-07 08:06] LABS: Anisocytosis Slight; Basophils % (A) 1 %; Eosinophils # (A) 0.3 k/uL (0-0.7); Eosinophils % (A) 4 %; HCT 32.9 % (34.0-46.0); HGB 10.7 gm/dL (11.4-16.0); Hypochromasia Slight; Lymphocytes # (A) 1.6 k/uL (1.0-4.8); Lymphocytes % (A) 23 %; MCHC 32.6 g/dL (31.0-37.0); Mean Platelet Volume 7.7; Monocytes # (A) 0.4 k/uL (0-1.0); Monocytes % (A) 6 %; Neutrophils # (A) 4.7 k/uL (1.3-7.7); Neutrophils % (A) 65 %; Platelet Count 258 k/uL (150-450); RBC 3.46 m/uL (3.80-5.40); WBC 7.2 k/uL (3.8-10.6)
[2018-06-07 08:21] LABS: Calcium 9.5 mg/dL (8.4-10.2)
[2018-06-07 11:42] LABS: Glucose,Whole Blood 126 mg/dL (75-99)
--- NOTE | 2018-06-07 11:51 | P.PN ---
Subjective Progress Note Date: 06/07/18 Principal diagnosis: Right flank pain Patient says her pain is slightly improved. White blood cell count was normal. She is afebrile now. HIDA scan without ejection fraction was normal. Tolerating diet. Describes the pain as being more superficial today. No pain in the front. Objective - Vital Signs Vital signs: Vital Signs Temp 97.8 F 06/07/18 06:51 Pulse 59 L 06/07/18 07:43 Resp 22 06/07/18 06:51 BP 151/86 06/07/18 06:51 Pulse Ox 97 06/07/18 06:51 Intake & Output 06/06/18 06/07/18 06/07/18 18:59 06:59 18:59 Intake Total 300 Balance 300 Weight 103.873 kg 103.873 kg Intake: Oral 300 Other: Voiding Method Toilet # Voids 2 3 1 # Bowel Movements 0 - Exam Abdomen nontender nondistended, no significant change in the subtle rash right flank - Labs CBC & Chem 7: 06/07/18 07:49 06/07/18 07:49 Labs: Abnormal Lab Results - Last 24 Hours (Table) 06/06/18 06/06/18 06/06/18 Range/Units 12:33 18:13 20:48 RBC (3.80-5.40) m/uL Hgb (11.4-16.0) gm/dL Hct (34.0-46.0) % RDW (11.5-15.5) % Chloride (98-107) mmol/L Glucose (74-99) mg/dL POC Glucose (mg/dL) 122 H 177 H 144 H (75-99) mg/dL 06/07/18 06/07/18 06/07/18 Range/Units 07:14 07:49 07:49 RBC 3.46 L (3.80-5.40) m/uL Hgb 10.7 L (11.4-16.0) gm/dL Hct 32.9 L (34.0-46.0) % RDW 16.0 H (11.5-15.5) % Chloride 113 H (98-107) mmol/L Glucose 134 H (74-99) mg/dL POC Glucose (mg/dL) 138 H (75-99) mg/dL 06/07/18 Range/Units 11:40 RBC (3.80-5.40) m/uL Hgb (11.4-16.0) gm/dL Hct (34.0-46.0) % RDW (11.5-15.5) % Chloride (98-107) mmol/L Glucose (74-99) mg/dL POC Glucose (mg/dL) 126 H (75-99) mg/dL Microbiology - Last 24 Hours (Table) 06/04/18 19:30 Blood Culture - Preliminary Blood No Growth after 48 hours 06/04/18 21:00 Urine Culture - Final Urine,Catheterized Assessment and Plan (1) Right sided abdominal pain Narrative/Plan: HIDA scan was normal. No surgical intervention planned. Still suspect possible early shingles. We'll sign off. Please call if needed. Current Visit: Yes Status: Acute Code(s): R10.9 - UNSPECIFIED ABDOMINAL PAIN SNOMED Code(s): 241285631
[2018-06-07] MEDS: THIAMINE 100 MG TAB PO SCH (12:37)
[2018-06-07] MEDS: FOLIC ACID 1 MG TAB PO SCH (12:37)
[2018-06-07] MEDS: MULTIVITAMINS, THERA 1 EACH TAB PO SCH (12:37)
--- NOTE | 2018-06-07 14:22 | P.DS ---
Providers Date of admission: 06/04/18 21:12 Attending physician: Penny Garcia Consults: 06/05/18 12:01 Consult Physician Routine Consulting Provider: Yong Crowe Consult Reason/Comments: abdominal pain Do you want consulting provider notified?: Yes 06/05/18 12:58 Consult Physician Routine Consulting Provider: Adalberto More Reason/Comments: Sepsis, possible cholicystitis Do you want consulting provider notified?: Yes Primary care physician: [facility] Course: 73-year-old female admitted with sepsis source of sepsis is not clear because of her right upper quadrant abdominal pain in spite of her negative CAT scan of the abdomen we obtain ultrasound of the gallbladder which is negative patient's pain is most on the posterior aspect in the right upper quadrant. Patient still has the pain and fevers resolved wanted to go home looks much better. Patient is presently on Zosyn. Discussed with general surgery, obtaining HIDA scan. 06/07/2018 Patient doesn't have any more fever abdominal pain significantly improved HIDA scan did not show any significant abnormality. Etiology of her fever is unknown may be viral but will discharged on empiric Augmentin considering her repeat hospitalization. My suspicion is low for early shingles no significant vesicular lesions all the completely cannot rule it out since that she had an abdominal pain which was not explained by anything else I'll discharge her on acyclovir for a week. PHYSICAL EXAMINATION: GENERAL: The patient is alert and oriented x3, not in any acute distress. Well developed, well nourished. HEENT: Pupils are round and equally reacting to light. EOMI. No scleral icterus. No conjunctival pallor. Normocephalic, atraumatic. No pharyngeal erythema. No thyromegaly. CARDIOVASCULAR: S1 and S2 present. No murmurs, rubs, or gallops. PULMONARY: Chest is clear to auscultation, no wheezing or crackles. ABDOMEN: Soft, there is some tenderness in the right upper quadrant Carter's sign is negative. MUSCULOSKELETAL: No joint swelling or deformity. EXTREMITIES: No cyanosis, clubbing, or pedal edema. NEUROLOGICAL: Gross neurological examination did not reveal any focal deficits. SKIN: No rashes. Assessment and Plan Plan: -Sepsis: Source is not clear considering her abdominal pain is better for CAT scan being negative, ultrasound of the liver is negative for any cholecystitis HIDA scan didn't show anything patient's symptoms completely resolved including fever but the source of infection is not clear patient will be discharged on empiric Augmentin.may be viral. -Type 2 diabetes mellitus: -Hyperlipidemia -Sleep apnea -Hypothyroidism -Coronary artery disease Patient Condition at Discharge: Stable Plan - Discharge Summary New Discharge Prescriptions: New Acyclovir 400 mg PO TID #20 tablet Amoxic-Pot Clav 875-125Mg [Augmentin 875-125] 1 tab PO Q12HR #14 tablet Insuln Asp Prt/Insulin Aspart [NovoLOG MIX 70-30 VIAL] 20 unit SQ AC-BRKFST vial Continue Nitroglycerin Sl Tabs [Nitrostat] 0.4 mg SUBLINGUAL Q5M PRN PRN Reason: Chest Pain Cholecalciferol [Vitamin D3] 1,000 unit PO BID Levothyroxine Sodium [Synthroid] 112 mcg PO DAILY Allopurinol [Zyloprim] 100 mg PO BID Aspirin EC [Ecotrin Low Dose] 81 mg PO BID Magnesium Oxide [Mag-Ox] 400 mg PO DAILY Atorvastatin Calcium [Lipitor] 80 mg PO HS Pantoprazole [Protonix] 40 mg PO HS Metoprolol Tartrate [Lopressor] 25 mg PO QAM Metoprolol Tartrate [Lopressor] 50 mg PO HS Acetaminophen Tab [Tylenol] 650 mg PO Q6HR PRN tab PRN Reason: Mild Pain Or Fever > 100.5 Folic Acid 1 mg PO DAILY@1200 #30 tab Multivitamins, Thera [Multivitamin (formulary)] 1 each PO DAILY@1200 #30 tab Thiamine [Vitamin B-1] 100 mg PO DAILY@1200 #30 tab Albuterol Sulfate [Proair Hfa] 2 puff INHALATION RT-QID #0 Ziprasidone [Geodon] 40 mg PO HS PRN #0 PRN Reason: Agitation ALPRAZolam [Xanax] 0.25 mg PO BID PRN #6 tab PRN Reason: Anxiety Changed Insulin NPH/Reg Insulin 70/30 [humuLIN 70/30 VIAL] 16 unit SQ HS #0 Lisinopril [Zestril] 10 mg PO DAILY #0 Discontinued Insulin NPH/Reg Insulin 70/30 [humuLIN 70/30 VIAL] 30 unit SQ AC-BRKFST #0 Cefuroxime Axetil [Ceftin] 500 mg PO BID #10 tab Discharge Medication List Nitroglycerin Sl Tabs [Nitrostat] 0.4 mg SUBLINGUAL Q5M PRN 12/31/13 [History] Cholecalciferol [Vitamin D3] 1,000 unit PO BID 04/23/14 [History] Levothyroxine Sodium [Synthroid] 112 mcg PO DAILY 09/09/15 [History] Allopurinol [Zyloprim] 100 mg PO BID 09/03/16 [History] Aspirin EC [Ecotrin Low Dose] 81 mg PO BID 06/04/17 [History] Magnesium Oxide [Mag-Ox] 400 mg PO DAILY 06/04/17 [History] Atorvastatin Calcium [Lipitor] 80 mg PO HS 11/02/17 [History] Pantoprazole [Protonix] 40 mg PO HS 11/02/17 [History] Metoprolol Tartrate [Lopressor] 25 mg PO QAM 05/29/18 [History] Metoprolol Tartrate [Lopressor] 50 mg PO HS 05/29/18 [History] ALPRAZolam [Xanax] 0.25 mg PO BID PRN #6 tab 06/03/18 [Rx] Acetaminophen Tab [Tylenol] 650 mg PO Q6HR PRN tab 06/03/18 [Rx] Albuterol Sulfate [Proair Hfa] 2 puff INHALATION RT-QID #0 06/03/18 [Rx] Folic Acid 1 mg PO DAILY@1200 #30 tab 06/03/18 [Rx] Multivitamins, Thera [Multivitamin (formulary)] 1 each PO DAILY@1200 #30 tab [Rx] Thiamine [Vitamin B-1] 100 mg PO DAILY@1200 #30 tab 06/03/18 [Rx] Ziprasidone [Geodon] 40 mg PO HS PRN #0 06/03/18 [Rx] Acyclovir 400 mg PO TID #20 tablet 06/07/18 [Rx] Amoxic-Pot Clav 875-125Mg [Augmentin 875-125] 1 tab PO Q12HR #14 tablet [Rx] Insulin NPH/Reg Insulin 70/30 [humuLIN 70/30 VIAL] 16 unit SQ HS #0 06/07/18 [Rx ] Insuln Asp Prt/Insulin Aspart [NovoLOG MIX 70-30 VIAL] 20 unit SQ AC-BRKFST vial 06/07/18 [Rx] Lisinopril [Zestril] 10 mg PO DAILY #0 06/07/18 [Rx] Follow up Appointment(s)/[facility]): [facility] [[facility] - As Needed Cesar Nielsen DO [Primary Care Provider] - 3 Days Activity/Diet/Wound Care/Special Instructions: Rx in chart. Discharge Disposition: HOME SELF-CARE
[2018-06-07 15:01] VITALS: BP 134/61; PULSE 67; RESP 16; TEMP 98.4
== END 2018-06-07 16:17 | disposition home health service (06) | DRG 871 ==
LOC: EC 18:02 → 4MS4W 21:12
PROVIDERS: ADMIT Hospitalist; ATTEND Hospitalist
DX: A41.9 Sepsis, unspecified organism (principal); J18.1 Lobar pneumonia, unspecified organism; J98.11 Atelectasis; E11.22 Type 2 diabetes mellitus with diabetic chronic kidney disease; N18.3 Chronic kidney disease, stage 3 (moderate); E83.42 Hypomagnesemia; I12.9 Hypertensive chronic kidney disease with stage 1 through stage 4 chronic kidney disease, or unspecified chronic kidney disease; E89.0 Postprocedural hypothyroidism; M43.16 Spondylolisthesis, lumbar region; E78.5 Hyperlipidemia, unspecified; G47.30 Sleep apnea, unspecified; I25.10 Atherosclerotic heart disease of native coronary artery without angina pectoris; F41.0 Panic disorder [episodic paroxysmal anxiety]; F32.9 Major depressive disorder, single episode, unspecified; K59.00 Constipation, unspecified; M10.9 Gout, unspecified; I25.2 Old myocardial infarction; Z79.82 Long term (current) use of aspirin; Z79.890 Hormone replacement therapy; Z79.4 Long term (current) use of insulin; Z79.899 Other long term (current) drug therapy; Z99.89 Dependence on other enabling machines and devices; Z86.14 Personal history of Methicillin resistant Staphylococcus aureus infection; Z95.5 Presence of coronary angioplasty implant and graft; Z98.1 Arthrodesis status; Z87.891 Personal history of nicotine dependence; Z85.850 Personal history of malignant neoplasm of thyroid; Z90.49 Acquired absence of other specified parts of digestive tract; Z87.39 Personal history of other diseases of the musculoskeletal system and connective tissue; Z88.5 Allergy status to narcotic agent; Z88.2 Allergy status to sulfonamides; Z88.8 Allergy status to other drugs, medicaments and biological substances; Z88.1 Allergy status to other antibiotic agents; Z91.041 Radiographic dye allergy status; Z80.9 Family history of malignant neoplasm, unspecified; Z83.3 Family history of diabetes mellitus; Z82.49 Family history of ischemic heart disease and other diseases of the circulatory system
CPT/HCPCS: 36415; 74176; 76705; 78226; 80048; 80053; 81001; 82150; 83036; 83605; 83690; 83735; 84484; 85025; 85610; 85730; 87040; 87086; 93005; 94640; 96361; 96365; 96375; 99285

== ENCOUNTER 2018-06-22 15:38 | Inpatient (IN) | payer MEDICARE, BC ==
[2018-06-22] MEDS ORDERED: MAG HYDROX/AL HYDROX/SIMETH 30 ML, HYOSCYAMINE ELIXIR 10 ML, CIMETIDINE HCL 300 MG, LID... PO STA ×4 (16:11)
[2018-06-22] MEDS ORDERED: ASPIRIN 81 MG PO STA (16:11)
[2018-06-22] MEDS ORDERED: SODIUM CHLORIDE 0.9% 1,000 ML IV STA (16:11)
--- NOTE | 2018-06-22 16:11 | ED ---
General Adult HPI - General Chief complaint: Abdominal Pain Stated complaint: chest pain Time Seen by Provider: 06/22/18 15:48 Source: patient, RN notes reviewed Mode of arrival: wheelchair Limitations: no limitations - History of Present Illness Initial comments: 73-year-old female with compensated past medical history presents to the emergency department with multiple complaints. Patient states she has abdominal pain. Patient states this has been ongoing for 1 month. Patient states last night the pain worsened. She states is mostly in the mid to upper abdomen. Patient is unable to describe the pain, stating it is not dull or sharp. She does admit to some burning pain. Patient states she has had this before and has been evaluated inpatient twice in the past month. She denies fevers or chills at home. She does admit to shaking. She denies any radiating pain. Patient states her heart also feels like it is racing on and off since last night. She denies chest pain or shortness of breath. Patient has no other complaints at this time including shortness of breath, chest pain, nausea or vomiting, headache, or visual changes. - Related Data Home Medications Medication Instructions Recorded Confirmed Nitroglycerin Sl Tabs [Nitrostat] 0.4 mg SUBLINGUAL Q5M PRN 12/31/13 06/22/18 Cholecalciferol [Vitamin D3] 1,000 unit PO BID 04/23/14 06/22/18 Levothyroxine Sodium [Synthroid] 112 mcg PO DAILY 09/09/15 06/22/18 Allopurinol [Zyloprim] 100 mg PO BID 09/03/16 06/22/18 Aspirin EC [Ecotrin Low Dose] 81 mg PO BID 06/04/17 06/22/18 Atorvastatin Calcium [Lipitor] 80 mg PO HS 11/02/17 06/22/18 Pantoprazole [Protonix] 40 mg PO HS 11/02/17 06/22/18 Metoprolol Tartrate [Lopressor] 25 mg PO BID 05/29/18 06/22/18 Insulin NPH/Reg Insulin 70/30 20 unit SQ QAM 06/22/18 06/22/18 [humuLIN 70/30 VIAL] Insuln Asp Prt/Insulin Aspart 20 unit SQ AC-BRKFST PRN 06/22/18 06/22/18 [NovoLOG MIX 70-30 VIAL] Lisinopril [Zestril] 5 mg PO DAILY 06/22/18 06/22/18 Multivitamins, Thera [Multivitamin 1 tab PO DAILY@1200 06/22/18 06/22/18 (formulary)] PARoxetine HCL 20 mg PO QAM 06/22/18 06/22/18 Ziprasidone [Geodon] 40 mg PO BID 06/22/18 06/22/18 Previous Rx's Medication Instructions Recorded ALPRAZolam [Xanax] 0.25 mg PO BID PRN #6 tab 06/03/18 Acetaminophen Tab [Tylenol] 650 mg PO Q6HR PRN tab 06/03/18 Thiamine [Vitamin B-1] 100 mg PO DAILY@1200 #30 tab 06/03/18 Insulin NPH/Reg Insulin 70/30 16 unit SQ HS #0 06/07/18 [humuLIN 70/30 VIAL] Allergies Allergy/AdvReac Type Severity Reaction Status Date / Time lorazepam [From Ativan] Allergy Unknown Verified 06/22/18 16:33 codeine AdvReac Nausea Verified 06/22/18 16:33 erythromycin base AdvReac Nausea Verified 06/22/18 16:33 [Erythromycin Base] Iodinated Contrast- Oral and AdvReac ELEVATED Verified 06/22/18 16:33 IV Dye B/P, FELT [Iodinated Contrast Media - LIKE PASSED IV Dye] methylprednisolone AdvReac Confusion Verified 06/22/18 16:33 [From Medrol] Sulfa (Sulfonamide AdvReac DIZZYNESS Verified 06/22/18 16:33 Antibiotics) Review of Systems ROS Statement: Those systems with pertinent positive or pertinent negative responses have been documented in the HPI. ROS Other: All systems not noted in ROS Statement are negative. Past Medical History Past Medical History: Coronary Artery Disease (CAD), Cancer, Diabetes Mellitus, Hyperlipidemia, Hypertension, Memory Impairment, Myocardial Infarction (MA), Renal Disease, Sleep Apnea/CPAP/BIPAP, Thyroid Disorder Additional Past Medical History / Comment(s): osteomyelitis Lt hand/STAGE 3 RENAL FAILURE/THYROID CANCER, cpap machine,"rt hand 3 fingers numb" past falls- constipation,gout Last Myocardial Infarction Date:: 1999 History of Any Multi-Drug Resistant Organisms: MRSA Date of last positivie culture/infection: 07/01/2015 MDRO Source:: knee left Past Surgical History: Appendectomy, Heart Catheterization With Stent, Orthopedic Surgery Additional Past Surgical History / Comment(s): left hand, thyroidectomy, neck fusion/CARPAL TUNNEL REPAIR ASHLEY,colonoscopy in past STENT X1 Past Anesthesia/Blood Transfusion Reactions: No Reported Reaction Additional Past Anesthesia/Blood Transfusion Reaction / Comment(s): clausterphobia Date of Last Stent Placement:: 1999 Past Psychological History: Anxiety, Depression, Panic Disorder Smoking Status: Never smoker Past Alcohol Use History: None Reported Past Drug Use History: None Reported - Past Family History Brother(s) Family Medical History: Cancer Mother Family Medical History: Diabetes Mellitus Father Family Medical History: Myocardial Infarction (MA) General Exam Limitations: no limitations General appearance: alert, in no apparent distress (She was in no distress but is having tremors.) Head exam: Present: atraumatic, normocephalic, normal inspection Eye exam: Present: normal appearance, PERRL, EOMI. Absent: scleral icterus, conjunctival injection, periorbital swelling ENT exam: Present: normal exam, normal oropharynx, mucous membranes moist, TM's normal bilaterally, normal external ear exam Neck exam: Present: normal inspection, full ROM. Absent: tenderness, meningismus, lymphadenopathy Respiratory exam: Present: normal lung sounds bilaterally. Absent: respiratory distress, wheezes, rales, rhonchi, stridor Cardiovascular Exam: Present: regular rate, normal rhythm, normal heart sounds. Absent: systolic murmur, diastolic murmur, rubs, gallop, clicks GI/Abdominal exam: Present: soft, tenderness (Generalized abdominal tenderness noted. No guarding), normal bowel sounds. Absent: distended, guarding, rebound , rigid Neurological exam: Present: alert, oriented X3, CN II-XII intact Psychiatric exam: Present: normal affect, normal mood Course Vital Signs 06/22/18 06/22/18 15:42 17:54 Temperature 98.2 F Pulse Rate 90 77 Respiratory 20 18 Rate Blood Pressure 182/69 122/96 O2 Sat by Pulse 97 98 Oximetry EKG Findings - EKG Comments: EKG Findings:: Normal sinus rhythm, P waves visible. Ventricular rate 85, QRS duration 74, QTc 473 Medical Decision Making - Medical Decision Making 73-year-old female with complicated past medical history presents for multiple complaints. Patient stating she has abdominal pain. She states this pain has been ongoing for the past month. She states it is generalized but somewhat worse in the upper abdomen and admits to burning in the upper abdomen. Patient also states her heart feels like it is racing but denies any chest pain or shortness of breath. Patient states she feels more shaky than normal. Patient has been evaluated for this dental pain twice in the past month inpatient. She has also undergone empiric antibiotic treatment for possible sepsis inpatient within the past month. On exam patient does have tremors noted. She does appear slightly diaphoretic. Rectal temp 100.4. Vitals are otherwise within acceptable limits. Patient does have generalized abdominal tenderness without guarding. CBC and CMP are unremarkable. Creatinine minimally elevated at 1.06 , patient given a liter of fluids. Patient does have a urinary tract infection with greater than 182 white cells. Denies any new back pain. Lactic acid 3.4. Patient started on Rocephin. Patient is not hypotensive but was given a liter of fluids and will be continued on maintenance fluids. She'll be admitted for IV antibiotics and further monitoring. Computed tomography scan was not repeated at this time as she has had 2 in the past month which were negative for cause of symptoms. She also had a negative gallbladder ultrasound and HIDA scan within the past month. - Lab Data Result diagrams: 06/22/18 16:10 06/22/18 16:10 Lab Results 06/22/18 06/22/18 06/22/18 Range/Units 16:10 16:10 16:10 WBC 10.4 (3.8-10.6) k/uL RBC 4.40 (3.80-5.40) m/uL Hgb 12.9 (11.4-16.0) gm/dL Hct 41.8 (34.0-46.0) % MCV 94.9 (80.0-100.0) fL MCH 29.3 (25.0-35.0) pg MCHC 30.9 L (31.0-37.0) g/dL RDW 16.1 H (11.5-15.5) % Plt Count 258 (150-450) k/uL Neutrophils % 72 % Lymphocytes % 18 % Monocytes % 7 % Eosinophils % 1 % Basophils % 0 % Neutrophils # 7.5 (1.3-7.7) k/uL Lymphocytes # 1.8 (1.0-4.8) k/uL Monocytes # 0.7 (0-1.0) k/uL Eosinophils # 0.2 (0-0.7) k/uL Basophils # 0.1 (0-0.2) k/uL Anisocytosis Slight PT (9.0-12.0) sec INR (<1.2) APTT (22.0-30.0) sec Sodium 144 (137-145) mmol/L Potassium 4.4 (3.5-5.1) mmol/L Chloride 107 (98-107) mmol/L Carbon Dioxide 23 (22-30) mmol/L Anion Gap 14 mmol/L BUN 23 H (7-17) mg/dL Creatinine 1.06 H (0.52-1.04) mg/dL Est GFR (CKD-EPI)AfAm 60 (>60 ml/min/1.73 sqM) Est GFR (CKD-EPI)NonAf 52 (>60 ml/min/1.73 sqM) Glucose 130 H (74-99) mg/dL Plasma Lactic Acid Jewel (0.7-2.0) mmol/L Calcium 10.0 (8.4-10.2) mg/dL Magnesium 1.5 L (1.6-2.3) mg/dL Total Bilirubin 0.9 (0.2-1.3) mg/dL AST 26 (14-36) U/L ALT 29 (9-52) U/L Alkaline Phosphatase 121 (38-126) U/L Total Creatine Kinase 115 (30-135) U/L CK-MB (CK-2) 2.0 (0.0-2.4) ng/mL CK-MB (CK-2) Rel Index 1.7 Troponin I <0.012 (0.000-0.034) ng/mL Total Protein 7.1 (6.3-8.2) g/dL Albumin 4.2 (3.5-5.0) g/dL Amylase 60 (30-110) U/L Lipase 253 (23-300) U/L Urine Color Urine Appearance (Clear) Urine pH (5.0-8.0) Ur Specific [place] (1.001-1.035) Urine Protein (Negative) Urine Glucose (UA) (Negative) Urine Ketones (Negative) Urine Blood (Negative) Urine Nitrite (Negative) Urine Bilirubin (Negative) Urine Urobilinogen (<2.0) mg/dL Ur Leukocyte Esterase (Negative) Urine RBC (0-5) /hpf Urine WBC (0-5) /hpf Urine WBC Clumps (None) /hpf Ur Squamous Epith Cells (0-4) /hpf Urine Mucus (None) /hpf 06/22/18 06/22/18 06/22/18 Range/Units 16:10 16:10 17:16 WBC (3.8-10.6) k/uL RBC (3.80-5.40) m/uL Hgb (11.4-16.0) gm/dL Hct (34.0-46.0) % MCV (80.0-100.0) fL MCH (25.0-35.0) pg MCHC (31.0-37.0) g/dL RDW (11.5-15.5) % Plt Count (150-450) k/uL Neutrophils % % Lymphocytes % % Monocytes % % Eosinophils % % Basophils % % Neutrophils # (1.3-7.7) k/uL Lymphocytes # (1.0-4.8) k/uL Monocytes # (0-1.0) k/uL Eosinophils # (0-0.7) k/uL Basophils # (0-0.2) k/uL Anisocytosis PT 10.5 (9.0-12.0) sec INR 1.0 (<1.2) APTT 26.0 (22.0-30.0) sec Sodium (137-145) mmol/L Potassium (3.5-5.1) mmol/L Chloride (98-107) mmol/L Carbon Dioxide (22-30) mmol/L Anion Gap mmol/L BUN (7-17) mg/dL Creatinine (0.52-1.04) mg/dL Est GFR (CKD-EPI)AfAm (>60 ml/min/1.73 sqM) Est GFR (CKD-EPI)NonAf (>60 ml/min/1.73 sqM) Glucose (74-99) mg/dL Plasma Lactic Acid Jewel 3.4 H* (0.7-2.0) mmol/L Calcium (8.4-10.2) mg/dL Magnesium (1.6-2.3) mg/dL Total Bilirubin (0.2-1.3) mg/dL AST (14-36) U/L ALT (9-52) U/L Alkaline Phosphatase (38-126) U/L Total Creatine Kinase (30-135) U/L CK-MB (CK-2) (0.0-2.4) ng/mL CK-MB (CK-2) Rel Index Troponin I (0.000-0.034) ng/mL Total Protein (6.3-8.2) g/dL Albumin (3.5-5.0) g/dL Amylase (30-110) U/L Lipase (23-300) U/L Urine Color Yellow Urine Appearance Cloudy H (Clear) Urine pH 7.0 (5.0-8.0) Ur Specific [place] 1.020 (1.001-1.035) Urine Protein 3+ H (Negative) Urine Glucose (UA) Negative (Negative) Urine Ketones Negative (Negative) Urine Blood Trace H (Negative) Urine Nitrite Negative (Negative) Urine Bilirubin Negative (Negative) Urine Urobilinogen <2.0 (<2.0) mg/dL Ur Leukocyte Esterase Large H (Negative) Urine RBC 4 (0-5) /hpf Urine WBC >182 H (0-5) /hpf Urine WBC Clumps Few H (None) /hpf Ur Squamous Epith Cells 3 (0-4) /hpf Urine Mucus Rare H (None) /hpf Disposition Clinical Impression: Urinary tract infection, Abdominal pain Disposition: ADMITTED IP TO THIS HOSP Condition: Fair Referrals: Cesar Nielsen DO [Primary Care Provider] - 1-2 days Time of Disposition: 18:28
[2018-06-22] MEDS ORDERED: ONDANSETRON 4 MG/2 ML VIAL IVP STA (16:13)
[2018-06-22] MEDS ORDERED: HYDROmorphone 0.5 MG/0.5 ML SYRINGE IVP STA (16:13)
[2018-06-22 16:37] LABS: Albumin 4.2 g/dL (3.5-5.0); Magnesium 1.5 mg/dL (1.6-2.3); Potassium 4.4 mmol/L (3.5-5.1); Total Bilirubin 0.9 mg/dL (0.2-1.3); Total Protein 7.1 g/dL (6.3-8.2)
[2018-06-22 16:39] LABS: Anisocytosis Slight; Basophils # (A) 0.1 k/uL (0-0.2); Basophils % (A) 0 %; Eosinophils # (A) 0.2 k/uL (0-0.7); Eosinophils % (A) 1 %; HCT 41.8 % (34.0-46.0); HGB 12.9 gm/dL (11.4-16.0); Lymphocytes # (A) 1.8 k/uL (1.0-4.8); Lymphocytes % (A) 18 %; MCH 29.3 pg (25.0-35.0); MCHC 30.9 g/dL (31.0-37.0); MCV 94.9 fL (80.0-100.0); Mean Platelet Volume 7.6; Monocytes # (A) 0.7 k/uL (0-1.0); Monocytes % (A) 7 %; Neutrophils # (A) 7.5 k/uL (1.3-7.7); Neutrophils % (A) 72 %; Platelet Count 258 k/uL (150-450); Prothrombin Time 10.5 sec (9.0-12.0); RDW 16.1 % (11.5-15.5); WBC 10.4 k/uL (3.8-10.6)
[2018-06-22 16:47] LABS: Creatine Kinase 115 U/L (30-135)
--- NOTE | 2018-06-22 16:57 | XR ---
EXAMINATION TYPE: XR chest 2V DATE OF EXAM: 06/22/2018 COMPARISON: 05/29/2018 HISTORY: Chest pain TECHNIQUE: Frontal and lateral views of the chest are obtained. FINDINGS: There is no heart failure nor confluent pneumonic infiltrate. There is left shoulder prost hesis. There are chest leads. Costophrenic angles are clear. Bony thorax appears intact. IMPRESSION: No active cardiopulmonary disease. Normal heart. No change.
[2018-06-22 17:01] LABS: Troponin I <0.012 ng/mL (0.000-0.034)
[2018-06-22 17:50] LABS: Appearance,Urine Cloudy (Clear); Bilirubin,Urine Negative (Negative); Blood,Urine Trace (Negative); Color,Urine Yellow; Glucose,Urine (UA) Negative (Negative); Ketones,Urine Negative (Negative); Leukocyte Esterase,Urine Large (Negative); Mucus,Urine Rare /hpf; Nitrite,Urine Negative (Negative); Protein,Urine 3+ (Negative); RBC,Urine 4 /hpf (0-5); Squamous Epithelial Cell,Urine 3 /hpf (0-4); Urobilinogen,Urine <2.0 mg/dL (<2.0); WBC,Urine >182 /hpf (0-5)
[2018-06-22] MEDS ORDERED: cefTRIAXone 2,000 MG in SODIUM CHLORIDE 0.9% 100 ML IVPB STA ×2 (18:13→19:46)
[2018-06-22] MEDS ORDERED: ACETAMINOPHEN TAB 325 MG TAB PO STA (18:18)
[2018-06-22] MEDS ORDERED: ACETAMINOPHEN TAB 325 MG TAB PO PRN (18:32)
[2018-06-22] MEDS ORDERED: HYDROmorphone 0.5 MG/0.5 ML SYRINGE IVP PRN (18:32)
[2018-06-22] MEDS ORDERED: ONDANSETRON 4 MG/2 ML VIAL IVP PRN (18:32)
[2018-06-22] MEDS ORDERED: NALOXONE 0.4 MG/ML 1 ML VIAL IV PRN (18:32)
[2018-06-22 18:35] LABS: Glucose,Whole Blood 124 mg/dL (75-99)
[2018-06-22] MEDS: SODIUM CHLORIDE 0.9% 1,000 ML IV SCH (19:55)
[2018-06-23] MEDS ORDERED: ALPRAZolam 0.25 MG TAB PO PRN (00:47)
[2018-06-23] MEDS ORDERED: INSULN ASP PRT/INSULIN ASPART 100 UNIT/ML 10 ML VIAL SQ PRN (00:47)
[2018-06-23] MEDS ORDERED: NITROGLYCERIN SL TABS 0.4 MG TAB SUBLINGUAL PRN (00:47)
[2018-06-23] MEDS: SODIUM CHLORIDE 0.9% 1,000 ML IV SCH ×3 (05:43→20:37)
[2018-06-23] MEDS: LEVOTHYROXINE 112 MCG TAB PO SCH (05:44)
[2018-06-23 07:17] LABS: Glucose,Whole Blood 127 mg/dL (75-99)
[2018-06-23] MEDS: CHOLECALCIFEROL 1,000 UNIT TAB PO SCH ×2 (07:57→20:28)
[2018-06-23] MEDS: LISINOPRIL 10 MG TAB PO SCH (07:57)
[2018-06-23] MEDS: PARoxetine 20 MG TAB PO SCH (07:57)
[2018-06-23] MEDS: MULTIVITAMINS, THERA 1 EACH TAB PO SCH (07:57)
[2018-06-23] MEDS: METOPROLOL TARTRATE 50 MG TAB PO SCH ×2 (07:57→20:28)
[2018-06-23] MEDS: ASPIRIN 81 MG PO SCH ×2 (07:57→20:28)
[2018-06-23] MEDS: THIAMINE 100 MG TAB PO SCH (07:57)
[2018-06-23] MEDS: ALLOPURINOL 100 MG TAB PO SCH ×2 (07:58→20:28)
[2018-06-23] MEDS: INSULN ASP PRT/INSULIN ASPART 100 UNIT/ML 10 ML VIAL SQ SCH ×2 (08:08→20:41)
[2018-06-23] MEDS ORDERED: ZIPRASIDONE 40 MG CAP PO SCH (09:00)
--- NOTE | 2018-06-23 10:05 | HP ---
HISTORY AND PHYSICAL DATE OF SERVICE: 06/22/2018 CHIEF COMPLAINTS: Change in mental status, UTI. HISTORY OF PRESENT ILLNESS: This 73-year-old woman with a past medical history of multiple medical problems such as history of CAD, history diabetes, hypertension, hyperlipidemia, history of memory impairment, history of sleep apnea, being followed by Dr. Nielsen in the outpatient setting, was complaining of chest pain. The patient also found to be confused. Patient has multiple complaints. Patient has abdominal pain also is which all the symptoms are ongoing for at least a month and the patient came to [facility] admitted for evaluation and treatment. Evaluation showed elevated lactic and also evidence UTI. The is no history of fever, rigors. No history of headache, loss of consciousness. PAST MEDICAL HISTORY: History of CAD, history of diabetes type 2, hypertension, memory impairment, DJD , history of sleep apnea, osteomyelitis left hand. MEDICATIONS PRIOR TO ADMISSION: 1. Protonix 40 mg q.h.s. 3. NovoLog 70/30 10 units a.c. breakfast and 60 units q.h.s. 4. Lipitor 80 mg q.h.s. 5. Tylenol 650 q.6h p.r.n. 6. Xanax 0.5 b.i.d. p.r.n. 7. Geodon 40 mg p.o. b.i.d. 8. Paxil 20 mg q.a.m. 9. Vitamin B1 100 mg daily. 10.Trazodone. 11.Lopressor 25 mg b.i.d. 12.Zestril 5 mg b.i.d. 13.Synthroid 100 mcg. 14.Novolin 70/30, 10 units subcu q.h.s. 15.Vitamin D 3000 b.i.d. 16.Ecotrin 81 mg b.i.d. 17.Zyloprim 100 mg b.i.d. ALLERGIES: ATIVAN, CODEINE, ERYTHROMYCIN, ( ), SULFA. FAMILY HISTORY: History of diabetes in the family. SOCIAL HISTORY: History of smoking, no alcohol intake. REVIEW OF SYSTEMS: Could not be taken because the patient is confused. PHYSICAL EXAMINATION: Pulse 71, blood pressure 130/60, respiration 18, temperature 98.7, T-max is 100.4, pulse ox 98% on room air. HEENT: Conjunctivae normal. Oral mucosa moist. NECK: No jugular venous distention. No carotid bruit. No lymph node enlargement. CARDIOVASCULAR: S1, S2 muffled. RESPIRATORY: Breath sounds diminished in the bases. Scattered rhonchi and crackles. ABDOMEN: Soft, nontender. NERVOUS SYSTEM: Mildly weak. Lymphatics: No lymph nodes palpable in the neck, axillae or groin. SKIN: No ulcer. No rash. No bleeding. LAB DATA: CBC within normal. Sodium 144, creatinine 1.6. UA noted. Lactic acid noted. ASSESSMENT: 1. Acute urinary tract infection with possible sepsis and change in mental status acute metabolic encephalopathy, acute on chronic. 2. Elevated lactic acid. 3. History of dementia. 4. Coronary artery disease. 5. Diabetes mellitus type 2. 6. Hypertension. 7. Hyperlipidemia. 8. History of myocardial infarction. 9. Sleep apnea. 10.Hypothyroidism. 11.History of osteomyelitis. 12.History of thyroid cancer. 13.History of coronary artery disease. 14.History of depression, panic episodes. 15.FULL CODE. RECOMMENDATIONS AND DISCUSSION: In this 73-year-old woman who presented with multiple complex medical issues, will monitor the patient closely, continue the current management, continue symptomatic treatment. Will initiate broad-spectrum IV antibiotics. Otherwise, I would also recommend monitor blood sugars closely. Otherwise, the current chest x-ray which was reviewed showed no acute abnormality. Prognosis guarded because of multiple complex medical issues. Further recommendations to follow. See orders for details. MMODL / IJN: [id number] / MTDD
[2018-06-23] MEDS ORDERED: ONDANSETRON 4 MG/2 ML VIAL IVP PRN (11:54)
[2018-06-23] MEDS ORDERED: ZIPRASIDONE 40 MG CAP PO PRN (11:57)
[2018-06-23 12:00] LABS: Glucose,Whole Blood 102 mg/dL (75-99)
[2018-06-23 17:00] LABS: Glucose,Whole Blood 110 mg/dL (75-99)
[2018-06-23] MEDS: cefTRIAXone 2,000 MG in SODIUM CHLORIDE 0.9% 100 ML IVPB SCH (17:00)
--- NOTE | 2018-06-23 18:14 | PN ---
PROGRESS NOTE DATE OF SERVICE: 06/23/2018 This 73-year-old woman who was admitted with change in mental status was thought to have a UTI with sepsis. The patient also had metabolic encephalopathy, acute on chronic. The cultures are negative so far. Patient is on IV antibiotics. Patient is also slightly tremulous and patient also complains of generalized weakness and tiredness. Past medical history reviewed. REVIEW OF SYSTEMS: CARDIOVASCULAR SYSTEM: No angina, palpitations. RESPIRATORY SYSTEM: As mentioned earlier. GI: As mentioned earlier. : As mentioned earlier. NERVOUS SYSTEM: No numbness, weakness. CURRENT MEDICATIONS: Reviewed. They include: 1. Tylenol 650 q.6 p.r.n. 2. Zyloprim 100 mg p.o. b.i.d. 3. Xanax 0.25 b.i.d. 4. Aspirin 81 mg. 5. Lipitor 80 mg at bedtime. 6. Rocephin 2 grams IV daily. 7. Vitamin D3 1000. 8. Dilaudid 0.5 q.4 p.r.n. 9. NovoLog Mix 70/30, 20 units subcutaneously each morning and 16 units subcutaneously at bedtime. 10.Synthroid 112 mcg p.o. daily. 11.Zestril 5 mg p.o. daily. 12.Lopressor 25 mg p.o. b.i.d. 13.Multivitamins 1 p.o. daily. 14.Narcan. 15.Nitrostat. 16.Zofran. 17.Protonix 40 mg at bedtime. 18.Paxil. 19.Vitamin B1. 20.Geodon 40 mg p.o. at bedtime. PHYSICAL EXAMINATION: Patient alert and oriented x3. Pulse 69, blood pressure 158/67, respirations 16, temperature 97.4, pulse ox 98% on room air. HEENT: Conjunctivae normal. Oral mucosa moist. NECK: No jugular venous distention. No carotid bruit. No lymph node enlargement. CARDIOVASCULAR SYSTEM: S1, S2 muffled. RESPIRATORY SYSTEM: Breath sounds diminished at the bases. Bilateral scattered rhonchi and crackles. ABDOMEN: Soft, non-tender. No mass palpable. LEGS: No edema. No swelling. NERVOUS SYSTEM: Higher functions as mentioned earlier. Moves all 4 limbs. No focal motor or sensory deficit. LYMPHATICS: No lymph node palpable in neck, axillae or groin. SKIN: No ulcer, rash, bleeding. LABS: Lactic acid 2.9, creatinine is 1.06. ASSESSMENT: 1. Acute urinary tract infection with possible sepsis with change in mental status, acute metabolic encephalopathy, acute on chronic. 2. Elevated lactic acid. 3. History of dementia. 4. Coronary artery disease. 5. Diabetes mellitus, type 2. 6. Hypertension. 7. Hyperlipidemia. 8. History of myocardial infarction. 9. History of sleep apnea. 10.History of hypothyroidism. 11.History of osteomyelitis. 12.History of thyroid cancer. 13.History of coronary artery disease. 14.History of depression and panic attacks. 15.FULL CODE. RECOMMENDATIONS AND DISCUSSION: I recommend to continue current medication, continue symptomatic treatment, continue with the broad-spectrum IV antibiotics. Follow the cultures. Continue with IV fluids. Monitors labs. Repeats labs. Infectious disease evaluation. DVT prophylaxis. Overall prognosis guarded because of multiple complex medical issues. Further recommendations to follow. MMODL / IJN: [id number] /
[2018-06-23] MEDS: PANTOPRAZOLE 40 MG TABLET PO SCH (20:28)
[2018-06-23] MEDS: ATORVASTATIN 80 MG TAB PO SCH (20:28)
[2018-06-23 21:00] LABS: Glucose,Whole Blood 164 mg/dL (75-99)
[2018-06-24 03:07] LABS: Glucose,Whole Blood 96 mg/dL (75-99)
--- NOTE | 2018-06-24 04:23 | CONS ---
CONSULTATION DATE OF SERVICE: 06/23/2018 REASON FOR CONSULTATION: Urinary tract infection. HISTORY OF PRESENT ILLNESS: The patient is a 73-year-old female who has been brought into the ER at [facility] yesterday apparently with chief complaints of abdominal pain. The patient apparently has been going off and on for almost a month. The patient also has been complaining of pain mostly in the lower abdominal area. Did have some dysuria in addition to it, but denies any flank pain. No nausea, vomiting, or any diarrhea. With these symptoms, the patient has been evaluated by the ER physician. On arrival to the ER, the patient did have a low-grade fever of 100.4. The patient did have elevated lactic acid of 2.9, white count was normal. The patient did have a positive UA with cloudy urine, large leukocyte esterase with more than 1 or 2 WBC with concern for possible urinary tract infection. The patient was admitted to the hospital and started on Rocephin. Infectious Disease was consulted for further recommendation regarding antibiotic therapy. The patient is not a very good historian so most of the information has been taken out of review of her chart. REVIEW OF SYSTEMS: Could not be reliably obtained. The positive points have been mentioned in HPI. PAST MEDICAL HISTORY: Coronary artery disease, hypertension, hyperlipidemia, diabetes mellitus, memory impairment, hyperthyroidism, . PAST SURGICAL HISTORY: Appendectomy, PTCA with stent, , neck fusion, carpal tunnel release. SOCIAL HISTORY: History of smoking. No drinking or drug use. FAMILY HISTORY: Brother with history of cancer. Mother history of diabetes. Father history of [place]. ALLERGIES: LORAZEPAM, CODEINE, ERYTHROMYCIN, BEES, IODINATED CONTRAST DYES, PENICILLIN and SULFA. MEDICATION: Medications include the patient is currently on: Geodon, vitamin B1, Paxil, Protonix, Zofran, Nitrostat, Narcan, Theragran, Lopressor, Zestril, Synthroid, NovoLog, Dilaudid, Rocephin 2 g daily, Lipitor, aspirin, Xanax, , Tylenol. PHYSICAL EXAMINATION: Blood pressure is 158/67 with a pulse of 69. Temperature is 97.4, she is 98% on room air. General description is an elderly female, lying in bed in no distress. No tachypnea or accessory muscles of respiration use. HEENT: Shows no pallor or scleral icterus. Oral mucosa membranes are dry. No pharyngeal erythema or thrush. NECK: Trachea central. No thyromegaly. Lungs unlabored breathing. Clear to auscultation anteriorly. No wheeze or crackles. Heart S1, S2. Regular rate and rhythm. ABDOMEN: Soft, no tenderness. No guarding. No organomegaly. EXTREMITIES: No edema of the feet. Skin examination: No rash or mass palpable. NEUROLOGIC: The patient is awake, alert, oriented x1. No agitation was noticed. LABS: Hemoglobin 12.8, white count 10.4. BUN of 23, creatinine 1.06. Electrolytes have been normal. Liver enzymes are normal. Urine has been positive. Cultures currently pending. DIAGNOSTIC IMPRESSION AND PLAN: Patient admitted to the hospital with mental status changes. Did have a low-grade fever with positive UA. The patient did have some suprapubic pain, likely representing cystitis/urinary tract infection to which is likely etiology of her symptomatology. PLAN: 1. Rocephin 2 g IV piggyback daily. 2. Gentle IV fluids. 3. We will follow up on clinical condition and culture to further adjust medication if needed. Thank you for this consultation. Will follow this patient along with you. MMODL / IJN: [id number] /
[2018-06-24] MEDS: LEVOTHYROXINE 112 MCG TAB PO SCH (05:49)
[2018-06-24 07:36] LABS: Glucose,Whole Blood 114 mg/dL (75-99)
[2018-06-24] MEDS: CHOLECALCIFEROL 1,000 UNIT TAB PO SCH ×2 (08:43→21:14)
[2018-06-24] MEDS: LISINOPRIL 10 MG TAB PO SCH (08:43)
[2018-06-24] MEDS: METOPROLOL TARTRATE 50 MG TAB PO SCH ×2 (08:43→21:14)
[2018-06-24] MEDS: THIAMINE 100 MG TAB PO SCH (08:43)
[2018-06-24] MEDS: ALLOPURINOL 100 MG TAB PO SCH ×2 (08:43→21:14)
[2018-06-24] MEDS: INSULN ASP PRT/INSULIN ASPART 100 UNIT/ML 10 ML VIAL SQ SCH ×2 (08:44→21:15)
[2018-06-24] MEDS: PARoxetine 20 MG TAB PO SCH (08:44)
[2018-06-24] MEDS: ASPIRIN 81 MG PO SCH ×2 (08:44→21:14)
[2018-06-24] MEDS: MULTIVITAMINS, THERA 1 EACH TAB PO SCH (08:44)
[2018-06-24] MEDS: SODIUM CHLORIDE 0.9% 1,000 ML IV SCH (08:45)
[2018-06-24 10:05] LABS: Basophils % (A) 0 %; Eosinophils # (A) 0.2 k/uL (0-0.7); Eosinophils % (A) 3 %; HCT 34.8 % (34.0-46.0); HGB 10.9 gm/dL (11.4-16.0); Hypochromasia Slight; Lymphocytes # (A) 1.5 k/uL (1.0-4.8); Lymphocytes % (A) 17 %; MCHC 31.3 g/dL (31.0-37.0); MCV 95.9 fL (80.0-100.0); Mean Platelet Volume 7.8; Monocytes # (A) 0.4 k/uL (0-1.0); Monocytes % (A) 5 %; Neutrophils # (A) 6.6 k/uL (1.3-7.7); Neutrophils % (A) 74 %; Platelet Count 243 k/uL (150-450); RBC 3.63 m/uL (3.80-5.40); RDW 15.8 % (11.5-15.5); WBC 8.8 k/uL (3.8-10.6)
[2018-06-24 11:50] LABS: Glucose,Whole Blood 115 mg/dL (75-99)
[2018-06-24] MEDS ORDERED: SENNOSIDES 8.6 MG TAB PO PRN (12:50)
[2018-06-24] MEDS: cefTRIAXone 2,000 MG in SODIUM CHLORIDE 0.9% 100 ML IVPB SCH (16:39)
[2018-06-24 17:09] LABS: Glucose,Whole Blood 155 mg/dL (75-99)
--- NOTE | 2018-06-24 17:21 | PN ---
PROGRESS NOTE DATE OF SERVICE: 06/24/2017 REASON FOR FOLLOWUP: Urinary tract infection. INTERVAL HISTORY: The patient is afebrile. She is more awake and alert today. She is breathing comfortably. Denies having any chest pain or cough. Abdominal pain has improved. No nausea, vomiting or diarrhea. PHYSICAL EXAMINATION: Blood pressure 157/65, pulse of 66, temperature 97.8. She is 96% on room air. General description is an elderly female up in the bed in no distress. RESPIRATORY SYSTEM: Unlabored breathing. Clear to auscultation anteriorly. HEART: S1, S2. Regular rate and rhythm. ABDOMEN: Soft. No tenderness. LABS: Hemoglobin 10.9, white count 8.8. BUN of 16, creatinine 0.97. DIAGNOSTIC IMPRESSION AND PLAN: Patient admitted to hospital with abdominal pain and did have a positive UA with concern for a urinary tract infection. The patient has shown clinical improvement on Rocephin, to continue for another day, and if the patient does show overall improvement, to finish therapy with oral Ceftin for about 3 to 5 days with close outpatient followup. Continue with supportive care. MMODL / IJN: [id number] /
[2018-06-24 20:22] LABS: Glucose,Whole Blood 166 mg/dL (75-99)
[2018-06-24] MEDS: ATORVASTATIN 80 MG TAB PO SCH (21:13)
[2018-06-24] MEDS: PANTOPRAZOLE 40 MG TABLET PO SCH (21:14)
[2018-06-24 22:57] VITALS: RESP 18
[2018-06-25] MEDS: SODIUM CHLORIDE 0.9% 1,000 ML IV SCH (05:29)
[2018-06-25] MEDS: LEVOTHYROXINE 112 MCG TAB PO SCH (06:13)
[2018-06-25 06:48] LABS: Glucose,Whole Blood 105 mg/dL (75-99)
[2018-06-25 08:12] VITALS: BP 163/76; PULSE 59; TEMP 98.6
[2018-06-25 08:30] LABS: Basophils % (A) 0 %; Eosinophils # (A) 0.2 k/uL (0-0.7); Eosinophils % (A) 2 %; HCT 32.3 % (34.0-46.0); HGB 10.4 gm/dL (11.4-16.0); Hypochromasia Slight; Lymphocytes # (A) 1.6 k/uL (1.0-4.8); Lymphocytes % (A) 17 %; MCHC 32.3 g/dL (31.0-37.0); MCV 95.9 fL (80.0-100.0); Mean Platelet Volume 7.9; Monocytes # (A) 0.7 k/uL (0-1.0); Monocytes % (A) 7 %; Neutrophils % (A) 72 %; Platelet Count 212 k/uL (150-450); RBC 3.37 m/uL (3.80-5.40); RDW 15.8 % (11.5-15.5); WBC 9.7 k/uL (3.8-10.6)
[2018-06-25] MEDS: MULTIVITAMINS, THERA 1 EACH TAB PO SCH (08:41)
[2018-06-25] MEDS: METOPROLOL TARTRATE 50 MG TAB PO SCH (08:41)
[2018-06-25] MEDS: ALLOPURINOL 100 MG TAB PO SCH (08:41)
[2018-06-25] MEDS: THIAMINE 100 MG TAB PO SCH (08:41)
[2018-06-25] MEDS: ASPIRIN 81 MG PO SCH (08:41)
[2018-06-25] MEDS: LISINOPRIL 10 MG TAB PO SCH (08:41)
[2018-06-25] MEDS: CHOLECALCIFEROL 1,000 UNIT TAB PO SCH (08:41)
[2018-06-25] MEDS: INSULN ASP PRT/INSULIN ASPART 100 UNIT/ML 10 ML VIAL SQ SCH (08:42)
[2018-06-25] MEDS: PARoxetine 20 MG TAB PO SCH (08:42)
[2018-06-25 08:53] LABS: Calcium 8.9 mg/dL (8.4-10.2); Potassium 3.9 mmol/L (3.5-5.1)
[2018-06-25 12:31] LABS: Glucose,Whole Blood 133 mg/dL (75-99)
--- NOTE | 2018-06-26 18:45 | P.PN ---
Subjective Progress Note Date: 06/24/18 Progress note Being DIctated for Dr. De La Cruz. INterval History: THis is a 73 year old female admitted with abdominal pain, positive UA, possible UTI. SIgnificant improvement, much more alert today. Sensorium improved. Continues on Rocephin. Minimal abdominal discomfort. No nausea, vomiting, diarrhea. Denies chest pain, palpitations, increased shortness of breath. Afebrile. Objective - Vital Signs Vital signs: Vital Signs Temp 97.8 F 06/24/18 07:00 Pulse 77 06/24/18 07:00 Resp 20 06/24/18 07:00 BP 161/75 06/24/18 07:00 Pulse Ox 95 06/24/18 07:00 Intake & Output 06/23/18 06/24/18 06/24/18 18:59 06:59 18:59 Intake Total 200 Balance 200 Intake: Oral 200 Other: Voiding Method Bedside Commode Bedside Commode Bedside Commode # Voids 3 2 # Bowel Movements 1 - Exam PHYSICAL EXAM: VITAL SIGNS: As above GENERAL: Sitting up in chair, no acute distress HEENT: Conjunctivae normal. eyes normal. Oral mucosa moist. NECK: No JVD. No thyroid enlargement. No LNs. CARDIOVASCULAR: S1, S2 muffled. No murmur RESPIRATION: Breath sounds diminished in the bases. No rhonchi or crackles. No bronchial breathing. ABDOMEN: Soft, nontender . No guarding. no masses palpable.Bowel sounds heard. LEGS: No edema. no swelling PSYCHIATRY: Alert and oriented -3, mood and affect normal. NERVOUS SYSTEM: Cranial N 2-12 grossly normal. Moves all 4 limbs. Diffuse weakness No focal deficits. Skin: no rash Microbiology 06/22/18 16:10 Blood Blood Culture - Preliminary No Growth after 96 hours 06/23/18 09:25 Urine,Voided Urine Culture - Final - Labs CBC & Chem 7: 06/25/18 07:54 06/25/18 07:54 Labs: Abnormal Lab Results - Last 24 Hours (Table) 06/23/18 06/23/18 06/24/18 Range/Units 16:58 20:34 07:34 RBC (3.80-5.40) m/uL Hgb (11.4-16.0) gm/dL RDW (11.5-15.5) % Chloride (98-107) mmol/L Glucose (74-99) mg/dL POC Glucose (mg/dL) 110 H 164 H 114 H (75-99) mg/dL 06/24/18 06/24/18 06/24/18 Range/Units 09:43 09:43 11:48 RBC 3.63 L (3.80-5.40) m/uL Hgb 10.9 L (11.4-16.0) gm/dL RDW 15.8 H (11.5-15.5) % Chloride 112 H (98-107) mmol/L Glucose 181 H (74-99) mg/dL POC Glucose (mg/dL) 115 H (75-99) mg/dL Microbiology - Last 24 Hours (Table) 06/23/18 09:25 Urine Culture - Final Urine,Voided 06/22/18 16:10 Blood Culture - Preliminary Blood No Growth after 24 hours Assessment and Plan Assessment: -Acute UTI with possible sepsis with change in mental status, acute on chronic metabolic encephalopathy, improving -Dementia -CAD -Diabetes mellitus type 2 -Hyperlipidemia Plan: Continue on current medication regime ,monitoring and symptomatic treatment. Maintain IV antibiotics for another 24 hours. Discharge planning in progress for tomorrow. Patient and spouse declining subacute rehab. The impression and plan of care has been dictated as directed. : I performed a history and examination of this patient, discussed the same with the dictator. I agree with the dictator's note ,documented as a scribe. Any additional findings or plans will be noted.
--- NOTE | 2018-06-26 19:06 | P.DS ---
Providers Date of admission: 06/22/18 18:28 Expected date of discharge: 06/25/18 Attending physician: Penny De La Cruz Consults: 06/23/18 11:36 Consult Physician Routine Consulting Provider: Trenton Mcqueen Consult Reason/Comments: sepsis Do you want consulting provider notified?: Yes [facility] Course: Final Diagnoses: -Acute UTI -Change in mental status, secondary to the above, acute on chronic metabolic encephalopathy, improved -Sepsis ruled out. -Dementia -CAD -Diabetes mellitus type 2 -Hyperlipidemia Hospital course:THis is a 73 year old female admitted with abdominal pain, positive UA, possible UTI. Evaluated by infectious disease. Maintained on IV Rocephin.Sensorium improved. SIgnificant clinical improvement. Patient has been cleared for discharge by infectious disease. Patient is being discharged home with home care in a stable condition with guarded prognosis. Patient and spouse declined subacute rehab. Microbiology 06/22/18 16:10 Blood Blood Culture - Preliminary No Growth after 96 hours 06/23/18 09:25 Urine,Voided Urine Culture - Final EXAM: GENERAL: Alert and oriented 3, no acute distress CARDIOVASCULAR: S1, S2 muffled. No murmur RESPIRATION: Breath sounds diminished in the bases. No rhonchi or crackles. ABDOMEN: Soft, nontender . No guarding. no masses palpable.Bowel sounds heard. NERVOUS SYSTEM: No focal deficits. The impression and plan of care has been dictated as directed. : I performed a history and examination of this patient, discussed the same with the dictator. I agree with the dictator's note ,documented as a scribe. Any additional findings or plans will be noted. Time taken: 35 minutes. Patient Condition at Discharge: Stable Plan - Discharge Summary Discharge Rx Participant: No New Discharge Prescriptions: New Sennosides [Senokot] 8.6 mg PO DAILY PRN tab PRN Reason: Constipation Cefuroxime Axetil [Ceftin] 500 mg PO BID #10 tab Continue Nitroglycerin Sl Tabs [Nitrostat] 0.4 mg SUBLINGUAL Q5M PRN PRN Reason: Chest Pain Cholecalciferol [Vitamin D3] 1,000 unit PO BID Levothyroxine Sodium [Synthroid] 112 mcg PO DAILY Allopurinol [Zyloprim] 100 mg PO BID Aspirin EC [Ecotrin Low Dose] 81 mg PO BID Atorvastatin Calcium [Lipitor] 80 mg PO HS Pantoprazole [Protonix] 40 mg PO HS Metoprolol Tartrate [Lopressor] 25 mg PO BID Acetaminophen Tab [Tylenol] 650 mg PO Q6HR PRN tab PRN Reason: Mild Pain Or Fever > 100.5 Thiamine [Vitamin B-1] 100 mg PO DAILY@1200 #30 tab Insulin NPH/Reg Insulin 70/30 [humuLIN 70/30 VIAL] 16 unit SQ HS #0 Ziprasidone [Geodon] 40 mg PO BID Multivitamins, Thera [Multivitamin (formulary)] 1 tab PO DAILY@1200 Lisinopril [Zestril] 5 mg PO DAILY Insulin NPH/Reg Insulin 70/30 [humuLIN 70/30 VIAL] 20 unit SQ QAM PARoxetine HCL 20 mg PO QAM ALPRAZolam [Xanax] 0.25 mg PO BID PRN #6 tab PRN Reason: Anxiety Discontinued Insuln Asp Prt/Insulin Aspart [NovoLOG MIX 70-30 VIAL] 20 unit SQ AC-[id number] PRN PRN Reason: HIGH BLOOD SUGAR Discharge Medication List Nitroglycerin Sl Tabs [Nitrostat] 0.4 mg SUBLINGUAL Q5M PRN 12/31/13 [History] Cholecalciferol [Vitamin D3] 1,000 unit PO BID 04/23/14 [History] Levothyroxine Sodium [Synthroid] 112 mcg PO DAILY 09/09/15 [History] Allopurinol [Zyloprim] 100 mg PO BID 09/03/16 [History] Aspirin EC [Ecotrin Low Dose] 81 mg PO BID 06/04/17 [History] Atorvastatin Calcium [Lipitor] 80 mg PO HS 11/02/17 [History] Pantoprazole [Protonix] 40 mg PO HS 11/02/17 [History] Metoprolol Tartrate [Lopressor] 25 mg PO BID 05/29/18 [History] Acetaminophen Tab [Tylenol] 650 mg PO Q6HR PRN tab 06/03/18 [Rx] Thiamine [Vitamin B-1] 100 mg PO DAILY@1200 #30 tab 06/03/18 [Rx] Insulin NPH/Reg Insulin 70/30 [humuLIN 70/30 VIAL] 16 unit SQ HS #0 06/07/18 [Rx ] Insulin NPH/Reg Insulin 70/30 [humuLIN 70/30 VIAL] 20 unit SQ QAM 06/22/18 [ History] Lisinopril [Zestril] 5 mg PO DAILY 06/22/18 [History] Multivitamins, Thera [Multivitamin (formulary)] 1 tab PO DAILY@1200 06/22/18 [ History] PARoxetine HCL 20 mg PO QAM 06/22/18 [History] Ziprasidone [Geodon] 40 mg PO BID 06/22/18 [History] ALPRAZolam [Xanax] 0.25 mg PO BID PRN #6 tab 06/24/18 [Rx] Cefuroxime Axetil [Ceftin] 500 mg PO BID #10 tab 06/25/18 [Rx] Sennosides [Senokot] 8.6 mg PO DAILY PRN tab 06/25/18 [Rx] Follow up Appointment(s)/Referral(s): [facility], [NON-STAFF] - Cesar Nielsen DO [Primary Care Provider] - 06/27/18 11:00 am (With [facility]) Ambulatory/Diagnostic Orders: Complete Blood Count w/diff [LAB.AMB] Time Frame: 3 Days, Location: None Selected Patient Instructions/Handouts: Urinary Tract Infection in Women (DC) Activity/Diet/Wound Care/Special Instructions: Consistent carb diet Up with walker, fall precautions. Take all meds as prescribed. Discharge Disposition: HOME WITH HOME HEALTH SERVICES
== END 2018-06-25 13:21 | disposition home health service (06) | DRG 689 ==
LOC: EC 15:38 → 4MS4W 18:28
PROVIDERS: ADMIT Hospitalist; ATTEND Hospitalist
DX: N30.00 Acute cystitis without hematuria (principal); G93.41 Metabolic encephalopathy; E11.9 Type 2 diabetes mellitus without complications; E78.5 Hyperlipidemia, unspecified; E89.0 Postprocedural hypothyroidism; F03.90 Unspecified dementia, unspecified severity, without behavioral disturbance, psychotic disturbance, mood disturbance, and anxiety; F41.0 Panic disorder [episodic paroxysmal anxiety]; G47.30 Sleep apnea, unspecified; I10 Essential (primary) hypertension; I25.10 Atherosclerotic heart disease of native coronary artery without angina pectoris; I25.2 Old myocardial infarction; Z79.4 Long term (current) use of insulin; Z79.82 Long term (current) use of aspirin; Z79.890 Hormone replacement therapy; Z80.9 Family history of malignant neoplasm, unspecified; Z82.49 Family history of ischemic heart disease and other diseases of the circulatory system; Z83.3 Family history of diabetes mellitus; Z85.850 Personal history of malignant neoplasm of thyroid; Z87.891 Personal history of nicotine dependence; Z95.5 Presence of coronary angioplasty implant and graft; Z98.1 Arthrodesis status; Z79.899 Other long term (current) drug therapy; Z88.5 Allergy status to narcotic agent; Z88.2 Allergy status to sulfonamides; Z88.8 Allergy status to other drugs, medicaments and biological substances; Z88.1 Allergy status to other antibiotic agents; Z91.041 Radiographic dye allergy status
CPT/HCPCS: 36415; 71046; 80048; 80053; 81001; 82150; 82550; 82553; 83605; 83690; 83735; 84484; 85025; 85610; 85730; 87040; 87086; 93005; 96361; 96365; 96375; 99285

== ENCOUNTER 2018-08-13 09:18 | Inpatient (IN) | payer MEDICARE, BC ==
[2018-08-13] MEDS ORDERED: SODIUM CHLORIDE 0.9% 1,000 ML IV STA ×2 (09:43)
--- NOTE | 2018-08-13 09:50 | ED ---
Weakness HPI - General Chief complaint: Weakness Stated complaint: High BP, Confused Time Seen by Provider: 08/13/18 09:30 Source: patient, RN notes reviewed, old records reviewed Mode of arrival: wheelchair Limitations: no limitations - History of Present Illness Initial comments: Patient is a 73-year-old female who presents emergency Department today with complaints of confusion, lethargy, and high blood pressure. Patient's reports that she was found walking around their house at 3 AM getting ready for the day. He reports this is abnormal for her. Patient whose blood pressure was elevated 170/90. Patient's called PCP and they encouraged to her here. Patient has the start of dementia. The report that Patient was supposed to have an appointment today for Dr. Gusman to have her toenails cut. Patient states that she has no pain at this time. She also has had frequent falls. She 's had 2 falls on Saturday. She denies any head injury. - Related Data Home Medications Medication Instructions Recorded Confirmed Nitroglycerin Sl Tabs [Nitrostat] 0.4 mg SUBLINGUAL Q5M PRN 12/31/13 08/13/18 Cholecalciferol [Vitamin D3] 1,000 unit PO BID 04/23/14 08/13/18 Levothyroxine Sodium [Synthroid] 112 mcg PO DAILY 09/09/15 08/13/18 Allopurinol [Zyloprim] 100 mg PO BID 09/03/16 08/13/18 Aspirin EC [Ecotrin Low Dose] 81 mg PO BID 06/04/17 08/13/18 Atorvastatin Calcium [Lipitor] 80 mg PO HS 11/02/17 08/13/18 Pantoprazole [Protonix] 40 mg PO BID 11/02/17 08/13/18 Metoprolol Tartrate [Lopressor] 25 mg PO BID 05/29/18 08/13/18 Insulin NPH/Reg Insulin 70/30 20 unit SQ QAM 06/22/18 08/13/18 [humuLIN 70/30 VIAL] Lisinopril [Zestril] 5 mg PO DAILY 06/22/18 08/13/18 PARoxetine HCL 20 mg PO QAM 06/22/18 08/13/18 Ziprasidone [Geodon] 40 mg PO DAILY 06/22/18 08/13/18 Benztropine Mesylate [Cogentin] 0.5 mg PO DAILY 08/13/18 08/13/18 HYDROcodone/APAP 5-325MG [[place] 1 tab PO TID PRN 08/13/18 08/13/18 5-325] Magnesium Oxide [Mag-Ox] 250 mg PO BID 08/13/18 08/13/18 Ziprasidone [Geodon] 60 mg PO HS 08/13/18 08/13/18 Previous Rx's Medication Instructions Recorded Insulin NPH/Reg Insulin 70/30 16 unit SQ HS #0 06/07/18 [humuLIN 70/30 VIAL] Allergies Allergy/AdvReac Type Severity Reaction Status Date / Time lorazepam [From Ativan] Allergy Unknown Verified 08/13/18 10:13 codeine AdvReac Nausea Verified 08/13/18 10:13 erythromycin base AdvReac Nausea Verified 08/13/18 10:13 [Erythromycin Base] Iodinated Contrast- Oral and AdvReac ELEVATED Verified 08/13/18 10:13 IV Dye B/P, FELT [Iodinated Contrast Media - LIKE PASSED IV Dye] methylprednisolone AdvReac Confusion Verified 08/13/18 10:13 [From Medrol] Sulfa (Sulfonamide AdvReac DIZZYNESS Verified 08/13/18 10:13 Antibiotics) Review of Systems ROS Statement: Those systems with pertinent positive or pertinent negative responses have been documented in the HPI. ROS Other: All systems not noted in ROS Statement are negative. Past Medical History Past Medical History: Coronary Artery Disease (CAD), Cancer, Diabetes Mellitus, Hyperlipidemia, Hypertension, Memory Impairment, Myocardial Infarction ([place]), Renal Disease, Sleep Apnea/CPAP/BIPAP, Thyroid Disorder Additional Past Medical History / Comment(s): osteomyelitis Lt hand/STAGE 3 RENAL FAILURE/THYROID CANCER, cpap machine,"rt hand 3 fingers numb" past falls- constipation,gout Last Myocardial Infarction Date:: 1999 History of Any Multi-Drug Resistant Organisms: MRSA Date of last positivie culture/infection: 07/01/2015 MDRO Source:: knee left Past Surgical History: Appendectomy, Heart Catheterization With Stent, Orthopedic Surgery Additional Past Surgical History / Comment(s): left hand, thyroidectomy, neck fusion/CARPAL TUNNEL REPAIR ASHLEY,colonoscopy in past STENT X1 Past Anesthesia/Blood Transfusion Reactions: No Reported Reaction Additional Past Anesthesia/Blood Transfusion Reaction / Comment(s): clausterphobia Date of Last Stent Placement:: 1999 Past Psychological History: Anxiety, Depression, Panic Disorder Smoking Status: Never smoker Past Alcohol Use History: None Reported Past Drug Use History: None Reported - Past Family History Brother(s) Family Medical History: Cancer Mother Family Medical History: Diabetes Mellitus Father Family Medical History: Myocardial Infarction ([place]) General Exam - General Exam Comments Initial Comments: 73-year-old female. Patient is alert and oriented 2. No self and location. Does not know date. Limitations: no limitations General appearance: alert Head exam: Present: atraumatic, normocephalic, normal inspection Eye exam: Present: normal appearance, PERRL, EOMI. Absent: scleral icterus, conjunctival injection, periorbital swelling ENT exam: Present: normal exam, mucous membranes moist Neck exam: Present: normal inspection. Absent: tenderness, meningismus, lymphadenopathy Respiratory exam: Present: normal lung sounds bilaterally. Absent: respiratory distress, wheezes, rales, rhonchi, stridor Cardiovascular Exam: Present: regular rate, normal rhythm, normal heart sounds. Absent: systolic murmur, diastolic murmur, rubs, gallop, clicks GI/Abdominal exam: Present: soft, normal bowel sounds. Absent: distended, tenderness, guarding, rebound, rigid Extremities exam: Present: normal inspection, full ROM, normal capillary refill. Absent: tenderness, pedal edema, joint swelling, calf tenderness Back exam: Present: normal inspection, other (multiple Nevi on back) Neurological exam: Present: alert, oriented X3, abnormal gait (unsteady gait with ambulation, fall risk). Absent: CN II-XII intact Psychiatric exam: Present: normal affect, normal mood Skin exam: Present: warm, dry, intact, normal color. Absent: rash Course Vital Signs 08/13/18 09:21 Temperature 98 F Pulse Rate 57 L Respiratory 18 Rate Blood Pressure 179/96 O2 Sat by Pulse 97 Oximetry - Reevaluation(s) Reevaluation #1: 08/13/18 09:49 On my evaluation Patient sat down on bed. She urinated through her clothes onto the bed. When Patient stood up she seemed to be unsteady on her feet. EKG Findings - EKG Comments: EKG Findings:: EKG performed at 956 shows sinus bradycardia, possible anterior infarct age undetermined. Abnormal EKG. Ventricular rate of 56 bpm.. Intervals 152 ms. QRS duration 80 ms. QT QTc is 476/459 ms. Medical Decision Making - Medical Decision Making 73-year-old female presenting to return today with complaints of unsteady gait Patient has had increased confusion and has been noted high blood pressure. She 's had frequent falls over the weekend. Patient at this time is suffering from early dementia. It appears that Patient may need more assistance at home besides her . Patient was given IV fluids and lab work was obtained. EKG was reviewed and negative for any acute process. Chest x-ray shows no acute abdomen or maladies. Lab work was otherwise unremarkable. Urinalysis is positive for infection. Patient's likely suffering from increased confusion and falls related to her urinary tract infection. I discussed admission with the Patient and they agree. - Lab Data Result diagrams: 08/13/18 09:45 08/13/18 09:45 Lab Results 08/13/18 08/13/18 08/13/18 Range/Units 09:45 09:45 09:45 WBC 10.1 (3.8-10.6) k/uL RBC 3.75 L (3.80-5.40) m/uL Hgb 11.3 L (11.4-16.0) gm/dL Hct 34.8 (34.0-46.0) % MCV 92.7 (80.0-100.0) fL MCH 30.2 (25.0-35.0) pg MCHC 32.6 (31.0-37.0) g/dL RDW 15.5 (11.5-15.5) % Plt Count 266 (150-450) k/uL Neutrophils % 71 % Lymphocytes % 18 % Monocytes % 6 % Eosinophils % 3 % Basophils % 1 % Neutrophils # 7.1 (1.3-7.7) k/uL Lymphocytes # 1.8 (1.0-4.8) k/uL Monocytes # 0.6 (0-1.0) k/uL Eosinophils # 0.3 (0-0.7) k/uL Basophils # 0.1 (0-0.2) k/uL PT (9.0-12.0) sec INR (<1.2) APTT (22.0-30.0) sec Sodium 144 (137-145) mmol/L Potassium 4.4 (3.5-5.1) mmol/L Chloride 106 (98-107) mmol/L Carbon Dioxide 27 (22-30) mmol/L Anion Gap 11 mmol/L BUN 22 H (7-17) mg/dL Creatinine 1.17 H (0.52-1.04) mg/dL Est GFR (CKD-EPI)AfAm 53 (>60 ml/min/1.73 sqM) Est GFR (CKD-EPI)NonAf 46 (>60 ml/min/1.73 sqM) Glucose 124 H (74-99) mg/dL Plasma Lactic Acid Jewel 1.1 (0.7-2.0) mmol/L Calcium 9.5 (8.4-10.2) mg/dL Magnesium 1.7 (1.6-2.3) mg/dL Total Bilirubin 0.8 (0.2-1.3) mg/dL AST 26 (14-36) U/L ALT 29 (9-52) U/L Alkaline Phosphatase 119 (38-126) U/L Troponin I (0.000-0.034) ng/mL Total Protein 6.8 (6.3-8.2) g/dL Albumin 4.0 (3.5-5.0) g/dL Urine Color Urine Appearance (Clear) Urine pH (5.0-8.0) Ur Specific [place] (1.001-1.035) Urine Protein (Negative) Urine Glucose (UA) (Negative) Urine Ketones (Negative) Urine Blood (Negative) Urine Nitrite (Negative) Urine Bilirubin (Negative) Urine Urobilinogen (<2.0) mg/dL Ur Leukocyte Esterase (Negative) Urine RBC (0-5) /hpf Urine WBC (0-5) /hpf Urine WBC Clumps (None) /hpf Ur Squamous Epith Cells (0-4) /hpf Amorphous Sediment (None) /hpf Urine Bacteria (None) /hpf Urine Mucus (None) /hpf 08/13/18 08/13/18 08/13/18 Range/Units 09:45 09:45 12:00 WBC (3.8-10.6) k/uL RBC (3.80-5.40) m/uL Hgb (11.4-16.0) gm/dL Hct (34.0-46.0) % MCV (80.0-100.0) fL MCH (25.0-35.0) pg MCHC (31.0-37.0) g/dL RDW (11.5-15.5) % Plt Count (150-450) k/uL Neutrophils % % Lymphocytes % % Monocytes % % Eosinophils % % Basophils % % Neutrophils # (1.3-7.7) k/uL Lymphocytes # (1.0-4.8) k/uL Monocytes # (0-1.0) k/uL Eosinophils # (0-0.7) k/uL Basophils # (0-0.2) k/uL PT 10.3 (9.0-12.0) sec INR 1.0 (<1.2) APTT 26.7 (22.0-30.0) sec Sodium (137-145) mmol/L Potassium (3.5-5.1) mmol/L Chloride (98-107) mmol/L Carbon Dioxide (22-30) mmol/L Anion Gap mmol/L BUN (7-17) mg/dL Creatinine (0.52-1.04) mg/dL Est GFR (CKD-EPI)AfAm (>60 ml/min/1.73 sqM) Est GFR (CKD-EPI)NonAf (>60 ml/min/1.73 sqM) Glucose (74-99) mg/dL Plasma Lactic Acid Jewel (0.7-2.0) mmol/L Calcium (8.4-10.2) mg/dL Magnesium (1.6-2.3) mg/dL Total Bilirubin (0.2-1.3) mg/dL AST (14-36) U/L ALT (9-52) U/L Alkaline Phosphatase (38-126) U/L Troponin I <0.012 (0.000-0.034) ng/mL Total Protein (6.3-8.2) g/dL Albumin (3.5-5.0) g/dL Urine Color Light Yellow Urine Appearance Cloudy H (Clear) Urine pH 7.5 (5.0-8.0) Ur Specific [place] 1.008 (1.001-1.035) Urine Protein 1+ H (Negative) Urine Glucose (UA) Negative (Negative) Urine Ketones Negative (Negative) Urine Blood Trace H (Negative) Urine Nitrite Negative (Negative) Urine Bilirubin Negative (Negative) Urine Urobilinogen <2.0 (<2.0) mg/dL Ur Leukocyte Esterase Large H (Negative) Urine RBC 4 (0-5) /hpf Urine WBC 122 H (0-5) /hpf Urine WBC Clumps Moderate H (None) /hpf Ur Squamous Epith Cells 4 (0-4) /hpf Amorphous Sediment Rare H (None) /hpf Urine Bacteria Occasional H (None) /hpf Urine Mucus Rare H (None) /hpf - Radiology Data Radiology results: report reviewed No acute intracranial process of the brain. Chest x-ray stay for any acute cardiopulmonary process. Disposition Clinical Impression: UTI (urinary tract infection), Altered mental status, unspecified, Frequent falls Disposition: ADMITTED IP TO THIS HOSP Condition: Stable Is patient prescribed a controlled substance at d/c from ED?: No Referrals: Cesar Nielsen DO [Primary Care Provider] - 1-2 days Time of Disposition: 13:03
[2018-08-13 10:12] LABS: Basophils # (A) 0.1 k/uL (0-0.2); Basophils % (A) 1 %; Eosinophils # (A) 0.3 k/uL (0-0.7); Eosinophils % (A) 3 %; HCT 34.8 % (34.0-46.0); HGB 11.3 gm/dL (11.4-16.0); Lymphocytes # (A) 1.8 k/uL (1.0-4.8); Lymphocytes % (A) 18 %; MCH 30.2 pg (25.0-35.0); MCHC 32.6 g/dL (31.0-37.0); MCV 92.7 fL (80.0-100.0); Mean Platelet Volume 7.8; Monocytes # (A) 0.6 k/uL (0-1.0); Monocytes % (A) 6 %; Neutrophils # (A) 7.1 k/uL (1.3-7.7); Neutrophils % (A) 71 %; Platelet Count 266 k/uL (150-450); RBC 3.75 m/uL (3.80-5.40); RDW 15.5 % (11.5-15.5); WBC 10.1 k/uL (3.8-10.6)
[2018-08-13 10:25] LABS: Calcium 9.5 mg/dL (8.4-10.2); Magnesium 1.7 mg/dL (1.6-2.3); Potassium 4.4 mmol/L (3.5-5.1); Total Bilirubin 0.8 mg/dL (0.2-1.3); Total Protein 6.8 g/dL (6.3-8.2)
[2018-08-13 10:26] LABS: Partial Thromboplastin Time 26.7 sec (22.0-30.0); Prothrombin Time 10.3 sec (9.0-12.0)
--- NOTE | 2018-08-13 10:42 | XR ---
EXAMINATION TYPE: XR chest 2V DATE OF EXAM: 08/13/2018 COMPARISON: Prior chest x-ray 06/22/2017 HISTORY: Weakness TECHNIQUE: Frontal and lateral views of the chest are obtained. FINDINGS: There is no focal air space opacity, pleural effusion, or pneumothorax seen. The cardiac silhouette size is within normal limits. Patient is status post left shoulder arthroplasty. Postop changes noted to the cervical spine and right shoulder. The osseous structures are intact. Patient is rotated. Aorta is dense. IMPRESSION: No acute cardiopulmonary process.
--- NOTE | 2018-08-13 10:42 | CT ---
EXAMINATION TYPE: CT brain wo con DATE OF EXAM: 08/13/2018 COMPARISON: 05/29/2018 INDICATION: Dizziness, confusion DLP: 1044.4 mGycm, Automated exposure control for dose reduction was used. CONTRAST: None CT of the brain is performed utilizing 3 mm thick sections through the posterior fossa and 3 mm thick sections through the remaining calvarium. Study is performed within 24 hours of arrival to the hosp [facility]. No abnormal hyperdensity is present to suggest an acute intracranial hemorrhage. No mass lesion is evident. No acute infarcts are evident. Chronic White matter changes are less evident on the current examinati on. Ventricles and sulci are prominent for the patient age. Paranasal sinuses and mastoid air cells within the [id number] are clear. IMPRESSIONS: 1. No acute intracranial process.
[2018-08-13] MEDS ORDERED: hydrALAZINE HCL 20 MG/ML 1 ML VIAL IVP STA (11:40)
[2018-08-13 12:34] LABS: Amorphous Sediment,Urine Rare /hpf; Appearance,Urine Cloudy (Clear); Bacteria,Urine Occasional /hpf; Bilirubin,Urine Negative (Negative); Blood,Urine Trace (Negative); Color,Urine Light Yellow; Glucose,Urine (UA) Negative (Negative); Ketones,Urine Negative (Negative); Leukocyte Esterase,Urine Large (Negative); Mucus,Urine Rare /hpf; Nitrite,Urine Negative (Negative); PH, Urine 7.5 (5.0-8.0); Protein,Urine 1+ (Negative); RBC,Urine 4 /hpf (0-5); Specific Gravity,Urine 1.008 (1.001-1.035); Squamous Epithelial Cell,Urine 4 /hpf (0-4); Urobilinogen,Urine <2.0 mg/dL (<2.0)
[2018-08-13] MEDS ORDERED: cefTRIAXone IN SWFI 1,000 MG/10 ML SYRINGE IVP STA (12:35)
[2018-08-13] MEDS ORDERED: IBUPROFEN 400 MG TAB PO PRN (13:04)
[2018-08-13] MEDS ORDERED: MORPHINE SULFATE 4 MG/ML SYRINGE IV PRN (13:04)
[2018-08-13] MEDS ORDERED: KETOROLAC 30 MG/ML 1 ML VIAL IVP PRN (13:04)
[2018-08-13] MEDS ORDERED: ONDANSETRON 4 MG/2 ML VIAL IVP PRN (13:04)
[2018-08-13] MEDS ORDERED: NALOXONE 0.4 MG/ML 1 ML VIAL IV PRN (13:04)
[2018-08-13] MEDS ORDERED: ACETAMINOPHEN TAB 325 MG TAB PO PRN (13:04)
[2018-08-13] MEDS ORDERED: NITROGLYCERIN SL TABS 0.4 MG TAB SUBLINGUAL PRN (16:05)
[2018-08-13] MEDS: SODIUM CHLORIDE 0.9% 1,000 ML IV SCH ×3 (16:53→22:26)
[2018-08-13 17:09] LABS: Glucose,Whole Blood 89 mg/dL (75-99)
[2018-08-13 18:37] VITALS: BMI 42.0
[2018-08-13] MEDS: ZIPRASIDONE 60 MG CAP PO SCH (20:07)
[2018-08-13] MEDS: ASPIRIN 81 MG PO SCH (20:07)
[2018-08-13] MEDS: ATORVASTATIN 80 MG TAB PO SCH (20:07)
[2018-08-13] MEDS: HEPARIN SODIUM,PORCINE 5,000 UNIT/ML 1 ML VIAL SQ SCH (20:07)
[2018-08-13] MEDS: METOPROLOL TARTRATE 12.5 MG TAB PO SCH (20:07)
[2018-08-13] MEDS: FAMOTIDINE 20 MG/2 ML VIAL IV SCH (20:08)
[2018-08-13] MEDS ORDERED: PANTOPRAZOLE 40 MG TABLET PO SCH (21:00)
[2018-08-13 21:05] LABS: Glucose,Whole Blood 149 mg/dL (75-99)
[2018-08-13] MEDS: INSULN ASP PRT/INSULIN ASPART 100 UNIT/ML 10 ML VIAL SQ SCH (21:08)
--- NOTE | 2018-08-14 01:22 | P.HPIM ---
History of Present Illness This is a pleasant 73 years old female with past medical history of coronary artery disease, diabetes mellitus, hypertension, hyperlipidemia, dementia, MRSA infection, sleep apnea, hypothyroidism, presents with altered mental status, pt is poor historian , she is awake and knows her brought her to the hospital but she does not know why. pt denies chest pain , no [id number] , no change in urine or bowel habits, no fever. no n/v , Vitas looks stable, patient afebrile. No leukocytosis and BMP unremarkable. However creatinine 1.1. She is at baseline of 0.9-1.1. UA suspicious of infections with large leukocyte esterase and WBC. Patient has negative CAT scan of the brain for acute process Review of Systems CONSTITUTIONAL: No fever, no malaise, no fatigue. HEENT: No recent visual problems or hearing problems. Denied any sore throat. CARDIOVASCULAR: No orthopnea, PND, no palpitations, no syncope. PULMONARY: No shortness of breath, no cough, no hemoptysis. GASTROINTESTINAL: No diarrhea, no nausea, no vomiting, no abdominal pain. Normoactive bowel sounds. NEUROLOGICAL: No headaches, no weakness, no numbness. HEMATOLOGICAL: Denies any bleeding or petechiae. GENITOURINARY: Denies any burning micturition, frequency, or urgency. MUSCULOSKELETAL/RHEUMATOLOGICAL: Denies any joint pain, swelling, or any muscle pain. ENDOCRINE: Denies any polyuria or polydipsia. Past Medical History Past Medical History: Coronary Artery Disease (CAD), Cancer, Diabetes Mellitus, Hyperlipidemia, Hypertension, Memory Impairment, Myocardial Infarction ([place]), Renal Disease, Sleep Apnea/CPAP/BIPAP, Thyroid Disorder Additional Past Medical History / Comment(s): osteomyelitis Lt hand/STAGE 3 RENAL FAILURE/THYROID CANCER, cpap machine,"rt hand 3 fingers numb" past falls- constipation,gout Last Myocardial Infarction Date:: 1999 History of Any Multi-Drug Resistant Organisms: MRSA Date of last positivie culture/infection: 07/01/2015 MDRO Source:: knee left Past Surgical History: Appendectomy, Heart Catheterization With Stent, Orthopedic Surgery Additional Past Surgical History / Comment(s): left hand, thyroidectomy, neck fusion/CARPAL TUNNEL REPAIR ASHLEY,colonoscopy in past STENT X1 Past Anesthesia/Blood Transfusion Reactions: No Reported Reaction Additional Past Anesthesia/Blood Transfusion Reaction / Comment(s): clausterphobia Date of Last Stent Placement:: 1999 Past Psychological History: Anxiety, Depression, Panic Disorder Smoking Status: Never smoker Past Alcohol Use History: None Reported Past Drug Use History: None Reported - Past Family History Brother(s) Family Medical History: Cancer Mother Family Medical History: Diabetes Mellitus Father Family Medical History: Myocardial Infarction ([place]) Medications and Allergies Home Medications Medication Instructions Recorded Confirmed Type Nitroglycerin Sl Tabs [Nitrostat] 0.4 mg SUBLINGUAL Q5M PRN 12/31/13 08/13/18 History Cholecalciferol [Vitamin D3] 1,000 unit PO BID 04/23/14 08/13/18 History Levothyroxine Sodium [Synthroid] 112 mcg PO DAILY 09/09/15 08/13/18 History Allopurinol [Zyloprim] 100 mg PO BID 09/03/16 08/13/18 History Aspirin EC [Ecotrin Low Dose] 81 mg PO BID 06/04/17 08/13/18 History Atorvastatin Calcium [Lipitor] 80 mg PO HS 11/02/17 08/13/18 History Pantoprazole [Protonix] 40 mg PO BID 11/02/17 08/13/18 History Metoprolol Tartrate [Lopressor] 25 mg PO BID 05/29/18 08/13/18 History Insulin NPH/Reg Insulin 70/30 16 unit SQ HS #0 06/07/18 08/13/18 Rx [humuLIN 70/30 VIAL] Insulin NPH/Reg Insulin 70/30 20 unit SQ QAM 06/22/18 08/13/18 History [humuLIN 70/30 VIAL] Lisinopril [Zestril] 5 mg PO DAILY 06/22/18 08/13/18 History PARoxetine HCL 20 mg PO QAM 06/22/18 08/13/18 History Ziprasidone [Geodon] 40 mg PO DAILY 06/22/18 08/13/18 History Benztropine Mesylate [Cogentin] 0.5 mg PO DAILY 08/13/18 08/13/18 History HYDROcodone/APAP 5-325MG [[place] 1 tab PO TID PRN 08/13/18 08/13/18 History 5-325] Magnesium Oxide [Mag-Ox] 250 mg PO BID 08/13/18 08/13/18 History Ziprasidone [Geodon] 60 mg PO HS 08/13/18 08/13/18 History Allergies Allergy/AdvReac Type Severity Reaction Status Date / Time lorazepam [From Ativan] Allergy Unknown Verified 08/13/18 10:13 codeine AdvReac Nausea Verified 08/13/18 10:13 erythromycin base AdvReac Nausea Verified 08/13/18 10:13 [Erythromycin Base] Iodinated Contrast- Oral and AdvReac ELEVATED Verified 08/13/18 10:13 IV Dye B/P, FELT [Iodinated Contrast Media - LIKE PASSED IV Dye] methylprednisolone AdvReac Confusion Verified 08/13/18 10:13 [From Medrol] Sulfa (Sulfonamide AdvReac DIZZYNESS Verified 08/13/18 10:13 Antibiotics) Physical Exam Vitals: Vital Signs Temp Pulse Pulse Resp BP BP Pulse Ox 08/13/18 16:10 98.3 F 56 L 18 163/62 94 L 08/13/18 13:25 55 L 16 139/74 95 08/13/18 09:21 98 F 57 L 18 179/96 97 Intake and Output 08/13/18 08/13/18 08/13/18 06:59 14:59 22:59 Other: Weight 104.326 kg GENERAL: The patient is alert and oriented x3, not in any acute distress. Well developed, well nourished. HEENT: Pupils are round and equally reacting to light. EOMI. No scleral icterus. No conjunctival pallor. Normocephalic, atraumatic. No pharyngeal erythema. No thyromegaly. CARDIOVASCULAR: S1 and S2 present. No murmurs, rubs, or gallops. PULMONARY: Chest is clear to auscultation, no wheezing or crackles. ABDOMEN: Soft, nontender, nondistended, normoactive bowel sounds. No palpable organomegaly. MUSCULOSKELETAL: No joint swelling or deformity. EXTREMITIES: No cyanosis, clubbing, or pedal edema. NEUROLOGICAL: Gross neurological examination did not reveal any focal deficits. SKIN: No rashes. Results CBC & Chem 7: 08/13/18 09:45 08/13/18 09:45 Labs: Abnormal Lab Results - Last 24 Hours (Table) 08/13/18 08/13/18 08/13/18 Range/Units 09:45 09:45 12:00 RBC 3.75 L (3.80-5.40) m/uL Hgb 11.3 L (11.4-16.0) gm/dL BUN 22 H (7-17) mg/dL Creatinine 1.17 H (0.52-1.04) mg/dL Glucose 124 H (74-99) mg/dL Urine Appearance Cloudy H (Clear) Urine Protein 1+ H (Negative) Urine Blood Trace H (Negative) Ur Leukocyte Esterase Large H (Negative) Urine WBC 122 H (0-5) /hpf Urine WBC Clumps Moderate H (None) /hpf Amorphous Sediment Rare H (None) /hpf Urine Bacteria Occasional H (None) /hpf Urine Mucus Rare H (None) /hpf Microbiology - Last 24 Hours (Table) 08/13/18 12:00 Urine Culture - Preliminary Urine,Voided Assessment and Plan Assessment: Metabolic encephalopathy Urinary tract infection History of coronary artery disease History of diabetes mellitus Hypertension Hyperlipidemia Dimension History of MRSA infection Sleep apnea Hypothyroidism Plan: This is a pleasant 73 years old female presents with metabolic encephalopathy and UTI. Continue with antibiotics. Follow-up urine culture. Continue with IV fluid. We will keep monitoring patient. Labs and medication were reviewed.. Continue same treatment. Continue with symptomatic treatment. Resume home medication. Monitor lytes and vitals. DVT and GI prophylaxis. Further recommendations of the clinical course of the patient DVT prophylaxis: Subcutaneous heparin GI Prophylaxis: Pepcid PT/OT: Pending Prognosis is guarded
[2018-08-14] MEDS: LEVOTHYROXINE 112 MCG TAB PO SCH (05:44)
[2018-08-14 06:59] LABS: Glucose,Whole Blood 150 mg/dL (75-99)
[2018-08-14] MEDS ORDERED: PANTOPRAZOLE 40 MG/10 ML VIAL IV SCH (09:00)
[2018-08-14] MEDS: METOPROLOL TARTRATE 12.5 MG TAB PO SCH ×2 (09:02→19:54)
[2018-08-14] MEDS: LISINOPRIL 5 MG TAB PO SCH (09:03)
[2018-08-14] MEDS: ZIPRASIDONE 40 MG CAP PO SCH (09:03)
[2018-08-14] MEDS: INSULN ASP PRT/INSULIN ASPART 100 UNIT/ML 10 ML VIAL SQ SCH ×2 (09:03→20:31)
[2018-08-14] MEDS: PARoxetine 20 MG TAB PO SCH (09:03)
[2018-08-14] MEDS: FAMOTIDINE 20 MG/2 ML VIAL IV SCH (09:03)
[2018-08-14] MEDS: HEPARIN SODIUM,PORCINE 5,000 UNIT/ML 1 ML VIAL SQ SCH ×2 (09:03→19:54)
[2018-08-14] MEDS: ASPIRIN 81 MG PO SCH ×2 (09:03→19:54)
[2018-08-14 09:28] LABS: Basophils # (A) 0.1 k/uL (0-0.2); Basophils % (A) 1 %; Eosinophils # (A) 0.2 k/uL (0-0.7); Eosinophils % (A) 3 %; HCT 34.4 % (34.0-46.0); HGB 10.7 gm/dL (11.4-16.0); Hypochromasia Slight; Lymphocytes # (A) 1.8 k/uL (1.0-4.8); Lymphocytes % (A) 24 %; MCH 29.4 pg (25.0-35.0); MCHC 31.2 g/dL (31.0-37.0); MCV 94.3 fL (80.0-100.0); Mean Platelet Volume 7.7; Monocytes # (A) 0.5 k/uL (0-1.0); Monocytes % (A) 7 %; Neutrophils # (A) 4.6 k/uL (1.3-7.7); Neutrophils % (A) 63 %; Platelet Count 247 k/uL (150-450); RBC 3.65 m/uL (3.80-5.40); RDW 15.7 % (11.5-15.5); WBC 7.4 k/uL (3.8-10.6)
[2018-08-14 09:40] LABS: Calcium 9.4 mg/dL (8.4-10.2); Potassium 4.4 mmol/L (3.5-5.1)
[2018-08-14 11:23] LABS: Glucose,Whole Blood 147 mg/dL (75-99)
[2018-08-14] MEDS: SODIUM CHLORIDE 0.9% 1,000 ML IV SCH (14:04)
[2018-08-14 16:34] LABS: Glucose,Whole Blood 208 mg/dL (75-99)
--- NOTE | 2018-08-14 17:10 | P.PN ---
Subjective This is a pleasant 73 years old female with past medical history of coronary artery disease, diabetes mellitus, hypertension, hyperlipidemia, dementia, MRSA infection, sleep apnea, hypothyroidism, presents with altered mental status, pt is poor historian , she is awake and knows her brought her to the hospital but she does not know why. pt denies chest pain , no [id number] , no change in urine or bowel habits, no fever. no n/v , Vitas looks stable, patient afebrile. No leukocytosis and BMP unremarkable. However creatinine 1.1. She is at baseline of 0.9-1.1. UA suspicious of infections with large leukocyte esterase and WBC. Patient has negative CAT scan of the brain for acute process 08/14/2018 Patient today feels better she is more awake and alert, she was sitting on the chair and she was able to interact with more appropriate conversation. Her dysuria and suprapubic tenderness are improving. Patient complaining of from chronic back pain also. Patient has been evaluated by physical therapist and recommended subacute rehab. Patient was hesitant however medical staff explained the benefits and risks and she will consider it subacute rehab upon discharge later on. Vitas is stable so and labs reviewed, creatinine 1.08 Objective - Vital Signs Vital signs: Vital Signs Temp 97.0 F L 08/14/18 14:30 Pulse 66 08/14/18 14:30 Resp 16 08/14/18 14:30 BP 121/68 08/14/18 14:30 Pulse Ox 97 08/14/18 14:30 Intake & Output 08/13/18 08/14/18 08/14/18 18:59 06:59 18:59 Intake Total 698 588 0240 Balance 473 558 0549 Weight 104.326 kg Intake: IV 450 Sodium Chloride 0.9% 1, 400 000 ml @ 50 mls/hr IV . Q20H Y[facility] Rx#:[id number] cefTRIAXone 1 gm In 50 Sodium Chloride 0.9% 50 ml @ 100 mls/hr IVPB Q24HR YAH[facility] Rx#:[id number] Oral 600 750 600 Other: # Voids 1 2 2 - Exam GENERAL: The patient is alert and oriented x3, not in any acute distress. Well developed, well nourished. HEENT: Pupils are round and equally reacting to light. EOMI. No scleral icterus. No conjunctival pallor. Normocephalic, atraumatic. No pharyngeal erythema. No thyromegaly. CARDIOVASCULAR: S1 and S2 present. No murmurs, rubs, or gallops. PULMONARY: Chest is clear to auscultation, no wheezing or crackles. ABDOMEN: Soft, nontender, nondistended, normoactive bowel sounds. No palpable organomegaly. MUSCULOSKELETAL: No joint swelling or deformity. EXTREMITIES: No cyanosis, clubbing, or pedal edema. NEUROLOGICAL: Gross neurological examination did not reveal any focal deficits. SKIN: No rashes. - Labs CBC & Chem 7: 08/14/18 08:38 08/14/18 08:38 Labs: Abnormal Lab Results - Last 24 Hours (Table) 08/13/18 08/14/18 08/14/18 Range/Units 20:57 06:57 08:38 RBC 3.65 L (3.80-5.40) m/uL Hgb 10.7 L (11.4-16.0) gm/dL RDW 15.7 H (11.5-15.5) % Chloride (98-107) mmol/L BUN (7-17) mg/dL Creatinine (0.52-1.04) mg/dL Glucose (74-99) mg/dL POC Glucose (mg/dL) 149 H 150 H (75-99) mg/dL 08/14/18 08/14/18 08/14/18 Range/Units 08:38 11:19 16:29 RBC (3.80-5.40) m/uL Hgb (11.4-16.0) gm/dL RDW (11.5-15.5) % Chloride 110 H (98-107) mmol/L BUN 19 H (7-17) mg/dL Creatinine 1.08 H (0.52-1.04) mg/dL Glucose 129 H (74-99) mg/dL POC Glucose (mg/dL) 147 H 208 H (75-99) mg/dL Microbiology - Last 24 Hours (Table) 08/13/18 12:00 Urine Culture - Final Urine,Voided Assessment and Plan Assessment: Metabolic encephalopathy Urinary tract infection History of coronary artery disease History of diabetes mellitus Hypertension Hyperlipidemia Dimension History of MRSA infection Sleep apnea Hypothyroidism Plan: This is a pleasant 73 years old female presents with metabolic encephalopathy and UTI. Continue with antibiotics. Follow-up urine culture. Continue with IV fluid. We will keep monitoring patient. Labs and medication were reviewed.. Continue same treatment. Continue with symptomatic treatment. Resume home medication. Monitor lytes and vitals. DVT and GI prophylaxis. Further recommendations of the clinical course of the patient DVT prophylaxis: Subcutaneous heparin GI Prophylaxis: Pepcid PT/OT: Pending Prognosis is guarded
[2018-08-14] MEDS: ZIPRASIDONE 60 MG CAP PO SCH (19:54)
[2018-08-14] MEDS: ATORVASTATIN 80 MG TAB PO SCH (19:54)
[2018-08-14 20:28] LABS: Glucose,Whole Blood 145 mg/dL (75-99)
[2018-08-15] MEDS: LEVOTHYROXINE 112 MCG TAB PO SCH (06:03)
[2018-08-15 07:32] LABS: Glucose,Whole Blood 122 mg/dL (75-99)
[2018-08-15] MEDS: PANTOPRAZOLE 40 MG TABLET PO SCH (08:10)
[2018-08-15] MEDS: HEPARIN SODIUM,PORCINE 5,000 UNIT/ML 1 ML VIAL SQ SCH ×2 (08:11→20:44)
[2018-08-15] MEDS: SODIUM CHLORIDE 0.9% 1,000 ML IV SCH (08:11)
[2018-08-15] MEDS: LISINOPRIL 5 MG TAB PO SCH (08:11)
[2018-08-15] MEDS: ASPIRIN 81 MG PO SCH ×2 (08:11→20:44)
[2018-08-15] MEDS: PARoxetine 20 MG TAB PO SCH (08:11)
[2018-08-15] MEDS: METOPROLOL TARTRATE 12.5 MG TAB PO SCH ×2 (08:11→20:44)
[2018-08-15] MEDS: ZIPRASIDONE 40 MG CAP PO SCH (08:12)
[2018-08-15] MEDS: INSULN ASP PRT/INSULIN ASPART 100 UNIT/ML 10 ML VIAL SQ SCH ×2 (08:16→20:44)
[2018-08-15 12:08] LABS: Glucose,Whole Blood 176 mg/dL (75-99)
[2018-08-15 17:25] LABS: Glucose,Whole Blood 102 mg/dL (75-99)
[2018-08-15 20:43] LABS: Glucose,Whole Blood 172 mg/dL (75-99)
[2018-08-15] MEDS: ATORVASTATIN 80 MG TAB PO SCH (20:44)
[2018-08-15] MEDS: ZIPRASIDONE 60 MG CAP PO SCH (20:44)
[2018-08-15] MEDS ORDERED: QUEtiapine 25 MG TAB PO STA (22:38)
--- NOTE | 2018-08-15 22:53 | P.PN ---
Subjective This is a pleasant 73 years old female with past medical history of coronary artery disease, diabetes mellitus, hypertension, hyperlipidemia, dementia, MRSA infection, sleep apnea, hypothyroidism, presents with altered mental status, pt is poor historian , she is awake and knows her brought her to the hospital but she does not know why. pt denies chest pain , no [id number] , no change in urine or bowel habits, no fever. no n/v , Vitas looks stable, patient afebrile. No leukocytosis and BMP unremarkable. However creatinine 1.1. She is at baseline of 0.9-1.1. UA suspicious of infections with large leukocyte esterase and WBC. Patient has negative CAT scan of the brain for acute process 08/14/2018 Patient today feels better she is more awake and alert, she was sitting on the chair and she was able to interact with more appropriate conversation. Her dysuria and suprapubic tenderness are improving. Patient complaining of from chronic back pain also. Patient has been evaluated by physical therapist and recommended subacute rehab. Patient was hesitant however medical staff explained the benefits and risks and she will consider it subacute rehab upon discharge later on. Vitas is stable so and labs reviewed, creatinine 1.08 08/15/2018 pt is clinically improved, she is back to her baseline , was at bed side and he confirms to me her improvement, pt agrees to go to [facility] upon discharge, pt is medically stable for discharge. pending placement , family welfare social work professor on the case Objective - Vital Signs Vital signs: Vital Signs Temp 98.3 F 08/15/18 14:26 Pulse 72 08/15/18 14:26 Resp 16 08/15/18 14:26 BP 143/63 08/15/18 14:26 Pulse Ox 96 08/15/18 14:26 Intake & Output 08/15/18 08/15/18 08/16/18 06:59 18:59 06:59 Intake Total 600 Balance 600 Intake: Oral 600 Other: Voiding Method Toilet # Voids 4 2 - Labs CBC & Chem 7: 08/14/18 08:38 08/14/18 08:38 Labs: Abnormal Lab Results - Last 24 Hours (Table) 08/14/18 08/15/18 08/15/18 Range/Units 20:22 07:13 11:48 POC Glucose (mg/dL) 145 H 122 H 176 H (75-99) mg/dL 08/15/18 Range/Units 17:22 POC Glucose (mg/dL) 102 H (75-99) mg/dL
[2018-08-15 23:10] VITALS: RESP 18
[2018-08-16] MEDS: SODIUM CHLORIDE 0.9% 1,000 ML IV SCH (06:17)
[2018-08-16] MEDS: LEVOTHYROXINE 112 MCG TAB PO SCH (06:18)
[2018-08-16 07:19] LABS: Glucose,Whole Blood 117 mg/dL (75-99)
[2018-08-16] MEDS: PANTOPRAZOLE 40 MG TABLET PO SCH (08:09)
[2018-08-16] MEDS: LISINOPRIL 5 MG TAB PO SCH (08:11)
[2018-08-16] MEDS: METOPROLOL TARTRATE 12.5 MG TAB PO SCH ×3 (08:11→22:09)
[2018-08-16] MEDS: ZIPRASIDONE 40 MG CAP PO SCH (08:12)
[2018-08-16] MEDS: PARoxetine 20 MG TAB PO SCH (08:12)
[2018-08-16] MEDS: ASPIRIN 81 MG PO SCH ×3 (08:12→22:08)
[2018-08-16] MEDS: HEPARIN SODIUM,PORCINE 5,000 UNIT/ML 1 ML VIAL SQ SCH ×3 (08:12→21:55)
[2018-08-16] MEDS: INSULN ASP PRT/INSULIN ASPART 100 UNIT/ML 10 ML VIAL SQ SCH ×3 (08:12→22:08)
[2018-08-16 11:56] LABS: Glucose,Whole Blood 116 mg/dL (75-99)
--- NOTE | 2018-08-16 14:13 | P.PN ---
Subjective This is a pleasant 73 years old female with past medical history of coronary artery disease, diabetes mellitus, hypertension, hyperlipidemia, dementia, MRSA infection, sleep apnea, hypothyroidism, presents with altered mental status, pt is poor historian , she is awake and knows her brought her to the hospital but she does not know why. pt denies chest pain , no [id number] , no change in urine or bowel habits, no fever. no n/v , Vitas looks stable, patient afebrile. No leukocytosis and BMP unremarkable. However creatinine 1.1. She is at baseline of 0.9-1.1. UA suspicious of infections with large leukocyte esterase and WBC. Patient has negative CAT scan of the brain for acute process 08/14/2018 Patient today feels better she is more awake and alert, she was sitting on the chair and she was able to interact with more appropriate conversation. Her dysuria and suprapubic tenderness are improving. Patient complaining of from chronic back pain also. Patient has been evaluated by physical therapist and recommended subacute rehab. Patient was hesitant however medical staff explained the benefits and risks and she will consider it subacute rehab upon discharge later on. Vitas is stable so and labs reviewed, creatinine 1.08 08/15/2018 pt is clinically improved, she is back to her baseline , was at bed side and he confirms to me her improvement, pt agrees to go to [facility] upon discharge, pt is medically stable for discharge. pending placement , executive secretary social welfare on the case 08/16/2018 Patient with metabolic encephalopathy secondary to urosepsis, back to her baseline or close to it. She got agitated at times like last night that needed 1 time dose of Seroquel. Mostly [place] for delirium. Today is back to her usual states she was lying in bed eating her lunch quietly and answering questions appropriately. Patient to continue with ceftriaxone Objective - Vital Signs Vital signs: Vital Signs Temp 97.5 F L 08/16/18 07:00 Pulse 59 L 08/16/18 07:00 Resp 18 08/16/18 07:00 BP 182/63 08/16/18 07:00 Pulse Ox 98 08/16/18 07:00 Intake & Output 08/15/18 08/16/18 08/16/18 18:59 06:59 18:59 Intake Total 50 Balance 50 Intake: IV 50 cefTRIAXone 1 gm In 50 Sodium Chloride 0.9% 50 ml @ 100 mls/hr IVPB Q24HR [facility] Rx#:[id number] Other: Voiding Method Toilet Toilet # Voids 2 1 - Exam GENERAL: The patient is alert and oriented x3, not in any acute distress. Well developed, well nourished. HEENT: Pupils are round and equally reacting to light. EOMI. No scleral icterus. No conjunctival pallor. Normocephalic, atraumatic. No pharyngeal erythema. No thyromegaly. CARDIOVASCULAR: S1 and S2 present. No murmurs, rubs, or gallops. PULMONARY: Chest is clear to auscultation, no wheezing or crackles. ABDOMEN: Soft, nontender, nondistended, normoactive bowel sounds. No palpable organomegaly. MUSCULOSKELETAL: No joint swelling or deformity. EXTREMITIES: No cyanosis, clubbing, or pedal edema. NEUROLOGICAL: Gross neurological examination did not reveal any focal deficits. SKIN: No rashes. - Labs CBC & Chem 7: 08/14/18 08:38 08/14/18 08:38 Labs: Abnormal Lab Results - Last 24 Hours (Table) 08/15/18 08/15/18 08/16/18 Range/Units 17:22 20:40 07:17 POC Glucose (mg/dL) 102 H 172 H 117 H (75-99) mg/dL 08/16/18 Range/Units 11:54 POC Glucose (mg/dL) 116 H (75-99) mg/dL Assessment and Plan Assessment: Metabolic encephalopathy Urinary tract infection History of coronary artery disease History of diabetes mellitus Hypertension Hyperlipidemia Dimension History of MRSA infection Sleep apnea Hypothyroidism Plan: This is a pleasant 73 years old female presents with metabolic encephalopathy and UTI. Continue with antibiotics. Follow-up urine culture. Continue with IV fluid. We will keep monitoring patient. Labs and medication were reviewed.. Continue same treatment. Continue with symptomatic treatment. Resume home medication. Monitor lytes and vitals. DVT and GI prophylaxis. Further recommendations of the clinical course of the patient DVT prophylaxis: Subcutaneous heparin GI Prophylaxis: Pepcid PT/OT: Pending Prognosis is guarded
[2018-08-16 17:26] LABS: Glucose,Whole Blood 134 mg/dL (75-99)
[2018-08-16 21:00] LABS: Glucose,Whole Blood 133 mg/dL (75-99)
[2018-08-16] MEDS ORDERED: diphenhydrAMINE 25 MG CAP PO PRN (21:00)
[2018-08-16] MEDS: ATORVASTATIN 80 MG TAB PO SCH ×2 (21:42→22:08)
[2018-08-16] MEDS: ZIPRASIDONE 60 MG CAP PO SCH ×2 (21:45→22:09)
[2018-08-17] MEDS: ZIPRASIDONE 40 MG CAP PO SCH ×2 (02:00→07:57)
[2018-08-17] MEDS: ATORVASTATIN 80 MG TAB PO SCH (02:00)
[2018-08-17] MEDS: METOPROLOL TARTRATE 12.5 MG TAB PO SCH ×3 (02:00→20:24)
[2018-08-17] MEDS: ASPIRIN 81 MG PO SCH ×3 (02:01→20:24)
[2018-08-17] MEDS: SODIUM CHLORIDE 0.9% 1,000 ML IV SCH (06:19)
[2018-08-17] MEDS: LEVOTHYROXINE 112 MCG TAB PO SCH (06:34)
[2018-08-17 07:08] LABS: Glucose,Whole Blood 147 mg/dL (75-99)
[2018-08-17] MEDS: INSULN ASP PRT/INSULIN ASPART 100 UNIT/ML 10 ML VIAL SQ SCH ×2 (07:55→20:26)
[2018-08-17] MEDS: PARoxetine 20 MG TAB PO SCH (07:57)
[2018-08-17] MEDS: PANTOPRAZOLE 40 MG TABLET PO SCH (07:57)
[2018-08-17] MEDS: HEPARIN SODIUM,PORCINE 5,000 UNIT/ML 1 ML VIAL SQ SCH ×2 (07:57→20:24)
[2018-08-17] MEDS: LISINOPRIL 5 MG TAB PO SCH (07:57)
[2018-08-17 08:56] LABS: Calcium 9.6 mg/dL (8.4-10.2)
[2018-08-17 09:11] LABS: Basophils % (A) 0 %; Eosinophils # (A) 0.2 k/uL (0-0.7); Eosinophils % (A) 2 %; HCT 35.9 % (34.0-46.0); HGB 11.7 gm/dL (11.4-16.0); Hypochromasia Slight; Lymphocytes # (A) 1.6 k/uL (1.0-4.8); Lymphocytes % (A) 15 %; MCH 30.8 pg (25.0-35.0); MCHC 32.5 g/dL (31.0-37.0); MCV 94.7 fL (80.0-100.0); Mean Platelet Volume 7.2; Monocytes # (A) 0.8 k/uL (0-1.0); Monocytes % (A) 7 %; Neutrophils # (A) 8.1 k/uL (1.3-7.7); Neutrophils % (A) 74 %; Platelet Count 271 k/uL (150-450); WBC 10.9 k/uL (3.8-10.6)
[2018-08-17 12:06] LABS: Glucose,Whole Blood 119 mg/dL (75-99)
--- NOTE | 2018-08-17 14:26 | XR ---
EXAMINATION TYPE: XR chest 1V DATE OF EXAM: 08/17/2018 COMPARISON: 08/13/2018 HISTORY: Short of breath TECHNIQUE: Single frontal view of the chest is obtained. FINDINGS: There is pulmonary vascular congestion. There is poor inspiration. There is bilateral shou lder surgery. Thoracic aorta is atheromatous. IMPRESSION: Mild congestive heart failure that is worse than last exam. Poor inspiration.
--- NOTE | 2018-08-17 14:31 | P.PN ---
Subjective 73 years old female with past medical history of coronary artery disease, diabetes mellitus, hypertension, hyperlipidemia, dementia, MRSA infection, sleep apnea, hypothyroidism, presents with altered mental status, pt is poor historian , she is awake and knows her brought her to the hospital but she does not know why. pt denies chest pain , no [id number] , no change in urine or bowel habits, no fever. no n/v , Vitas looks stable, patient afebrile. No leukocytosis and BMP unremarkable. However creatinine 1.1. She is at baseline of 0.9-1.1. UA suspicious of infections with large leukocyte esterase and WBC. Patient has negative CAT scan of the brain for acute process 08/14/2018 Patient today feels better she is more awake and alert, she was sitting on the chair and she was able to interact with more appropriate conversation. Her dysuria and suprapubic tenderness are improving. Patient complaining of from chronic back pain also. Patient has been evaluated by physical therapist and recommended subacute rehab. Patient was hesitant however medical staff explained the benefits and risks and she will consider it subacute rehab upon discharge later on. Vitas is stable so and labs reviewed, creatinine 1.08 08/15/2018 pt is clinically improved, she is back to her baseline , was at bed side and he confirms to me her improvement, pt agrees to go to [facility] upon discharge, pt is medically stable for discharge. pending placement , social media community manager on the case 08/16/2018 Patient with metabolic encephalopathy secondary to urosepsis, back to her baseline or close to it. She got agitated at times like last night that needed 1 time dose of Seroquel. Mostly [place] for delirium. Today is back to her usual states she was lying in bed eating her lunch quietly and answering questions appropriately. Patient to continue with ceftriaxone 08/17/2018 No overnight events patient can be discharged to subacute rehabilitation tomorrow patient's delirium is better. Constitutional: Denied any fatigue denied any fever. Cardio vascular: denied any chest pain, palpitations Gastrointestinal denied any nausea vomiting Pulmonary: Denied any shortness of breath cough Neurologic denied any new focal deficits All inpatient medications were reviewed and appropriate changes in these medications as dictated in the interval history and assessment and plan. Objective - Vital Signs Vital signs: Vital Signs Temp 99.3 F 08/17/18 06:15 Pulse 97 08/17/18 06:15 Resp 18 08/17/18 06:15 BP 172/71 08/17/18 06:15 Pulse Ox 92 L 08/17/18 06:15 Intake & Output 08/16/18 08/17/18 08/17/18 18:59 06:59 18:59 Intake Total 50 Balance 50 Intake: IV 50 cefTRIAXone 1 gm In 50 Sodium Chloride 0.9% 50 ml @ 100 mls/hr IVPB Q24HR [facility] Rx#:[id number] Other: # Voids 2 - Exam GENERAL: The patient is alert and oriented x3, not in any acute distress. Well developed, well nourished. HEENT: Pupils are round and equally reacting to light. EOMI. No scleral icterus. No conjunctival pallor. Normocephalic, atraumatic. No pharyngeal erythema. No thyromegaly. CARDIOVASCULAR: S1 and S2 present. No murmurs, rubs, or gallops. PULMONARY: Chest is clear to auscultation, no wheezing or crackles. ABDOMEN: Soft, nontender, nondistended, normoactive bowel sounds. No palpable organomegaly. MUSCULOSKELETAL: No joint swelling or deformity. EXTREMITIES: No cyanosis, clubbing, or pedal edema. NEUROLOGICAL: Gross neurological examination did not reveal any focal deficits. - Labs CBC & Chem 7: 08/17/18 07:34 08/17/18 07:34 Labs: Abnormal Lab Results - Last 24 Hours (Table) 08/16/18 08/16/18 08/17/18 Range/Units 17:23 20:58 07:05 WBC (3.8-10.6) k/uL RDW (11.5-15.5) % Neutrophils # (1.3-7.7) k/uL BUN (7-17) mg/dL Creatinine (0.52-1.04) mg/dL Glucose (74-99) mg/dL POC Glucose (mg/dL) 134 H 133 H 147 H (75-99) mg/dL 08/17/18 08/17/18 08/17/18 Range/Units 07:34 07:34 12:04 WBC 10.9 H (3.8-10.6) k/uL RDW 16.0 H (11.5-15.5) % Neutrophils # 8.1 H (1.3-7.7) k/uL BUN 21 H (7-17) mg/dL Creatinine 1.15 H (0.52-1.04) mg/dL Glucose 145 H (74-99) mg/dL POC Glucose (mg/dL) 119 H (75-99) mg/dL Assessment and Plan Plan: -Altered mental status secondary to toxic Encephalopathy from urinary tract infection I do not have any urine cultures available at this time patient will be continued on Rocephin will be discharged on 2-3 more days of Ceftin to subacute rehabilitation. Patient's encephalopathy resolved mental status is at her baseline avoid opiates, benzodiazepines, barbiturates, anticholinergic medications. -Coronary artery disease next and heparin type 2 diabetes mellitus -Hypertension next and-hyperlipidemia -Dementia history -Obstructive sleep apnea -Hypothyroidism Continue present medications possibly of discharge to subacute rehab [place]
[2018-08-17 17:16] LABS: Glucose,Whole Blood 165 mg/dL (75-99)
[2018-08-17] MEDS: ZIPRASIDONE 60 MG CAP PO SCH (20:25)
[2018-08-17 20:27] LABS: Glucose,Whole Blood 151 mg/dL (75-99)
[2018-08-17] MEDS ORDERED: ATORVASTATIN 80 MG TAB PO SCH (21:00)
[2018-08-18] MEDS: SODIUM CHLORIDE 0.9% 1,000 ML IV SCH (05:22)
[2018-08-18 06:18] VITALS: BP 127/77; PULSE 64; TEMP 98
[2018-08-18 07:08] LABS: Glucose,Whole Blood 115 mg/dL (75-99)
[2018-08-18] MEDS: LEVOTHYROXINE 112 MCG TAB PO SCH (07:44)
[2018-08-18] MEDS: ASPIRIN 81 MG PO SCH (07:44)
[2018-08-18] MEDS: HEPARIN SODIUM,PORCINE 5,000 UNIT/ML 1 ML VIAL SQ SCH (07:45)
[2018-08-18] MEDS: INSULN ASP PRT/INSULIN ASPART 100 UNIT/ML 10 ML VIAL SQ SCH (07:45)
[2018-08-18] MEDS: PANTOPRAZOLE 40 MG TABLET PO SCH (07:45)
[2018-08-18] MEDS: PARoxetine 20 MG TAB PO SCH (07:45)
[2018-08-18] MEDS: METOPROLOL TARTRATE 12.5 MG TAB PO SCH (07:45)
[2018-08-18] MEDS: ZIPRASIDONE 40 MG CAP PO SCH (07:46)
[2018-08-18] MEDS ORDERED: LISINOPRIL 10 MG TAB PO SCH (09:00)
--- NOTE | 2018-08-18 09:10 | P.DS ---
Providers Date of admission: 08/14/18 11:51 Expected date of discharge: 08/18/18 Attending physician: MD Dr. Jono Jerez Primary care physician: Cesar Nielsen [facility] Course: Final Diagnoses: -Altered mental status secondary to toxic Encephalopathy from urinary tract infection; encephalopathy resolved, mental status is at her baseline avoid opiates, benzodiazepines, barbiturates, anticholinergic medications. -Coronary artery disease next and heparin type 2 diabetes mellitus -Hypertension next and-hyperlipidemia -Dementia history -Obstructive sleep apnea -Hypothyroidism Hospital course:73 years old female with past medical history of coronary artery disease, diabetes mellitus, hypertension, hyperlipidemia, dementia, MRSA infection, sleep apnea, hypothyroidism, presents with altered mental status, pt is poor historian , she is awake and knows her brought her to the hospital but she does not know why. pt denies chest pain , no [id number] , no change in urine or bowel habits, no fever. no n/v , Vitas looks stable, patient afebrile. No leukocytosis and BMP unremarkable. However creatinine 1.1. She is at baseline of 0.9-1.1. UA suspicious of infections with large leukocyte esterase and WBC. Patient has negative CAT scan of the brain for acute process 08/14/2018 Patient today feels better she is more awake and alert, she was sitting on the chair and she was able to interact with more appropriate conversation. Her dysuria and suprapubic tenderness are improving. Patient complaining of from chronic back pain also. Patient has been evaluated by physical therapist and recommended subacute rehab. Patient was hesitant however medical staff explained the benefits and risks and she will consider it subacute rehab upon discharge later on. Vitas is stable so and labs reviewed, creatinine 1.08 08/15/2018 pt is clinically improved, she is back to her baseline , was at bed side and he confirms to me her improvement, pt agrees to go to [facility] upon discharge, pt is medically stable for discharge. pending placement , renal social worker on the case 08/16/2018 Patient with metabolic encephalopathy secondary to urosepsis, back to her baseline or close to it. She got agitated at times like last night that needed 1 time dose of Seroquel. Mostly [place] for delirium. Today is back to her usual states she was lying in bed eating her lunch quietly and answering questions appropriately. Patient to continue with ceftriaxone 08/17/2018 No overnight events patient can be discharged to subacute rehabilitation tomorrow patient's delirium is better. Delirium improved ,Significant clinical improvement.VSS afebrile. Patient is being discharged to subacute rehab today in a stable condition with guarded prognosis. - Exam GENERAL: The patient is alert and oriented x3, not in any acute distress. Well developed, well nourished. HEENT: Pupils are round and equally reacting to light. EOMI. No scleral icterus. No conjunctival pallor. Normocephalic, atraumatic. No pharyngeal erythema. No thyromegaly. CARDIOVASCULAR: S1 and S2 present. No murmurs, rubs, or gallops. PULMONARY: Chest is clear to auscultation, no wheezing or crackles. ABDOMEN: Soft, nontender, nondistended, normoactive bowel sounds. No palpable organomegaly. MUSCULOSKELETAL: No joint swelling or deformity. EXTREMITIES: No cyanosis, clubbing, or pedal edema. NEUROLOGICAL: Gross neurological examination did not reveal any focal deficits. The impression and plan of care has been dictated as directed. : I performed a history and examination of this patient, discussed the same with the dictator. I agree with the dictator's note ,documented as a scribe. Any additional findings or plans will be noted. Time taken: 35 minutes Patient Condition at Discharge: Stable Plan - Discharge Summary Discharge Rx Participant: No New Discharge Prescriptions: New Acetaminophen Tab [Tylenol] 650 mg PO Q6HR PRN tab PRN Reason: Mild Pain Or Fever > 100.5 Cefuroxime Axetil [Ceftin] 500 mg PO BID #6 tab Insuln Asp Prt/Insulin Aspart [NovoLOG MIX 70-30 VIAL] 12 unit SQ HS vial Insuln Asp Prt/Insulin Aspart [NovoLOG MIX 70-30 VIAL] 16 unit SQ QAM vial Lisinopril [Zestril] 10 mg PO DAILY tab Metoprolol Tartrate [Lopressor] 12.5 mg PO BID tab INSULIN LISPRO (HumaLOG) [humaLOG] 0 unit SQ ACHS #1 vial Continue Nitroglycerin Sl Tabs [Nitrostat] 0.4 mg SUBLINGUAL Q5M PRN PRN Reason: Chest Pain Cholecalciferol [Vitamin D3] 1,000 unit PO BID Levothyroxine Sodium [Synthroid] 112 mcg PO DAILY Allopurinol [Zyloprim] 100 mg PO BID Aspirin EC [Ecotrin Low Dose] 81 mg PO BID Atorvastatin Calcium [Lipitor] 80 mg PO HS Pantoprazole [Protonix] 40 mg PO BID Ziprasidone [Geodon] 40 mg PO DAILY PARoxetine HCL 20 mg PO QAM Magnesium Oxide [Mag-Ox] 250 mg PO BID Benztropine Mesylate [Cogentin] 0.5 mg PO DAILY Ziprasidone [Geodon] 60 mg PO HS Discontinued Metoprolol Tartrate [Lopressor] 25 mg PO BID Insulin NPH/Reg Insulin 70/30 [humuLIN 70/30 VIAL] 16 unit SQ HS #0 Lisinopril [Zestril] 5 mg PO DAILY Insulin NPH/Reg Insulin 70/30 [humuLIN 70/30 VIAL] 20 unit SQ QAM HYDROcodone/APAP 5-325MG [[place] 5-325] 1 tab PO TID PRN PRN Reason: Pain Discharge Medication List Nitroglycerin Sl Tabs [Nitrostat] 0.4 mg SUBLINGUAL Q5M PRN 12/31/13 [History] Cholecalciferol [Vitamin D3] 1,000 unit PO BID 04/23/14 [History] Levothyroxine Sodium [Synthroid] 112 mcg PO DAILY 09/09/15 [History] Allopurinol [Zyloprim] 100 mg PO BID 09/03/16 [History] Aspirin EC [Ecotrin Low Dose] 81 mg PO BID 06/04/17 [History] Atorvastatin Calcium [Lipitor] 80 mg PO HS 11/02/17 [History] Pantoprazole [Protonix] 40 mg PO BID 11/02/17 [History] PARoxetine HCL 20 mg PO QAM 06/22/18 [History] Ziprasidone [Geodon] 40 mg PO DAILY 06/22/18 [History] Benztropine Mesylate [Cogentin] 0.5 mg PO DAILY 08/13/18 [History] Magnesium Oxide [Mag-Ox] 250 mg PO BID 08/13/18 [History] Ziprasidone [Geodon] 60 mg PO HS 08/13/18 [History] Acetaminophen Tab [Tylenol] 650 mg PO Q6HR PRN tab 08/18/18 [Rx] Cefuroxime Axetil [Ceftin] 500 mg PO BID #6 tab 08/18/18 [Rx] INSULIN LISPRO (HumaLOG) [humaLOG] 0 unit SQ ACHS #1 vial 08/18/18 [Rx] Insuln Asp Prt/Insulin Aspart [NovoLOG MIX 70-30 VIAL] 12 unit SQ HS vial 08/18 [Rx] Insuln Asp Prt/Insulin Aspart [NovoLOG MIX 70-30 VIAL] 16 unit SQ QAM vial 10/03 [Rx] Lisinopril [Zestril] 10 mg PO DAILY tab 08/18/18 [Rx] Metoprolol Tartrate [Lopressor] 12.5 mg PO BID tab 08/18/18 [Rx] Follow up Appointment(s)/Referral(s): Deven Quezada MD [REFERRING] - 3 Days (While at subacute rehab) [facility], [NON-STAFF] - Cesar Nielsen DO [Primary Care Provider] - 1 Week (After discharge from subacute rehab) Activity/Diet/Wound Care/Special Instructions: Connie ALVARADO,MELODY in 3 days DIet: CONsist. Carb Act: as tolerated
[2018-08-18 11:31] LABS: Glucose,Whole Blood 199 mg/dL (75-99)
== END 2018-08-18 12:37 | DRG 689 ==
LOC: EC 09:18 → 4MS4W 13:25 → OBSVTOIN 08-14 11:51
PROVIDERS: ADMIT Internal Medicine; ATTEND Internal Medicine
DX: N39.0 Urinary tract infection, site not specified (principal); G92 Toxic encephalopathy; R29.6 Repeated falls; Z91.81 History of falling; E78.5 Hyperlipidemia, unspecified; E89.0 Postprocedural hypothyroidism; F03.90 Unspecified dementia, unspecified severity, without behavioral disturbance, psychotic disturbance, mood disturbance, and anxiety; F32.9 Major depressive disorder, single episode, unspecified; F41.0 Panic disorder [episodic paroxysmal anxiety]; G47.33 Obstructive sleep apnea (adult) (pediatric); G89.29 Other chronic pain; M54.9 Dorsalgia, unspecified; I25.10 Atherosclerotic heart disease of native coronary artery without angina pectoris; I25.2 Old myocardial infarction; Z79.4 Long term (current) use of insulin; Z79.82 Long term (current) use of aspirin; Z79.890 Hormone replacement therapy; Z79.899 Other long term (current) drug therapy; Z82.49 Family history of ischemic heart disease and other diseases of the circulatory system; Z83.3 Family history of diabetes mellitus; Z85.850 Personal history of malignant neoplasm of thyroid; Z86.14 Personal history of Methicillin resistant Staphylococcus aureus infection; Z98.1 Arthrodesis status; Z80.9 Family history of malignant neoplasm, unspecified; Z88.5 Allergy status to narcotic agent; Z88.2 Allergy status to sulfonamides; Z88.8 Allergy status to other drugs, medicaments and biological substances; Z88.1 Allergy status to other antibiotic agents; Z91.041 Radiographic dye allergy status; I12.9 Hypertensive chronic kidney disease with stage 1 through stage 4 chronic kidney disease, or unspecified chronic kidney disease; E11.22 Type 2 diabetes mellitus with diabetic chronic kidney disease; N18.3 Chronic kidney disease, stage 3 (moderate); Z95.5 Presence of coronary angioplasty implant and graft; F40.240 Claustrophobia; Z99.89 Dependence on other enabling machines and devices; M10.9 Gout, unspecified
CPT/HCPCS: 36415; 70450; 71045; 71046; 80048; 80053; 81001; 82040; 82306; 82728; 83540; 83550; 83605; 83735; 83970; 84100; 84484; 84550; 85025; 85610; 85730; 87086; 93005; 96361; 96374; 99285

== ENCOUNTER 2018-10-04 19:15 | Emergency (ER) | payer MEDICARE, BC ==
[2018-10-04 19:22] VITALS: RESP 18
[2018-10-04] MEDS ORDERED: SODIUM CHLORIDE 0.9% 500 ML 500 ML IV ONE (19:25)
[2018-10-04 20:20] LABS: Anisocytosis Slight; Basophils # (A) 0.1 k/uL (0-0.2); Basophils % (A) 1 %; Eosinophils # (A) 0.3 k/uL (0-0.7); Eosinophils % (A) 3 %; HGB 10.6 gm/dL (11.4-16.0); Lymphocytes # (A) 2.4 k/uL (1.0-4.8); Lymphocytes % (A) 21 %; MCH 30.2 pg (25.0-35.0); MCHC 33.2 g/dL (31.0-37.0); MCV 91.1 fL (80.0-100.0); Mean Platelet Volume 7.8; Monocytes # (A) 0.7 k/uL (0-1.0); Monocytes % (A) 6 %; Neutrophils # (A) 7.3 k/uL (1.3-7.7); Neutrophils % (A) 67 %; Platelet Count 265 k/uL (150-450); RBC 3.51 m/uL (3.80-5.40); RDW 16.5 % (11.5-15.5)
--- NOTE | 2018-10-04 20:27 | CT ---
EXAMINATION TYPE: CT brain wo con DATE OF EXAM: 10/04/2018 COMPARISON: 08/13/2018 and 06/04/2017 HISTORY: 73-year-old female confusion and altered mental status TECHNIQUE: Examination was done in axial plane without intravenous contrast. Coronal and sagittal r econstructions performed. CT DLP: 1054.4 mGycm Automated exposure control for dose reduction was used. FINDINGS: There is no evidence of acute intracranial hemorrhage, acute ischemic changes, mass effect, or extra -axial fluid collection. There is no effacement of cerebral sulci or basal subarachnoid cisterns. T here is no hydrocephalus. There is no midline shift. Santos-white matter distinction is preserved. Partially calcified extra-axial 9 mm lesion at the left frontotemporal junction near the sylvian fiss ure is unchanged, likely representing a small meningioma. Mild bifrontal cortical atrophy. Paranasal sinuses and mastoid air cells well pneumatized. Left mastoid air cells slightly hypoplastic . Orbits and globes appear intact. IMPRESSION: Mild bifrontal atrophy. No acute intracranial abnormality seen. Stable partially calcified 9 mm extra -axial lesion at the left frontotemporal junction, likely a small meningioma.
[2018-10-04 20:28] LABS: Prothrombin Time 10.4 sec (9.0-12.0)
[2018-10-04 20:29] LABS: Albumin 4.1 g/dL (3.5-5.0); Calcium 9.5 mg/dL (8.4-10.2); Partial Thromboplastin Time 25.9 sec (22.0-30.0); Potassium 3.9 mmol/L (3.5-5.1); Total Bilirubin 0.7 mg/dL (0.2-1.3); Total Protein 6.6 g/dL (6.3-8.2)
--- NOTE | 2018-10-04 20:29 | XR ---
EXAMINATION TYPE: XR chest 2V DATE OF EXAM: 10/04/2018 COMPARISON: 08/17/2018 HISTORY: 73-year-old female confusion, altered mental status TECHNIQUE: AP and lateral views FINDINGS: Reverse left shoulder arthroplasty. Suture anchors at the right humeral head from prior cuff repair. ACDF hardware. Slightly low lung volumes and cardiovascular markings. Heart upper limits of normal in size. Mild dif fuse interstitial prominence. No kunal consolidation or pleural effusion. Left base underpenetrated r esulting in hazy density here. IMPRESSION: Some limitations due to underpenetration and hypoventilatory changes. Chronic changes, possible chron ic bronchitis/asthma. No definite acute process.
[2018-10-04 21:06] LABS: Appearance,Urine Clear (Clear); Bilirubin,Urine Negative (Negative); Blood,Urine Negative (Negative); Color,Urine Yellow; Glucose,Urine (UA) Negative (Negative); Ketones,Urine Negative (Negative); Leukocyte Esterase,Urine Negative (Negative); Nitrite,Urine Negative (Negative); Protein,Urine Trace (Negative); Specific Gravity,Urine 1.014 (1.001-1.035); Urobilinogen,Urine <2.0 mg/dL (<2.0)
--- NOTE | 2018-10-04 21:10 | ED ---
General Adult HPI - General Chief complaint: Altered Mental Status Stated complaint: Altered mental state Time Seen by Provider: 10/04/18 19:25 Source: patient, EMS, RN notes reviewed, old records reviewed Mode of arrival: EMS Limitations: altered mental status - History of Present Illness Initial comments: 73-year-old female presenting with increased confusion, altered mental status. Patient had fever noted at the snf, she had increased cloudy urine, concern for UTI. Patient is confused, unable to give a complete history. She is stable vitals, nonfocal exam, moving all extremities. No complaints of chest pain or abdominal pain. No history of vomiting or diarrhea. - Related Data Home Medications Medication Instructions Recorded Confirmed Nitroglycerin Sl Tabs [Nitrostat] 0.4 mg SUBLINGUAL Q5M PRN 12/31/13 10/04/18 Cholecalciferol [Vitamin D3] 1,000 unit PO BID 04/23/14 10/04/18 Levothyroxine Sodium [Synthroid] 112 mcg PO DAILY 09/09/15 10/04/18 Allopurinol [Zyloprim] 100 mg PO BID 09/03/16 10/04/18 Aspirin EC [Ecotrin Low Dose] 81 mg PO BID 06/04/17 10/04/18 Atorvastatin Calcium [Lipitor] 80 mg PO HS@199911/02/17 10/04/18 Pantoprazole [Protonix] 40 mg PO BID 11/02/17 10/04/18 PARoxetine HCL 20 mg PO QAM 06/22/18 10/04/18 Ziprasidone [Geodon] 40 mg PO DAILY@0700 06/22/18 10/04/18 Benztropine Mesylate [Cogentin] 0.5 mg PO DAILY 08/13/18 10/04/18 Ziprasidone [Geodon] 60 mg PO HS@199908/13/18 10/04/18 Insulin Lispro Protamin/Lispro 12 unit SQ HS@199910/04/18 10/04/18 [humaLOG Mix 75-25 Kwikpen] Insulin Lispro Protamin/Lispro 16 unit SQ DAILY 10/04/18 10/04/18 [humaLOG Mix 75-25 Kwikpen] Ipratropium-Albuterol Nebulize 3 ml INHALATION RT-Q6H PRN 04/20/19 04/20/19 [Duoneb 0.5 mg-3 mg/3 ml Soln] Lisinopril [Zestril] 10 mg PO BID 10/04/18 10/04/18 Magnesium 400 mg PO DAILY@1400 10/04/18 10/04/18 Magnesium Oxide 400 mg PO DAILY 10/04/18 10/04/18 Metoprolol Tartrate [Lopressor] 12.5 mg PO BID@0700,1600 10/04/18 10/04/18 Previous Rx's Medication Instructions Recorded Acetaminophen Tab [Tylenol] 650 mg PO Q6HR PRN tab 08/18/18 Cephalexin [Keflex] 500 mg PO Q12HR #20 cap 10/04/18 Allergies Allergy/AdvReac Type Severity Reaction Status Date / Time carvedilol [From Coreg] Allergy Unknown Verified 10/04/18 19:57 lorazepam [From Ativan] Allergy Unknown Verified 10/04/18 19:57 codeine AdvReac Nausea Verified 10/04/18 19:57 erythromycin base AdvReac Nausea Verified 10/04/18 19:57 [Erythromycin Base] Iodinated Contrast- Oral and AdvReac ELEVATED Verified 10/04/18 19:57 IV Dye B/P, FELT [Iodinated Contrast Media - LIKE PASSED IV Dye] methylprednisolone AdvReac Confusion Verified 10/04/18 19:57 [From Medrol] Sulfa (Sulfonamide AdvReac DIZZYNESS Verified 10/04/18 19:57 Antibiotics) Review of Systems ROS Statement: Those systems with pertinent positive or pertinent negative responses have been documented in the HPI. ROS Other: All systems not noted in ROS Statement are negative. Past Medical History Past Medical History: Coronary Artery Disease (CAD), Cancer, Diabetes Mellitus, Hyperlipidemia, Hypertension, Memory Impairment, Myocardial Infarction ([place]), Renal Disease, Sleep Apnea/CPAP/BIPAP, Thyroid Disorder Additional Past Medical History / Comment(s): osteomyelitis Lt hand/STAGE 3 RENAL FAILURE/THYROID CANCER, cpap machine,"rt hand 3 fingers numb" past falls- constipation,gout Last Myocardial Infarction Date:: 1999 History of Any Multi-Drug Resistant Organisms: MRSA Date of last positivie culture/infection: 07/01/2015 MDRO Source:: knee left Past Surgical History: Appendectomy, Heart Catheterization With Stent, Orthopedic Surgery Additional Past Surgical History / Comment(s): left hand, thyroidectomy, neck fusion/CARPAL TUNNEL REPAIR ASHLEY,colonoscopy in past STENT X1 Past Anesthesia/Blood Transfusion Reactions: No Reported Reaction Additional Past Anesthesia/Blood Transfusion Reaction / Comment(s): clausterphobia Date of Last Stent Placement:: 1999 Past Psychological History: Anxiety, Depression, Panic Disorder Smoking Status: Never smoker Past Alcohol Use History: None Reported Past Drug Use History: None Reported - Past Family History Brother(s) Family Medical History: Cancer Mother Family Medical History: Diabetes Mellitus Father Family Medical History: Myocardial Infarction ([place]) General Exam Limitations: altered mental status General appearance: alert, in no apparent distress Head exam: Present: atraumatic, normocephalic Eye exam: Present: normal appearance, PERRL ENT exam: Present: mucous membranes dry Neck exam: Present: normal inspection. Absent: tenderness, meningismus Respiratory exam: Present: normal lung sounds bilaterally. Absent: respiratory distress, wheezes Cardiovascular Exam: Present: regular rate, normal rhythm GI/Abdominal exam: Present: soft. Absent: distended, tenderness, guarding Extremities exam: Present: normal inspection, normal capillary refill. Absent: pedal edema, calf tenderness Neurological exam: Present: alert, CN II-XII intact. Absent: oriented X3 (1), motor sensory deficit Psychiatric exam: Present: normal affect, normal mood Skin exam: Present: warm, dry, intact. Absent: cyanosis, diaphoretic Course Vital Signs 10/04/18 19:18 Temperature 99.3 F Pulse Rate 83 Respiratory 18 Rate Blood Pressure 140/72 O2 Sat by Pulse 94 L Oximetry EKG Findings - EKG Comments: EKG Findings:: EKG: Normal sinus rhythm, rate of 80, SC interval 162, QRS duration 86, QTC 498, no ST segment elevation. Medical Decision Making - Medical Decision Making 73-year-old female presenting with confusion, history of fever and concern for UTI. Patient has stable vitals, nonfocal neurologic exam. No specific complaints. Workup in the emergency department reveals mild leukocytosis 11.0, hemoglobin 10.6, creatinine 1.3, CT is obtained, negative for acute intracranial pathology, chest x-ray negative for focal pneumonia. Urinalysis is obtained, negative for signs of infection, however patient had positive urine culture from September 29 proteus, sensitive to cephalosporins. - Lab Data Result diagrams: 10/04/18 20:02 10/04/18 20:02 Lab Results 10/04/18 10/04/18 10/04/18 Range/Units 20:02 20:02 20:02 WBC 11.0 H (3.8-10.6) k/uL RBC 3.51 L (3.80-5.40) m/uL Hgb 10.6 L (11.4-16.0) gm/dL Hct 32.0 L (34.0-46.0) % MCV 91.1 (80.0-100.0) fL MCH 30.2 (25.0-35.0) pg MCHC 33.2 (31.0-37.0) g/dL RDW 16.5 H (11.5-15.5) % Plt Count 265 (150-450) k/uL Neutrophils % 67 % Lymphocytes % 21 % Monocytes % 6 % Eosinophils % 3 % Basophils % 1 % Neutrophils # 7.3 (1.3-7.7) k/uL Lymphocytes # 2.4 (1.0-4.8) k/uL Monocytes # 0.7 (0-1.0) k/uL Eosinophils # 0.3 (0-0.7) k/uL Basophils # 0.1 (0-0.2) k/uL Anisocytosis Slight PT (9.0-12.0) sec INR (<1.2) APTT (22.0-30.0) sec Sodium 142 (137-145) mmol/L Potassium 3.9 (3.5-5.1) mmol/L Chloride 105 (98-107) mmol/L Carbon Dioxide 27 (22-30) mmol/L Anion Gap 10 mmol/L BUN 23 H (7-17) mg/dL Creatinine 1.30 H (0.52-1.04) mg/dL Est GFR (CKD-EPI)AfAm 47 (>60 ml/min/1.73 sqM) Est GFR (CKD-EPI)NonAf 40 (>60 ml/min/1.73 sqM) Glucose 112 H (74-99) mg/dL Plasma Lactic Acid Jewel 1.4 (0.7-2.0) mmol/L Calcium 9.5 (8.4-10.2) mg/dL Total Bilirubin 0.7 (0.2-1.3) mg/dL AST 36 (14-36) U/L ALT 29 (9-52) U/L Alkaline Phosphatase 113 (38-126) U/L Total Protein 6.6 (6.3-8.2) g/dL Albumin 4.1 (3.5-5.0) g/dL Urine Color Urine Appearance (Clear) Urine pH (5.0-8.0) Ur Specific [place] (1.001-1.035) Urine Protein (Negative) Urine Glucose (UA) (Negative) Urine Ketones (Negative) Urine Blood (Negative) Urine Nitrite (Negative) Urine Bilirubin (Negative) Urine Urobilinogen (<2.0) mg/dL Ur Leukocyte Esterase (Negative) 10/04/18 10/04/18 Range/Units 20:02 21:00 WBC (3.8-10.6) k/uL RBC (3.80-5.40) m/uL Hgb (11.4-16.0) gm/dL Hct (34.0-46.0) % MCV (80.0-100.0) fL MCH (25.0-35.0) pg MCHC (31.0-37.0) g/dL RDW (11.5-15.5) % Plt Count (150-450) k/uL Neutrophils % % Lymphocytes % % Monocytes % % Eosinophils % % Basophils % % Neutrophils # (1.3-7.7) k/uL Lymphocytes # (1.0-4.8) k/uL Monocytes # (0-1.0) k/uL Eosinophils # (0-0.7) k/uL Basophils # (0-0.2) k/uL Anisocytosis PT 10.4 (9.0-12.0) sec INR 1.0 (<1.2) APTT 25.9 (22.0-30.0) sec Sodium (137-145) mmol/L Potassium (3.5-5.1) mmol/L Chloride (98-107) mmol/L Carbon Dioxide (22-30) mmol/L Anion Gap mmol/L BUN (7-17) mg/dL Creatinine (0.52-1.04) mg/dL Est GFR (CKD-EPI)AfAm (>60 ml/min/1.73 sqM) Est GFR (CKD-EPI)NonAf (>60 ml/min/1.73 sqM) Glucose (74-99) mg/dL Plasma Lactic Acid Jewel (0.7-2.0) mmol/L Calcium (8.4-10.2) mg/dL Total Bilirubin (0.2-1.3) mg/dL AST (14-36) U/L ALT (9-52) U/L Alkaline Phosphatase (38-126) U/L Total Protein (6.3-8.2) g/dL Albumin (3.5-5.0) g/dL Urine Color Yellow Urine Appearance Clear (Clear) Urine pH 6.0 (5.0-8.0) Ur Specific [place] 1.014 (1.001-1.035) Urine Protein Trace H (Negative) Urine Glucose (UA) Negative (Negative) Urine Ketones Negative (Negative) Urine Blood Negative (Negative) Urine Nitrite Negative (Negative) Urine Bilirubin Negative (Negative) Urine Urobilinogen <2.0 (<2.0) mg/dL Ur Leukocyte Esterase Negative (Negative) Disposition Clinical Impression: Dehydration, Altered mental status, UTI (urinary tract infection) Disposition: HOME SELF-CARE Condition: Fair Instructions (If sedation given, give patient instructions): Altered Mental Status (ED), Urinary Tract Infection in Women (ED) Prescriptions: Cephalexin [Keflex] 500 mg PO Q12HR #20 cap Is patient prescribed a controlled substance at d/c from ED?: No Referrals: Cesar Nielsen DO [Primary Care Provider] - 1-2 days Time of Disposition: 21:18
[2018-10-04 21:17] LABS: Amphetamine Screen,Urine Not Detected (NotDetected); Barbiturate Screen,Urine Not Detected (NotDetected); Benzodiazepines Screen,Urine Not Detected (NotDetected); Cocaine Screen,Urine Not Detected (NotDetected); Methadone Screen, Urine Not Detected (NotDetected); Opiate Screen,Urine Not Detected (NotDetected); Oxycodone Screen, Urine Not Detected (NotDetected); Phencyclidine Screen,Urine Not Detected (NotDetected); Tricyclic Antidepressant,Urine Not Detected (NotDetected); Urn Cannabinoid Scrn Not Detected (NotDetected)
[2018-10-04] MEDS ORDERED: cefTRIAXone IN SWFI 1,000 MG/10 ML SYRINGE IVP STA (21:18)
[2018-10-04 22:11] VITALS: BP 143/71; PULSE 85; TEMP 98.9
== END 2018-10-04 22:16 | disposition home or self-care (01) ==
LOC: EC 19:15
DX: N39.0 Urinary tract infection, site not specified (principal); E86.0 Dehydration; R41.82 Altered mental status, unspecified; I25.10 Atherosclerotic heart disease of native coronary artery without angina pectoris; E07.9 Disorder of thyroid, unspecified; E11.9 Type 2 diabetes mellitus without complications; I10 Essential (primary) hypertension; E78.5 Hyperlipidemia, unspecified; F32.9 Major depressive disorder, single episode, unspecified; F41.0 Panic disorder [episodic paroxysmal anxiety]; G47.30 Sleep apnea, unspecified; I25.2 Old myocardial infarction; Z79.82 Long term (current) use of aspirin; Z79.4 Long term (current) use of insulin; Z79.899 Other long term (current) drug therapy; Z88.8 Allergy status to other drugs, medicaments and biological substances; Z88.5 Allergy status to narcotic agent; Z88.1 Allergy status to other antibiotic agents; Z88.2 Allergy status to sulfonamides; Z91.041 Radiographic dye allergy status; Z85.850 Personal history of malignant neoplasm of thyroid; Z90.89 Acquired absence of other organs; Z95.5 Presence of coronary angioplasty implant and graft; Z98.1 Arthrodesis status
CPT/HCPCS: 36415; 93005; 80053; 83605; 85025; 85610; 85730; 81003; 87040; 80306; 87086; 71046; 70450; 99285; 96374; J0696

== ENCOUNTER 2019-01-21 10:49 | Inpatient (IN) | payer MEDICARE, BC ==
[2019-01-21] MEDS: SODIUM CHLORIDE 0.9% 500 ML 500 ML IV SCH ×2 (11:34→12:48)
[2019-01-21 11:44] LABS: Anisocytosis Slight; Basophils % (A) 0 %; Eosinophils # (A) 0.2 k/uL (0-0.7); Eosinophils % (A) 2 %; HCT 29.7 % (34.0-46.0); HGB 9.7 gm/dL (11.4-16.0); Lymphocytes # (A) 1.5 k/uL (1.0-4.8); Lymphocytes % (A) 13 %; MCHC 32.5 g/dL (31.0-37.0); MCV 89.5 fL (80.0-100.0); Mean Platelet Volume 7.9; Monocytes # (A) 0.7 k/uL (0-1.0); Monocytes % (A) 6 %; Neutrophils # (A) 9.4 k/uL (1.3-7.7); Neutrophils % (A) 78 %; Platelet Count 283 k/uL (150-450); RBC 3.33 m/uL (3.80-5.40); RDW 16.7 % (11.5-15.5); WBC 12.1 k/uL (3.8-10.6)
[2019-01-21 11:53] LABS: Partial Thromboplastin Time 30.8 sec (22.0-30.0)
--- NOTE | 2019-01-21 12:02 | ED ---
General Adult HPI - General Chief complaint: Altered Mental Status Stated complaint: Abnormal labs Time Seen by Provider: 01/21/19 11:14 Source: patient, RN notes reviewed, old records reviewed Mode of arrival: EMS Limitations: no limitations - History of Present Illness Initial comments: Patient is a 73-year-old female presents emergency department for metal edge of the elbow. She presents for decreased oral intake, shaking episodes. Generalized weakness. Family reports a decline in her mental status. She does have underlying history of dementia. She's had a history of urinary tract infection is currently on antibiotics. At this time Patient hasn't complaints abdominal pain but is difficult to verbalize her complaints. She is alert and o riented to self. Unable to state date and time. Family reports that he is generally her baseline for dementia. - Related Data Home Medications Medication Instructions Recorded Confirmed Nitroglycerin Sl Tabs [Nitrostat] 0.4 mg SUBLINGUAL Q5M PRN 12/31/13 01/21/19 Cholecalciferol [Vitamin D3 (25 1,000 unit PO BID 04/23/14 01/21/19 Mcg = 1000 Iu)] Levothyroxine Sodium [Synthroid] 112 mcg PO DAILY 09/09/15 01/21/19 Allopurinol [Zyloprim] 100 mg PO BID 09/03/16 01/21/19 Aspirin EC [Ecotrin Low Dose] 81 mg PO BID 06/04/17 01/21/19 Atorvastatin Calcium [Lipitor] 80 mg PO HS@199911/02/17 01/21/19 Pantoprazole [Protonix] 40 mg PO BID 11/02/17 01/21/19 Benztropine Mesylate [Cogentin] 0.5 mg PO DAILY 08/13/18 01/21/19 Ziprasidone [Geodon] 60 mg PO HS@199908/13/18 01/21/19 Insulin Lispro Protamin/Lispro 12 unit SQ HS@199910/04/18 01/21/19 [humaLOG Mix 75-25 Kwikpen] Insulin Lispro Protamin/Lispro 16 unit SQ DAILY 10/04/18 01/21/19 [humaLOG Mix 75-25 Kwikpen] ALPRAZolam [Xanax] 0.25 mg PO DAILY 01/21/19 01/21/19 Artificial Tears-Hypromellose 2 drops LEFT EYE Q4H 01/21/19 01/21/19 [Artificial Tear Drops] Bisacodyl [Dulcolax] 10 mg RECTAL DAILY PRN 01/21/19 01/21/19 Ciprofloxacin HCl [Cipro] 500 mg PO BID 01/21/19 01/21/19 Lisinopril [Zestril] 20 mg PO BID 01/21/19 01/21/19 Magnesium Hydroxide [Milk of 2,400 mg PO DAILY PRN 01/21/19 01/21/19 Magnesia] Metoprolol Tartrate [Lopressor] 25 mg PO BID 01/21/19 01/21/19 PARoxetine HCL [Paxil] 30 mg PO DAILY 01/21/19 01/21/19 Polyethylene Glycol 3350 [Miralax] 17 gm PO DAILY 01/21/19 01/21/19 Saliva Stimulant Agents Comb.3 1 spray MUCOUS MEM TID 01/21/19 01/21/19 [Biotene Moisturizing Mouth] Sennosides-Docusate Sodium 2 tab PO HS 01/21/19 01/21/19 [Senokot-S] Ziprasidone HCl [Geodon] 20 mg PO QAM 01/21/19 01/21/19 Previous Rx's Medication Instructions Recorded Acetaminophen Tab [Tylenol] 650 mg PO Q6HR PRN tab 08/18/18 Allergies Allergy/AdvReac Type Severity Reaction Status Date / Time carvedilol [From Coreg] Allergy Unknown Verified 01/21/19 11:25 lorazepam [From Ativan] Allergy Unknown Verified 01/21/19 11:25 codeine AdvReac Nausea Verified 01/21/19 11:25 erythromycin base AdvReac Nausea Verified 01/21/19 11:25 [Erythromycin Base] Iodinated Contrast- Oral and AdvReac ELEVATED Verified 01/21/19 11:25 IV Dye B/P, FELT [Iodinated Contrast Media - LIKE PASSED IV Dye] methylprednisolone AdvReac Confusion Verified 01/21/19 11:25 [From Medrol] Sulfa (Sulfonamide AdvReac DIZZYNESS Verified 01/21/19 11:25 Antibiotics) Review of Systems ROS Statement: Those systems with pertinent positive or pertinent negative responses have been documented in the HPI. ROS Other: All systems not noted in ROS Statement are negative. Past Medical History Past Medical History: Coronary Artery Disease (CAD), Cancer, Diabetes Mellitus, Hyperlipidemia, Hypertension, Memory Impairment, Myocardial Infarction ([place]), Renal Disease, Sleep Apnea/CPAP/BIPAP, Thyroid Disorder Additional Past Medical History / Comment(s): osteomyelitis Lt hand/STAGE 3 RENAL FAILURE/THYROID CANCER, cpap machine,"rt hand 3 fingers numb" past falls- constipation,gout Last Myocardial Infarction Date:: 1999 History of Any Multi-Drug Resistant Organisms: MRSA Date of last positivie culture/infection: 07/01/2015 MDRO Source:: knee left Past Surgical History: Appendectomy, Heart Catheterization With Stent, Orthopedic Surgery Additional Past Surgical History / Comment(s): left hand, thyroidectomy, neck fusion/CARPAL TUNNEL REPAIR ASHLEY,colonoscopy in past STENT X1 Past Anesthesia/Blood Transfusion Reactions: No Reported Reaction Additional Past Anesthesia/Blood Transfusion Reaction / Comment(s): claust erphobia Date of Last Stent Placement:: 1999 Past Psychological History: Anxiety, Depression, Panic Disorder Smoking Status: Never smoker Past Alcohol Use History: None Reported Past Drug Use History: None Reported - Past Family History Brother(s) Family Medical History: Cancer Mother Family Medical History: Diabetes Mellitus Father Family Medical History: Myocardial Infarction ([place]) General Exam - General Exam Comments Initial Comments: This is a 73-year-old female. Alert and oriented to self. Responsive to stimuli. Limitations: no limitations General appearance: alert, in no apparent distress Head exam: Present: atraumatic, normocephalic, normal inspection Eye exam: Present: normal appearance, PERRL, EOMI. Absent: scleral icterus, conjunctival injection, periorbital swelling ENT exam: Present: mucous membranes dry, mucous membranes moist. Absent: normal exam, normal oropharynx Neck exam: Present: normal inspection. Absent: tenderness, meningismus, lymphadenopathy Respiratory exam: Present: normal lung sounds bilaterally. Absent: respiratory distress, wheezes, rales, rhonchi, stridor Cardiovascular Exam: Present: regular rate, normal rhythm, normal heart sounds. Absent: systolic murmur, diastolic murmur, rubs, gallop, clicks GI/Abdominal exam: Present: soft, tenderness, normal bowel sounds. Absent: distended, guarding, rebound, rigid Extremities exam: Present: normal inspection, full ROM, normal capillary refill. Absent: tenderness, pedal edema, joint swelling, calf tenderness Back exam: Present: normal inspection Neurological exam: Present: alert, oriented X3, CN II-XII intact Psychiatric exam: Present: normal affect, normal mood Skin exam: Present: warm, dry, intact, normal color. Absent: rash Course Vital Signs 01/21/19 01/21/19 01/21/19 11:03 11:30 12:00 Temperature 97.2 F L Pulse Rate 66 64 61 Respiratory 13 9 L 16 Rate Blood Pressure 116/38 116/38 120/59 O2 Sat by Pulse 99 99 97 Oximetry 01/21/19 01/21/19 01/21/19 12:30 13:00 13:15 Temperature 100.0 F H Pulse Rate 62 60 64 Respiratory 18 Rate Blood Pressure 107/41 92/59 O2 Sat by Pulse 96 Oximetry 01/21/19 16:01 Temperature 96.7 F L Pulse Rate 49 L Respiratory 18 Rate Blood Pressure 101/48 O2 Sat by Pulse 99 Oximetry Medical Decision Making - Medical Decision Making Patient is a 73-year-old female with declining mental status, history of dementia. She appears very dehydrated with dry oropharynx. Labwork to show acute renal failure. He was given fluid resuscitation. Urinalysis positive for infection. She was given 1 dose of Rocephin. She is currently on antibiotics, rocephin and vancomycin.. I reviewed patient's previous urine culture showed pseudomonas and Klebsiella. Susceptible to all antibiotics. Due to patient's abdominal pain we did a CT abdomen and pelvis without contrast. His evidence of sepsis tissue subcutaneous air. Correlating with trauma. This is likely for patient's receiving insulin injections. There is no evidence of bruising or erythema over the site of subcutaneous air and inflammatory changes. Patient wi ll be admitted at this time with Dr. Garcia's group. With close follow-up with primary care physician. Patient's family wants Patient to be full resuscitation however they do not want prolonged life saving measures such as being on the ventilator. - Lab Data Result diagrams: 01/21/19 11:10 01/21/19 11:10 Lab Results 01/21/19 01/21/19 01/21/19 Range/Units 11:10 11:10 11:10 WBC 12.1 H (3.8-10.6) k/uL RBC 3.33 L (3.80-5.40) m/uL Hgb 9.7 L (11.4-16.0) gm/dL Hct 29.7 L (34.0-46.0) % MCV 89.5 (80.0-100.0) fL MCH 29.0 (25.0-35.0) pg MCHC 32.5 (31.0-37.0) g/dL RDW 16.7 H (11.5-15.5) % Plt Count 283 (150-450) k/uL Neutrophils % 78 % Lymphocytes % 13 % Monocytes % 6 % Eosinophils % 2 % Basophils % 0 % Neutrophils # 9.4 H (1.3-7.7) k/uL Lymphocytes # 1.5 (1.0-4.8) k/uL Monocytes # 0.7 (0-1.0) k/uL Eosinophils # 0.2 (0-0.7) k/uL Basophils # 0.0 (0-0.2) k/uL Anisocytosis Slight PT (9.0-12.0) sec INR (<1.2) APTT (22.0-30.0) sec Sodium 138 (137-145) mmol/L Potassium 3.7 (3.5-5.1) mmol/L Chloride 106 (98-107) mmol/L Carbon Dioxide 18 L (22-30) mmol/L Anion Gap 14 mmol/L BUN 46 H (7-17) mg/dL Creatinine 2.76 H (0.52-1.04) mg/dL Est GFR (CKD-EPI)AfAm 19 (>60 ml/min/1.73 sqM) Est GFR (CKD-EPI)NonAf 16 (>60 ml/min/1.73 sqM) Glucose 154 H (74-99) mg/dL Plasma Lactic Acid Jewel 1.2 (0.7-2.0) mmol/L Calcium 9.3 (8.4-10.2) mg/dL Total Bilirubin 0.5 (0.2-1.3) mg/dL AST 29 (14-36) U/L ALT 20 (9-52) U/L Alkaline Phosphatase 89 (38-126) U/L Troponin I (0.000-0.034) ng/mL Total Protein 6.2 L (6.3-8.2) g/dL Albumin 3.5 (3.5-5.0) g/dL Urine Color Urine Appearance (Clear) Urine pH (5.0-8.0) Ur Specific [place] (1.001-1.035) Urine Protein (Negative) Urine Glucose (UA) (Negative) Urine Ketones (Negative) Urine Blood (Negative) Urine Nitrite (Negative) Urine Bilirubin (Negative) Urine Urobilinogen (<2.0) mg/dL Ur Leukocyte Esterase (Negative) Urine WBC (0-5) /hpf Urine WBC Clumps (None) /hpf Urine Bacteria (None) /hpf 01/21/19 01/21/19 01/21/19 Range/Units 11:10 11:10 13:10 WBC (3.8-10.6) k/uL RBC (3.80-5.40) m/uL Hgb (11.4-16.0) gm/dL Hct (34.0-46.0) % MCV (80.0-100.0) fL MCH (25.0-35.0) pg MCHC (31.0-37.0) g/dL RDW (11.5-15.5) % Plt Count (150-450) k/uL Neutrophils % % Lymphocytes % % Monocytes % % Eosinophils % % Basophils % % Neutrophils # (1.3-7.7) k/uL Lymphocytes # (1.0-4.8) k/uL Monocytes # (0-1.0) k/uL Eosinophils # (0-0.7) k/uL Basophils # (0-0.2) k/uL Anisocytosis PT 11.0 (9.0-12.0) sec INR 1.0 (<1.2) APTT 30.8 H (22.0-30.0) sec Sodium (137-145) mmol/L Potassium (3.5-5.1) mmol/L Chloride (98-107) mmol/L Carbon Dioxide (22-30) mmol/L Anion Gap mmol/L BUN (7-17) mg/dL Creatinine (0.52-1.04) mg/dL Est GFR (CKD-EPI)AfAm (>60 ml/min/1.73 sqM) Est GFR (CKD-EPI)NonAf (>60 ml/min/1.73 sqM) Glucose (74-99) mg/dL Plasma Lactic Acid Jewel (0.7-2.0) mmol/L Calcium (8.4-10.2) mg/dL Total Bilirubin (0.2-1.3) mg/dL AST (14-36) U/L ALT (9-52) U/L Alkaline Phosphatase (38-126) U/L Troponin I <0.012 (0.000-0.034) ng/mL Total Protein (6.3-8.2) g/dL Albumin (3.5-5.0) g/dL Urine Color Yellow Urine Appearance Cloudy H (Clear) Urine pH 6.5 (5.0-8.0) Ur Specific [place] 1.019 (1.001-1.035) Urine Protein 1+ H (Negative) Urine Glucose (UA) Negative (Negative) Urine Ketones Negative (Negative) Urine Blood Small H (Negative) Urine Nitrite Negative (Negative) Urine Bilirubin Negative (Negative) Urine Urobilinogen <2.0 (<2.0) mg/dL Ur Leukocyte Esterase Large H (Negative) Urine WBC >182 H (0-5) /hpf Urine WBC Clumps Many H (None) /hpf Urine Bacteria Rare H (None) /hpf 01/21/19 12:02 EKG performed at 1143 shows normal sinus rhythm left axis deviation. Prolonged QT. Abnormal EKG. Ventricular rate is 64 bpm. OK interval is 170 ms. QRS duration is 84 ms. QT QTc is 478/4 and 83 ms. - Radiology Data Radiology results: report reviewed Subcutaneous air and inflammatory subcutaneous tissues in the right anterior pelvis. Correlating for trauma. Vague suprahilar opacities could represent atelectasis or developing pneumonia. On this Patient with fever. Disposition Clinical Impression: Renal failure, UTI (urinary tract infection), Altered mental state, Metabolic encephalopathy, Fever and chills, Major neurocognitive disorder due to Alzheimer's disease, probable, with behavioral disturbance, Diabetes, Dehydration Disposition: ADMITTED IP TO THIS HOSP Condition: Stable Is patient prescribed a controlled substance at d/c from ED?: No Referrals: Cesar Nielsen DO [Primary Care Provider] - 1-2 days Time of Disposition: 16:20
[2019-01-21 12:06] LABS: Albumin 3.5 g/dL (3.5-5.0); Calcium 9.3 mg/dL (8.4-10.2); Potassium 3.7 mmol/L (3.5-5.1); Total Bilirubin 0.5 mg/dL (0.2-1.3); Total Protein 6.2 g/dL (6.3-8.2)
--- NOTE | 2019-01-21 12:20 | XR ---
EXAMINATION TYPE: XR chest 2V DATE OF EXAM: 01/21/2019 COMPARISON: 10/04/2018 HISTORY: Altered mental status and fever TECHNIQUE: Frontal and lateral views of the chest are obtained. FINDINGS: There are vague suprahilar opacities bilaterally. Cardiomediastinal silhouette is within n ormal limits. No focal pleural effusion or pneumothorax. Reverse left humeral arthroplasty, rotator c uff anchors on the right, and partially visualized cervical spinal fusion device are noted. IMPRESSION: Vague suprahilar opacities could represent atelectasis or early developing pneumonia in this patient with fever.
[2019-01-21] MEDS ORDERED: ONDANSETRON 4 MG/2 ML VIAL IVP STA (12:25)
[2019-01-21] MEDS ORDERED: cefTRIAXone IN SWFI 1,000 MG/10 ML SYRINGE IVP STA (12:37)
[2019-01-21] MEDS ORDERED: SODIUM CHLORIDE 0.9% 1,000 ML IV ONE ×2 (12:37→15:49)
[2019-01-21] MEDS ORDERED: MORPHINE SULFATE 4 MG/ML SYRINGE IVP STA (13:20)
[2019-01-21] MEDS ORDERED: IBUPROFEN IV 800 MG in SODIUM CHLORIDE 0.9% 250 ML IV ONE (13:30)
[2019-01-21] MEDS ORDERED: ACETAMINOPHEN IV (For NPO) 1,000 MG in EMPTY BAG 1 BAG IVPB ONE (13:52)
[2019-01-21 14:01] LABS: Appearance,Urine Cloudy (Clear); Bacteria,Urine Rare /hpf; Bilirubin,Urine Negative (Negative); Blood,Urine Small (Negative); Color,Urine Yellow; Glucose,Urine (UA) Negative (Negative); Ketones,Urine Negative (Negative); Leukocyte Esterase,Urine Large (Negative); Nitrite,Urine Negative (Negative); PH, Urine 6.5 (5.0-8.0); Protein,Urine 1+ (Negative); Specific Gravity,Urine 1.019 (1.001-1.035); Urobilinogen,Urine <2.0 mg/dL (<2.0); WBC,Urine >182 /hpf (0-5)
[2019-01-21] MEDS ORDERED: ACETAMINOPHEN IV (For NPO) 1,000 MG in EMPTY BAG 1 BAG IVPB STA (14:18)
--- NOTE | 2019-01-21 15:42 | CT ---
EXAMINATION TYPE: CT abdomen pelvis wo con DATE OF EXAM: 01/21/2019 COMPARISON: 06/04/2018 INDICATION: Abnormal labs DLP: 839 mGycm, Automated exposure control for dose reduction was used. CONTRAST: 0 mL of Isovue 370. Study performed without Oral Contrast TECHNIQUE: Axial images were obtained from above the diaphragm to the pubic rami in the axial plane a t 5 mm thick sections. Reconstructed images are reviewed on the computer in the coronal plane. FINDINGS: Limited CT sections are obtained the lung bases. Mild compressive atelectasis of the dependent right lung base.. Mild coronary artery calcification is within the [id number]. CT ABDOMEN: Liver: Normal Spleen: Normal Pancreas: Normal Adrenal glands: The adrenal glands are normal. Gallbladder: Distended Kidneys: No masses are evident. No hydronephrosis is present. No cysts are present. Delayed images were obtained through the kidneys, which remain unremarkable. Aorta: Vascular calcification is within the aorta. Inferior vena cava: Normal. CT PELVIS: Mild inflammatory type changes through the right hip region. Correlate for trauma. Subcuta neous air is present within this region. Loops of bowel within the abdomen and pelvis are normal. There are loops of bowel which are incom pletely distended or lack oral contrast limiting their evaluation. Appendix: Not identified. No suspicious inflammatory changes are evident. No dilated tubular structur es evident. Urinary bladder: Normal. Genitourinary structures: Uterus and adnexa appear unremarkable. Osseous structures: No suspicious lytic or sclerotic lesions. IMPRESSIONS: 1. Subcutaneous air and inflammatory changes subcutaneous tissues right anterior pelvis. Correlate f or trauma.
[2019-01-21] MEDS: SODIUM CHLORIDE 0.9% 1,000 ML IV SCH ×2 (16:05→21:30)
[2019-01-21] MEDS ORDERED: VANCOMYCIN IV PER PHARMACY 1 EACH MISC MISCELLANE PRN (16:06)
[2019-01-21] MEDS ORDERED: VANCOMYCIN 1,500 MG in SODIUM CHLORIDE 0.9% 250 ML IVPB ONE (16:15)
[2019-01-21] MEDS ORDERED: NALOXONE 0.4 MG/ML 1 ML VIAL IV PRN (16:20)
[2019-01-21] MEDS ORDERED: ONDANSETRON 4 MG/2 ML VIAL IVP PRN (16:20)
[2019-01-21] MEDS ORDERED: MORPHINE SULFATE 4 MG/ML SYRINGE IV PRN (16:20)
[2019-01-21] MEDS ORDERED: BISACODYL 10 MG SUPP RECTAL PRN (18:41)
[2019-01-21] MEDS ORDERED: NITROGLYCERIN SL TABS 0.4 MG TAB SUBLINGUAL PRN (18:41)
[2019-01-21] MEDS ORDERED: MAGNESIUM HYDROXIDE 2,400 MG/10 ML CUP PO PRN (18:41)
[2019-01-21] MEDS ORDERED: ACETAMINOPHEN TAB 325 MG TAB PO PRN (18:41)
[2019-01-21 20:29] LABS: Albumin 3.2 g/dL (3.5-5.0); Calcium 8.7 mg/dL (8.4-10.2); Total Bilirubin 0.3 mg/dL (0.2-1.3); Total Protein 5.8 g/dL (6.3-8.2)
--- NOTE | 2019-01-21 21:58 | HP ---
HISTORY AND PHYSICAL CHIEF COMPLAINTS: Change in mental status. HISTORY OF PRESENT ILLNESS: This 73-year-old woman with a past medical history of multiple medical problems including history of diabetes, hypertension, hyperlipidemia, history of memory impairment, history of myocardial infarction, sleep apnea, history of renal failure, osteomyelitis, left hand being followed by Dr. Nielsen in the outpatient setting, apparently was being treated for significant yeast infection. Patient also had UTI and the family reported some decline in mental status. The patient taken to [facility] and was admitted for further evaluation and treatment. Patient complaining of pain, was given morphine and the patient is completely sedated, barely arousable at this time. Infectious Disease and Nephrology evaluation has been sought. The patient has features of acute renal failure. There is no history of any fever, rigors or chills per history. PAST MEDICAL HISTORY: History of CAD, history of diabetes, hypertension, hyperlipidemia, history of memory impairment, history of hypothyroidism, osteomyelitis, anxiety, depression. MEDICATIONS: Home medications are: 1. Vitamin D3 1000 b.i.d. 2. Senokot-S 2 tabs q.h.s. 3. Protonix 40 mg b.i.d. 4. Paxil 30 mg p.o. daily. 5. Synthroid 112 mcg p.o. daily. 6. Nitrostat 0.4 mg p.r.n. 7. Milk of magnesia 2.4 grams daily p.r.n. 8. Lopressor 25 mg p.o. b.i.d. 9. Zestril 20 mg p.o. b.i.d. 10.Humalog 75/25 12 units subcu q.h.s. 16 subcu daily. 11.Geodon 20 mg q.a.m. 12.MiraLAX 17 g p.o. daily. 13.Geodon 60 mg p.o. q.h.s. 14.Cipro 500 mg p.o. b.i.d. 15.Dulcolax 10 mg rectally p.r.n. 16.Biotene 1 spray t.i.d. 17.Cogentin 0.5 mg daily. 18.Lipitor 80 mg q.h.s. 19.Ecotrin 81 mg p.o. b.i.d. 20.Artificial Tears 2 drops left eye q.4. 21.Zyloprim 100 mg p.o. b.i.d. 22.Tylenol 650 q.6h p.r.n. 23.Xanax 0.5 daily. ALLERGIES: COREG, ATIVAN, CODEINE, ERYTHROMYCIN, IODINATED CONTRAST DYES, METHYLPREDNISONE, SULFA. FAMILY HISTORY: History of diabetes in the family. SOCIAL HISTORY: From the chart: No history of smoking. No history of alcohol. REVIEW OF SYSTEMS: Could not be taken because of the mental status as described earlier. PHYSICAL EXAM: Pulse is 45, blood pressure 118/50, respiration 12, temperature 97.9. Pulse ox 100 percent on 3 L. HEENT: Conjunctivae normal. Oral mucosa moist. NECK is no jugular venous distention. No carotid bruit. No lymph node enlargement. CARDIOVASCULAR: S1, S2 muffled. No S3, no S4. Ejection systolic murmur. RESPIRATORY: Breath sounds diminished in the bases. A few scattered rhonchi and crackles. ABDOMEN: Soft, nontender. No mass palpable. LEGS: No edema. No swelling. NERVOUS SYSTEM: Higher functions as mentioned earlier. The patient is sedated. Full exam is not possible at this time. SKIN: No ulcer, rash or bleeding. JOINTS: No active deforming arthropathy. LYMPHATICS: No lymph nodes palpable in the neck, axillae or groin. LAB: Investigations are WBC 12.1, hemoglobin 9.7, sodium 138, potassium 3.7. UA noted. ASSESSMENT: 1. Acute urinary tract infection with failure of outpatient treatment as well as possible sepsis. 2. Change in mental status, possible metabolic encephalopathy secondary to sepsis. 3. Increased WBC. 4. Anemia, normocytic anemia of chronic disease. 5. Acute renal failure possibly prerenal renal failure with acute tubular necrosis. 6. History of coronary artery disease. 7. Diabetes mellitus type 2. 8. Hypertension. 9. Hyperlipidemia. 10.History of memory impairment. 11.History of sleep apnea. 12.History of hypothyroidism. 13.History of osteomyelitis. 14.History of MRSA. 15.History of coronary artery disease/ stent. 16.History of anxiety/depression/panic disorder. 17.FULL CODE. RECOMMENDATIONS AND DISCUSSION: This 73-year-old woman who presented with multiple medical issues, at this time I recommend to continue the current medications, management and symptomatic treatment, broad-spectrum IV antibiotics. Dr. More has recommended ceftazidime. I would recommend monitor the blood sugars closely. Otherwise symptomatic treatment. Cultures. Overall prognosis guarded because of the multiple complex medical issues. The patient is FULL CODE currently. Medication reconciliation has been done. Further recommendations to follow. Hold sedatives as the patient is drowsy. LOREN / NATACHAN: [id number] /
[2019-01-21] MEDS ORDERED: SALIVA STIMULANT AGENTS COMB MUCOUS MEM SCH (22:00)
[2019-01-21 23:30] LABS: Glucose,Whole Blood 95 mg/dL (75-99)
[2019-01-21 23:46] LABS: ABG HCO3 23 mmol/L (21-25); ABG Oxygen Saturation 99.1 % (94-97); ABG PCO2 48 mmHg (35-45); ABG PH 7.29 (7.35-7.45); ABG PO2 181 mmHg (83-108); ABG TCO2 24 mmol/L (19-24); Allen Test Performed? Yes
[2019-01-21] MEDS: ARTIFICIAL TEARS-HYPROMELLOSE DROPS 15 ML BTL LEFT EYE SCH (23:57)
[2019-01-21] MEDS: PANTOPRAZOLE 40 MG TABLET PO SCH (23:57)
[2019-01-21] MEDS: ATORVASTATIN 80 MG TAB PO SCH (23:58)
[2019-01-21] MEDS: ZIPRASIDONE 60 MG CAP PO SCH (23:58)
[2019-01-21] MEDS: ASPIRIN 81 MG PO SCH (23:58)
[2019-01-21] MEDS: ALLOPURINOL 100 MG TAB PO SCH (23:58)
[2019-01-21] MEDS: INSULN ASP PRT/INSULIN ASPART 100 UNIT/ML 10 ML VIAL SQ SCH (23:58)
[2019-01-21] MEDS: METOPROLOL TARTRATE 25 MG TAB PO SCH (23:59)
[2019-01-21] MEDS: CHOLECALCIFEROL 1,000 UNIT TAB PO SCH (23:59)
[2019-01-21] MEDS: SENNOSIDES-DOCUSATE SODIUM 1 EACH TAB PO SCH (23:59)
[2019-01-21] MEDS: INSULIN ASPART (NovoLOG) 100 UNIT/ML VIAL SQ SCH (23:59)
[2019-01-21] MEDS: LISINOPRIL 20 MG TAB PO SCH (23:59)
[2019-01-22] MEDS: ARTIFICIAL TEARS-HYPROMELLOSE DROPS 15 ML BTL LEFT EYE SCH ×7 (01:56→23:53)
[2019-01-22] MEDS: PANTOPRAZOLE 40 MG TABLET PO SCH ×2 (05:25→17:04)
[2019-01-22] MEDS: LEVOTHYROXINE 112 MCG TAB PO SCH (05:25)
[2019-01-22 06:01] LABS: Glucose,Whole Blood 92 mg/dL (75-99)
[2019-01-22] MEDS: INSULIN ASPART (NovoLOG) 100 UNIT/ML VIAL SQ SCH ×4 (06:21→21:53)
[2019-01-22 06:30] LABS: Anisocytosis Slight; Basophils % (A) 1 %; Eosinophils # (A) 0.3 k/uL (0-0.7); Eosinophils % (A) 5 %; HCT 27.8 % (34.0-46.0); HGB 8.8 gm/dL (11.4-16.0); Hypochromasia Slight; Lymphocytes # (A) 1.2 k/uL (1.0-4.8); Lymphocytes % (A) 18 %; MCH 29.9 pg (25.0-35.0); MCHC 31.7 g/dL (31.0-37.0); MCV 94.4 fL (80.0-100.0); Mean Platelet Volume 7.8; Monocytes # (A) 0.4 k/uL (0-1.0); Monocytes % (A) 7 %; Neutrophils # (A) 4.4 k/uL (1.3-7.7); Neutrophils % (A) 68 %; Platelet Count 237 k/uL (150-450); RBC 2.94 m/uL (3.80-5.40); RDW 17.2 % (11.5-15.5); WBC 6.6 k/uL (3.8-10.6)
[2019-01-22] MEDS ORDERED: CEFEPIME 1 GM in SODIUM CHLORIDE 0.9% 50 ML IVPB SCH (09:00)
[2019-01-22] MEDS ORDERED: CEFEPIME 2 GM in SODIUM CHLORIDE 0.9% 100 ML IVPB SCH (09:00)
[2019-01-22] MEDS: METOPROLOL TARTRATE 25 MG TAB PO SCH ×2 (10:30→19:45)
[2019-01-22] MEDS: LISINOPRIL 20 MG TAB PO SCH (10:30)
[2019-01-22] MEDS: POLYETHYLENE GLYCOL 3350 17 GM POWD.PACK PO SCH (10:30)
[2019-01-22] MEDS: ALPRAZolam 0.25 MG TAB PO SCH (10:30)
[2019-01-22] MEDS: ALLOPURINOL 100 MG TAB PO SCH ×2 (10:30→19:46)
[2019-01-22] MEDS: ASPIRIN 81 MG PO SCH ×2 (10:30→19:46)
[2019-01-22] MEDS: CHOLECALCIFEROL 1,000 UNIT TAB PO SCH ×2 (10:30→19:45)
[2019-01-22] MEDS: BENZTROPINE MESYLATE 0.5 MG TAB PO SCH (10:31)
[2019-01-22] MEDS: INSULN ASP PRT/INSULIN ASPART 100 UNIT/ML 10 ML VIAL SQ SCH ×2 (10:32→21:52)
[2019-01-22] MEDS: ZIPRASIDONE 20 MG CAP PO SCH (10:32)
[2019-01-22] MEDS: PARoxetine 10 MG TAB PO SCH (10:32)
[2019-01-22 10:51] LABS: Calcium 8.6 mg/dL (8.4-10.2); Magnesium 1.7 mg/dL (1.6-2.3); Potassium 3.8 mmol/L (3.5-5.1)
--- NOTE | 2019-01-22 11:12 | P.NPCON ---
History of Present Illness - Reason for Consult acute renal failure - History of Present Illness Reason for consultation: Acute kidney injury History of present illness: Patient is a 73-year-old female seen in renal consultation for acute kidney injury. Patient's creatinine in June 2018 was near 1. It was elevated at 2.76 this admission and is down to 1.9 today. Patient presented to the hospital with generalized weakness and confusion. Her oral intake has been poor. Patient does have history of dementia. She also has history of multiple UTIs and is currently maintained on antibiotics. She was having urinary retention last night and 700 mL of urine was obtained for straight catheterization. She has not voided on her own since. She is maintained on normal saline at 100 mL an hour. She was also having episodes of vomiting but none today. No diarrhea. She was taking lisinopril as an outpatient. I don't see any nonsteroidals. Patient resides at [facility]. She does have history of insulin- dependent diabetes mellitus. Vital signs are stable. General: The patient appeared well nourished and normally developed. HEENT: Head exam is unremarkable. Neck is without jugular venous distension. LUNGS: Lungs are clear to auscultation and percussion. Breath sounds decreased. HEART: Rate and Rhythm are regular. First and second heart sounds normal. No murmurs, rubs or gallops. ABDOMEN: Abdominal exam reveals normal bowel sounds. Non-tender and non- distended. No evidence of peritonitis. EXTREMITITES: No clubbing, cyanosis, or edema. Past Medical History Past Medical History: Coronary Artery Disease (CAD), Cancer, Diabetes Mellitus, Hyperlipidemia, Hypertension, Memory Impairment, Myocardial Infarction ([place]), Renal Disease, Sleep Apnea/CPAP/BIPAP, Thyroid Disorder Additional Past Medical History / Comment(s): osteomyelitis Lt hand/STAGE 3 RENAL FAILURE/THYROID CANCER, cpap machine,"rt hand 3 fingers numb" past falls- constipation,gout Last Myocardial Infarction Date:: 1999 History of Any Multi-Drug Resistant Organisms: MRSA Date of last positivie culture/infection: 07/01/2015 MDRO Source:: knee left Past Surgical History: Appendectomy, Heart Catheterization With Stent, Orthopedic Surgery Additional Past Surgical History / Comment(s): left hand, thyroidectomy, neck fusion/CARPAL TUNNEL REPAIR ASHLEY,colonoscopy in past STENT X1 Past Anesthesia/Blood Transfusion Reactions: No Reported Reaction Additional Past Anesthesia/Blood Transfusion Reaction / Comment(s): clausterphobia Date of Last Stent Placement:: 1999 Smoking Status: Never smoker - Past Family History Brother(s) Family Medical History: Cancer Mother Family Medical History: Diabetes Mellitus Father Family Medical History: Myocardial Infarction ([place]) Medications and Allergies Home Medications Medication Instructions Recorded Confirmed Type Nitroglycerin Sl Tabs [Nitrostat] 0.4 mg SUBLINGUAL Q5M PRN 12/31/13 01/21/19 History Cholecalciferol [Vitamin D3 (25 1,000 unit PO BID 04/23/14 01/21/19 History Mcg = 1000 Iu)] Levothyroxine Sodium [Synthroid] 112 mcg PO DAILY 09/09/15 01/21/19 History Allopurinol [Zyloprim] 100 mg PO BID 09/03/16 01/21/19 History Aspirin EC [Ecotrin Low Dose] 81 mg PO BID 06/04/17 01/21/19 History Atorvastatin Calcium [Lipitor] 80 mg PO HS@199911/02/17 01/21/19 History Pantoprazole [Protonix] 40 mg PO BID 11/02/17 01/21/19 History Benztropine Mesylate [Cogentin] 0.5 mg PO DAILY 08/13/18 01/21/19 History Ziprasidone [Geodon] 60 mg PO HS@199908/13/18 01/21/19 History Acetaminophen Tab [Tylenol] 650 mg PO Q6HR PRN tab 08/18/18 01/21/19 Rx Insulin Lispro Protamin/Lispro 12 unit SQ HS@199910/04/18 01/21/19 History [humaLOG Mix 75-25 Kwikpen] Insulin Lispro Protamin/Lispro 16 unit SQ DAILY 10/04/18 01/21/19 History [humaLOG Mix 75-25 Kwikpen] ALPRAZolam [Xanax] 0.25 mg PO DAILY 01/21/19 01/21/19 History Artificial Tears-Hypromellose 2 drops LEFT EYE Q4H 01/21/19 01/21/19 History [Artificial Tear Drops] Bisacodyl [Dulcolax] 10 mg RECTAL DAILY PRN 01/21/19 01/21/19 History Ciprofloxacin HCl [Cipro] 500 mg PO BID 01/21/19 01/21/19 History Lisinopril [Zestril] 20 mg PO BID 01/21/19 01/21/19 History Magnesium Hydroxide [Milk of 2,400 mg PO DAILY PRN 01/21/19 01/21/19 History Magnesia] Metoprolol Tartrate [Lopressor] 25 mg PO BID 01/21/19 01/21/19 History PARoxetine HCL [Paxil] 30 mg PO DAILY 01/21/19 01/21/19 History Polyethylene Glycol 3350 [Miralax] 17 gm PO DAILY 01/21/19 01/21/19 History Saliva Stimulant Agents Comb.3 1 spray MUCOUS MEM TID 01/21/19 01/21/19 History [Biotene Moisturizing Mouth] Sennosides-Docusate Sodium 2 tab PO HS 01/21/19 01/21/19 History [Senokot-S] Ziprasidone HCl [Geodon] 20 mg PO QAM 01/21/19 01/21/19 History Allergies Allergy/AdvReac Type Severity Reaction Status Date / Time carvedilol [From Coreg] Allergy Unknown Verified 01/21/19 11:25 lorazepam [From Ativan] Allergy Unknown Verified 01/21/19 11:25 codeine AdvReac Nausea Verified 01/21/19 11:25 erythromycin base AdvReac Nausea Verified 01/21/19 11:25 [Erythromycin Base] Iodinated Contrast- Oral and AdvReac ELEVATED Verified 01/21/19 11:25 IV Dye B/P, FELT [Iodinated Contrast Media - LIKE PASSED IV Dye] methylprednisolone AdvReac Confusion Verified 01/21/19 11:25 [From Medrol] Sulfa (Sulfonamide AdvReac DIZZYNESS Verified 01/21/19 11:25 Antibiotics) Physical Exam Vitals: Vital Signs Temp Pulse Pulse Resp BP BP Pulse Ox 01/22/19 08:00 98.3 F 86 16 138/59 95 01/22/19 04:00 95.7 F L 53 L 16 135/52 99 01/22/19 03:23 53 L 16 01/22/19 01:51 46 L 16 01/21/19 23:00 95.0 F L 01/21/19 20:45 95.3 F L 01/21/19 20:30 47 L 16 01/21/19 19:27 97.9 F 45 L 12 118/55 100 01/21/19 19:21 49 L 114/56 99 01/21/19 18:00 49 L 114/56 99 01/21/19 17:30 49 L 113/49 100 01/21/19 17:00 48 L 111/51 01/21/19 16:30 51 L 101/48 99 01/21/19 16:01 96.7 F L 49 L 18 101/48 99 01/21/19 16:00 49 L 98/42 99 01/21/19 15:30 51 L 116/52 01/21/19 15:00 52 L 99 01/21/19 14:30 111/53 01/21/19 14:00 67 96/68 92 L 01/21/19 13:30 65 110/70 97 01/21/19 13:15 100.0 F H 64 18 01/21/19 13:00 60 92/59 96 01/21/19 12:30 62 107/41 01/21/19 12:00 61 16 120/59 97 01/21/19 11:30 64 9 L 116/38 99 Intake and Output 01/21/19 01/22/19 01/22/19 22:59 06:59 14:59 Intake Total 650 500 Output Total 700 Balance 650 -200 Intake: Intake, IV Titration 650 500 Amount Sodium Chloride 0.9% 1, 400 500 000 ml @ 100 mls/hr IV . Q10H [facility] Rx#:[id number] Vancomycin 1,500 mg In 250 Sodium Chloride 0.9% 250 ml @ 125 mls/hr IVPB ONCE ONE Rx#:[id number] Output: Urine 700 Other: Voiding Method Diaper Diaper Diaper Incontinent Incontinent Incontinent # Voids 1 Weight 86 kg Results - Lab Results Most recent lab results ABG pH 7.29 (7.35-7.45) L 01/21/19 23:43 ABG pCO2 48 mmHg (35-45) H 01/21/19 23:43 ABG pO2 181 mmHg (83-108) H 01/21/19 23:43 ABG HCO3 23 mmol/L (21-25) 01/21/19 23:43 ABG O2 Saturation 99.1 % (94-97) H 01/21/19 23:43 Calcium 8.6 mg/dL (8.4-10.2) 01/22/19 05:52 Magnesium 1.7 mg/dL (1.6-2.3) 01/22/19 05:52 01/22/19 05:52 01/22/19 05:52 Assessment and Plan Plan: Assessment: 1. Acute kidney injury mostly prerenal secondary to poor oral intake and use of lisinopril. Also component of urinary retention. Creatinine was 2.76 on admission and is down to 1.9 today. Baseline creatinine near 1 from June 2018. 2. Urinary retention. 3. UTI maintain on antibiotics. 4. Metabolic acidosis secondary to acute kidney injury and IV fluids. 5. Insulin-dependent diabetes mellitus. 6. Benign hypertension. Controlled. Plan: Maintain normal saline at 100 mL an hour. Discontinue lisinopril. Add amlodipine 5 mg twice daily. Follow-up cultures. Avoid nephrotoxins. Monitor serial bladder scans. May require Muñiz catheter. Add Flomax. Repeat electrolytes in the morning. Thank you for the consultation. I will continue to follow the patient with you during her hospital stay.
[2019-01-22] MEDS: SODIUM CHLORIDE 0.9% 1,000 ML IV SCH ×3 (11:30→19:55)
[2019-01-22 11:40] LABS: Glucose,Whole Blood 122 mg/dL (75-99)
[2019-01-22] MEDS ORDERED: VANCOMYCIN 1,500 MG in SODIUM CHLORIDE 0.9% 250 ML IVPB ONE (13:00)
--- NOTE | 2019-01-22 15:13 | XR ---
EXAMINATION TYPE: XR pelvis AP view DATE OF EXAM: 01/22/2019 CLINICAL HISTORY: Pain. TECHNIQUE: A single AP portable supine view of the pelvis is obtained. COMPARISON: CT from one day earlier. FINDINGS: Exam suboptimal due to portable technique as well as patient's large body habitus and some motion on image. There is no acute displaced fracture clearly evident in the pelvis. Moderate to bor derline severe axial joint space loss in both hips is redemonstrated. Sacroiliac joints are felt with in normal limits.. The overlying soft tissue appears unremarkable. IMPRESSION: There is no acute displaced fracture in the pelvis. No significant change from recent CT .
[2019-01-22 17:00] LABS: Glucose,Whole Blood 114 mg/dL (75-99)
[2019-01-22] MEDS: ATORVASTATIN 80 MG TAB PO SCH (19:45)
[2019-01-22] MEDS: SENNOSIDES-DOCUSATE SODIUM 1 EACH TAB PO SCH (19:45)
[2019-01-22] MEDS: ZIPRASIDONE 60 MG CAP PO SCH (19:46)
--- NOTE | 2019-01-22 20:03 | PN ---
PROGRESS NOTE DATE OF SERVICE: 01/22/2019. This 73-year-old woman who was admitted after acute urinary tract infection with failure of outpatient treatment, also had some vaginal bleeding at this time. The patient also had a CT scan of the abdomen and pelvis which showed evidence of subcutaneous air inflammatory changes subcutaneous tissue in the right anterior pelvis also. The patient is stuporous at this time. The patient was unresponsive last time. A pelvis x-ray was done which showed no acute fractures. Patient being closely monitored at this time. PAST MEDICAL HISTORY: Past medical history reviewed. REVIEW OF SYMPTOMS: Review of systems could not be taken. The patient is stuporous. CURRENT MEDICATIONS: Reviewed and include: 1. Tylenol p.r.n. 2. Zyloprim 100 mg p.o. b.i.d. 3. Xanax 0.5 t.i.d. 4. Norvasc 5 mg p.o. b.i.d. 5. Artificial tears 2 drops p.o. daily. 6. Aspirin 81 mg p.o. b.i.d. 7. Lipitor 80 mg q.h.s. 8. Cogentin 0.5 mg p.o. daily. 10.Dilaudid. 11.NovoLog. 12.Synthroid. 13.Lopressor. 14.Morphine. 15.Narcan. 16.Zofran. 17.Protonix. 18.Paxil. 19.Senokot. 20.Geodon. 21.P.r.n. medication doses are reviewed. PHYSICAL EXAM: Patient is stuporous. Pulse 62, blood pressure 91/56, respirations 16, temperature 98.1, pulse ox 98% on room air. Conjunctivae normal. Oral mucosa moist. Neck is no jugular venous distention. No carotid bruit. No lymph node enlargement. CARDIOVASCULAR systems: S1, S2 muffled. RESPIRATIONS: Breath sounds diminished in the bases. A few scattered rhonchi and crackles. ABDOMEN: Soft, nontender. LEGS are no edema. No swelling. CENTRAL NERVOUS SYSTEM: Diffusely weak. Examination of the pelvic area significant vaginal bleeding present. LABS: WBC 6.6, hemoglobin is 8.8. Sodium 140, potassium 3.8. Creatinine is 1.90. ASSESSMENT: 1. Acute urinary tract infection with failure of outpatient treatment as well as possible sepsis present on admission. 2. Change in mental status, metabolic encephalopathy, acute on chronic secondary to sepsis. 3. Vaginal bleeding. 4. Subcutaneous air inflammatory changes in the right pelvis of questionable significance with no evidence of any fractures. 5. Increased WBC. 6. Anemia, normocytic anemia of chronic disease. 7. Acute renal failure, possibly prerenal renal failure with acute tubular necrosis. 8. History of coronary artery disease. 9. Diabetes mellitus type 2. 10.Hypertension. 11.Hyperlipidemia. 12.History of memory impairment. 13.History of sleep apnea. 14.History of hypothyroidism. 15.History of osteomyelitis. 16.History of MRSA. 17.History of coronary artery disease/ stent. 18.History of anxiety, depression, panic disorder. 19.FULL CODE. RECOMMENDATIONS AND DISCUSSION: In this 73-year-old woman who presented with multiple complex medical issues, we will monitor the patient closely, continue the current medications, management and symptomatic treatment. Continue symptomatic treatment. Continue the antibiotics. Cultures are negative so far. I would also recommend [employer]DOW[employer] evaluation. Otherwise prognosis guarded because of multiple complex medical issues. Infectious Disease following the patient closely. Patient on broad spectrum IV antibiotics. Nephrology also following the patient. Further recommendations to follow. MMODL / IJN: [id number] / MTDD
[2019-01-22] MEDS: amLODIPine 5 MG TAB PO SCH (21:53)
--- NOTE | 2019-01-22 22:24 | P.CONS ---
History of Present Illness - Reason for Consult Consult date: 01/22/19 - Chief Complaint weakness - History of Present Illness 73-year-old woman who has advanced dementia presents to Hospital extended care facility with alteration of her mental status, increasing weakness, poor oral intake and concerns from the of the marked worsening of her status. At the temporary admission she has evidence of a low-grade fever does have evidence of some hypothermia. There is evidence of leukocytosis and a markedly abnormal urinalysis. With concerns of sepsis and urinary system she was admitted to hospital and with that infectious disease consultation was requested. The patient also had evidence of some acute renal failure and nephrology consult was also requested. The patient's does relate that at the extended care facility a bloody urine was noted. The patient herself is unable to give any particular history. Review of Systems ROS unobtainable: due to mental status Past Medical History Past Medical History: Coronary Artery Disease (CAD), Cancer, Diabetes Mellitus, Hyperlipidemia, Hypertension, Memory Impairment, Myocardial Infarction (ND), Renal Disease, Sleep Apnea/CPAP/BIPAP, Thyroid Disorder Additional Past Medical History / Comment(s): osteomyelitis Lt hand/STAGE 3 RENAL FAILURE/THYROID CANCER, cpap machine,"rt hand 3 fingers numb" past falls- constipation,gout Last Myocardial Infarction Date:: 1999 History of Any Multi-Drug Resistant Organisms: MRSA Year Discovered:: 07/01/2015 MDRO Source:: knee left Past Surgical History: Appendectomy, Heart Catheterization With Stent, Orthopedic Surgery Additional Past Surgical History / Comment(s): left hand, thyroidectomy, neck fusion/CARPAL TUNNEL REPAIR ASHLEY,colonoscopy in past STENT X1 Past Anesthesia/Blood Transfusion Reactions: No Reported Reaction Additional Past Anesthesia/Blood Transfusion Reaction / Comm: clausterphobia Date of Last Stent Placement:: 1999 Additional Psychological History / Comment(s): but lives in extended care facility Smoking Status: Never smoker - Past Family History Brother(s) Family Medical History: Cancer Mother Family Medical History: Diabetes Mellitus Father Family Medical History: Myocardial Infarction (ND) Medications and Allergies Home Medications and Allergies Comment(s): Current Medications Acetaminophen (Tylenol Tab) 650 mg PO Q6HR PRN PRN Reason: Mild Pain or Fever > 100.5 Allopurinol (Zyloprim) 100 mg PO BID [facility] Last Admin: 01/22/19 19:46 Dose: 100 mg Documented by: Alprazolam (Xanax) 0.25 mg PO DAILY [facility] Last Admin: 01/22/19 10:30 Dose: 0.25 mg Documented by: Amlodipine Besylate (Norvasc) 5 mg PO BID [facility] Last Admin: 01/22/19 21:53 Dose: Not Given Documented by: Artificial Tears (Artificial Tear Drops) 2 drops LEFT EYE Q4HR [facility] Last Admin: 01/22/19 19:47 Dose: 2 drops Documented by: Aspirin (Aspirin) 81 mg PO BID [facility] Last Admin: 01/22/19 19:46 Dose: 81 mg Documented by: Atorvastatin Calcium (Lipitor) 80 mg PO HS@1999 [facility] Last Admin: 01/22/19 19:45 Dose: 80 mg Documented by: Benztropine Mesylate (Cogentin) 0.5 mg PO DAILY [facility] Last Admin: 01/22/19 10:31 Dose: 0.5 mg Documented by: Bisacodyl (Dulcolax) 10 mg RECTAL DAILY PRN PRN Reason: Constipation Cholecalciferol (Vitamin D3 (25 Mcg = 1000 Iu)) 1,000 unit PO BID [facility] Last Admin: 01/22/19 19:45 Dose: 1,000 unit Documented by: Hydromorphone HCl (Dilaudid) 0.5 mg IVP Q3HR PRN PRN Reason: Moderate Pain Ceftazidime 0.5 gm/ Sodium (Chloride) 50 mls @ 100 mls/hr IVPB DAILY [facility] Last Admin: 01/22/19 14:20 Dose: 100 mls/hr Documented by: Sodium Chloride (Saline 0.9%) 1,000 mls @ 75 mls/hr IV .[id number] [facility] Last Admin: 01/22/19 19:55 Dose: 75 mls/hr Documented by: Insulin Aspart (Novolog Mix 70-30 Vial) 16 unit SQ DAILY [facility] Last Admin: 01/22/19 10:32 Dose: Not Given Documented by: Insulin Aspart (Novolog Mix 70-30 Vial) 12 unit SQ HS@1999 [facility] Last Admin: 01/22/19 21:52 Dose: Not Given Documented by: Insulin Aspart (Novolog) 0 unit SQ ACHS [facility]; Protocol Last Admin: 01/22/19 21:53 Dose: Not Given Documented by: Levothyroxine Sodium (Synthroid) 112 mcg PO DAILY@0630 [facility] Last Admin: 01/22/19 05:25 Dose: Not Given Documented by: Magnesium Hydroxide (Milk Of Magnesia) 2,400 mg PO DAILY PRN PRN Reason: Constipation Metoprolol Tartrate (Lopressor) 25 mg PO BID [facility] Last Admin: 01/22/19 19:45 Dose: 25 mg Documented by: Miscellaneous Information (Pharmacy To Dose Iv Vancomycin) 1 each MISCELLANE DIRECTED PRN PRN Reason: Per Protocol Morphine Sulfate (Morphine Sulfate (Inj)) 4 mg IV Q4HR PRN PRN Reason: Severe Pain Naloxone HCl (Narcan) 0.2 mg IV Q2M PRN PRN Reason: Opioid Reversal Nitroglycerin (Nitrostat) 0.4 mg SUBLINGUAL Q5M PRN PRN Reason: Chest Pain Ondansetron HCl (Zofran) 4 mg IVP Q8HR PRN PRN Reason: Nausea And Vomiting Pantoprazole Sodium (Protonix) 40 mg PO AC-BID [facility] Last Admin: 01/22/19 17:04 Dose: 40 mg Documented by: Paroxetine HCl (Paxil) 30 mg PO DAILY [facility] Last Admin: 01/22/19 10:32 Dose: 30 mg Documented by: Polyethylene Glycol (Miralax) 17 gm PO DAILY [facility] Last Admin: 01/22/19 10:30 Dose: 17 gm Documented by: Senna/Docusate Sodium (Senokot-S) 2 each PO HS [facility] Last Admin: 01/22/19 19:45 Dose: 2 each Documented by: Ziprasidone (Geodon) 20 mg PO QAM [facility] Last Admin: 01/22/19 10:32 Dose: 20 mg Documented by: Ziprasidone (Geodon) 60 mg PO HS@2000 [facility] Last Admin: 01/22/19 19:46 Dose: 60 mg Documented by: Home Medications Medication Instructions Recorded Confirmed Type Nitroglycerin Sl Tabs [Nitrostat] 0.4 mg SUBLINGUAL Q5M PRN 12/31/13 01/21/19 History Cholecalciferol [Vitamin D3 (25 1,000 unit PO BID 04/23/14 01/21/19 History Mcg = 1000 Iu)] Levothyroxine Sodium [Synthroid] 112 mcg PO DAILY 09/09/15 01/21/19 History Allopurinol [Zyloprim] 100 mg PO BID 09/03/16 01/21/19 History Aspirin EC [Ecotrin Low Dose] 81 mg PO BID 06/04/17 01/21/19 History Atorvastatin Calcium [Lipitor] 80 mg PO HS@199911/02/17 01/21/19 History Pantoprazole [Protonix] 40 mg PO BID 11/02/17 01/21/19 History Benztropine Mesylate [Cogentin] 0.5 mg PO DAILY 08/13/18 01/21/19 History Ziprasidone [Geodon] 60 mg PO HS@199908/13/18 01/21/19 History Acetaminophen Tab [Tylenol] 650 mg PO Q6HR PRN tab 08/18/18 01/21/19 Rx Insulin Lispro Protamin/Lispro 12 unit SQ HS@199910/04/18 01/21/19 History [humaLOG Mix 75-25 Kwikpen] Insulin Lispro Protamin/Lispro 16 unit SQ DAILY 10/04/18 01/21/19 History [humaLOG Mix 75-25 Kwikpen] ALPRAZolam [Xanax] 0.25 mg PO DAILY 01/21/19 01/21/19 History Artificial Tears-Hypromellose 2 drops LEFT EYE Q4H 01/21/19 01/21/19 History [Artificial Tear Drops] Bisacodyl [Dulcolax] 10 mg RECTAL DAILY PRN 01/21/19 01/21/19 History Ciprofloxacin HCl [Cipro] 500 mg PO BID 01/21/19 01/21/19 History Lisinopril [Zestril] 20 mg PO BID 01/21/19 01/21/19 History Magnesium Hydroxide [Milk of 2,400 mg PO DAILY PRN 01/21/19 01/21/19 History Magnesia] Metoprolol Tartrate [Lopressor] 25 mg PO BID 01/21/19 01/21/19 History PARoxetine HCL [Paxil] 30 mg PO DAILY 01/21/19 01/21/19 History Polyethylene Glycol 3350 [Miralax] 17 gm PO DAILY 01/21/19 01/21/19 History Saliva Stimulant Agents Comb.3 1 spray MUCOUS MEM TID 01/21/19 01/21/19 History [Biotene Moisturizing Mouth] Sennosides-Docusate Sodium 2 tab PO HS 01/21/19 01/21/19 History [Senokot-S] Ziprasidone HCl [Geodon] 20 mg PO QAM 01/21/19 01/21/19 History Allergies Allergy/AdvReac Type Severity Reaction Status Date / Time carvedilol [From Coreg] Allergy Unknown Verified 01/21/19 11:25 lorazepam [From Ativan] Allergy Unknown Verified 01/21/19 11:25 codeine AdvReac Nausea Verified 01/21/19 11:25 erythromycin base AdvReac Nausea Verified 01/21/19 11:25 [Erythromycin Base] Iodinated Contrast- Oral and AdvReac ELEVATED Verified 01/21/19 11:25 IV Dye B/P, FELT [Iodinated Contrast Media - LIKE PASSED IV Dye] methylprednisolone AdvReac Confusion Verified 01/21/19 11:25 [From Medrol] Sulfa (Sulfonamide AdvReac DIZZYNESS Verified 01/21/19 11:25 Antibiotics) Physical Exam Vitals: Vital Signs Temp Pulse Resp BP Pulse Ox 01/22/19 15:56 62 16 01/22/19 15:52 98.1 F 62 16 91/56 96 01/22/19 11:35 98.3 F 87 16 95/55 97 01/22/19 11:00 87 16 01/22/19 08:00 98.3 F 86 16 138/59 95 01/22/19 04:00 95.7 F L 53 L 16 135/52 99 01/22/19 03:23 53 L 16 01/22/19 01:51 46 L 16 01/21/19 23:00 95.0 F L Intake and Output 01/22/19 01/22/19 01/22/19 06:59 14:59 22:59 Intake Total 500 865 120 Output Total 700 400 Balance -200 465 120 Intake: Intake, IV Titration 500 625 Amount Cefepime 1 gm In Sodium 50 Chloride 0.9% 50 ml @ 100 mls/hr IVPB DAILY [facility] Rx #:[id number] Sodium Chloride 0.9% 1, 500 000 ml @ 100 mls/hr IV . Q10H [facility] Rx#:[id number] Sodium Chloride 0.9% 1, 525 000 ml @ 75 mls/hr IV . [id number] [facility] Rx#:[id number] cefTAZidime 0.5 gm In 50 Sodium Chloride 0.9% 50 ml @ 100 mls/hr IVPB DAILY [facility] Rx#:[id number] Oral 240 120 Output: Urine 700 400 Uretheral (Muñiz) 400 Other: Voiding Method Diaper Indwelling Catheter Indwelling Catheter Incontinent # Voids 1 Weight 86 kg HEENT: Conjunctiva are anicteric mucous membranes are somewhat dry, oral mucosa dry dentition poor no thrush Neck: The neck is supple without significant lymphadenopathy or thyromegaly. Lungs: Good bilateral air entry without significant crackles or wheezing. There is no significant bronchial sounds. There is no egophony or dullness. Heart: Irregular with a soft S4. There is no significant murmur click or rub, PMI was nondisplaced. Abdomen: Positive bowel sounds soft and nontender without palpable masses or organomegaly. There was no guarding or rebound. Extremities: The upper extremities have excellent pulses they are symmetric, no significant petechiae or telangiectasia. No splinter hemorrhages were noted. Lower extremities have evidence of chronic bilateral lower extremity edema with no acute new ulcerations Neuro: Arousable appears to be oriented to person only. Speech is understandable but content is meaningless Results CBC & Chem 7: 01/22/19 05:52 01/22/19 05:52 Labs: Abnormal Lab Results - Last 24 Hours (Table) 01/21/19 01/22/19 01/22/19 Range/Units 23:43 05:52 05:52 RBC 2.94 L (3.80-5.40) m/uL Hgb 8.8 L (11.4-16.0) gm/dL Hct 27.8 L (34.0-46.0) % RDW 17.2 H (11.5-15.5) % ABG pH 7.29 L (7.35-7.45) ABG pCO2 48 H (35-45) mmHg ABG pO2 181 H (83-108) mmHg ABG O2 Saturation 99.1 H (94-97) % Chloride 110 H (98-107) mmol/L Carbon Dioxide 21 L (22-30) mmol/L BUN 34 H (7-17) mg/dL Creatinine 1.90 H (0.52-1.04) mg/dL POC Glucose (mg/dL) (75-99) mg/dL 01/22/19 01/22/19 Range/Units 11:30 16:50 RBC (3.80-5.40) m/uL Hgb (11.4-16.0) gm/dL Hct (34.0-46.0) % RDW (11.5-15.5) % ABG pH (7.35-7.45) ABG pCO2 (35-45) mmHg ABG pO2 (83-108) mmHg ABG O2 Saturation (94-97) % Chloride (98-107) mmol/L Carbon Dioxide (22-30) mmol/L BUN (7-17) mg/dL Creatinine (0.52-1.04) mg/dL POC Glucose (mg/dL) 122 H 114 H (75-99) mg/dL Microbiology - Last 24 Hours (Table) 01/21/19 14:00 Urine Culture - Preliminary Urine,Catheterized Group D Enterococcus 01/21/19 11:10 Blood Culture - Preliminary Blood No Growth after 24 hours Laboratory Results WBC 6.6 k/uL (3.8-10.6) 01/22/19 05:52 RBC 2.94 m/uL (3.80-5.40) L 01/22/19 05:52 Hgb 8.8 gm/dL (11.4-16.0) L 01/22/19 05:52 Hct 27.8 % (34.0-46.0) L 01/22/19 05:52 MCV 94.4 fL (80.0-100.0) 01/22/19 05:52 MCH 29.9 pg (25.0-35.0) 01/22/19 05:52 MCHC 31.7 g/dL (31.0-37.0) 01/22/19 05:52 RDW 17.2 % (11.5-15.5) H 01/22/19 05:52 Plt Count 237 k/uL (150-450) 01/22/19 05:52 Neutrophils % 68 % 01/22/19 05:52 Lymphocytes % 18 % 01/22/19 05:52 Monocytes % 7 % 01/22/19 05:52 Eosinophils % 5 % 01/22/19 05:52 Basophils % 1 % 01/22/19 05:52 Neutrophils # 4.4 k/uL (1.3-7.7) 01/22/19 05:52 Lymphocytes # 1.2 k/uL (1.0-4.8) 01/22/19 05:52 Monocytes # 0.4 k/uL (0-1.0) 01/22/19 05:52 Eosinophils # 0.3 k/uL (0-0.7) 01/22/19 05:52 Basophils # 0.0 k/uL (0-0.2) 01/22/19 05:52 Hypochromasia Slight 01/22/19 05:52 Anisocytosis Slight 01/22/19 05:52 PT 11.0 sec (9.0-12.0) 01/21/19 11:10 INR 1.0 (<1.2) 01/21/19 11:10 APTT 30.8 sec (22.0-30.0) H 01/21/19 11:10 Sample Site Right Radial 01/21/19 23:43 ABG pH 7.29 (7.35-7.45) L 01/21/19 23:43 ABG pCO2 48 mmHg (35-45) H 01/21/19 23:43 ABG pO2 181 mmHg (83-108) H 01/21/19 23:43 ABG HCO3 23 mmol/L (21-25) 01/21/19 23:43 ABG Total CO2 24 mmol/L (19-24) 01/21/19 23:43 ABG O2 Saturation 99.1 % (94-97) H 01/21/19 23:43 ABG Base Excess -4.0 mmol/L 01/21/19 23:43 Chalo Test Yes 01/21/19 23:43 FiO2 32 % 01/21/19 23:43 Sodium 141 mmol/L (137-145) 01/22/19 05:52 Potassium 3.8 mmol/L (3.5-5.1) 01/22/19 05:52 Chloride 110 mmol/L (98-107) H 01/22/19 05:52 Carbon Dioxide 21 mmol/L (22-30) L 01/22/19 05:52 Anion Gap 10 mmol/L 01/22/19 05:52 BUN 34 mg/dL (7-17) H 01/22/19 05:52 Creatinine 1.90 mg/dL (0.52-1.04) H 01/22/19 05:52 Est GFR (CKD-EPI)AfAm 29 (>60 ml/min/1.73 sqM) 01/22/19 05:52 Est GFR (CKD-EPI)NonAf 25 (>60 ml/min/1.73 sqM) 01/22/19 05:52 Glucose 85 mg/dL (74-99) 01/22/19 05:52 POC Glucose (mg/dL) 114 mg/dL (75-99) H 01/22/19 16:50 POC Glu Tender Labor Mireya López 01/22/19 16:50 Plasma Lactic Acid Jewel 1.2 mmol/L (0.7-2.0) 01/21/19 11:10 Calcium 8.6 mg/dL (8.4-10.2) 01/22/19 05:52 Magnesium 1.7 mg/dL (1.6-2.3) 01/22/19 05:52 Total Bilirubin 0.3 mg/dL (0.2-1.3) 01/21/19 19:46 AST 24 U/L (14-36) 01/21/19 19:46 ALT 17 U/L (9-52) 01/21/19 19:46 Alkaline Phosphatase 78 U/L (38-126) 01/21/19 19:46 Ammonia <9 umol/L (<30) 01/22/19 00:10 Troponin I <0.012 ng/mL (0.000-0.034) 01/21/19 11:10 Total Protein 5.8 g/dL (6.3-8.2) L 01/21/19 19:46 Albumin 3.2 g/dL (3.5-5.0) L 01/21/19 19:46 Urine Color Yellow 01/21/19 13:10 Urine Appearance Cloudy (Clear) H 01/21/19 13:10 Urine pH 6.5 (5.0-8.0) 01/21/19 13:10 Ur Specific Reading 1.019 (1.001-1.035) 01/21/19 13:10 Urine Protein 1+ (Negative) H 01/21/19 13:10 Urine Glucose (UA) Negative (Negative) 01/21/19 13:10 Urine Ketones Negative (Negative) 01/21/19 13:10 Urine Blood Small (Negative) H 01/21/19 13:10 Urine Nitrite Negative (Negative) 01/21/19 13:10 Urine Bilirubin Negative (Negative) 01/21/19 13:10 Urine Urobilinogen <2.0 mg/dL (<2.0) 01/21/19 13:10 Ur Leukocyte Esterase Large (Negative) H 01/21/19 13:10 Urine WBC >182 /hpf (0-5) H 01/21/19 13:10 Urine WBC Clumps Many /hpf (None) H 01/21/19 13:10 Urine Bacteria Rare /hpf (None) H 01/21/19 13:10 Microbiology 01/21/19 14:00 Urine,Catheterized Urine Culture - Preliminary Group D Enterococcus 01/21/19 11:10 Blood Blood Culture - Preliminary No Growth after 24 hours Assessment and Plan (1) Altered mental status Current Visit: Yes Status: Acute Code(s): R41.82 - ALTERED MENTAL STATUS, UNSPECIFIED SNOMED Code(s): 179888671 (2) Fever and chills Current Visit: Yes Status: Acute Code(s): R50.9 - FEVER, UNSPECIFIED SNOMED Code(s): 308528501 (3) Urinary tract infection Narrative/Plan: 73-year-old woman who has advanced dementia and isn't present extended care facility started to have a change of her status. It appears she started have some fever with bloody urine and marked worsening of her overall status. She became progressively confused and started to have poor oral intake. With this she was brought to hospital with evidence of acute renal failure, acute sepsis from the urinary system. Based on prior cultures antibiotic therapy was initially with vancomycin and ceftazidime pending further culture results. Blood cultures are in process. If not done recently, renal ultrasound may be of some utility to ensure that there is no obstructive uropathy occurring. The patient did have some relative hypothermia but is now improved and appears to be directly related to her about of sepsis that seems to be responding to fluid resuscitation and antibiotic therapy. Final recommendations are based upon culture results and results of the workup. is informed of current plan. Current Visit: Yes Status: Acute Code(s): N39.0 - URINARY TRACT INFECTION, SITE NOT SPECIFIED SNOMED Code(s): 84887653 (4) Major neurocognitive disorder due to Alzheimer's disease, probable, with behavioral disturbance Current Visit: Yes Status: Acute Code(s): G30.9 - ALZHEIMER'S DISEASE, UNSPECIFIED; F02.81 - DEMENTIA IN OTH DISEASES CLASSD [id number] W BEHAVIORAL DISTURB SNOMED Code(s): 856515595
[2019-01-23 06:41] LABS: Glucose,Whole Blood 90 mg/dL (75-99)
[2019-01-23] MEDS: INSULIN ASPART (NovoLOG) 100 UNIT/ML VIAL SQ SCH ×4 (06:55→22:54)
[2019-01-23 06:56] LABS: Anisocytosis Slight; Basophils % (A) 0 %; Eosinophils # (A) 0.3 k/uL (0-0.7); Eosinophils % (A) 6 %; HCT 29.8 % (34.0-46.0); HGB 9.3 gm/dL (11.4-16.0); Hypochromasia Slight; Lymphocytes # (A) 1.8 k/uL (1.0-4.8); Lymphocytes % (A) 29 %; MCH 29.3 pg (25.0-35.0); MCHC 31.3 g/dL (31.0-37.0); MCV 93.8 fL (80.0-100.0); Mean Platelet Volume 7.4; Monocytes # (A) 0.6 k/uL (0-1.0); Monocytes % (A) 10 %; Neutrophils # (A) 3.1 k/uL (1.3-7.7); Neutrophils % (A) 52 %; Platelet Count 258 k/uL (150-450); RBC 3.17 m/uL (3.80-5.40); RDW 16.8 % (11.5-15.5)
[2019-01-23] MEDS: LEVOTHYROXINE 112 MCG TAB PO SCH (06:57)
[2019-01-23] MEDS: ARTIFICIAL TEARS-HYPROMELLOSE DROPS 15 ML BTL LEFT EYE SCH ×6 (06:57→23:37)
[2019-01-23] MEDS: PANTOPRAZOLE 40 MG TABLET PO SCH ×2 (06:57→17:19)
[2019-01-23 07:07] LABS: Calcium 8.9 mg/dL (8.4-10.2); Magnesium 1.6 mg/dL (1.6-2.3); Potassium 3.6 mmol/L (3.5-5.1)
[2019-01-23] MEDS: ALLOPURINOL 100 MG TAB PO SCH ×2 (09:10→22:10)
[2019-01-23] MEDS: amLODIPine 5 MG TAB PO SCH ×2 (09:10→22:54)
[2019-01-23] MEDS: ASPIRIN 81 MG PO SCH ×2 (09:10→22:11)
[2019-01-23] MEDS: BENZTROPINE MESYLATE 0.5 MG TAB PO SCH (09:10)
[2019-01-23] MEDS: ALPRAZolam 0.25 MG TAB PO SCH (09:10)
[2019-01-23] MEDS: ZIPRASIDONE 20 MG CAP PO SCH (09:11)
[2019-01-23] MEDS: POLYETHYLENE GLYCOL 3350 17 GM POWD.PACK PO SCH (09:11)
[2019-01-23] MEDS: METOPROLOL TARTRATE 25 MG TAB PO SCH ×2 (09:11→22:54)
[2019-01-23] MEDS: PARoxetine 10 MG TAB PO SCH (09:11)
[2019-01-23] MEDS: CHOLECALCIFEROL 1,000 UNIT TAB PO SCH ×2 (09:11→22:09)
[2019-01-23] MEDS ORDERED: POTASSIUM CHLORIDE ER 20 MEQ TAB.ER PO STA (09:23)
[2019-01-23] MEDS: INSULN ASP PRT/INSULIN ASPART 100 UNIT/ML 10 ML VIAL SQ SCH ×2 (09:26→22:54)
[2019-01-23 09:27] LABS: Glucose,Whole Blood 85 mg/dL (75-99)
--- NOTE | 2019-01-23 09:56 | P.PN ---
Subjective Patient is seen in follow-up for acute kidney injury. Patient's creatinine June 2018 was near 1. It was elevated at 2.76 on admission and is down to 1.35 today. Patient is more awake and alert today. Currently being treated for UTI. Urine cultures positive for group D enterococcus. She has a Muñiz catheter. She is nonoliguric. Oral intake is improved. Vital signs are stable. General: The patient appeared well nourished and normally developed. HEENT: Head exam is unremarkable. Neck is without jugular venous distension. LUNGS: Lungs are clear to auscultation and percussion. Breath sounds decreased. HEART: Rate and Rhythm are regular. First and second heart sounds normal. No murmurs, rubs or gallops. ABDOMEN: Abdominal exam reveals normal bowel sounds. Non-tender and non- distended. No evidence of peritonitis. EXTREMITITES: No clubbing, cyanosis, or edema. Objective - Vital Signs Vital signs: Vital Signs Temp 98.3 F 01/23/19 08:00 Pulse 62 01/23/19 08:00 Resp 16 01/23/19 08:00 BP 140/64 01/23/19 08:00 Pulse Ox 97 01/23/19 08:00 Intake & Output 01/22/19 01/23/19 01/23/19 18:59 06:59 18:59 Intake Total 985 225 180 Output Total 400 1050 Balance 585 -825 180 Weight 87 kg Intake: Intake, IV Titration 625 225 Amount Cefepime 1 gm In Sodium 50 Chloride 0.9% 50 ml @ 100 mls/hr IVPB DAILY [facility] Rx #:[id number] Sodium Chloride 0.9% 1, 525 225 000 ml @ 75 mls/hr IV . [id number] [facility] Rx#:[id number] cefTAZidime 0.5 gm In 50 Sodium Chloride 0.9% 50 ml @ 100 mls/hr IVPB DAILY [facility] Rx#:[id number] Oral 360 180 Output: Urine 400 1050 Uretheral (Muñiz) 400 Other: Voiding Method Indwelling Catheter Indwelling Catheter Indwelling Catheter - Labs CBC & Chem 7: 01/23/19 06:19 01/23/19 06:19 Labs: Abnormal Lab Results - Last 24 Hours (Table) 01/22/19 01/22/19 01/22/19 Range/Units 05:52 11:30 16:50 RBC (3.80-5.40) m/uL Hgb (11.4-16.0) gm/dL Hct (34.0-46.0) % RDW (11.5-15.5) % Chloride 110 H (98-107) mmol/L Carbon Dioxide 21 L (22-30) mmol/L BUN 34 H (7-17) mg/dL Creatinine 1.90 H (0.52-1.04) mg/dL POC Glucose (mg/dL) 122 H 114 H (75-99) mg/dL 01/23/19 01/23/19 Range/Units 06:19 06:19 RBC 3.17 L (3.80-5.40) m/uL Hgb 9.3 L (11.4-16.0) gm/dL Hct 29.8 L (34.0-46.0) % RDW 16.8 H (11.5-15.5) % Chloride 111 H (98-107) mmol/L Carbon Dioxide (22-30) mmol/L BUN 20 H (7-17) mg/dL Creatinine 1.35 H (0.52-1.04) mg/dL POC Glucose (mg/dL) (75-99) mg/dL Microbiology - Last 24 Hours (Table) 01/21/19 14:00 Urine Culture - Preliminary Urine,Catheterized Group D Enterococcus 01/21/19 11:10 Blood Culture - Preliminary Blood No Growth after 24 hours Assessment and Plan Plan: Assessment: 1. Acute kidney injury mostly prerenal secondary to poor oral intake and use of lisinopril. Also component of urinary retention. Creatinine was 2.76 on admission and is down to 1.9 today. Baseline creatinine near 1 from June 2018. 2. Urinary retention. Now has a Muñiz catheter. 3. UTI maintain on antibiotics. Urine culture positive for group D enterococcus. 4. Metabolic acidosis secondary to acute kidney injury and IV fluids. Better. 5. Insulin-dependent diabetes mellitus. 6. Benign hypertension. Controlled. 7. Mild hypokalemia from poor oral intake and diuresis. Plan: Maintain normal saline at 75 mL an hour. Lisinopril has been discontinued. Maintain amlodipine 5 mg twice daily. Avoid nephrotoxins. Replace potassium. 40 mg once today. Monitor vancomycin level.
[2019-01-23 11:44] LABS: Glucose,Whole Blood 103 mg/dL (75-99)
[2019-01-23] MEDS: MAGNESIUM SULFATE-D5W PMX 1 GM in DEXTROSE/WATER 1 100ML.BAG IVPB SCH ×2 (11:53→17:20)
--- NOTE | 2019-01-23 11:55 | P.OBCN ---
History of Present Illness Consult date: 01/23/19 Requesting physician: Penny Garcia Reason for consult: other (Vaginal bleeding) Chief complaint: Urosepsis and acute renal failure, dementia History of present illness: The patient is a 73-year-old woman who presented to the hospital from [facility] in [place] where she has resided of with findings as documented in the chart, apparent urosepsis and acute renal failure. She has long-standing history of dementia and is unable to communicate or answer questions. On admission to the hospital after an apparent fall, vaginal bleeding was identified. The family is unaware of any previous vaginal bleeding to this point. The patient is essentially bedbound and unable to answer any questions about the possibility of improper touching or previous vaginal bleeding. All history comes from the [facility] and, as noted above, there is no history of this to their knowledge. 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 The patient's does feel that she's had an evaluation in our office approximately 2-3 years ago but cannot remember the reason for the evaluation. In either case there was no unusual findings to the best of his memory. Review of Systems Review of systems is confined to history of present illness. Past Medical History Past Medical History: Coronary Artery Disease (CAD), Cancer, Diabetes Mellitus, Hyperlipidemia, Hypertension, Memory Impairment, Myocardial Infarction (CO), Renal Disease, Sleep Apnea/CPAP/BIPAP, Thyroid Disorder Additional Past Medical History / Comment(s): osteomyelitis Lt hand/STAGE 3 RENAL FAILURE/THYROID CANCER, cpap machine,"rt hand 3 fingers numb" past falls- constipation,gout Last Myocardial Infarction Date:: 1999 History of Any Multi-Drug Resistant Organisms: MRSA Year Discovered:: 07/01/2015 MDRO Source:: knee left Past Surgical History: Appendectomy, Heart Catheterization With Stent, Orthop edic Surgery Additional Past Surgical History / Comment(s): left hand, thyroidectomy, neck fusion/CARPAL TUNNEL REPAIR ASHLEY,colonoscopy in past STENT X1 Past Anesthesia/Blood Transfusion Reactions: No Reported Reaction Additional Past Anesthesia/Blood Transfusion Reaction / Comm: clausterphobia Date of Last Stent Placement:: 1999 Additional Psychological History / Comment(s): but lives in extended care facility Smoking Status: Never smoker - Past Family History Brother(s) Family Medical History: Cancer Mother Family Medical History: Diabetes Mellitus Father Family Medical History: Myocardial Infarction (CO) Medications and Allergies Home Medications Medication Instructions Recorded Confirmed Type Nitroglycerin Sl Tabs [Nitrostat] 0.4 mg SUBLINGUAL Q5M PRN 12/31/13 01/21/19 History Cholecalciferol [Vitamin D3 (25 1,000 unit PO BID 04/23/14 01/21/19 History Mcg = 1000 Iu)] Levothyroxine Sodium [Synthroid] 112 mcg PO DAILY 09/09/15 01/21/19 History Allopurinol [Zyloprim] 100 mg PO BID 09/03/16 01/21/19 History Aspirin EC [Ecotrin Low Dose] 81 mg PO BID 06/04/17 01/21/19 History Atorvastatin Calcium [Lipitor] 80 mg PO HS@199911/02/17 01/21/19 History Pantoprazole [Protonix] 40 mg PO BID 11/02/17 01/21/19 History Benztropine Mesylate [Cogentin] 0.5 mg PO DAILY 08/13/18 01/21/19 History Ziprasidone [Geodon] 60 mg PO HS@199908/13/18 01/21/19 History Acetaminophen Tab [Tylenol] 650 mg PO Q6HR PRN tab 08/18/18 01/21/19 Rx Insulin Lispro Protamin/Lispro 12 unit SQ HS@199910/04/18 01/21/19 History [humaLOG Mix 75-25 Kwikpen] Insulin Lispro Protamin/Lispro 16 unit SQ DAILY 10/04/18 01/21/19 History [humaLOG Mix 75-25 Kwikpen] ALPRAZolam [Xanax] 0.25 mg PO DAILY 01/21/19 01/21/19 History Artificial Tears-Hypromellose 2 drops LEFT EYE Q4H 01/21/19 01/21/19 History [Artificial Tear Drops] Bisacodyl [Dulcolax] 10 mg RECTAL DAILY PRN 01/21/19 01/21/19 History Ciprofloxacin HCl [Cipro] 500 mg PO BID 01/21/19 01/21/19 History Lisinopril [Zestril] 20 mg PO BID 01/21/19 01/21/19 History Magnesium Hydroxide [Milk of 2,400 mg PO DAILY PRN 01/21/19 01/21/19 History Magnesia] Metoprolol Tartrate [Lopressor] 25 mg PO BID 01/21/19 01/21/19 History PARoxetine HCL [Paxil] 30 mg PO DAILY 01/21/19 01/21/19 History Polyethylene Glycol 3350 [Miralax] 17 gm PO DAILY 01/21/19 01/21/19 History Saliva Stimulant Agents Comb.3 1 spray MUCOUS MEM TID 01/21/19 01/21/19 History [Biotene Moisturizing Mouth] Sennosides-Docusate Sodium 2 tab PO HS 01/21/19 01/21/19 History [Senokot-S] Ziprasidone HCl [Geodon] 20 mg PO QAM 01/21/19 01/21/19 History Allergies Allergy/AdvReac Type Severity Reaction Status Date / Time carvedilol [From Coreg] Allergy Unknown Verified 01/21/19 11:25 lorazepam [From Ativan] Allergy Unknown Verified 01/21/19 11:25 codeine AdvReac Nausea Verified 01/21/19 11:25 erythromycin base AdvReac Nausea Verified 01/21/19 11:25 [Erythromycin Base] Iodinated Contrast- Oral and AdvReac ELEVATED Verified 01/21/19 11:25 IV Dye B/P, FELT [Iodinated Contrast Media - LIKE PASSED IV Dye] methylprednisolone AdvReac Confusion Verified 01/21/19 11:25 [From Medrol] Sulfa (Sulfonamide AdvReac DIZZYNESS Verified 01/21/19 11:25 Antibiotics) Exam Vital Signs Temp Pulse Pulse Resp BP Pulse Ox 01/23/19 08:00 98.3 F 62 53 L 16 140/64 97 01/23/19 04:00 97.5 F L 57 L 16 144/87 98 01/23/19 00:00 97.1 F L 57 L 18 111/58 97 01/22/19 20:00 98.1 F 75 16 104/42 95 01/22/19 15:56 62 16 01/22/19 15:52 98.1 F 62 16 91/56 96 Intake and Output 01/22/19 01/23/19 01/23/19 22:59 06:59 14:59 Intake Total 345 180 Output Total 1050 Balance 345 -1050 180 Intake: Intake, IV Titration 225 Amount Sodium Chloride 0.9% 1, 225 000 ml @ 75 mls/hr IV . [id number] [facility] Rx#:[id number] Oral 120 180 Output: Urine 1050 Other: Voiding Method Indwelling Catheter Indwelling Catheter Indwelling Catheter Weight 87 kg In general, this is a moderately obese white female who is unable to communicate for herself but otherwise pleasant and alert. Her abdomen is moderately obese, nondistended, soft, with minimal tenderness and without any apparent masses. Bimanual pelvic examination done traits a Muñiz catheter in place. The cervix is very high in the pelvis with no apparent cervical motion tenderness. The uterus is atrophic in size and there are no apparent adnexal masses or tenderness bilaterally. Examination is limited secondary to the patient's positioning and habitus as well as the organs being very high in the pelvis. Her extremities without any cyanosis, clubbing, or edema and are nontender to palpation bilaterally. Results Result Diagrams: 01/23/19 06:19 01/23/19 06:19 Abnormal Lab Results - Last 24 Hours (Table) 01/22/19 01/23/19 01/23/19 Range/Units 16:50 06:19 06:19 RBC 3.17 L (3.80-5.40) m/uL Hgb 9.3 L (11.4-16.0) gm/dL Hct 29.8 L (34.0-46.0) % RDW 16.8 H (11.5-15.5) % Chloride 111 H (98-107) mmol/L BUN 20 H (7-17) mg/dL Creatinine 1.35 H (0.52-1.04) mg/dL POC Glucose (mg/dL) 114 H (75-99) mg/dL Microbiology - Last 24 Hours (Table) 01/21/19 14:00 Urine Culture - Preliminary Urine,Catheterized Group D Enterococcus 01/21/19 11:10 Blood Culture - Preliminary Blood No Growth after 24 hours Assessment and Plan (1) Vaginal bleeding Current Visit: Yes Status: Acute Code(s): N93.9 - ABNORMAL UTERINE AND VAGINAL BLEEDING, UNSPECIFIED SNOMED Code(s): 493774432 Plan: We will begin evaluation by ordering a transvaginal pelvic ultrasound to evaluate the anatomy itself to include the endometrial stripe. There is always the concern of the potential for elder abuse in a patient who is unable to protect herself or communicate to those around her. I do not have any acute suspicion for this finding but, as noted, will evaluate the anatomy to start with. Given her significant other medical conditions, further evaluation may or may not be indicated depending on the findings of the ultrasound. She is likely not a candidate for surgical evaluation of the endometrium and I do not suspect any cervical abnormalities based upon her exam. We will continue to follow with you.
[2019-01-23] MEDS ORDERED: VANCOMYCIN 1,250 MG in SODIUM CHLORIDE 0.9% 250 ML IVPB SCH (14:00)
--- NOTE | 2019-01-23 14:12 | US ---
EXAMINATION TYPE: US transvaginal DATE OF EXAM: 01/23/2019 COMPARISON: NONE CLINICAL HISTORY: Postmenopausal bleeding, evaluate endometrial stri. Vaginal bleeding episode while on antibiotic TECHNIQUE: Transvaginal (TV). Transvaginal sonographic images were medically necessary to better ass ess the following anatomy: endometrium. Date of LMP: NA EXAM MEASUREMENTS: Uterus: 7.2 x 4.5 x 3.2 cm Endometrial Stripe: 1. 1.4 cm Right Ovary: Not seen Left Ovary: not seen cm US exam is technically limited on inpatient not oriented x 3 and limited tolerance for TV US approach at bedside. 1. Uterus: Anteverted 2. Endometrium: complex fluid area is imaged in upper endometrium with abnormal endometrial thicknes s of 1.4 centimeter. 3. Right Ovarnot seenseen 4. Left Ovary: not seen 5. Bilateral Adnexwnl wnl 6. Posterior ana-ko-vygexli amount of free fluid in posterior cul de sac= 3.5 x 2.2 x 0.7cm 7c IMPRESSI 1. There is a thickened abnormal endometrium measuring up to 1.4 cm. cm. There is also peripheral flu id and rounded contour in the upper endometrium concerning for underlying neoplasm or polyp. Direct v isualization and biopsy is recommended. 2. Small amount of fluid in the posterior cul-de-sac is incidentally seen. 3. Nonvisualization of the ovaries.
[2019-01-23] MEDS: SODIUM CHLORIDE 0.9% 1,000 ML IV SCH (14:33)
[2019-01-23 16:47] LABS: Glucose,Whole Blood 107 mg/dL (75-99)
[2019-01-23 21:49] LABS: Glucose,Whole Blood 111 mg/dL (75-99)
[2019-01-23] MEDS: ATORVASTATIN 80 MG TAB PO SCH (22:09)
[2019-01-23] MEDS: ZIPRASIDONE 60 MG CAP PO SCH (22:10)
[2019-01-23] MEDS: SENNOSIDES-DOCUSATE SODIUM 1 EACH TAB PO SCH (22:10)
--- NOTE | 2019-01-23 22:14 | P.PN ---
Subjective Progress Note Date: 01/23/19 73-year-old woman who has advanced dementia presents to Hospital extended care facility with alteration of her mental status, increasing weakness, poor oral intake and concerns from the of the marked worsening of her status. At the temporary admission she has evidence of a low-grade fever does have evidence of some hypothermia. There is evidence of leukocytosis and a markedly abnormal urinalysis. With concerns of sepsis and urinary system she was admitted to hospital and with that infectious disease consultation was requested. The patient also had evidence of some acute renal failure and nephrology consult was also requested. The patient's does relate that at the extended care facility a bloody urine was noted. The patient herself is unable to give any particular history. 01/23/2019 there is been little change in the status in the last day. She or does seem to be comfortable. Cultures now finalizing. Objective - Vital Signs Vital signs: Vital Signs Temp 97.8 F 01/23/19 15:35 Pulse 64 01/23/19 15:35 Resp 16 01/23/19 16:00 BP 148/84 01/23/19 15:35 Pulse Ox 94 L 01/23/19 15:35 Intake & Output 01/23/19 01/23/19 01/24/19 06:59 18:59 06:59 Intake Total 225 420 Output Total 1050 1600 Balance -825 -1180 Weight 87 kg Intake: Intake, IV Titration 225 Amount Sodium Chloride 0.9% 1, 225 000 ml @ 75 mls/hr IV . [id number] [facility] Rx#:[id number] Oral 420 Output: Urine 1050 1600 Other: Voiding Method Indwelling Catheter Indwelling Catheter - Exam HEENT: Conjunctiva are anicteric mucous membranes are somewhat dry, oral mucosa dry dentition poor no thrush Neck: The neck is supple without significant lymphadenopathy or thyromegaly. Lungs: Good bilateral air entry without significant crackles or wheezing. There is no significant bronchial sounds. There is no egophony or dullness. Heart: Irregular with a soft S4. There is no significant murmur click or rub, PMI was nondisplaced. Abdomen: Positive bowel sounds soft and nontender without palpable masses or organomegaly. There was no guarding or rebound. Extremities: The upper extremities have excellent pulses they are symmetric, no significant petechiae or telangiectasia. No splinter hemorrhages were noted. Lower extremities have evidence of chronic bilateral lower extremity edema with no acute new ulcerations Neuro: Arousable appears to be oriented to person only. Speech is understandable but content is meaningless - Labs CBC & Chem 7: 01/23/19 06:19 01/23/19 06:19 Labs: Abnormal Lab Results - Last 24 Hours (Table) 01/23/19 01/23/19 01/23/19 Range/Units 06: 06: 11:42 RBC 3.17 L (3.80-5.40) m/uL Hgb 9.3 L (11.4-16.0) gm/dL Hct 29.8 L (34.0-46.0) % RDW 16.8 H (11.5-15.5) % Chloride 111 H (98-107) mmol/L BUN 20 H (7-17) mg/dL Creatinine 1.35 H (0.52-1.04) mg/dL POC Glucose (mg/dL) 103 H (75-99) mg/dL 01/23/19 01/23/19 Range/Units 16:42 21:48 RBC (3.80-5.40) m/uL Hgb (11.4-16.0) gm/dL Hct (34.0-46.0) % RDW (11.5-15.5) % Chloride (98-107) mmol/L BUN (7-17) mg/dL Creatinine (0.52-1.04) mg/dL POC Glucose (mg/dL) 107 H 111 H (75-99) mg/dL Microbiology - Last 24 Hours (Table) 01/21/19 11:10 Blood Culture - Preliminary Blood No Growth after 48 hours 01/21/19 14:00 Urine Culture - Preliminary Urine,Catheterized Group D Enterococcus Laboratory Results WBC 6.0 k/uL (3.8-10.6) 01/23/19 06: RBC 3.17 m/uL (3.80-5.40) L 01/23/19 06: Hgb 9.3 gm/dL (11.4-16.0) L 01/23/19 06: Hct 29.8 % (34.0-46.0) L 01/23/19 06: MCV 93.8 fL (80.0-100.0) 01/23/19 06:19 MCH 29.3 pg (25.0-35.0) 01/23/19 06:19 MCHC 31.3 g/dL (31.0-37.0) 01/23/19 06:19 RDW 16.8 % (11.5-15.5) H 01/23/19 06:19 Plt Count 258 k/uL (150-450) 01/23/19 06:19 Neutrophils % 52 % 01/23/19 06:19 Lymphocytes % 29 % 01/23/19 06:19 Monocytes % 10 % 01/23/19 06:19 Eosinophils % 6 % 01/23/19 06: Basophils % 0 % 01/23/19 06:19 Neutrophils # 3.1 k/uL (1.3-7.7) 01/23/19 06:19 Lymphocytes # 1.8 k/uL (1.0-4.8) 01/23/19 06:19 Monocytes # 0.6 k/uL (0-1.0) 01/23/19 06:19 Eosinophils # 0.3 k/uL (0-0.7) 01/23/19 06:19 Basophils # 0.0 k/uL (0-0.2) 01/23/19 06:19 Hypochromasia Slight 01/23/19 06:19 Anisocytosis Slight 01/23/19 06:19 PT 11.0 sec (9.0-12.0) 01/21/19 11:10 INR 1.0 (<1.2) 01/21/19 11:10 APTT 30.8 sec (22.0-30.0) H 01/21/19 11:10 Sample Site Right Radial 01/21/19 23:43 ABG pH 7.29 (7.35-7.45) L 01/21/19 23:43 ABG pCO2 48 mmHg (35-45) H 01/21/19 23:43 ABG pO2 181 mmHg (83-108) H 01/21/19 23:43 ABG HCO3 23 mmol/L (21-25) 01/21/19 23:43 ABG Total CO2 24 mmol/L (19-24) 01/21/19 23:43 ABG O2 Saturation 99.1 % (94-97) H 01/21/19 23:43 ABG Base Excess -4.0 mmol/L 01/21/19 23:43 Chalo Test Yes 01/21/19 23:43 FiO2 32 % 01/21/19 23:43 Sodium 142 mmol/L (137-145) 01/23/19 06:19 Potassium 3.6 mmol/L (3.5-5.1) 01/23/19 06:19 Chloride 111 mmol/L (98-107) H 01/23/19 06:19 Carbon Dioxide 23 mmol/L (22-30) 01/23/19 06:19 Anion Gap 8 mmol/L 01/23/19 06:19 BUN 20 mg/dL (7-17) H 01/23/19 06:19 Creatinine 1.35 mg/dL (0.52-1.04) H 01/23/19 06:19 Est GFR (CKD-EPI)AfAm 45 (>60 ml/min/1.73 sqM) 01/23/19 06:19 Est GFR (CKD-EPI)NonAf 39 (>60 ml/min/1.73 sqM) 01/23/19 06:19 Glucose 85 mg/dL (74-99) 01/23/19 06:19 POC Glucose (mg/dL) 111 mg/dL (75-99) H 01/23/19 21:48 POC Glu Environmental Solutions Engineer ID Talita Doll 01/23/19 21:48 Plasma Lactic Acid Jewel 1.2 mmol/L (0.7-2.0) 01/21/19 11:10 Calcium 8.9 mg/dL (8.4-10.2) 01/23/19 06:19 Magnesium 1.6 mg/dL (1.6-2.3) 01/23/19 06:19 Total Bilirubin 0.3 mg/dL (0.2-1.3) 01/21/19 19:46 AST 24 U/L (14-36) 01/21/19 19:46 ALT 17 U/L (9-52) 01/21/19 19:46 Alkaline Phosphatase 78 U/L (38-126) 01/21/19 19:46 Ammonia <9 umol/L (<30) 01/22/19 00:10 Troponin I <0.012 ng/mL (0.000-0.034) 01/21/19 11:10 Total Protein 5.8 g/dL (6.3-8.2) L 01/21/19 19:46 Albumin 3.2 g/dL (3.5-5.0) L 01/21/19 19:46 Urine Color Yellow 01/21/19 13:10 Urine Appearance Cloudy (Clear) H 01/21/19 13:10 Urine pH 6.5 (5.0-8.0) 01/21/19 13:10 Ur Specific [place] 1.019 (1.001-1.035) 01/21/19 13:10 Urine Protein 1+ (Negative) H 01/21/19 13:10 Urine Glucose (UA) Negative (Negative) 01/21/19 13:10 Urine Ketones Negative (Negative) 01/21/19 13:10 Urine Blood Small (Negative) H 01/21/19 13:10 Urine Nitrite Negative (Negative) 01/21/19 13:10 Urine Bilirubin Negative (Negative) 01/21/19 13:10 Urine Urobilinogen <2.0 mg/dL (<2.0) 01/21/19 13:10 Ur Leukocyte Esterase Large (Negative) H 01/21/19 13:10 Urine WBC >182 /hpf (0-5) H 01/21/19 13:10 Urine WBC Clumps Many /hpf (None) H 01/21/19 13:10 Urine Bacteria Rare /hpf (None) H 01/21/19 13:10 Random Vancomycin 18.5 ug/mL 01/23/19 06:19 Microbiology 01/21/19 11:10 Blood Blood Culture - Preliminary No Growth after 48 hours 01/21/19 14:00 Urine,Catheterized Urine Culture - Preliminary Group D Enterococcus Assessment and Plan (1) Altered mental status Current Visit: Yes Status: Acute Code(s): R41.82 - ALTERED MENTAL STATUS, UNSPECIFIED SNOMED Code(s): 207734957 (2) Fever and chills Current Visit: Yes Status: Acute Code(s): R50.9 - FEVER, UNSPECIFIED SNOMED Code(s): 777004738 (3) Urinary tract infection Narrative/Plan: 73-year-old woman who has advanced dementia and isn't present extended care facility started to have a change of her status. It appears she started have some fever with bloody urine and marked worsening of her overall status. She became progressively confused and started to have poor oral intake. With this she was brought to hospital with evidence of acute renal failure, acute sepsis from the urinary system. Based on prior cultures antibiotic therapy was initially with vancomycin and ceftazidime pending further culture results. Blood cultures are in process. If not done recently, renal ultrasound may be of some utility to ensure that there is no obstructive uropathy occurring. The patient did have some relative hypothermia but is now improved and appears to be directly related to her about of sepsis that seems to be responding to fluid resuscitation and antibiotic therapy. Final recommendations are based upon culture results and results of the workup. is informed of current plan. 01/23/2019 final culture showing enterococcus. We'll be able to de-escalate antibiotic therapy to Unasyn and monitor progress. Continue ongoing supportive care. will help us determine when she has regained more of her baseline status. If blood cultures remain negative would not plan on GVS antibiotic therapy at this time for transfer back to the extended care facility. Current Visit: Yes Status: Acute Code(s): N39.0 - URINARY TRACT INFECTION, SITE NOT SPECIFIED SNOMED Code(s): 55141906 (4) Major neurocognitive disorder due to Alzheimer's disease, probable, with behavioral disturbance Current Visit: Yes Status: Acute Code(s): G30.9 - ALZHEIMER'S DISEASE, UNSPECIFIED; F02.81 - DEMENTIA IN OTH DISEASES CLASSD [id number] W BEHAVIORAL DISTURB SNOMED Code(s): 351551252
[2019-01-23] MEDS: AMPICILLIN-SULBACTAM 3 GM in SODIUM CHLORIDE 0.9% 100 ML IVPB SCH (23:36)
--- NOTE | 2019-01-24 00:36 | P.PN ---
Subjective Progress Note Date: 01/24/19 Principal diagnosis: This is a 73 year old female that was recently admitted for altered mental status and urinary tract infection, and sepsis and is being closely monitored. Patient was having some vaginal bleeding that was noted and OBGYN was consulted. An ultrasound was ordered and results are pending. Patient is a little more alert and active today with some periods of being slightly restless. Family at the bedside and patient appears to be in no acute distress. Patient denies any shortness of breath, chest pain, or palpitations but is not very verbal. Patient has an indwelling catheter that was placed due to urinary retention. Output is good. Cultures thus far show group D enterococcus and infectious disease is following. Patient was switched to Unasyn. Patient is being monitored closely. Objective - Vital Signs Vital signs: Vital Signs Temp 98.5 F 01/23/19 20:00 Pulse 72 01/23/19 20:00 Resp 16 01/23/19 20:00 BP 101/59 01/23/19 20:00 Pulse Ox 94 L 01/23/19 20:00 Intake & Output 01/23/19 01/23/19 01/24/19 06:59 18:59 06:59 Intake Total 225 420 Output Total 1050 1600 Balance -825 -1180 Weight 87 kg Intake: Intake, IV Titration 225 Amount Sodium Chloride 0.9% 1, 225 000 ml @ 75 mls/hr IV . [id number] [facility] Rx#:[id number] Oral 420 Output: Urine 1050 1600 Other: Voiding Method Indwelling Catheter Indwelling Catheter Indwelling Catheter - Exam PHYSICAL EXAMINATION: GENERAL: The patient is alert and oriented x1, not in any acute distress. Obese. Vital signs are stable. Blood pressure is 122/56, pulse is 57, respirations are 16, temp is 98.3F, oxygen saturation is 98% on room air HEENT: Pupils are round and equally reacting to light. EOMI. No scleral icterus. No conjunctival pallor. Normocephalic, atraumatic. No pharyngeal erythema. No thyromegaly. CARDIOVASCULAR: S1 and S2 present. No murmurs, rubs, or gallops. PULMONARY: Diminished lung sounds in the bases, no wheezing or crackles. ABDOMEN: Soft, nontender, nondistended, normoactive bowel sounds. No palpable organomegaly. MUSCULOSKELETAL: No joint swelling or deformity. EXTREMITIES: No cyanosis, clubbing, or pedal edema. NEUROLOGICAL: Gross neurological examination did not reveal any focal deficits. Patient is restless and attempting to move legs toward the edge of the bed. SKIN: no rashes or lesions noted. - Labs CBC & Chem 7: 01/23/19 06:19 01/23/19 06:19 Labs: Abnormal Lab Results - Last 24 Hours (Table) 01/23/19 01/23/19 01/23/19 Range/Units 06:19 06:19 11:42 RBC 3.17 L (3.80-5.40) m/uL Hgb 9.3 L (11.4-16.0) gm/dL Hct 29.8 L (34.0-46.0) % RDW 16.8 H (11.5-15.5) % Chloride 111 H (98-107) mmol/L BUN 20 H (7-17) mg/dL Creatinine 1.35 H (0.52-1.04) mg/dL POC Glucose (mg/dL) 103 H (75-99) mg/dL 01/23/19 01/23/19 Range/Units 16:42 21:48 RBC (3.80-5.40) m/uL Hgb (11.4-16.0) gm/dL Hct (34.0-46.0) % RDW (11.5-15.5) % Chloride (98-107) mmol/L BUN (7-17) mg/dL Creatinine (0.52-1.04) mg/dL POC Glucose (mg/dL) 107 H 111 H (75-99) mg/dL Microbiology - Last 24 Hours (Table) 01/21/19 11:10 Blood Culture - Preliminary Blood No Growth after 48 hours 01/21/19 14:00 Urine Culture - Preliminary Urine,Catheterized Group D Enterococcus Assessment and Plan Assessment: Acute urinary tract infection with failure of outpatient treatment as well as possible sepsis present on admission Change in mental status, metabolic encephalopathy, acute on chronic secondary to sepsis Vaginal bleeding Subcutaneous air inflammatory changes in the right pelvis of questionable significance with no evidence of any fractures. Pelvis xray shows no acute fractures Increased WBC Anemia, normocytic anemia of chronic disease Acute renal failure, possibly prerenal renal failure with acute tubular necrosis History of CAD Diabetes mellitus type 2 Hypertension Hyperlipidemia History of memory impairment history of sleep apnea history of hypothyroidism history of osteomyelitis History of MRSA History of coronary artery disease/ stent history of anxiety, depression, panic disorder Full code Recommendations and discussion: Recommend to continue current medication management and symptomatic treatment. Will monitor labs and vital signs closely. Patient will continue on IV antibiotic therapy per infectious disease recommendations and will most likely not require antibiotic therapy upon discharge. OBGYN following and awaiting and appreciate recommendations. Patient is hemodynamically stable. Due to the recent urinary retention and nephrology recommendations, alston catheter will remain in place. Guarded prognosis. Further recommendations to follow.
[2019-01-24] MEDS: SODIUM CHLORIDE 0.9% 1,000 ML IV SCH ×2 (06:09→15:48)
[2019-01-24] MEDS: ARTIFICIAL TEARS-HYPROMELLOSE DROPS 15 ML BTL LEFT EYE SCH ×4 (06:10→21:14)
[2019-01-24 06:16] LABS: Glucose,Whole Blood 92 mg/dL (75-99)
[2019-01-24] MEDS: INSULIN ASPART (NovoLOG) 100 UNIT/ML VIAL SQ SCH ×4 (06:22→21:06)
[2019-01-24] MEDS: LEVOTHYROXINE 112 MCG TAB PO SCH (06:42)
[2019-01-24 06:43] LABS: Anisocytosis Slight; Basophils # (A) 0.1 k/uL (0-0.2); Basophils % (A) 1 %; Eosinophils # (A) 0.4 k/uL (0-0.7); Eosinophils % (A) 4 %; HGB 9.8 gm/dL (11.4-16.0); Lymphocytes # (A) 1.9 k/uL (1.0-4.8); Lymphocytes % (A) 23 %; MCH 29.1 pg (25.0-35.0); MCHC 31.7 g/dL (31.0-37.0); MCV 91.9 fL (80.0-100.0); Monocytes # (A) 0.3 k/uL (0-1.0); Monocytes % (A) 4 %; Neutrophils # (A) 5.5 k/uL (1.3-7.7); Neutrophils % (A) 66 %; Platelet Count 276 k/uL (150-450); RBC 3.38 m/uL (3.80-5.40); RDW 16.8 % (11.5-15.5); WBC 8.4 k/uL (3.8-10.6)
[2019-01-24] MEDS: PANTOPRAZOLE 40 MG TABLET PO SCH ×2 (06:46→17:00)
[2019-01-24 06:58] LABS: Calcium 8.8 mg/dL (8.4-10.2); Magnesium 1.5 mg/dL (1.6-2.3); Potassium 3.4 mmol/L (3.5-5.1)
[2019-01-24] MEDS: INSULN ASP PRT/INSULIN ASPART 100 UNIT/ML 10 ML VIAL SQ SCH ×2 (07:32→21:06)
--- NOTE | 2019-01-24 08:27 | P.PN ---
Subjective Progress Note Date: 01/24/19 Principal diagnosis: This is a 73-year-old group home resident was brought in because of worsening of mental status with previous history of dementia She is seen because of acute kidney injury, this seemed to be from prerenal, reduce intake and lisinopril as well as UTI.. She is improving as far as his renal function is concerned but she is completely obtunded and could not wake her up. Nursing staff tells me that she was confused and agitated all through the night. She has not been given any sedation On today's exam her was there. Attempt to wake her up over unsuccessful She is known with coronary artery disease diabetes dementia sleep apnea Objective - Vital Signs Vital signs: Vital Signs Temp 98.5 F 01/23/19 20:00 Pulse 86 01/24/19 00:00 Resp 17 01/24/19 00:00 BP 101/59 01/23/19 20:00 Pulse Ox 94 L 01/23/19 20:00 Intake & Output 01/23/19 01/24/19 01/24/19 18:59 06:59 18:59 Intake Total 420 Output Total 1600 1400 Balance -1180 -1400 Weight 86 kg Intake: Oral 420 Output: Urine 1600 1400 Other: Voiding Method Indwelling Catheter Indwelling Catheter On examination obtunded and was unable to be aroused although she moment he opens her eyes but goes back to sleep. HEENT exam no JVP neck is supple no facial asymmetry pupils are equal somewhat dilated at about 4 mm Neck is supple Lungs are clear to auscultation fair air entry bilaterally Heart sounds are unremarkable no murmur rub gallop Abdomen soft nontender nondistended Extremity exam was no edema Neurologically obtunded - Labs CBC & Chem 7: 01/24/19 06:24 01/24/19 06:24 Labs: Abnormal Lab Results - Last 24 Hours (Table) 01/23/19 01/23/19 01/23/19 Range/Units 11:42 16:42 21:48 RBC (3.80-5.40) m/uL Hgb (11.4-16.0) gm/dL Hct (34.0-46.0) % RDW (11.5-15.5) % Potassium (3.5-5.1) mmol/L Chloride (98-107) mmol/L Creatinine (0.52-1.04) mg/dL POC Glucose (mg/dL) 103 H 107 H 111 H (75-99) mg/dL Magnesium (1.6-2.3) mg/dL 01/24/19 01/24/19 Range/Units 06:24 06:24 RBC 3.38 L (3.80-5.40) m/uL Hgb 9.8 L (11.4-16.0) gm/dL Hct 31.0 L (34.0-46.0) % RDW 16.8 H (11.5-15.5) % Potassium 3.4 L (3.5-5.1) mmol/L Chloride 109 H (98-107) mmol/L Creatinine 1.05 H (0.52-1.04) mg/dL POC Glucose (mg/dL) (75-99) mg/dL Magnesium 1.5 L (1.6-2.3) mg/dL Microbiology - Last 24 Hours (Table) 01/21/19 14:00 Urine Culture - Final Urine,Catheterized Enterococcus faecium VRE 01/21/19 11:10 Blood Culture - Preliminary Blood No Growth after 48 hours Assessment and Plan Assessment: Impression 1. Acute kidney injury resolved. Etiology is reduced intake and lisinopril. Creatinine 1.05 as of this morning. 2. Mild hypokalemia secondary to hypomagnesemia as well as low intake of potassium is 3.4 also an element of saline diuresis causing potassium wasting in the urine 3. Enterococcus cesium VRE urinary tract infection. 4. Dementia but worsening of mental status rule out other causes. 5. Mild anemia hemoglobin is 9.8 Recommendation 1. Maintain IV fluids for right now as her oral intake is poor 2. Replace potassium she requires approximately 40 mEq. 3. Replace magnesium. We'll give her 4 g of IV magnesium sulfate slowly and Check magnesium tomorrow
[2019-01-24] MEDS ORDERED: Magnesium Replacement Protocol 1 EACH MISC MISCELLANE PRN (08:50)
[2019-01-24] MEDS: AMPICILLIN-SULBACTAM 3 GM in SODIUM CHLORIDE 0.9% 100 ML IVPB SCH (08:54)
[2019-01-24] MEDS: MAGNESIUM SULFATE-D5W PMX 1 GM in DEXTROSE/WATER 1 100ML.BAG IVPB SCH ×4 (09:46→14:12)
--- NOTE | 2019-01-24 10:57 | P.PN ---
Subjective Progress Note Date: 01/24/19 Principal diagnosis: Patient is seen this morning. Patient is sleeping , not arousable during disussion with her family. Patient's family remains at the bedside. Ultrasound results are discussed with the family in detail. Patient was admitted and LINE STAKER was consulted for possible vaginal trauma, vaginal bleeding. Dr. Lynn did examine this patient and order a pelvic ultrasound yesterday. Pelvic ultrasound was resulted with a thickened endometrial stripe of 1.4 cm. Objective - Vital Signs Vital signs: Vital Signs Temp 98.5 F 01/23/19 20:00 Pulse 86 01/24/19 00:00 Resp 17 01/24/19 00:00 BP 101/59 01/23/19 20:00 Pulse Ox 94 L 01/23/19 20:00 Intake & Output 01/23/19 01/24/19 01/24/19 18:59 06:59 18:59 Intake Total 420 Output Total 1600 1400 Balance -1180 -1400 Weight 86 kg Intake: Oral 420 Output: Urine 1600 1400 Other: Voiding Method Indwelling Catheter Indwelling Catheter - Constitutional Constitutional Comment(s): Non arousable female. General appearance: Present: average body habitus - Labs CBC & Chem 7: 01/24/19 06:24 01/24/19 06:24 Labs: Abnormal Lab Results - Last 24 Hours (Table) 01/23/19 01/23/19 01/23/19 Range/Units 11:42 16:42 21:48 RBC (3.80-5.40) m/uL Hgb (11.4-16.0) gm/dL Hct (34.0-46.0) % RDW (11.5-15.5) % Potassium (3.5-5.1) mmol/L Chloride (98-107) mmol/L Creatinine (0.52-1.04) mg/dL POC Glucose (mg/dL) 103 H 107 H 111 H (75-99) mg/dL Magnesium (1.6-2.3) mg/dL 01/24/19 01/24/19 Range/Units 06:24 06:24 RBC 3.38 L (3.80-5.40) m/uL Hgb 9.8 L (11.4-16.0) gm/dL Hct 31.0 L (34.0-46.0) % RDW 16.8 H (11.5-15.5) % Potassium 3.4 L (3.5-5.1) mmol/L Chloride 109 H (98-107) mmol/L Creatinine 1.05 H (0.52-1.04) mg/dL POC Glucose (mg/dL) (75-99) mg/dL Magnesium 1.5 L (1.6-2.3) mg/dL Microbiology - Last 24 Hours (Table) 01/21/19 14:00 Urine Culture - Final Urine,Catheterized Enterococcus faecium VRE 01/21/19 11:10 Blood Culture - Preliminary Blood No Growth after 48 hours Assessment and Plan (1) Endometrial thickening on ultrasound Current Visit: Yes Status: Acute Code(s): R93.89 - ABNORMAL FINDINGS ON DX IMAGING OF OTH BODY STRUCTURES SNOMED Code(s): 133819576 (2) Altered mental status Current Visit: Yes Status: Acute Code(s): R41.82 - ALTERED MENTAL STATUS, UNSPECIFIED SNOMED Code(s): 191590412 Plan: Ultrasound findings are discussed with the family in detail. Multiple questions are answered. Discussion with the patient regarding further management/workup of this thickened endometrium with endometrial biopsy versus D&C. Due to the patient's altered mental status/dementia I do not feel she would tolerate this procedure at the bedside ultimately needing a D&C if they desire. They are not desirous of this at this time and will proceed with expectant management. They state that if she starts having vaginal bleeding they would like an additional week ultrasound ordered and may change their mind on management. Will plan on signing off at this time as there are no further LINE STAKER issues that need to be addressed. Thank you for the consult.
[2019-01-24 11:50] LABS: Glucose,Whole Blood 120 mg/dL (75-99)
[2019-01-24] MEDS: amLODIPine 5 MG TAB PO SCH ×2 (12:44→21:09)
[2019-01-24] MEDS: ASPIRIN 81 MG PO SCH ×2 (12:44→21:09)
[2019-01-24] MEDS: BENZTROPINE MESYLATE 0.5 MG TAB PO SCH (12:44)
[2019-01-24] MEDS: METOPROLOL TARTRATE 25 MG TAB PO SCH ×2 (12:44→21:09)
[2019-01-24] MEDS: ALLOPURINOL 100 MG TAB PO SCH ×2 (12:56→21:09)
[2019-01-24] MEDS: CHOLECALCIFEROL 1,000 UNIT TAB PO SCH ×2 (12:56→21:09)
[2019-01-24] MEDS: POLYETHYLENE GLYCOL 3350 17 GM POWD.PACK PO SCH (12:57)
[2019-01-24] MEDS: DAPTOmycin 500 MG in SODIUM CHLORIDE 0.9% 50 ML IVPB SCH ×2 (15:13→15:52)
[2019-01-24] MEDS: ALPRAZolam 0.25 MG TAB PO SCH (15:36)
[2019-01-24] MEDS: PARoxetine 10 MG TAB PO SCH (15:41)
[2019-01-24 16:51] LABS: Glucose,Whole Blood 177 mg/dL (75-99)
[2019-01-24 17:36] LABS: Glucose,Whole Blood 172 mg/dL (75-99)
[2019-01-24] MEDS: ZIPRASIDONE 20 MG CAP PO SCH (18:00)
[2019-01-24 21:01] LABS: Glucose,Whole Blood 113 mg/dL (75-99)
[2019-01-24] MEDS: SENNOSIDES-DOCUSATE SODIUM 1 EACH TAB PO SCH (21:09)
[2019-01-24] MEDS: risperiDONE 0.5 MG TAB PO SCH (21:10)
[2019-01-24] MEDS: ZIPRASIDONE 60 MG CAP PO SCH (22:16)
--- NOTE | 2019-01-24 23:08 | PN ---
PROGRESS NOTE DATE OF SERVICE: 01/24/2019 This 73-year-old woman admitted with UTI also had continue confusion. At this time, the patient being closely monitored. Patient apparently yesterday last night was awake the whole night and currently the patient is sedated and rather deep sleep. The cultures show enterococcus faecium VRE at this time. PAST MEDICAL HISTORY: Reviewed. REVIEW OF SYSTEMS: Could not be taken the patient is sedated. CURRENT MEDICATIONS: Are reviewed and include: The current medications include: 1. Tylenol 650 q.6 p.r.n. 2. Zyloprim 100 mg p.o. b.i.d. 3. Xanax 0.5 t.i.d. 4. Aspirin. 5. Cogentin. 6. Dulcolax. 7. Cholecalciferol. 8. Dilaudid. 9. NovoLog Mix. 10.Lopressor. 11.Narcan. 12.Nitrostat. 13.Protonix. 14.Senokot-S. 15.Geodon. Infectious Disease following the patient closely. The patient is on daptomycin at this time. PHYSICAL EXAM: Patient is confused as mentioned. Pulse 67 blood pressure 140/58, respirations 16, temperature 98.2, pulse ox 98% on room air. HEENT: Conjunctivae normal. NECK: No JVD. CARDIOVASCULAR: S1, S2 muffled. RESPIRATION: Breath sounds diminished in the bases. Bilateral scattered rhonchi and crackles. ABDOMEN: Soft, nontender. LEGS are no edema, no swelling. CENTRAL NERVOUS SYSTEM: Diffusely weak. LAB: Incisions at this time: WBC 8.4, hemoglobin 9.8, creatinine is 1.05. Accu-Cheks noted. ASSESSMENT: 1. Acute urinary tract infection with failure of outpatient treatment with VRE with possible sepsis present on admission, on daptomycin. 2. Change in mental status, possible metabolic encephalopathy secondary to sepsis. 3. Increased WBC. 4. Anemia, normocytic anemia of chronic disease. 5. Acute renal failure possibly prerenal renal failure with acute tubular necrosis. 6. History of coronary artery disease. 7. Diabetes mellitus type 2. 8. Hypertension. 9. Hyperlipidemia. 10.History of memory impairment. 11.History of sleep apnea. 12.History of hypothyroidism. 13.History of osteomyelitis. 14.History of MRSA. 15.History of coronary artery disease/ stent. 16.History of anxiety, depression, bipolar panic disorder. 17.FULL CODE. RECOMMENDATIONS AND DISCUSSION: Recommend to continue current medications. Continue with daptomycin. Otherwise, I would recommend add Risperdal, multivitamin supplements. Otherwise, resume the rest of the medications. Monitor closely. DVT prophylaxis. Once the patient is much more alert, incentive spirometry. PT/OT evaluation, possible ECF rehab. Guarded prognosis because of multiple complex medical issues. Further recommendations to follow. MMODL / IJN: [id number] /
--- NOTE | 2019-01-24 23:22 | P.PN ---
Subjective Progress Note Date: 01/24/19 73-year-old woman who has advanced dementia presents to Hospital extended care facility with alteration of her mental status, increasing weakness, poor oral intake and concerns from the of the marked worsening of her status. At the temporary admission she has evidence of a low-grade fever does have evidence of some hypothermia. There is evidence of leukocytosis and a markedly abnormal urinalysis. With concerns of sepsis and urinary system she was admitted to hospital and with that infectious disease consultation was requested. The patient also had evidence of some acute renal failure and nephrology consult was also requested. The patient's does relate that at the extended care facility a bloody urine was noted. The patient herself is unable to give any particular history. 01/23/2019 there is been little change in the status in the last day. She or does seem to be comfortable. Cultures now finalizing. 01/24/2019 H and has no new complaints. There was some vaginal bleeding that was noted and has been evaluated by gynecology with outpatient follow-up as planned Objective - Vital Signs Vital signs: Vital Signs Temp 98.2 F 01/24/19 18:08 Pulse 56 L 01/24/19 18:08 Resp 16 01/24/19 18:08 BP 129/79 01/24/19 18:08 Pulse Ox 95 01/24/19 18:08 Intake & Output 01/24/19 01/24/19 01/25/19 06:59 18:59 06:59 Intake Total 400 Output Total 1400 Balance -1400 400 Weight 86 kg Intake: Intake, IV Titration 400 Amount Magnesium Sulfate-D5w Pmx 400 1 gm In Dextrose/Water 1 100ml.bag @ 100 mls/hr IVPB Q1H [facility] Rx#: [id number] Output: Urine 1400 Other: Voiding Method Indwelling Catheter Indwelling Catheter # Voids 0 - Exam HEENT: Conjunctiva are anicteric mucous membranes are somewhat dry, oral mucosa dry dentition poor no thrush Neck: The neck is supple without significant lymphadenopathy or thyromegaly. Lungs: Good bilateral air entry without significant crackles or wheezing. There is no significant bronchial sounds. There is no egophony or dullness. Heart: Irregular with a soft S4. There is no significant murmur click or rub, PMI was nondisplaced. Abdomen: Positive bowel sounds soft and nontender without palpable masses or organomegaly. There was no guarding or rebound. Extremities: The upper extremities have excellent pulses they are symmetric, no significant petechiae or telangiectasia. No splinter hemorrhages were noted. Lower extremities have evidence of chronic bilateral lower extremity edema with no acute new ulcerations Neuro: Arousable appears to be oriented to person only. Speech is understandable but content is meaningless - Labs CBC & Chem 7: 01/24/19 06:24 01/24/19 06:24 Labs: Abnormal Lab Results - Last 24 Hours (Table) 01/24/19 01/24/19 01/24/19 Range/Units 06:24 06:24 11:47 RBC 3.38 L (3.80-5.40) m/uL Hgb 9.8 L (11.4-16.0) gm/dL Hct 31.0 L (34.0-46.0) % RDW 16.8 H (11.5-15.5) % Potassium 3.4 L (3.5-5.1) mmol/L Chloride 109 H (98-107) mmol/L Creatinine 1.05 H (0.52-1.04) mg/dL POC Glucose (mg/dL) 120 H (75-99) mg/dL Magnesium 1.5 L (1.6-2.3) mg/dL 01/24/19 01/24/19 01/24/19 Range/Units 16:49 17:35 20:50 RBC (3.80-5.40) m/uL Hgb (11.4-16.0) gm/dL Hct (34.0-46.0) % RDW (11.5-15.5) % Potassium (3.5-5.1) mmol/L Chloride (98-107) mmol/L Creatinine (0.52-1.04) mg/dL POC Glucose (mg/dL) 177 H 172 H 113 H (75-99) mg/dL Magnesium (1.6-2.3) mg/dL Microbiology - Last 24 Hours (Table) 01/21/19 11:10 Blood Culture - Preliminary Blood No Growth after 72 hours 01/21/19 14:00 Urine Culture - Final Urine,Catheterized Enterococcus faecium VRE Laboratory Results WBC 8.4 k/uL (3.8-10.6) 01/24/19 06:24 RBC 3.38 m/uL (3.80-5.40) L 01/24/19 06:24 Hgb 9.8 gm/dL (11.4-16.0) L 01/24/19 06:24 Hct 31.0 % (34.0-46.0) L 01/24/19 06:24 MCV 91.9 fL (80.0-100.0) 01/24/19 06:24 MCH 29.1 pg (25.0-35.0) 01/24/19 06:24 MCHC 31.7 g/dL (31.0-37.0) 01/24/19 06:24 RDW 16.8 % (11.5-15.5) H 01/24/19 06:24 Plt Count 276 k/uL (150-450) 01/24/19 06:24 Neutrophils % 66 % 01/24/19 06:24 Lymphocytes % 23 % 01/24/19 06:24 Monocytes % 4 % 01/24/19 06:24 Eosinophils % 4 % 01/24/19 06:24 Basophils % 1 % 01/24/19 06:24 Neutrophils # 5.5 k/uL (1.3-7.7) 01/24/19 06:24 Lymphocytes # 1.9 k/uL (1.0-4.8) 01/24/19 06:24 Monocytes # 0.3 k/uL (0-1.0) 01/24/19 06:24 Eosinophils # 0.4 k/uL (0-0.7) 01/24/19 06:24 Basophils # 0.1 k/uL (0-0.2) 01/24/19 06:24 Hypochromasia Slight 01/23/19 06:19 Anisocytosis Slight 01/24/19 06:24 PT 11.0 sec (9.0-12.0) 01/21/19 11:10 INR 1.0 (<1.2) 01/21/19 11:10 APTT 30.8 sec (22.0-30.0) H 01/21/19 11:10 Sample Site Right Radial 01/21/19 23:43 ABG pH 7.29 (7.35-7.45) L 01/21/19 23:43 ABG pCO2 48 mmHg (35-45) H 01/21/19 23:43 ABG pO2 181 mmHg (83-108) H 01/21/19 23:43 ABG HCO3 23 mmol/L (21-25) 01/21/19 23:43 ABG Total CO2 24 mmol/L (19-24) 01/21/19 23:43 ABG O2 Saturation 99.1 % (94-97) H 01/21/19 23:43 ABG Base Excess -4.0 mmol/L 01/21/19 23:43 Chalo Test Yes 01/21/19 23:43 FiO2 32 % 01/21/19 23:43 Sodium 141 mmol/L (137-145) 01/24/19 06:24 Potassium 3.4 mmol/L (3.5-5.1) L 01/24/19 06:24 Chloride 109 mmol/L (98-107) H 01/24/19 06:24 Carbon Dioxide 24 mmol/L (22-30) 01/24/19 06:24 Anion Gap 8 mmol/L 01/24/19 06:24 BUN 13 mg/dL (7-17) 01/24/19 06:24 Creatinine 1.05 mg/dL (0.52-1.04) H 01/24/19 06:24 Est GFR (CKD-EPI)AfAm 60 (>60 ml/min/1.73 sqM) 01/24/19 06:24 Est GFR (CKD-EPI)NonAf 52 (>60 ml/min/1.73 sqM) 01/24/19 06:24 Glucose 95 mg/dL (74-99) 01/24/19 06:24 POC Glucose (mg/dL) 113 mg/dL (75-99) H 01/24/19 20:50 POC Glu [employer] ID Ana Malcolm 01/24/19 20:50 Plasma Lactic Acid Jewel 1.2 mmol/L (0.7-2.0) 01/21/19 11:10 Calcium 8.8 mg/dL (8.4-10.2) 01/24/19 06:24 Magnesium 1.5 mg/dL (1.6-2.3) L 01/24/19 06:24 Total Bilirubin 0.3 mg/dL (0.2-1.3) 01/21/19 19:46 AST 24 U/L (14-36) 01/21/19 19:46 ALT 17 U/L (9-52) 01/21/19 19:46 Alkaline Phosphatase 78 U/L (38-126) 01/21/19 19:46 Ammonia <9 umol/L (<30) 01/22/19 00:10 Troponin I <0.012 ng/mL (0.000-0.034) 01/21/19 11:10 Total Protein 5.8 g/dL (6.3-8.2) L 01/21/19 19:46 Albumin 3.2 g/dL (3.5-5.0) L 01/21/19 19:46 Urine Color Yellow 01/21/19 13:10 Urine Appearance Cloudy (Clear) H 01/21/19 13:10 Urine pH 6.5 (5.0-8.0) 01/21/19 13:10 Ur Specific Bentley 1.019 (1.001-1.035) 01/21/19 13:10 Urine Protein 1+ (Negative) H 01/21/19 13:10 Urine Glucose (UA) Negative (Negative) 01/21/19 13:10 Urine Ketones Negative (Negative) 01/21/19 13:10 Urine Blood Small (Negative) H 01/21/19 13:10 Urine Nitrite Negative (Negative) 01/21/19 13:10 Urine Bilirubin Negative (Negative) 01/21/19 13:10 Urine Urobilinogen <2.0 mg/dL (<2.0) 01/21/19 13:10 Ur Leukocyte Esterase Large (Negative) H 01/21/19 13:10 Urine WBC >182 /hpf (0-5) H 01/21/19 13:10 Urine WBC Clumps Many /hpf (None) H 01/21/19 13:10 Urine Bacteria Rare /hpf (None) H 01/21/19 13:10 Random Vancomycin 18.5 ug/mL 01/23/19 06:19 Microbiology 01/21/19 11:10 Blood Blood Culture - Preliminary No Growth after 72 hours 01/21/19 14:00 Urine,Catheterized Urine Culture - Final Enterococcus faecium VRE Assessment and Plan (1) Altered mental status Current Visit: Yes Status: Acute Code(s): R41.82 - ALTERED MENTAL STATUS, UNSPECIFIED SNOMED Code(s): 866234893 (2) Fever and chills Current Visit: Yes Status: Acute Code(s): R50.9 - FEVER, UNSPECIFIED SNOMED Code(s): 940602676 (3) Urinary tract infection Narrative/Plan: 73-year-old woman who has advanced dementia and isn't present extended care facility started to have a change of her status. It appears she started have some fever with bloody urine and marked worsening of her overall status. She became progressively confused and started to have poor oral intake. With this she was brought to hospital with evidence of acute renal failure, acute sepsis from the urinary system. Based on prior cultures antibiotic therapy was init ially with vancomycin and ceftazidime pending further culture results. Blood cultures are in process. If not done recently, renal ultrasound may be of some utility to ensure that there is no obstructive uropathy occurring. The patient did have some relative hypothermia but is now improved and appears to be directly related to her about of sepsis that seems to be responding to fluid resuscitation and antibiotic therapy. Final recommendations are based upon culture results and results of the workup. is informed of current plan. 01/23/2019 final culture showing enterococcus. We'll be able to de-escalate antibiotic therapy to Unasyn and monitor progress. Continue ongoing supportive care. will help us determine when she has regained more of her baseline status. If blood cultures remain negative would not plan on GVS antibiotic therapy at this time for transfer back to the extended care facility. Current Visit: Yes Status: Acute Code(s): N39.0 - URINARY TRACT INFECTION, SITE NOT SPECIFIED SNOMED Code(s): 43751378 (4) Major neurocognitive disorder due to Alzheimer's disease, probable, with behavioral disturbance Current Visit: Yes Status: Acute Code(s): G30.9 - ALZHEIMER'S DISEASE, UNSPECIFIED; F02.81 - DEMENTIA IN OTH DISEASES CLASSD ELSWHR W BEHAVIORAL DI STURB SNOMED Code(s): 749680036
[2019-01-25] MEDS: HYDROmorphone 0.5 MG/0.5 ML SYRINGE IVP PRN ×2 (00:07→20:25)
[2019-01-25] MEDS: ARTIFICIAL TEARS-HYPROMELLOSE DROPS 15 ML BTL LEFT EYE SCH ×7 (00:11→23:54)
[2019-01-25] MEDS: SODIUM CHLORIDE 0.9% 1,000 ML IV SCH ×2 (04:50→20:18)
[2019-01-25] MEDS: LEVOTHYROXINE 112 MCG TAB PO SCH (06:06)
[2019-01-25 07:33] LABS: Glucose,Whole Blood 95 mg/dL (75-99)
[2019-01-25 07:54] LABS: Calcium 8.8 mg/dL (8.4-10.2); Magnesium 2.2 mg/dL (1.6-2.3); Potassium 3.5 mmol/L (3.5-5.1)
[2019-01-25] MEDS: INSULIN ASPART (NovoLOG) 100 UNIT/ML VIAL SQ SCH ×4 (08:21→20:24)
[2019-01-25] MEDS: INSULN ASP PRT/INSULIN ASPART 100 UNIT/ML 10 ML VIAL SQ SCH ×2 (10:17→20:25)
[2019-01-25] MEDS: amLODIPine 5 MG TAB PO SCH ×2 (10:19→20:17)
[2019-01-25] MEDS: ALLOPURINOL 100 MG TAB PO SCH ×2 (10:19→20:17)
[2019-01-25] MEDS: METOPROLOL TARTRATE 25 MG TAB PO SCH ×2 (10:19→20:17)
[2019-01-25] MEDS: PANTOPRAZOLE 40 MG TABLET PO SCH ×2 (10:19→17:20)
[2019-01-25] MEDS: PARoxetine 10 MG TAB PO SCH (10:19)
[2019-01-25] MEDS: ZIPRASIDONE 20 MG CAP PO SCH (10:20)
[2019-01-25] MEDS: BENZTROPINE MESYLATE 0.5 MG TAB PO SCH (10:20)
[2019-01-25] MEDS: ASPIRIN 81 MG PO SCH ×2 (10:20→20:24)
[2019-01-25] MEDS: POLYETHYLENE GLYCOL 3350 17 GM POWD.PACK PO SCH (10:20)
[2019-01-25] MEDS: CHOLECALCIFEROL 1,000 UNIT TAB PO SCH ×2 (10:20→20:17)
[2019-01-25] MEDS: ALPRAZolam 0.25 MG TAB PO SCH (10:20)
[2019-01-25] MEDS: FOLIC ACID 1 MG TAB PO SCH (10:22)
[2019-01-25] MEDS: MULTIVITAMINS, THERA 1 EACH TAB PO SCH (10:23)
[2019-01-25] MEDS: THIAMINE 100 MG TAB PO SCH (10:23)
--- NOTE | 2019-01-25 10:46 | P.PN ---
Subjective Progress Note Date: 01/25/19 Principal diagnosis: This is a 73-year-old [facility] was brought in because of worsening of mental status with previous history of dementia She is seen because of acute kidney injury, this seemed to be from prerenal, reduce intake and lisinopril as well as UTI.. She is improving as far as his renal function is concerned but she was completely obtunded on and off. Yesterday could not wake her up at all. This morning she is awake and alert but remains confused and not baseline as per was in the room Her intake is somewhat less than optimal. No nausea vomiting diarrhea .she seems comfortable and cheerful She is known with dementia, [facility] resident and has history of coronary artery disease diabetes dementia sleep apnea Objective - Vital Signs Vital signs: Vital Signs Temp 97.8 F 01/25/19 06:28 Pulse 47 L 01/25/19 06:28 Resp 18 01/25/19 06:28 BP 148/61 01/25/19 06:28 Pulse Ox 94 L 01/25/19 06:28 Intake & Output 01/24/19 01/25/19 01/25/19 18:59 06:59 18:59 Intake Total 400 160 Output Total 1050 Balance 400 -890 Intake: Intake, IV Titration 400 Amount Magnesium Sulfate-D5w Pmx 400 1 gm In Dextrose/Water 1 100ml.bag @ 100 mls/hr IVPB Q1H [facility] Rx#: [id number] Oral 160 Output: Urine 1050 Other: Voiding Method Indwelling Catheter Indwelling Catheter # Voids 0 # Bowel Movements 0 Awake alert but disoriented completely. HEENT exam no JVP in neck is supple no facial asymmetry Lungs are clear to auscultation good air entry bilaterally Heart sounds are unremarkable no murmur rub gallop Abdomen soft nontender Extremity exam was no edema Neurologically she is moving all her extremities she is cheerful she follows commands but completely disoriented. No focal motor deficit noted - Labs CBC & Chem 7: 01/24/19 06:24 01/25/19 07:07 Labs: Abnormal Lab Results - Last 24 Hours (Table) 01/24/19 01/24/19 01/24/19 Range/Units 11:47 16:49 17:35 Chloride (98-107) mmol/L POC Glucose (mg/dL) 120 H 177 H 172 H (75-99) mg/dL 01/24/19 01/25/19 Range/Units 20:50 07:07 Chloride 111 H (98-107) mmol/L POC Glucose (mg/dL) 113 H (75-99) mg/dL Microbiology - Last 24 Hours (Table) 01/21/19 11:10 Blood Culture - Preliminary Blood No Growth after 72 hours 01/21/19 14:00 Urine Culture - Final Urine,Catheterized Enterococcus faecium VRE Assessment and Plan Assessment: Impression 1. Acute kidney injury resolved. Etiology is reduced intake and lisinopril. Creatinine 1.05. 0.83 as of this morning. 2. Mild hypokalemia secondary to hypomagnesemia as well as low intake of potassium is 3.4 also an element of saline diuresis causing potassium wasting in the urine. Potassium is 3.5 3. Enterococcus cesium VRE urinary tract infection. 4. Dementia but worsening of mental status rule out other causes. This is improved 5. Mild anemia hemoglobin is 9.8 6. Hypomagnesemia resolved after giving 4 g of IV magnesium sulfate yesterday Recommendation 1. Maintain the CMV IV fluids and see how her oral intake is 2. I will sign off the case. Thank you for asking us to participate in this patient
[2019-01-25 11:59] LABS: Glucose,Whole Blood 132 mg/dL (75-99)
[2019-01-25] MEDS: DAPTOmycin 500 MG in SODIUM CHLORIDE 0.9% 50 ML IVPB SCH (13:28)
[2019-01-25 17:30] LABS: Glucose,Whole Blood 84 mg/dL (75-99)
[2019-01-25] MEDS: risperiDONE 0.5 MG TAB PO SCH (20:16)
[2019-01-25] MEDS: SENNOSIDES-DOCUSATE SODIUM 1 EACH TAB PO SCH (20:17)
[2019-01-25] MEDS: ZIPRASIDONE 60 MG CAP PO SCH (20:17)
[2019-01-25 20:33] LABS: Glucose,Whole Blood 100 mg/dL (75-99)
--- NOTE | 2019-01-25 21:15 | PN ---
PROGRESS NOTE DATE OF SERVICE: 01/25/2019. This 73-year-old woman who was admitted with acute urinary tract infection with failure of outpatient treatment with VRE and possible sepsis is being closely monitored at this time. The patient is slightly more alert. Sensorium is fluctuating. Dr. More is following the patient closely. The patient is on IV antibiotics in the form of IV daptomycin at this time. PAST MEDICAL HISTORY: Reviewed. REVIEW OF SYSTEMS: Could not be taken the patient is still confused. CURRENT MEDICATIONS ARE: 1. Tylenol p.r.n. 2. Zyloprim 100 mg p.o. b.i.d. 3. Xanax. 4. Norvasc 5 mg p.o. b.i.d. 5. Aspirin 81 mg b.i.d. 6. Cogentin 0.5 mg daily. 7. Dulcolax. 8. Daptomycin 500 mg IV daily. 9. Folic acid 1 mg. 10.Dilaudid p.r.n. 11.NovoLog 70/30 q.h.s. 12.NovoLog a.c. and at bedtime. 13.NovoLog 70/30, 16 units daily. 14.Synthroid 112 mcg p.o. 15.Milk of magnesia. 16.Lopressor 25 mg p.o. b.i.d. 17.Magnesium oxide. 18.Multivitamins. 19.Narcan. 20.Nitrostat. 21.Zofran. 22.Protonix. 23.Paxil. 24.MiraLAX. 25.Risperdal. 26.Senokot-S. 27.Vitamin B1. 28.Geodon. 29.Doses reviewed. PHYSICAL EXAMINATION: Alert and oriented time three. Pulse 58, blood pressure 109/55, respiration 18, temperature 97.1, pulse ox 94% on room air. HEENT: Conjunctivae normal. NECK: No JVD. CARDIOVASCULAR: S1, S2 muffled. RESPIRATORY: Breath sounds diminished in the bases. A few scattered rhonchi and crackles. Expiratory wheezing also present. ABDOMEN: Soft, nontender. LEGS are no edema. No swelling. CENTRAL NERVOUS SYSTEM: Diffusely weak. LAB STUDIES: Sodium is 142, hemoglobin 13.3, potassium 3.5. ASSESSMENT: 1. Acute urinary tract infection with failure of outpatient treatment, VRE with possible sepsis, present on admission on daptomycin IV. 2. Change in mental status, acute metabolic acidosis secondary to sepsis. 3. Increased WBC. 4. Anemia, normocytic anemia of chronic disease. 5. Acute renal failure possibly prerenal renal failure with acute tubular necrosis. 6. History of coronary artery disease. 7. Diabetes mellitus type 2. 8. Hypertension. 9. Hyperlipidemia. 10.History of memory impairment. 11.History of sleep apnea. 12.History of hypothyroidism. 13.History of osteomyelitis. 14.History of MRSA. 15.History of coronary artery disease/ stent. 16.History of anxiety, depression, bipolar, panic disorder. 17.FULL CODE. RECOMMENDATIONS AND DISCUSSION: Recommend to continue current medications, monitoring, management and symptomatic treatment. Otherwise, at this time I recommend continue with broad-spectrum IV antibiotics, PT/OT evaluation, possible ECF rehab. Continue the rest of medications. Further recommendations to follow. MMSCOTTL / IJN: [id number] /
[2019-01-26] MEDS: ARTIFICIAL TEARS-HYPROMELLOSE DROPS 15 ML BTL LEFT EYE SCH ×6 (04:18→23:01)
[2019-01-26] MEDS: LEVOTHYROXINE 112 MCG TAB PO SCH (06:14)
[2019-01-26 07:19] LABS: Glucose,Whole Blood 77 mg/dL (75-99)
[2019-01-26] MEDS: ALLOPURINOL 100 MG TAB PO SCH ×2 (08:19→20:44)
[2019-01-26] MEDS: BENZTROPINE MESYLATE 0.5 MG TAB PO SCH (08:19)
[2019-01-26] MEDS: amLODIPine 5 MG TAB PO SCH ×2 (08:19→20:45)
[2019-01-26] MEDS: PANTOPRAZOLE 40 MG TABLET PO SCH ×2 (08:19→17:46)
[2019-01-26] MEDS: ALPRAZolam 0.25 MG TAB PO SCH (08:19)
[2019-01-26] MEDS: THIAMINE 100 MG TAB PO SCH (08:19)
[2019-01-26] MEDS: PARoxetine 10 MG TAB PO SCH (08:19)
[2019-01-26] MEDS: INSULIN ASPART (NovoLOG) 100 UNIT/ML VIAL SQ SCH ×4 (08:19→21:42)
[2019-01-26] MEDS: METOPROLOL TARTRATE 25 MG TAB PO SCH ×2 (08:20→20:45)
[2019-01-26] MEDS: MULTIVITAMINS, THERA 1 EACH TAB PO SCH (08:20)
[2019-01-26] MEDS: ZIPRASIDONE 20 MG CAP PO SCH (08:20)
[2019-01-26] MEDS: ASPIRIN 81 MG PO SCH ×2 (08:20→20:45)
[2019-01-26] MEDS: FOLIC ACID 1 MG TAB PO SCH (08:20)
[2019-01-26] MEDS: POLYETHYLENE GLYCOL 3350 17 GM POWD.PACK PO SCH (08:21)
[2019-01-26] MEDS: INSULN ASP PRT/INSULIN ASPART 100 UNIT/ML 10 ML VIAL SQ SCH ×2 (08:21→21:41)
[2019-01-26] MEDS: CHOLECALCIFEROL 1,000 UNIT TAB PO SCH ×2 (08:21→20:45)
[2019-01-26] MEDS: SODIUM CHLORIDE 0.9% 1,000 ML IV SCH (08:32)
--- NOTE | 2019-01-26 09:39 | P.PN ---
Subjective Patient is seen in follow-up for acute kidney injury. Patient's creatinine June 2018 was near 1. It was elevated at 2.76 on admission an was down to 0.83 as of yesterday. Patient is more awake and alert today. Currently being treated for UTI. Urine cultures positive for VRE. Muñiz catheter has been removed. She is incontinent. Oral intake is fair. Also on IV fluids. Vital signs are stable. General: The patient appeared well nourished and normally developed. HEENT: Head exam is unremarkable. Neck is without jugular venous distension. LUNGS: Lungs are clear to auscultation and percussion. Breath sounds decreased. HEART: Rate and Rhythm are regular. First and second heart sounds normal. No murmurs, rubs or gallops. ABDOMEN: Abdominal exam reveals normal bowel sounds. Non-tender and non- distended. No evidence of peritonitis. EXTREMITITES: No clubbing, cyanosis, or edema. Objective - Vital Signs Vital signs: Vital Signs Temp 97.3 F L 01/26/19 04:45 Pulse 48 L 01/26/19 04:45 Resp 20 01/26/19 04:45 BP 144/73 01/26/19 04:45 Pulse Ox 100 01/26/19 04:45 Intake & Output 01/25/19 01/26/19 01/26/19 18:59 06:59 18:59 Intake Total 300 50 Output Total 600 225 Balance -300 -175 Intake: Oral 300 50 Output: Urine 600 Post Void Residual 225 Other: Voiding Method Indwelling Catheter Incontinent # Voids 0 3 # Bowel Movements 0 - Labs CBC & Chem 7: 01/24/19 06:24 01/25/19 07:07 Labs: Abnormal Lab Results - Last 24 Hours (Table) 01/25/19 01/25/19 Range/Units 11:34 20:24 POC Glucose (mg/dL) 132 H 100 H (75-99) mg/dL Microbiology - Last 24 Hours (Table) 01/21/19 11:10 Blood Culture - Preliminary Blood No Growth after 96 hours Assessment and Plan Plan: Assessment: 1. Acute kidney injury mostly prerenal secondary to poor oral intake and use of lisinopril. Also component of urinary retention. Creatinine was 2.76 on admission and now back to baseline. Baseline creatinine near 1 from June 2018. 2. Urinary retention. Muñiz catheter removed. 3. UTI maintain on antibiotics. Urine culture positive for VRE. 4. Metabolic acidosis secondary to acute kidney injury and IV fluids. Improved. 5. Insulin-dependent diabetes mellitus. 6. Benign hypertension. Controlled. 7. Mild hypokalemia from poor oral intake and diuresis. Plan: Maintain normal saline at 75 mL an hour. Avoid nephrotoxins. Encouraged oral intake.
[2019-01-26 09:57] LABS: Anisocytosis Slight; Basophils % (A) 1 %; Eosinophils # (A) 0.3 k/uL (0-0.7); Eosinophils % (A) 6 %; HCT 30.3 % (34.0-46.0); HGB 9.7 gm/dL (11.4-16.0); Lymphocytes # (A) 1.6 k/uL (1.0-4.8); Lymphocytes % (A) 26 %; MCH 30.1 pg (25.0-35.0); MCV 94.2 fL (80.0-100.0); Mean Platelet Volume 7.8; Monocytes # (A) 0.5 k/uL (0-1.0); Monocytes % (A) 8 %; Neutrophils # (A) 3.6 k/uL (1.3-7.7); Neutrophils % (A) 58 %; Platelet Count 234 k/uL (150-450); RBC 3.22 m/uL (3.80-5.40); RDW 17.9 % (11.5-15.5); WBC 6.2 k/uL (3.8-10.6)
[2019-01-26 10:06] LABS: Potassium 3.4 mmol/L (3.5-5.1)
[2019-01-26 11:38] VITALS: BMI 34.7
[2019-01-26] MEDS ORDERED: POTASSIUM CHLORIDE ER 20 MEQ TAB.ER PO STA (11:56)
[2019-01-26 12:42] LABS: Glucose,Whole Blood 101 mg/dL (75-99)
[2019-01-26] MEDS: DAPTOmycin 500 MG in SODIUM CHLORIDE 0.9% 50 ML IVPB SCH (14:35)
[2019-01-26 17:33] LABS: Glucose,Whole Blood 85 mg/dL (75-99)
--- NOTE | 2019-01-26 19:27 | PN ---
PROGRESS NOTE DATE OF SERVICE: 01/26/2019 This 73-year-old woman who was admitted with acute urinary tract infection with failure of outpatient treatment, also had VRE with possible sepsis. The patient also had some change in mental status. The patient is still confused. Patient being closely monitored at this time. The patient is followed by Infectious Disease. The patient is on IV daptomycin at this time. PAST MEDICAL HISTORY: Reviewed. REVIEW OF SYSTEMS: Could not be taken, the patient is confused. CURRENT MEDICATIONS: Reviewed and include: 1. Tylenol 650 q.6 p.r.n. 2. Zyloprim 100 mg p.o. b.i.d. 3. Xanax 0.25 daily. 4. Norvasc 5 mg p.o. b.i.d. 5. Aspirin 81 mg b.i.d. 6. Cogentin 0.5 mg daily. 8. Vitamin D3 1000 daily. 9. Daptomycin 500 mg daily. 10.Folic acid 1 mg. 11.Dilaudid 0.5 mg q.3 p.r.n. 12.NovoLog mix 70/30. 13.NovoLog. 14.Synthroid. 15.Milk of magnesia. 16.Lopressor. 17.Narcan. 18.Nitrostat. 19.Zofran. 20.Protonix. 21.Paxil. 22.MiraLAX. 23.Vitamin B1. 24.Geodon. 25.P.r.n. medications. PHYSICAL EXAM: Patient is alert and oriented times one. Pulse 75. Otherwise confused. Blood pressure 136/51, respirations 16, temperature 97.4, pulse ox 97% on room air. HEENT: Conjunctivae normal. NECK: No jugular venous distention. CARDIOVASCULAR: S1, S2 muffled. RESPIRATIONS: Breath sounds diminished in the bases. Bilateral scattered rhonchi and crackles. ABDOMEN: Soft, nontender. No mass palpable. LEGS: No edema. No swelling. NERVOUS SYSTEM: Higher functions as mentioned earlier. Moves all 4 limbs. No focal motor or sensory deficits. LYMPHATICS: No lymph nodes palpable in the neck, axillae or groin. SKIN: No ulcers, rashes or bleeding. JOINTS: No active deforming arthropathy. LABS: At this time shows WBC 6.2, hemoglobin 9.6. Sodium 135, potassium 3.4. ASSESSMENT: 1. Urinary tract infection with failure of outpatient treatment with VRE with possible sepsis, present on admission on daptomycin IV. 2. Change in mental status, acute metabolic encephalopathy, possibly secondary to sepsis. 3. Increased WBC. 4. Anemia, normocytic anemia of chronic disease. 5. Acute renal failure possibly prerenal from acute tubular necrosis. 6. History of coronary artery disease. 7. Diabetes mellitus type 2. 8. Hypertension. 9. Hyperlipidemia. 10.History of memory impairment. 11.History of sleep apnea. 12.History of hypothyroidism. 13.History of osteomyelitis. 14.History of MRSA. 15.History of coronary artery disease/ stent. 16.History of anxiety, depression, bipolar and panic disorder. 17.FULL CODE. RECOMMENDATIONS AND DISCUSSION: Recommend to continue current medications, continue with monitoring, symptomatic treatment. I recommend to continue with current medication, continue to monitor, symptomatic treatment at this time I recommend continue with IV daptomycin, PT/OT evaluation, possible ECF rehab. Closely follow with Infectious Disease and guarded prognosis. Further recommendations to follow. MMODL / IJN: [id number] / SUZANNE
[2019-01-26] MEDS: SENNOSIDES-DOCUSATE SODIUM 1 EACH TAB PO SCH (20:44)
[2019-01-26] MEDS: risperiDONE 0.5 MG TAB PO SCH (20:45)
[2019-01-26 21:37] LABS: Glucose,Whole Blood 86 mg/dL (75-99)
[2019-01-26] MEDS: ZIPRASIDONE 60 MG CAP PO SCH (21:44)
[2019-01-27] MEDS: ARTIFICIAL TEARS-HYPROMELLOSE DROPS 15 ML BTL LEFT EYE SCH ×4 (03:44→16:02)
[2019-01-27 07:14] LABS: Glucose,Whole Blood 83 mg/dL (75-99)
[2019-01-27] MEDS: INSULIN ASPART (NovoLOG) 100 UNIT/ML VIAL SQ SCH ×3 (07:14→17:10)
[2019-01-27] MEDS: POLYETHYLENE GLYCOL 3350 17 GM POWD.PACK PO SCH (08:44)
[2019-01-27] MEDS: THIAMINE 100 MG TAB PO SCH (08:44)
[2019-01-27] MEDS: BENZTROPINE MESYLATE 0.5 MG TAB PO SCH (08:44)
[2019-01-27] MEDS: ALPRAZolam 0.25 MG TAB PO SCH (08:45)
[2019-01-27] MEDS: ALLOPURINOL 100 MG TAB PO SCH (08:45)
[2019-01-27] MEDS: CHOLECALCIFEROL 1,000 UNIT TAB PO SCH (08:45)
[2019-01-27] MEDS: PANTOPRAZOLE 40 MG TABLET PO SCH (08:45)
[2019-01-27] MEDS: amLODIPine 5 MG TAB PO SCH (08:45)
[2019-01-27] MEDS: MULTIVITAMINS, THERA 1 EACH TAB PO SCH (08:45)
[2019-01-27] MEDS: ASPIRIN 81 MG PO SCH (08:45)
[2019-01-27] MEDS: METOPROLOL TARTRATE 25 MG TAB PO SCH (08:45)
[2019-01-27] MEDS: PARoxetine 10 MG TAB PO SCH (08:45)
[2019-01-27] MEDS: FOLIC ACID 1 MG TAB PO SCH (08:46)
[2019-01-27] MEDS: LEVOTHYROXINE 112 MCG TAB PO SCH (08:46)
[2019-01-27] MEDS: INSULN ASP PRT/INSULIN ASPART 100 UNIT/ML 10 ML VIAL SQ SCH (08:46)
[2019-01-27] MEDS: ZIPRASIDONE 20 MG CAP PO SCH (08:47)
[2019-01-27 09:02] LABS: Calcium 9.4 mg/dL (8.4-10.2); Magnesium 1.5 mg/dL (1.6-2.3); Potassium 3.8 mmol/L (3.5-5.1)
--- NOTE | 2019-01-27 10:54 | P.DS ---
Providers Date of admission: 01/21/19 16:30 Attending physician: Penny Garcia Consults: 01/21/19 16:20 Consult Physician Stat Consulting Provider: Adalberto More Consult Reason/Comments: UTI, Failure outpatient Do you want consulting provider notified?: Yes Consult Physician Stat Consulting Provider: Radha Cruz Consult Reason/Comments: ARF Do you want consulting provider notified?: Yes 01/22/19 14:20 Consult Physician Urgent Consulting Provider: Jerome Lynn Consult Reason/Comments: bleeding Do you want consulting provider notified?: Yes [facility] care [facility] Course: Final diagnoses UTI with the failure of outpatient treatment with the VRE with the possible sepsis present on admission treated with the daptomycin IV Change in mental status acute metabolic encephalopathy possibly secondary to sepsis Increased WBC Anemia normocytic anemia of chronic disease Acute renal failure possibly prerenal from acute tubular necrosis History of CAD Diabetes mellitus type 2 Hypertension Hyperlipidemia History of memory impairment History of sleep apnea History of hypothyroidism History of osteomyelitis History of MRSA next in line history of CAD stent History of anxiety depression and bipolar panic disorder Full code Discharge disposition This patient be discharged in a stable condition guarded prognosis to [facility]. Total time taken 35 minutes recommend close follow-up with Dr. Dubon in the outpatient setting after discharge from [facility] History of present illness This 73-year-old woman with a past medical history multiple medical problems was admitted to the hospital with UTI change in mental status with the failure of outpatient treatment. VRE was subcultured from the urine. Daptomycin was initiated. Infectious disease saw the patient. Patient improved significantly. Patient discharged in a stable pressure the guarded prognosis to [facility] with the following recommendations. The patient was confused initially. Medications are adjusted. Patient improved significantly as mentioned. However prognosis remains guarded. On exam vitals are stable. Patient is confused. S1 and S2 normal. Respirator system few scattered rhonchi. Abdomen soft nontender nervous system weak diffusely. Please refer to the medication reconciliation sheet for list of medications. Patient Condition at Discharge: Stable Plan - Discharge Summary New Discharge Prescriptions: New Folic Acid 1 mg PO DAILY@1200 tab Multivitamins, Thera [Multivitamin (formulary)] 1 each PO DAILY@1200 tab amLODIPine [Norvasc] 5 mg PO BID tab INSULIN ASPART (NovoLOG) [NovoLOG (formulary)] 0 unit SQ ACHS vial risperiDONE [RisperDAL] 0.5 mg PO HS #4 tab Thiamine [Vitamin B-1] 100 mg PO DAILY@1200 tab Continue Nitroglycerin Sl Tabs [Nitrostat] 0.4 mg SUBLINGUAL Q5M PRN PRN Reason: Chest Pain Cholecalciferol [Vitamin D3 (25 Mcg = 1000 Iu)] 1,000 unit PO BID Levothyroxine Sodium [Synthroid] 112 mcg PO DAILY Allopurinol [Zyloprim] 100 mg PO BID Aspirin EC [Ecotrin Low Dose] 81 mg PO BID Atorvastatin Calcium [Lipitor] 80 mg PO HS@2000 Pantoprazole [Protonix] 40 mg PO BID Benztropine Mesylate [Cogentin] 0.5 mg PO DAILY Ziprasidone [Geodon] 60 mg PO HS@2000 Acetaminophen Tab [Tylenol] 650 mg PO Q6HR PRN tab PRN Reason: Mild Pain Or Fever > 100.5 Insulin Lispro Protamin/Lispro [humaLOG Mix 75-25 Kwikpen] 16 unit SQ DAILY Insulin Lispro Protamin/Lispro [humaLOG Mix 75-25 Kwikpen] 12 unit SQ HS@2000 Sennosides-Docusate Sodium [Senokot-S] 2 tab PO HS PARoxetine HCL [Paxil] 30 mg PO DAILY Magnesium Hydroxide [Milk of Magnesia] 2,400 mg PO DAILY PRN PRN Reason: Constipation Metoprolol Tartrate [Lopressor] 25 mg PO BID Lisinopril [Zestril] 20 mg PO BID Polyethylene Glycol 3350 [Miralax] 17 gm PO DAILY Bisacodyl [Dulcolax] 10 mg RECTAL DAILY PRN PRN Reason: Constipation Saliva Stimulant Agents Comb.3 [Biotene Moisturizing Mouth] 1 spray MUCOUS MEM TID Artificial Tears-Hypromellose [Artificial Tear Drops] 2 drops LEFT EYE Q4H Ziprasidone HCl [Geodon] 20 mg PO QAM #5 capsule ALPRAZolam [Xanax] 0.25 mg PO DAILY #5 tablet Discontinued Ciprofloxacin HCl [Cipro] 500 mg PO BID Discharge Medication List Nitroglycerin Sl Tabs [Nitrostat] 0.4 mg SUBLINGUAL Q5M PRN 12/31/13 [History] Cholecalciferol [Vitamin D3 (25 Mcg = 1000 Iu)] 1,000 unit PO BID 04/23/14 [History] Levothyroxine Sodium [Synthroid] 112 mcg PO DAILY 09/09/15 [History] Allopurinol [Zyloprim] 100 mg PO BID 09/03/16 [History] Aspirin EC [Ecotrin Low Dose] 81 mg PO BID 06/04/17 [History] Atorvastatin Calcium [Lipitor] 80 mg PO HS@199911/02/17 [History] Pantoprazole [Protonix] 40 mg PO BID 11/02/17 [History] Benztropine Mesylate [Cogentin] 0.5 mg PO DAILY 08/13/18 [History] Ziprasidone [Geodon] 60 mg PO HS@199908/13/18 [History] Acetaminophen Tab [Tylenol] 650 mg PO Q6HR PRN tab 08/18/18 [Rx] Insulin Lispro Protamin/Lispro [humaLOG Mix 75-25 Kwikpen] 12 unit SQ HS@199910/04/18 [History] Insulin Lispro Protamin/Lispro [humaLOG Mix 75-25 Kwikpen] 16 unit SQ DAILY 10/04/18 [History] Artificial Tears-Hypromellose [Artificial Tear Drops] 2 drops LEFT EYE Q4H 01/21/19 [History] Bisacodyl [Dulcolax] 10 mg RECTAL DAILY PRN 01/21/19 [History] Lisinopril [Zestril] 20 mg PO BID 01/21/19 [History] Magnesium Hydroxide [Milk of Magnesia] 2,400 mg PO DAILY PRN 01/21/19 [History] Metoprolol Tartrate [Lopressor] 25 mg PO BID 01/21/19 [History] PARoxetine HCL [Paxil] 30 mg PO DAILY 01/21/19 [History] Polyethylene Glycol 3350 [Miralax] 17 gm PO DAILY 01/21/19 [History] Saliva Stimulant Agents Comb.3 [Biotene Moisturizing Mouth] 1 spray MUCOUS MEM TID 01/21/19 [History] Sennosides-Docusate Sodium [Senokot-S] 2 tab PO HS 01/21/19 [History] ALPRAZolam [Xanax] 0.25 mg PO DAILY #5 tablet 01/27/19 [Rx] Folic Acid 1 mg PO DAILY@1200 tab 01/27/19 [Rx] INSULIN ASPART (NovoLOG) [NovoLOG (formulary)] 0 unit SQ ACHS vial 01/27/19 [Rx] Multivitamins, Thera [Multivitamin (formulary)] 1 each PO DAILY@1200 tab 01/27/19 [Rx] Thiamine [Vitamin B-1] 100 mg PO DAILY@1200 tab 01/27/19 [Rx] Ziprasidone HCl [Geodon] 20 mg PO QAM #5 capsule 01/27/19 [Rx] amLODIPine [Norvasc] 5 mg PO BID tab 01/27/19 [Rx] risperiDONE [RisperDAL] 0.5 mg PO HS #4 tab 01/27/19 [Rx] Follow up Appointment(s)/Referral(s): Cesar Nielsen DO [Primary Care Provider] - 1-2 days Adeline Kim MD [REFERRING] - 2 Weeks () Patient Instructions/Handouts: Acute Kidney Injury (DC) Activity/Diet/Wound Care/Special Instructions: Ground diet, chopped, nectar thick liquid, 1:1 feed Up with assist, fall precautions antibiotics per ID
--- NOTE | 2019-01-27 11:12 | P.PN ---
Subjective Patient is seen in follow-up for acute kidney injury which is resolved. GFR is back to baseline. Patient is awake and alert. Currently being treated for UTI. Urine cultures positive for VRE. Muñiz catheter has been removed. She is incontinent. Oral intake is fair. IV fluids have been discontinued. Vital signs are stable. General: The patient appeared well nourished and normally developed. HEENT: Head exam is unremarkable. Neck is without jugular venous distension. LUNGS: Lungs are clear to auscultation and percussion. Breath sounds decreased. HEART: Rate and Rhythm are regular. First and second heart sounds normal. No murmurs, rubs or gallops. ABDOMEN: Abdominal exam reveals normal bowel sounds. Non-tender and non- distended. No evidence of peritonitis. EXTREMITITES: No clubbing, cyanosis, or edema. Objective - Vital Signs Vital signs: Vital Signs Temp 97.5 F L 01/27/19 05:10 Pulse 53 L 01/27/19 05:10 Resp 14 01/27/19 05:10 BP 135/55 01/27/19 05:10 Pulse Ox 96 01/27/19 05:10 Intake & Output 01/26/19 01/27/19 01/27/19 18:59 06:59 18:59 Intake Total 550 100 Balance 550 100 Weight 86 kg Intake: Oral 550 100 Other: Voiding Method Diaper Diaper Diaper Incontinent Incontinent Incontinent # Voids 3 2 - Labs CBC & Chem 7: 01/26/19 08:58 01/27/19 08:31 Labs: Abnormal Lab Results - Last 24 Hours (Table) 01/26/19 01/27/19 Range/Units 12:35 08:31 Sodium 146 H (137-145) mmol/L Chloride 113 H (98-107) mmol/L Glucose 100 H (74-99) mg/dL POC Glucose (mg/dL) 101 H (75-99) mg/dL Magnesium 1.5 L (1.6-2.3) mg/dL Microbiology - Last 24 Hours (Table) 01/21/19 11:10 Blood Culture - Preliminary Blood No Growth after 120 hours Assessment and Plan Plan: Assessment: 1. Acute kidney injury mostly prerenal secondary to poor oral intake and use of lisinopril. Also component of urinary retention. Creatinine was 2.76 on admission and now back to baseline. Baseline creatinine near 1 from June 2018. 2. Urinary retention. Muñiz catheter removed. 3. UTI maintain on antibiotics. Urine culture positive for VRE. 4. Metabolic acidosis secondary to acute kidney injury and IV fluids. Improved. 5. Insulin-dependent diabetes mellitus. 6. Benign hypertension. Controlled. 7. Mild hypokalemia from poor oral intake and diuresis. Better. 8. Mild hyponatremia secondary to lack of oral water intake. 9. Hypomagnesemia from poor oral intake. Plan: Avoid nephrotoxins. Encouraged oral intake, including free water. Replace magnesium. 2 g IV today.
[2019-01-27 12:10] LABS: Glucose,Whole Blood 103 mg/dL (75-99)
[2019-01-27] MEDS: DAPTOmycin 500 MG in SODIUM CHLORIDE 0.9% 50 ML IVPB SCH (14:13)
[2019-01-27 14:19] VITALS: BP 111/46; PULSE 64; RESP 16; TEMP 98.2
[2019-01-27] MEDS: MAGNESIUM SULFATE-D5W PMX 1 GM in DEXTROSE/WATER 1 100ML.BAG IVPB SCH ×2 (15:24→16:01)
--- NOTE | 2019-01-27 22:50 | P.PN ---
Subjective Progress Note Date: 01/27/19 73-year-old woman who has advanced dementia presents to Hospital extended care facility with alteration of her mental status, increasing weakness, poor oral intake and concerns from the of the marked worsening of her status. At the temporary admission she has evidence of a low-grade fever does have evidence of some hypothermia. There is evidence of leukocytosis and a markedly abnormal urinalysis. With concerns of sepsis and urinary system she was admitted to hospital and with that infectious disease consultation was requested. The patient also had evidence of some acute renal failure and nephrology consult was also requested. The patient's does relate that at the extended care facility a bloody urine was noted. The patient herself is unable to give any particular history. 01/23/2019 there is been little change in the status in the last day. She or does seem to be comfortable. Cultures now finalizing. 01/24/2019 H and has no new complaints. There was some vaginal bleeding that was noted and has been evaluated by gynecology with outpatient follow-up as planned 01/27/2019 patient is feeling somewhat better. Seems to be comfortable. IV access is been placed for her transfer back to the [facility]. Objective - Vital Signs Vital signs: Vital Signs Temp 98.2 F 01/27/19 14:19 Pulse 64 01/27/19 14:19 Resp 16 01/27/19 14:19 BP 111/46 01/27/19 14:19 Pulse Ox 98 01/27/19 14:19 Intake & Output 01/27/19 01/27/19 01/28/19 06:59 18:59 06:59 Intake Total 100 Balance 100 Intake: Oral 100 Other: Voiding Method Diaper Diaper Incontinent Incontinent # Voids 2 2 - Exam HEENT: Conjunctiva are anicteric mucous membranes are somewhat dry, oral mucosa dry dentition poor no thrush Neck: The neck is supple without significant lymphadenopathy or thyromegaly. Lungs: Good bilateral air entry without significant crackles or wheezing. There is no significant bronchial sounds. There is no egophony or dullness. Heart: Irregular with a soft S4. There is no significant murmur click or rub, PMI was nondisplaced. Abdomen: Positive bowel sounds soft and nontender without palpable masses or organomegaly. There was no guarding or rebound. Extremities: The upper extremities have excellent pulses they are symmetric, no significant petechiae or telangiectasia. No splinter hemorrhages were noted. L yasmeen extremities have evidence of chronic bilateral lower extremity edema with no acute new ulcerations Neuro: Arousable appears to be oriented to person only. Speech is understandable but content is meaningless - Labs CBC & Chem 7: 01/26/19 08:58 01/27/19 08:31 Labs: Abnormal Lab Results - Last 24 Hours (Table) 01/27/19 01/27/19 Range/Units 08:31 12:10 Sodium 146 H (137-145) mmol/L Chloride 113 H (98-107) mmol/L Glucose 100 H (74-99) mg/dL POC Glucose (mg/dL) 103 H (75-99) mg/dL Magnesium 1.5 L (1.6-2.3) mg/dL Microbiology - Last 24 Hours (Table) 01/21/19 11:10 Blood Culture - Final Blood No Growth after 144 hours Laboratory Results WBC 6.2 k/uL (3.8-10.6) 01/26/19 08:58 RBC 3.22 m/uL (3.80-5.40) L 01/26/19 08:58 Hgb 9.7 gm/dL (11.4-16.0) L 01/26/19 08:58 Hct 30.3 % (34.0-46.0) L 01/26/19 08:58 MCV 94.2 fL (80.0-100.0) 01/26/19 08:58 MCH 30.1 pg (25.0-35.0) 01/26/19 08:58 MCHC 32.0 g/dL (31.0-37.0) 01/26/19 08:58 RDW 17.9 % (11.5-15.5) H 01/26/19 08:58 Plt Count 234 k/uL (150-450) 01/26/19 08:58 Neutrophils % 58 % 01/26/19 08:58 Lymphocytes % 26 % 01/26/19 08:58 Monocytes % 8 % 01/26/19 08:58 Eosinophils % 6 % 01/26/19 08:58 Basophils % 1 % 01/26/19 08:58 Neutrophils # 3.6 k/uL (1.3-7.7) 01/26/19 08:58 Lymphocytes # 1.6 k/uL (1.0-4.8) 01/26/19 08:58 Monocytes # 0.5 k/uL (0-1.0) 01/26/19 08:58 Eosinophils # 0.3 k/uL (0-0.7) 01/26/19 08:58 Basophils # 0.0 k/uL (0-0.2) 01/26/19 08:58 Hypochromasia Slight 01/23/19 06:19 Anisocytosis Slight 01/26/19 08:58 PT 11.0 sec (9.0-12.0) 01/21/19 11:10 INR 1.0 (<1.2) 01/21/19 11:10 APTT 30.8 sec (22.0-30.0) H 01/21/19 11:10 Sample Site Right Radial 01/21/19 23:43 ABG pH 7.29 (7.35-7.45) L 01/21/19 23:43 ABG pCO2 48 mmHg (35-45) H 01/21/19 23:43 ABG pO2 181 mmHg (83-108) H 01/21/19 23:43 ABG HCO3 23 mmol/L (21-25) 01/21/19 23:43 ABG Total CO2 24 mmol/L (19-24) 01/21/19 23:43 ABG O2 Saturation 99.1 % (94-97) H 01/21/19 23:43 ABG Base Excess -4.0 mmol/L 01/21/19 23:43 Chalo Test Yes 01/21/19 23:43 FiO2 32 % 01/21/19 23:43 Sodium 146 mmol/L (137-145) H 01/27/19 08:31 Potassium 3.8 mmol/L (3.5-5.1) 01/27/19 08:31 Chloride 113 mmol/L (98-107) H 01/27/19 08:31 Carbon Dioxide 25 mmol/L (22-30) 01/27/19 08:31 Anion Gap 8 mmol/L 01/27/19 08:31 BUN 10 mg/dL (7-17) 01/27/19 08:31 Creatinine 0.95 mg/dL (0.52-1.04) 01/27/19 08:31 Est GFR (CKD-EPI)AfAm 68 (>60 ml/min/1.73 sqM) 01/27/19 08:31 Est GFR (CKD-EPI)NonAf 59 (>60 ml/min/1.73 sqM) 01/27/19 08:31 Glucose 100 mg/dL (74-99) H 01/27/19 08:31 POC Glucose (mg/dL) 103 mg/dL (75-99) H 01/27/19 12:10 POC Glu Dispatch Machine Runner ID Tigist Rincon 01/27/19 12:10 Plasma Lactic Acid Jewel 1.2 mmol/L (0.7-2.0) 01/21/19 11:10 Calcium 9.4 mg/dL (8.4-10.2) 01/27/19 08:31 Magnesium 1.5 mg/dL (1.6-2.3) L 01/27/19 08:31 Total Bilirubin 0.3 mg/dL (0.2-1.3) 01/21/19 19:46 AST 24 U/L (14-36) 01/21/19 19:46 ALT 17 U/L (9-52) 01/21/19 19:46 Alkaline Phosphatase 78 U/L (38-126) 01/21/19 19:46 Ammonia <9 umol/L (<30) 01/22/19 00:10 Troponin I <0.012 ng/mL (0.000-0.034) 01/21/19 11:10 Total Protein 5.8 g/dL (6.3-8.2) L 01/21/19 19:46 Albumin 3.2 g/dL (3.5-5.0) L 01/21/19 19:46 Urine Color Yellow 01/21/19 13:10 Urine Appearance Cloudy (Clear) H 01/21/19 13:10 Urine pH 6.5 (5.0-8.0) 01/21/19 13:10 Ur Specific [place] 1.019 (1.001-1.035) 01/21/19 13:10 Urine Protein 1+ (Negative) H 01/21/19 13:10 Urine Glucose (UA) Negative (Negative) 01/21/19 13:10 Urine Ketones Negative (Negative) 01/21/19 13:10 Urine Blood Small (Negative) H 01/21/19 13:10 Urine Nitrite Negative (Negative) 01/21/19 13:10 Urine Bilirubin Negative (Negative) 01/21/19 13:10 Urine Urobilinogen <2.0 mg/dL (<2.0) 01/21/19 13:10 Ur Leukocyte Esterase Large (Negative) H 01/21/19 13:10 Urine WBC >182 /hpf (0-5) H 01/21/19 13:10 Urine WBC Clumps Many /hpf (None) H 01/21/19 13:10 Urine Bacteria Rare /hpf (None) H 01/21/19 13:10 Random Vancomycin 18.5 ug/mL 01/23/19 06:19 Microbiology 01/21/19 11:10 Blood Blood Culture - Final No Growth after 144 hours 01/21/19 14:00 Urine,Catheterized Urine Culture - Final Enterococcus faecium VRE Assessment and Plan (1) Altered mental status Status: Acute Code(s): R41.82 - ALTERED MENTAL STATUS, UNSPECIFIED SNOMED Code(s): 449899719 (2) Fever and chills Status: Acute Code(s): R50.9 - FEVER, UNSPECIFIED SNOMED Code(s): 714218283 (3) Urinary tract infection Narrative/Plan: 73-year-old woman who has advanced dementia and isn't present extended care facility started to have a change of her status. It appears she started have some fever with bloody urine and marked worsening of her overall status. She became progressively confused and started to have poor oral intake. With this she was brought to hospital with evidence of acute renal failure, acute sepsis from the urinary system. Based on prior cultures antibiotic therapy was initially with vancomycin and ceftazidime pending further culture results. Blood cultures are in process. If not done recently, renal ultrasound may be of some utility to ensure that there is no obstructive uropathy occurring. The patient did have some relative hypothermia but is now improved and appears to be directly related to her about of sepsis that seems to be responding to fluid resuscitation and antibiotic therapy. Final recommendations are based upon culture results and results of the workup. is informed of current plan. 01/23/2019 final culture showing enterococcus. We'll be able to de-escalate antibiotic therapy to Unasyn and monitor progress. Continue ongoing supportive care. will help us determine when she has regained more of her baseline status. If blood cultures remain negative would plan on transfer back to the extended care facility. 01/27/2019 the patient's status is stabilized. She will going back to the extended care facility today. The areas been isolated in 7 further days of daptomycin have been requested and apparently authorized and she does have her I V access that has been placed. Status: Acute Code(s): N39.0 - URINARY TRACT INFECTION, SITE NOT SPECIFIED SNOMED Code(s): 34351974 (4) Major neurocognitive disorder due to Alzheimer's disease, probable, with behavioral disturbance Status: Acute Code(s): G30.9 - ALZHEIMER'S DISEASE, UNSPECIFIED; F02.81 - DEMENTIA IN OTH DISEASES CLASSD [id number] W BEHAVIORAL DISTURB SNOMED Code(s): 567839163
== END 2019-01-27 17:26 | DRG 871 ==
LOC: EC 10:49 → 4MS4W 16:30 → 3NMEDONC 18:19 → 3SCARD 01-22 00:59 → 4MS4W 01-24 17:18
PROVIDERS: ADMIT Hospitalist; ATTEND Hospitalist
PROC: 05HD33Z Insertion of Infusion Device into Right Cephalic Vein, Percutaneous Approach (ICD-10-PCS; principal; 2019-01-27 13:00)
DX: A41.81 Sepsis due to Enterococcus (principal); N17.0 Acute kidney failure with tubular necrosis; G93.41 Metabolic encephalopathy; N39.0 Urinary tract infection, site not specified; E87.1 Hypo-osmolality and hyponatremia; E87.2 Acidosis; F02.81 Dementia in other diseases classified elsewhere, unspecified severity, with behavioral disturbance; B37.3 Candidiasis of vulva and vagina; D63.8 Anemia in other chronic diseases classified elsewhere; I12.9 Hypertensive chronic kidney disease with stage 1 through stage 4 chronic kidney disease, or unspecified chronic kidney disease; E11.22 Type 2 diabetes mellitus with diabetic chronic kidney disease; N18.3 Chronic kidney disease, stage 3 (moderate); Z79.4 Long term (current) use of insulin; E78.5 Hyperlipidemia, unspecified; E83.42 Hypomagnesemia; E86.0 Dehydration; E87.6 Hypokalemia; E89.0 Postprocedural hypothyroidism; F41.0 Panic disorder [episodic paroxysmal anxiety]; G30.9 Alzheimer's disease, unspecified; G47.30 Sleep apnea, unspecified; I25.10 Atherosclerotic heart disease of native coronary artery without angina pectoris; I25.2 Old myocardial infarction; N93.9 Abnormal uterine and vaginal bleeding, unspecified; R32 Unspecified urinary incontinence; R93.89 Abnormal findings on diagnostic imaging of other specified body structures; Z16.21 Resistance to vancomycin; Z74.01 Bed confinement status; Z79.890 Hormone replacement therapy; Z79.899 Other long term (current) drug therapy; Z82.49 Family history of ischemic heart disease and other diseases of the circulatory system; Z83.3 Family history of diabetes mellitus; Z85.850 Personal history of malignant neoplasm of thyroid; Z86.14 Personal history of Methicillin resistant Staphylococcus aureus infection; Z87.440 Personal history of urinary (tract) infections; Z95.5 Presence of coronary angioplasty implant and graft; Z98.1 Arthrodesis status; Z91.81 History of falling; R31.9 Hematuria, unspecified; F40.240 Claustrophobia; Z88.5 Allergy status to narcotic agent; Z88.2 Allergy status to sulfonamides; Z88.8 Allergy status to other drugs, medicaments and biological substances; Z88.1 Allergy status to other antibiotic agents; Z91.041 Radiographic dye allergy status; K59.00 Constipation, unspecified; T68.XXXA Hypothermia, initial encounter
CPT/HCPCS: 36410; 36415; 36600; 71046; 72170; 74176; 76830; 76937; 80048; 80053; 80202; 81001; 82140; 82805; 83605; 83735; 84484; 85025; 85610; 85730; 87040; 87077; 87086; 87186; 93005; 96361; 96365; 96366; 96375; 99285